=== PATIENT | female | born 1970 | race Caucasian/White ===

== ENCOUNTER 2017-02-11 23:13 | Inpatient (IN) | payer MEDICAID ==
[~2017-02-11] VITALS: Ht 157.5 cm; Wt 92.0 kg
[~2017-02-11 23:13] MED LIST: BENA20TA65 PO; ESOM20CA PO; FER325 PO; ISOS30TA5 PO; LANT3I SC; NIFE60TA60 PO; OXYC-281 PO
--- NOTE | 2017-02-12 02:23 | ERD ---
ER Documentation Chief Complaint Date/Time DATE: 02/12/17 TIME: 02:23 Chief Complaint BILAT LOWER EXT SWELLING/BACK PAIN CHEST WALL PAIN X2DAYS HPI 46-year-old woman presents with pressure-like chest discomfort radiating to the back 2 days. She denies previous episodes. States the pain is exertional. She denies cough, no fevers or chills, no vomiting or diarrhea, no headache or blurry vision. She states recently her lower extremities have been swollen. ROS All systems reviewed and are negative except as per history of present illness. Medications Home Meds Active Scripts Oxycodone Hcl-Acetaminophen* (Percocet*) 5-325 Mg Tablet, 1 TAB PO Q6 Y for PAIN LEVEL 6-10 for 10 Days, TAB Prov:REBA SUAREZ MD 10/05/15 Nifedipine* (Procardia XL*) 60 Mg Tabsr, 60 MG PO DAILY for 30 Days, TAB Prov:REBA SUAREZ MD 10/05/15 Isosorbide Mononitrate* (Isosorbide Mononitrate*) 30 Mg Tabsr, 30 MG PO DAILY for 30 Days, TAB Prov:REBA SUAREZ MD 10/05/15 Insulin Glargine* (Lantus*) 100 Unit/Ml Soln, 10 UNIT SC HS for 30 Days, BOT Prov:REBA SUAREZ MD 09/23/15 Ferrous Sulfate* (Ferrous Sulfate*) 325 Mg Tabec, 325 MG PO DAILY for 30 Days, TAB Prov:REBA SUAREZ MD 09/23/15 Benazepril Hcl* (Lotensin*) 20 Mg Tab, 20 MG PO DAILY for 30 Days, TAB Prov:REBA SUAREZ MD 09/23/15 Reported Medications Esomeprazole Mag Trihydrate (Nexium) 20 Mg Capsule.dr, 20 MG PO DAILY, #30 CAP 09/30/15 Allergies Allergies: Coded Allergies: No Known Drug Allergy (Verified Allergy, Mild, 09/30/15) PMhx/Soc Anemia, hypertension, chronic kidney disease, diabetes mellitus 2, History of Surgery: No Anesthesia Reaction: No Hx Neurological Disorder: Yes (RIGHT ARM LIGHT WEAKER THAN LEFT ARM,STROKE 2 MONTHS AGO) Hx Respiratory Disorders: No Hx Cardiac Disorders: No Hx Psychiatric Problems: Yes (ANXIETY) Hx Miscellaneous Medical Probl: Yes (Please see EMR) Hx Alcohol Use: No (DENIED) Hx Substance Use: No Hx Tobacco Use: Yes (SOCIALIZE, STOPPED 20YRS) FmHx Family History: diabetes Physical Exam Vitals Vital Signs Date Time Temp Pulse Resp B/P Pulse Ox O2 Delivery O2 Flow Rate FiO2 02/12/17 04:19 63 18 100 21 02/12/17 02:48 63 17 153/76 100 Room Air 02/11/17 23:25 97.2 69 20 152/67 98 Physical Exam GENERAL: Well-developed, well-nourished, mild to moderate discomfort HEENT: Moist mucous membranes, pink conjunctiva, no cervical spine tenderness or step-off deformities, no goiter, no jaundice or icterus, extraocular movements intact without pain. No submandibular induration, and no pharyngeal erythema NEURO: Alert and oriented 3, cranial nerves II through XII intact bilaterally, pupils equal round reactive to light, no focal deficits or facial asymmetry, sensation intact distally Strength 5/5 in upper and lower extremities bilaterally CARDIAC: Regular rate and rhythm, no murmurs rubs or gallops LUNGS: Clear bilaterally no wheezing crackles or stridor ABDOMEN: Soft nontender, no guarding, no rigidity, no rebound, no psoas sign no obturator sign. SKIN: Warm and dry to touch, no abrasions, contusions, or hematomas, no lacerations, no ecchymosis, no target lesions, and without ulcers EXTREMITIES: No clubbing cyanosis, 2+ pitting edema in the lower extremities bilaterally, calves are bilaterally symmetrical, no Homans sign, no popliteal cord sign. Distal pulses equal and bilateral PSYCH: Anxious Result Diagram: 02/12/17 0235 02/12/17 0235 Results 24 hrs Laboratory Tests Test 02/12/17 02:35 White Blood Count 6.610^3/ul Red Blood Count 3.1110^6/ul Hemoglobin 9.1g/dl Hematocrit 28.4% Mean Corpuscular Volume 91.3fl Mean Corpuscular Hemoglobin 29.3pg Mean Corpuscular Hemoglobin Concent 32.0g/dl Red Cell Distribution Width 15.0% Platelet Count 19174^3/UL Mean Platelet Volume 11.9fl Neutrophils % 63.5% Lymphocytes % 26.1% Monocytes % 7.8% Eosinophils % 2.0% Basophils % 0.3% Nucleated Red Blood Cells % 0.0/100WBC Neutrophils # 4.210^3/ul Lymphocytes # 1.710^3/ul Monocytes # 0.510^3/ul Eosinophils # 0.110^3/ul Basophils # 0.010^3/ul Nucleated Red Blood Cells # 0.010^3/ul Sodium Level 140mmol/L Potassium Level 6.5mmol/L Chloride Level 113mmol/L Carbon Dioxide Level 11mmol/L Anion Gap 23 Blood Urea Nitrogen 68mg/dl Creatinine 4.77mg/dl Glucose Level 153mg/dl Calcium Level 7.9mg/dl Total Bilirubin 0.0mg/dl Direct Bilirubin 0.00mg/dl Indirect Bilirubin 0.0mg/dl Aspartate Amino Transf (AST/SGOT) 22IU/L Alanine Aminotransferase (ALT/SGPT) 31IU/L Alkaline Phosphatase 102IU/L Troponin I < 0.012ng/ml Total Protein 7.3g/dl Albumin 4.3g/dl Globulin 3.00g/dl Albumin/Globulin Ratio 1.43 Lipase 280U/L Current Medications Medications (Trade) Dose Ordered Sig/Stalin Route PRN Reason Start Time Stop Time Status Last Admin Dose Admin Aspirin (Aspirin) 325 mg ONCE ONCE PO 02/12/17 03:00 02/12/17 03:01 DC 02/12/17 02:47 Nitroglycerin (Nitroglycerin (Sl Tab) 0.4 Mg) 1 tab ONCE ONCE SL 02/12/17 03:00 02/12/17 03:01 DC 02/12/17 02:43 Lorazepam 0.5 mg 0.5 mg ONCE ONCE IV 02/12/17 03:00 02/12/17 03:01 DC 02/12/17 02:47 Calcium Gluconate/ Sodium Chloride (Ca Gluc/NS) 110 ml @ 110 mls/hr ONCE ONCE IVPB 02/12/17 04:30 02/12/17 05:29 02/12/17 04:26 Dextrose (D50w Syringe) 50 ml ONCE STAT IV 02/12/17 04:04 02/12/17 04:10 DC 02/12/17 04:26 Insulin Human Regular (Novolin-R) 8 unit ONCE ONCE IV 02/12/17 04:30 02/12/17 04:30 DC Albuterol (Proventil 0.083% (Neb)) 5 mg ONCE STAT HHN 02/12/17 04:04 02/12/17 04:10 DC 02/12/17 04:19 Insulin Human Regular (Humulin R) 8 unit ONCE ONCE IV 02/12/17 04:30 02/12/17 04:31 DC 02/12/17 04:30 IV Flush (NS 3 ml) 3 ml PER PROTOCOL IV 02/12/17 05:00 Ondansetron HCl (Zofran Inj) 4 mg Q6H PRN IV NAUSEA AND/OR VOMITING 02/12/17 05:00 Aspirin (Aspirin) 81 mg DAILY PO 02/12/17 09:00 Nitroglycerin (Nitroglycerin (Sl Tab) 0.4 Mg) 1 tab Q5M PRN SL CHEST PAIN 02/12/17 05:00 Acetaminophen (Tylenol Tab) 650 mg Q6H PRN PO PAIN LEVEL 1-3 OR FEVER 02/12/17 05:00 Morphine Sulfate (morphine) 2 mg Q4H PRN IV PAIN LEVEL 7-10 02/12/17 05:00 Docusate Sodium (Colace) 100 mg Q12H PRN PO CONSTIPATION 02/12/17 05:00 Bisacodyl (Dulcolax) 5 mg DAILY PRN PO CONSTIPATION 02/12/17 05:00 Pantoprazole (Protonix Iv) 40 mg DAILY@06 IV 02/12/17 06:00 Ferrous Sulfate (Ferrous Sulfate (Ec)) 325 mg DAILY PO 02/12/17 09:00 Insulin Glargine (Lantus) 10 unit HS SC 02/12/17 21:00 Isosorbide Mononitrate (Imdur) 30 mg DAILY PO 02/12/17 09:00 Nifedipine (Procardia Xl) 60 mg DAILY PO 02/12/17 09:00 Miscellaneous Information 1 ea NOTE XX 02/12/17 05:00 Glucose (Glutose) 15 gm Q15M PRN PO DECREASED GLUCOSE 02/12/17 05:00 Glucose (Glutose) 22.5 gm Q15M PRN PO DECREASED GLUCOSE 02/12/17 05:00 Dextrose (D50w Syringe) 25 ml Q15M PRN IV DECREASED GLUCOSE 02/12/17 05:00 Dextrose (D50w Syringe) 50 ml Q15M PRN IV DECREASED GLUCOSE 02/12/17 05:00 Glucagon (Glucagen) 1 mg Q15M PRN IM DECREASED GLUCOSE 02/12/17 05:00 Glucose (Glutose) 15 gm Q15M PRN BUCCAL DECREASED GLUCOSE 02/12/17 05:00 Procedures/MDM IV line was established patient was placed on manager monitoring rhythm strip revealed a sinus rhythm at about 70 bpm with upright P and T waves. Patient was afebrile. Chest X-ray 1V Interpreted by me: Soft Tissue: No acute abnormalities Bones: No acute abnormalities Mediastinum/Cardiac Silhouette/Lungs: No acute abnormalities EKG performed, read by me: 65 bpm, normal sinus rhythm, normal axis, no acute ST segment changes, narrow QRS complex, with good R-wave progression in precordial leads. I administered aspirin 325 mg p.o. for cardioprotective measures, nitroglycerin 0.4 mg sublingual, and lorazepam 0.5 mg IV. Patient's chest pain resolved and symptoms improved. CBC reveals mild anemia with a hemoglobin of 9.1, electrolytes were abnormal revealing acute kidney injury with a BUN/creatinine of 68/4.8 and acute hyperkalemia at 6.5. Liver function tests were normal, troponin was negative I administered albuterol 5 mg via nebulizer, dextrose 25 g IV, regular insulin 8 units IV, and calcium gluconate 1 g IV. Critical Care: Time: 35 minutes, this was time separate from other billable procedures. Treatments/Evaluations: Close monitoring and treatment of unstable vital signs, cardiorespiratory, and neurologic status, while maintaining tight balance of fluid, respiratory, and cardiac interventions. Given the patient's risk factors and recent chest pain she will be admitted to telemetry setting for continued medical management cardiology consultation. Departure Diagnosis: Primary Impression: Chest pain Chest pain type: unspecified Qualified Code: R07.9 - Chest pain, unspecified type Additional Impressions: Hypertension Hypertension type: essential hypertension Qualified Code: I10 - Essential hypertension Acute kidney injury superimposed on chronic kidney disease Acute hyperkalemia Condition: CORINNE Mathew MD Feb 12, 2017 02:23
[2017-02-12] MEDS ORDERED: NITROGLYCERIN (SL) 0.4 MG TAB SL ONE (03:00)
[2017-02-12] MEDS ORDERED: LORAZEPAM 2 MG INJ IV ONE (03:00)
[2017-02-12] MEDS ORDERED: ASPIRIN 325 MG TAB PO ONE (03:00)
--- NOTE | 2017-02-12 03:17 | RADRPT ---
PROCEDURE: Chest. CLINICAL INDICATION: Chest pain. TECHNIQUE: Single frontal view of the chest was obtained. COMPARISON: 03/13/2015. FINDINGS: The cardiac silhouette is within normal limits. The aortic arch is unremarkable. There is no focal consolidation, vascular congestion or pleural effusion. There is no pneumothorax. IMPRESSION: No evidence for active cardiopulmonary disease. .Jack Campos MD, Date Time Electronically viewed and signed by .Jack Campos MD, on 02/12/2017 03:16 .T/
[2017-02-12 03:33] LABS: ADD SCAN DIFF NO
[2017-02-12 03:34] LABS: BASOPHILS % 0.3 % (0.0-2.0); EOSINOPHILS # 0.1 10^3/ul (0.0-0.5); HEMATOCRIT 28.4 % (37.0-47.0); HEMOGLOBIN 9.1 g/dl (12.0-16.0); LYMPHOCYTES # 1.7 10^3/ul (0.8-2.9); LYMPHOCYTES % 26.1 % (15.0-51.0); MEAN CORPUSCULAR HEMOGLOBIN 29.3 pg (29.0-33.0); MEAN CORPUSCULAR VOLUME 91.3 fl (82.0-101.0); MEAN PLATELET VOLUME 11.9 fl (7.4-10.4); MONOCYTE # 0.5 10^3/ul (0.3-0.9); MONOCYTES % 7.8 % (0.0-11.0); NEUTROPHIL # 4.2 10^3/ul (1.6-7.5); NEUTROPHILS % 63.5 % (39.0-77.0); PLATELET COUNT 203 10^3/UL (140-415); RED BLOOD COUNT 3.11 10^6/ul (4.20-5.40); WHITE BLOOD COUNT 6.6 10^3/ul (4.8-10.8)
[2017-02-12 03:57] LABS: ALANINE AMINOTRANSFERASE 31 IU/L (13-69); ALBUMIN 4.3 g/dl (3.3-4.9); ALBUMIN/GLOBULIN RATIO 1.43; ALKALINE PHOSPHATASE 102 IU/L (42-121); ANION GAP 23 (8-16); ASPARTATE AMINO TRANSFERASE 22 IU/L (15-46); BLOOD UREA NITROGEN 68 mg/dl (7-20); CALCIUM 7.9 mg/dl (8.4-10.2); CARBON DIOXIDE 11 mmol/L (21-31); CHLORIDE 113 mmol/L (97-110); CREATININE 4.77 mg/dl (0.44-1.00); GLUCOSE 153 mg/dl (70-220); SODIUM 140 mmol/L (135-144); TOTAL PROTEIN 7.3 g/dl (6.1-8.1)
[2017-02-12 04:02] LABS: POTASSIUM 6.5 mmol/L (3.5-5.1)
[2017-02-12] MEDS ORDERED: ALBUTEROL 0.083% (NEB) 2.5 MG/3 ML AMP HHN STA (04:04)
[2017-02-12] MEDS ORDERED: DEXTROSE 50% 50 ML SYRINGE IV STA (04:04)
[2017-02-12 04:11] LABS: TROPONIN-I < 0.012 ng/ml (0.00-0.12)
[2017-02-12] MEDS ORDERED: INSULIN REGULAR, HUMAN 100 UNIT/1 ML 3ML VIAL IV ONE (04:30)
[2017-02-12] MEDS ORDERED: INSULIN REGULAR 10 ML INJ IV ONE (04:30)
[2017-02-12] MEDS ORDERED: CALCIUM GLUCONATE 10% 1 GM in SOD CHLORIDE 0.9% 100 ML IVPB ONE (04:30)
[2017-02-12] MEDS ORDERED: NACL 0.9% 3 ML SYG IV SCH (05:00)
[2017-02-12] MEDS ORDERED: ACETAMINOPHEN 325 MG TAB PO PRN (05:00)
[2017-02-12] MEDS ORDERED: NITROGLYCERIN (SL) 0.4 MG TAB SL PRN (05:00)
[2017-02-12] MEDS ORDERED: GLUCAGON 1 MG INJ IM PRN (05:00)
[2017-02-12] MEDS ORDERED: GLUCOSE GEL 15 GRAM TUBE PO PRN ×2 (05:00)
[2017-02-12] MEDS ORDERED: GLUCOSE GEL 15 GRAM TUBE BUCCAL PRN (05:00)
[2017-02-12] MEDS ORDERED: DEXTROSE 50% 50 ML SYRINGE IV PRN ×2 (05:00)
[2017-02-12] MEDS ORDERED: ONDANSETRON 4 MG INJ IV PRN (05:00)
[2017-02-12 05:05] LABS: ADD SCAN DIFF NO
[2017-02-12 05:47] LABS: BASOPHILS % 0.3 % (0.0-2.0); EOSINOPHILS # 0.1 10^3/ul (0.0-0.5); EOSINOPHILS % 1.9 % (0.0-7.0); HEMATOCRIT 26.9 % (37.0-47.0); HEMOGLOBIN 8.3 g/dl (12.0-16.0); LYMPHOCYTES # 1.4 10^3/ul (0.8-2.9); LYMPHOCYTES % 24.2 % (15.0-51.0); MEAN CORPUSCULAR HEMOGLOBIN 28.3 pg (29.0-33.0); MEAN CORPUSCULAR HGB CONC 30.9 g/dl (32.0-37.0); MEAN CORPUSCULAR VOLUME 91.8 fl (82.0-101.0); MEAN PLATELET VOLUME 11.5 fl (7.4-10.4); MONOCYTE # 0.4 10^3/ul (0.3-0.9); MONOCYTES % 6.8 % (0.0-11.0); NEUTROPHIL # 3.9 10^3/ul (1.6-7.5); NEUTROPHILS % 66.6 % (39.0-77.0); PLATELET COUNT 186 10^3/UL (140-415); RED BLOOD COUNT 2.93 10^6/ul (4.20-5.40); RED CELL DISTRIBUTION WIDTH 15.1 % (11.5-14.5); WHITE BLOOD COUNT 5.9 10^3/ul (4.8-10.8)
--- NOTE | 2017-02-12 06:03 | HP ---
Date/Time of Note Date/Time of Note DATE: 02/12/17 TIME: 05:47 Assessment/Plan VTE Prophylaxis VTE Prophylaxis Intervention: SCD's Assessment/Plan Chief Complaint/Hosp Course This is a 46 year female being admitted to the telemetry floor for: #1 chest pain: Could be multifactorial but will rule out ACS. Patient does meet risk factors of diabetes hypertension chronic kidney disease. At the current time her initial troponin EKG are within normal values. Will trend troponins. She did come in hyperkalemic and her renal function labs are abnormal making her high risk for uremia. #2 Acute on chronic kidney disease: Based on current presentation patient is likely stage IV or even stage V CKD she appears to be relatively oliguric as she states that the only when she urinates his when using a diuretic though this is not on her med reconciliation. Patient's creatinine last year was 2.70 and today it is 4.7 with a BUN of 68 and a potassium of 6.5. She received stat dextrose insulin albuterol treatment and calcium for the hyperkalemia. We will repeat a BMP to assess her potassium. Will consult nephrology. Will order renal ultrasound as well as urine microscope and urine sodium studies. It appears patient likely will need to be on dialysis so consultation with vascular surgery may also need to be placed however we will allow renal to first consult with the patient. Will hold ANKITA inhibitor. Will defer diuresis to renal and cardio for now as patient possibly could be dialyzed. #3 hyperkalemia: Initial potassium 6.5 patient received insulin with dextrose and calcium gluconate and epidural treatment in the ED. Will order repeat BMP to assess potassium as well as other electrolytes. #4 diabetes mellitus: We will check a hemoglobin A1c put patient on insulin sliding scale. Continue home dose of Lantus. #5 hypertension: We will continue nifedipine, we will hold ANKITA inhibitor. Put the patient on as needed hydralazine for blood pressure greater than 140/90. #6 normocytic anemia: This likely secondary to #2. Will check iron studies. Patient likely will need Procrit/Epogen however we will defer this to nephrology. Continue home iron supplements. #7 DVT and GI prophylaxis: SCDs, Protonix Further treatment strategy will be implemented as per the clinical course Problems: HPI/ROS Admit Date/Time Admit Date/Time Hx of Present Illness Chief complaint: Chest pain This is a 46-year-old woman presents with pressure-like chest discomfort radiating to the back 2 days. She denies previous episodes. States the pain is exertional. She denies cough, no fevers or chills, no vomiting or diarrhea, no headache or blurry vision. She states recently her lower extremities have been swollen for the past 3 days. She states that she does have difficulty urinating and usually takes pill that she got from her doctor to help her urinate. She has been seeing apparently a kidney doctor at [facility] all of you. Allergies: NKDA Medications: See MEHRAN CERDA Const: As per HPI Eyes : No pain discharge or redness or change in visual acuity ENT: No pain, sore throat, congestion, congestion, dysphagia or discharge Respiratory: No shortness of breath, cough, sputum, wheezing, or pleuritic pain Cardiovascular: As per HPI GI : no change in appetite, abdominal pain, nausea, vomiting, diarrhea, constipation, or change in the color his stool Genitourinary: No dysuria, hematuria, flank pain , discharge or CVA tenderness Musculoskeletal: No joint pain, back pain, neck pain, restricted range of motion in neck or joints Skin: As per HPI Neuro: No headache, dizziness, syncope, seizure, focal weakness Endocrine: No polyuria, polydipsia, temperature intolerance Psych: No hallucination, depression, anxiety or suicidal ideation PMH/Family/Social Past Medical History Diabetes mellitus, hypertension, CKD Past Surgical History Past Surgical Hx: no surgical history Family History Significant Family History: diabetes Social History Alcohol Use: none Smoking Status: Never smoker Drug Use: none Exam/Review of Systems Vital Signs Vitals Vital Signs Date Time Temp Pulse Resp B/P Pulse Ox O2 Delivery O2 Flow Rate FiO2 02/12/17 05:25 88 16 145/98 98 Room Air 02/12/17 04:19 21 02/11/17 23:25 97.2 Exam Exam General: Patient is lying in bed in mild discomfort. HEENT: Atraumatic, normocephalic. The pupils are equal, round and reactive. Extraocular motor are intact Neck: Supple with full range of motion. No rigidity or meningismus Chest: Nontender Lungs: Clear to auscultation bilaterally no crackles rales or wheezing Heart: Normal S1-S2, Regular rhythm and rate. No overt murmur appreciate Abdomen: Soft , nontender, nondistended , bowel sounds are present. No guarding no rebound tenderness , No masses or organomegaly. No costovertebral temporal angle mass Extremities: 2+ bilateral pitting edema, multiple 1-2 cm lesion the noted of the bilateral lower extremities with dry blood. Neurologic: Normal mental status, speech normal, cranial nerves II through XII are intact, motor and sensory are intact, no focal weakness Additional Comments PROCEDURE: Chest. CLINICAL INDICATION: Chest pain. TECHNIQUE: Single frontal view of the chest was obtained. COMPARISON: 03/13/2015. FINDINGS: The cardiac silhouette is within normal limits. The aortic arch is unremarkable. There is no focal consolidation, vascular congestion or pleural effusion. There is no pneumothorax. IMPRESSION: No evidence for active cardiopulmonary disease. .Jack Campos MD, Date Time Electronically viewed and signed by .Jack Campos MD, MD on 02/12/2017 03:16 EK bpm, normal sinus rhythm, normal axis, no acute ST segment changes, narrow QRS complex, with good R-wave progression in precordial leads. As per the ED physician recommendation Labs Result Diagram: 02/12/17 0235 02/12/17 0235 Medications Medications Current Medications Ondansetron HCl (Zofran Inj) 4 mg Q6H PRN IV NAUSEA AND/OR VOMITING; Start at 05:00 Aspirin (Aspirin) 81 mg DAILY PO ; Start 02/12/17 at 09:00 Nitroglycerin (Nitroglycerin (Sl Tab) 0.4 Mg) 1 tab Q5M PRN SL CHEST PAIN; Start 02/12/17 at 05:00 Acetaminophen (Tylenol Tab) 650 mg Q6H PRN PO PAIN LEVEL 1-3 OR FEVER; Start at 05:00 Morphine Sulfate (morphine) 2 mg Q4H PRN IV PAIN LEVEL 7-10; Start 02/12/17 at 05:00 Docusate Sodium (Colace) 100 mg Q12H PRN PO CONSTIPATION; Start 02/12/17 at 05: 00 Bisacodyl (Dulcolax) 5 mg DAILY PRN PO CONSTIPATION; Start 02/12/17 at 05:00 Pantoprazole (Protonix Iv) 40 mg DAILY@06 IV ; Start 02/12/17 at 06:00 Ferrous Sulfate (Ferrous Sulfate (Ec)) 325 mg DAILY PO ; Start 02/12/17 at 09:00 Insulin Glargine (Lantus) 10 unit HS SC ; Start 02/12/17 at 21:00 Isosorbide Mononitrate (Imdur) 30 mg DAILY PO ; Start 02/12/17 at 09:00 Nifedipine (Procardia Xl) 60 mg DAILY PO ; Start 02/12/17 at 09:00 Miscellaneous Information 1 ea NOTE XX ; Start 02/12/17 at 05:00 Glucose (Glutose) 15 gm Q15M PRN PO DECREASED GLUCOSE; Start 02/12/17 at 05:00 Glucose (Glutose) 22.5 gm Q15M PRN PO DECREASED GLUCOSE; Start 02/12/17 at 05: 00 Dextrose (D50w Syringe) 25 ml Q15M PRN IV DECREASED GLUCOSE; Start 02/12/17 at 05:00 Dextrose (D50w Syringe) 50 ml Q15M PRN IV DECREASED GLUCOSE; Start 02/12/17 at 05:00 Glucagon (Glucagen) 1 mg Q15M PRN IM DECREASED GLUCOSE; Start 02/12/17 at 05:00 Glucose (Glutose) 15 gm Q15M PRN BUCCAL DECREASED GLUCOSE; Start 02/12/17 at 05 :00 ARASH LINDSAY Feb 12, 2017 06:00
[2017-02-12 06:04] LABS: ALBUMIN 3.8 g/dl (3.3-4.9); ALBUMIN/GLOBULIN RATIO 1.35; CALCIUM 7.9 mg/dl (8.4-10.2); CREATININE 4.9 mg/dl (0.44-1.00); POTASSIUM 5.5 mmol/L (3.5-5.1); TOTAL PROTEIN 6.6 g/dl (6.1-8.1)
[2017-02-12] MEDS: PANTOPRAZOLE 40 MG INJ IV SCH (06:50)
[2017-02-12] MEDS: DOCUSATE SODIUM 100 MG CAP PO PRN (08:47)
[2017-02-12] MEDS: FERROUS SULFATE (EC) 325 MG TAB PO SCH (08:47)
[2017-02-12] MEDS: ISOSORBIDE MONONITRATE(SR)30 MG TAB PO SCH (08:48)
[2017-02-12] MEDS: NIFEdipine (XL) 60 MG TAB PO SCH (08:48)
[2017-02-12] MEDS: ASPIRIN 81 MG TAB PO SCH (08:57)
--- NOTE | 2017-02-12 09:26 | CONS ---
Date/Time of Note Date/Time of Note DATE: 02/12/17 TIME: 09:14 Assessment/Plan Assessment/Plan Chief Complaint/Hosp Course #1 hyperkalemia: Initial potassium 6.5 patient received insulin with dextrose and calcium gluconate and epidural treatment in the ED. improved on repeat BMP. recommend diet education. #2 Acute on chronic kidney disease: Based on current presentation patient is likely stage IV or even stage V CKD she appears to be relatively oliguric as she states that the only when she urinates his when using a diuretic. Patient' s creatinine last year was 2.70 and today it is 4.7 with a BUN of 68 and a potassium of 6.5. Unclear what her most recent baseline cr is now. Will order renal ultrasound as well as urine microscope and urine sodium studies. agree with holding ANKITA inhibitor. monitor serial labs. if k stays controllable, no acute indication for hd. will try to get records. monitor serial labs. likely nephrosclerosis but htn nephrosclerosis typically doesn't progress rapidly. will send serologies and quantify proteinuria. #3 chest pain: Could be multifactorial but will rule out ACS. Patient does meet risk factors of diabetes hypertension chronic kidney disease. At the current time her initial troponin EKG are within normal values. Will trend troponins. did come in hyperkalemic and her renal function labs are abnormal making her high risk for uremia. #4 diabetes mellitus: We will check a hemoglobin A1c put patient on insulin sliding scale. Continue home dose of Lantus. #5 hypertension: We will continue nifedipine, we will hold ANKITA inhibitor. Put the patient on as needed hydralazine for blood pressure greater than 140/90. #6 normocytic anemia: This likely secondary to #2. Will check iron studies. Patient likely will need Procrit/Epogen however unclear if can get it as outpatient. Continue home iron supplements. Problems: Consultation Date/Type/Reason Admit Date/Time Type of Consultation: neph Hx of Present Illness This is a 46-year-old woman presents with pressure-like chest discomfort radiating to the back 2 days. She denies previous episodes. States the pain is exertional. She denies cough, no fevers or chills, no vomiting or diarrhea, no headache or blurry vision. She states recently her lower extremities have been swollen for the past 3 days. She concommitantly ran out of her lasix and hasn't been able to get to her doctor to get a refill. she has no nsaid use. she is on an ankita-i. She has been seeing apparently a kidney doctor at [facility]. never been told that she is nearing hd. denies dysuria or history of frequent uti. ROS Const: As per HPI Eyes : No pain discharge or redness or change in visual acuity ENT: No pain, sore throat, congestion, congestion, dysphagia or discharge Respiratory: No shortness of breath, cough, sputum, wheezing, or pleuritic pain Cardiovascular: As per HPI GI : no change in appetite, abdominal pain, nausea, vomiting, diarrhea, constipation, or change in the color his stool Genitourinary: No dysuria, hematuria, flank pain , discharge or CVA tenderness Musculoskeletal: No joint pain, back pain, neck pain, restricted range of motion in neck or joints Skin: As per HPI Neuro: No headache, dizziness, syncope, seizure, focal weakness Endocrine: No polyuria, polydipsia, temperature intolerance Psych: No hallucination, depression, anxiety or suicidal ideation Past Medical History ?Diabetes mellitus, hypertension, CKD reportedly due to htn Past Surgical History Past Surgical Hx: no surgical history Family History Significant Family History: diabetes Social History Alcohol Use: none Smoking Status: Never smoker General: Patient is lying in bed in mild discomfort. HEENT: Atraumatic, normocephalic. The pupils are equal, round and reactive. Extraocular motor are intact Neck: Supple with full range of motion. No rigidity or meningismus Chest: Nontender Lungs: Clear to auscultation bilaterally no crackles rales or wheezing Heart: Normal S1-S2, Regular rhythm and rate. No overt murmur appreciate Abdomen: Soft , nontender, nondistended , bowel sounds are present. No guarding no rebound tenderness , No masses or organomegaly. No costovertebral temporal angle mass Extremities: 2+ bilateral pitting edema, multiple 1-2 cm lesion the noted of the bilateral lower extremities with dry blood. Neurologic: Normal mental status, speech normal, cranial nerves II through XII are intact, motor and sensory are intact, no focal weakness Past Surgical History Past Surgical Hx: no surgical history Social History Alcohol Use: none Smoking Status: Never smoker Drug Use: none Exam/Review of Systems Vital Signs Vitals Vital Signs Date Time Temp Pulse Resp B/P Pulse Ox O2 Delivery O2 Flow Rate FiO2 7/16/17 05:25 88 16 145/98 98 Room Air 02/12/17 04:19 21 02/11/17 23:25 97.2 Results Result Diagram: 02/12/17 0455 02/12/17 0455 Results 24 hrs Laboratory Tests Test 02/12/17 02:35 02/12/17 04:55 White Blood Count 6.6 # 5.9 Red Blood Count 3.11 L 2.93 L Hemoglobin 9.1 L 8.3 L Hematocrit 28.4 L 26.9 L Mean Corpuscular Volume 91.3 91.8 Mean Corpuscular Hemoglobin 29.3 28.3 L Mean Corpuscular Hemoglobin Concent 32.0 30.9 L Red Cell Distribution Width 15.0 H 15.1 H Platelet Count 203 186 Mean Platelet Volume 11.9 #H 11.5 H Neutrophils % 63.5 66.6 Lymphocytes % 26.1 24.2 Monocytes % 7.8 6.8 Eosinophils % 2.0 1.9 Basophils % 0.3 0.3 Nucleated Red Blood Cells % 0.0 0.0 Neutrophils # 4.2 3.9 Lymphocytes # 1.7 1.4 Monocytes # 0.5 0.4 Eosinophils # 0.1 0.1 Basophils # 0.0 0.0 Nucleated Red Blood Cells # 0.0 0.0 Sodium Level 140 142 Potassium Level 6.5 *H 5.5 H Chloride Level 113 H 114 H Carbon Dioxide Level 11 L 12 L Anion Gap 23 H 22 H Blood Urea Nitrogen 68 H 67 H Creatinine 4.77 H 4.90 H Glucose Level 153 80 # Calcium Level 7.9 L 7.9 L Total Bilirubin 0.0 L 0.0 L Direct Bilirubin 0.00 0.00 Indirect Bilirubin 0.0 0.0 Aspartate Amino Transf (AST/SGOT) 22 16 Alanine Aminotransferase (ALT/SGPT) 31 27 Alkaline Phosphatase 102 93 Troponin I < 0.012 Total Protein 7.3 6.6 Albumin 4.3 3.8 Globulin 3.00 2.80 Albumin/Globulin Ratio 1.43 1.35 Lipase 280 Medications Medications Current Medications Ondansetron HCl (Zofran Inj) 4 mg Q6H PRN IV NAUSEA AND/OR VOMITING; Start at 05:00 Aspirin (Aspirin) 81 mg DAILY PO Last administered on 02/12/17t 08:57; Admin Dose 81 MG; Start 02/12/17 at 09:00 Nitroglycerin (Nitroglycerin (Sl Tab) 0.4 Mg) 1 tab Q5M PRN SL CHEST PAIN; Start 02/12/17 at 05:00 Acetaminophen (Tylenol Tab) 650 mg Q6H PRN PO PAIN LEVEL 1-3 OR FEVER; Start at 05:00 Morphine Sulfate (morphine) 2 mg Q4H PRN IV PAIN LEVEL 7-10; Start 02/12/17 at 05:00 Docusate Sodium (Colace) 100 mg Q12H PRN PO CONSTIPATION Last administered on 08:47; Admin Dose 100 MG; Start 02/12/17 at 05:00 Bisacodyl (Dulcolax) 5 mg DAILY PRN PO CONSTIPATION; Start 02/12/17 at 05:00 Pantoprazole (Protonix Iv) 40 mg DAILY@06 IV Last administered on 02/12/17 06: 50; Admin Dose 40 MG; Start 02/12/17 at 06:00 Ferrous Sulfate (Ferrous Sulfate (Ec)) 325 mg DAILY PO Last administered on 08:47; Admin Dose 325 MG; Start 02/12/17 at 09:00 Insulin Glargine (Lantus) 10 unit HS SC ; Start 02/12/17 at 21:00 Isosorbide Mononitrate (Imdur) 30 mg DAILY PO Last administered on 02/12/17 08 :48; Admin Dose 30 MG; Start 02/12/17 at 09:00 Nifedipine (Procardia Xl) 60 mg DAILY PO Last administered on 02/12/17 08:48; Admin Dose 60 MG; Start 02/12/17 at 09:00 Miscellaneous Information 1 ea NOTE XX ; Start 02/12/17 at 05:00 Glucose (Glutose) 15 gm Q15M PRN PO DECREASED GLUCOSE; Start 02/12/17 at 05:00 Glucose (Glutose) 22.5 gm Q15M PRN PO DECREASED GLUCOSE; Start 02/12/17 at 05: 00 Dextrose (D50w Syringe) 25 ml Q15M PRN IV DECREASED GLUCOSE; Start 02/12/17 at 05:00 Dextrose (D50w Syringe) 50 ml Q15M PRN IV DECREASED GLUCOSE; Start 02/12/17 at 05:00 Glucagon (Glucagen) 1 mg Q15M PRN IM DECREASED GLUCOSE; Start 02/12/17 at 05:00 Glucose (Glutose) 15 gm Q15M PRN BUCCAL DECREASED GLUCOSE; Start 02/12/17 at 05 :00 CLARA CARSON MD Feb 12, 2017 09:24
[2017-02-12] MEDS ORDERED: NA POLYST SULFON 15 GM/60 ML BTL PO ONE (09:30)
[2017-02-12 10:35] LABS: IRON 171 ug/dl (35-150)
[2017-02-12 10:41] LABS: C-REACTIVE PROTEIN < 0.5 mg/dl (0.0-0.9)
--- NOTE | 2017-02-12 10:41 | CONS ---
Date/Time of Note Date/Time of Note DATE: 02/12/17 TIME: 10:34 Assessment/Plan Assessment/Plan Chief Complaint/Hosp Course Acute on chronic ?diastolic heart failure: Pt has significant volume overload due to her acute on chronic renal failure and running out of what is likely lasix. She needs diuresis Chest pain: Likely secondary to decompensated heart failure causing elevated LVEDP and angina. DOubt has underlying obstructive CAD as she is usually active and asymptomatic. Will diurese, check echo, and likely perform a stress test. Acute on chronic renal failure: Cr 4.5, apparently mid 2s at baseline. Hyperkalemia: secondary to above, improved -lasix 40mg IV BID (may need higher doses with high Cr but will see how she responds) -continue ASA -echo -stress test in the next day or two depending on further results -trend trop -management of renal failure per nephrology Problems: Consultation Date/Type/Reason Admit Date/Time Date of Consultation: Feb 12, 2017 Type of Consultation: Cardiology Reason for Consultation Chest pain Referring Provider: ARASH LINDSAY Hx of Present Illness 46 yo F with a h/o CKD who presented with chest pain, SOB, edema. A cash teller was used. The pt notes that she had been taking a diuretic for the past several months and she ran out 3 days ago. Since then she has been having chest pressure with exertion, SOB, orthopnea, PND, edema. She feels fatigued. No prior similar episodes. No prior cardiac history Per HPI Past Medical History per HPI Past Surgical History Past Surgical Hx: no surgical history Social History Alcohol Use: none Smoking Status: Never smoker Drug Use: none Exam/Review of Systems Vital Signs Vitals Vital Signs Date Time Temp Pulse Resp B/P Pulse Ox O2 Delivery O2 Flow Rate FiO2 02/12/17 09:00 98.3 71 20 93/47 100 Room Air 02/12/17 04:19 21 Exam Constitutional: alert, oriented Psych: nl mood/affect Head: atraumatic, normocephalic Neck: jvd (10cm) Respiratory: crackles/rales (mild), No clear to auscultation Cardiovascular: edema (1-2+), regular rate and rhythm, No systolic murmur Gastrointestinal: non-tender, soft Musculoskeletal: nl extremities to inspection Neurological: nl mental status, nl speech Results EKG: NSR, no ST changes Result Diagram: 02/12/17 0455 02/12/17 0455 Results 24 hrs Laboratory Tests Test 02/12/17 02:35 02/12/17 04:55 White Blood Count 6.6 # 5.9 Red Blood Count 3.11 L 2.93 L Hemoglobin 9.1 L 8.3 L Hematocrit 28.4 L 26.9 L Mean Corpuscular Volume 91.3 91.8 Mean Corpuscular Hemoglobin 29.3 28.3 L Mean Corpuscular Hemoglobin Concent 32.0 30.9 L Red Cell Distribution Width 15.0 H 15.1 H Platelet Count 203 186 Mean Platelet Volume 11.9 #H 11.5 H Neutrophils % 63.5 66.6 Lymphocytes % 26.1 24.2 Monocytes % 7.8 6.8 Eosinophils % 2.0 1.9 Basophils % 0.3 0.3 Nucleated Red Blood Cells % 0.0 0.0 Neutrophils # 4.2 3.9 Lymphocytes # 1.7 1.4 Monocytes # 0.5 0.4 Eosinophils # 0.1 0.1 Basophils # 0.0 0.0 Nucleated Red Blood Cells # 0.0 0.0 Sodium Level 140 142 Potassium Level 6.5 *H 5.5 H Chloride Level 113 H 114 H Carbon Dioxide Level 11 L 12 L Anion Gap 23 H 22 H Blood Urea Nitrogen 68 H 67 H Creatinine 4.77 H 4.90 H Glucose Level 153 80 # Calcium Level 7.9 L 7.9 L Total Bilirubin 0.0 L 0.0 L Direct Bilirubin 0.00 0.00 Indirect Bilirubin 0.0 0.0 Aspartate Amino Transf (AST/SGOT) 22 16 Alanine Aminotransferase (ALT/SGPT) 31 27 Alkaline Phosphatase 102 93 Troponin I < 0.012 Total Protein 7.3 6.6 Albumin 4.3 3.8 Globulin 3.00 2.80 Albumin/Globulin Ratio 1.43 1.35 Lipase 280 Medications Medications Current Medications Ondansetron HCl (Zofran Inj) 4 mg Q6H PRN IV NAUSEA AND/OR VOMITING; Start at 05:00 Aspirin (Aspirin) 81 mg DAILY PO Last administered on 02/12/17t 08:57; Admin Dose 81 MG; Start 02/12/17 at 09:00 Nitroglycerin (Nitroglycerin (Sl Tab) 0.4 Mg) 1 tab Q5M PRN SL CHEST PAIN; Start 02/12/17 at 05:00 Acetaminophen (Tylenol Tab) 650 mg Q6H PRN PO PAIN LEVEL 1-3 OR FEVER; Start at 05:00 Morphine Sulfate (morphine) 2 mg Q4H PRN IV PAIN LEVEL 7-10; Start 02/12/17 at 05:00 Docusate Sodium (Colace) 100 mg Q12H PRN PO CONSTIPATION Last administered on 08:47; Admin Dose 100 MG; Start 02/12/17 at 05:00 Bisacodyl (Dulcolax) 5 mg DAILY PRN PO CONSTIPATION; Start 02/12/17 at 05:00 Pantoprazole (Protonix Iv) 40 mg DAILY@06 IV Last administered on 02/12/17 06: 50; Admin Dose 40 MG; Start 02/12/17 at 06:00 Ferrous Sulfate (Ferrous Sulfate (Ec)) 325 mg DAILY PO Last administered on 08:47; Admin Dose 325 MG; Start 02/12/17 at 09:00 Insulin Glargine (Lantus) 10 unit HS SC ; Start 02/12/17 at 21:00 Isosorbide Mononitrate (Imdur) 30 mg DAILY PO Last administered on 02/12/17 08 :48; Admin Dose 30 MG; Start 02/12/17 at 09:00 Nifedipine (Procardia Xl) 60 mg DAILY PO Last administered on 02/12/17 08:48; Admin Dose 60 MG; Start 02/12/17 at 09:00 Miscellaneous Information 1 ea NOTE XX ; Start 02/12/17 at 05:00 Glucose (Glutose) 15 gm Q15M PRN PO DECREASED GLUCOSE; Start 02/12/17 at 05:00 Glucose (Glutose) 22.5 gm Q15M PRN PO DECREASED GLUCOSE; Start 02/12/17 at 05: 00 Dextrose (D50w Syringe) 25 ml Q15M PRN IV DECREASED GLUCOSE; Start 02/12/17 at 05:00 Dextrose (D50w Syringe) 50 ml Q15M PRN IV DECREASED GLUCOSE; Start 02/12/17 at 05:00 Glucagon (Glucagen) 1 mg Q15M PRN IM DECREASED GLUCOSE; Start 7/16/17 at 05:00 Glucose (Glutose) 15 gm Q15M PRN BUCCAL DECREASED GLUCOSE; Start 02/12/17 at 05 :00 MARIA LUISA GUTIERREZ Feb 12, 2017 10:41
[2017-02-12 10:44] LABS: TOTAL IRON BINDING CAPACITY 340 ug/dl (241-421)
[2017-02-12] MEDS: FUROSEMIDE 40 MG INJ IV SCH ×2 (11:43→18:45)
[2017-02-12 12:16] LABS: COMPLEMENT C3 80 mg/dl (88-165); COMPLEMENT C4 38 mg/dl (14-44)
[2017-02-12] MEDS: morphine 2 MG INJ IV PRN ×2 (12:18→16:41)
--- NOTE | 2017-02-12 13:00 | RADRPT ---
Echocardiogram Report Patient Name: SERGIO TSANG Gender: Female Date: 1970 Study Date: 12-Feb-2017 Dimension Specification Inspector: Vijay [facility] Location: [facility] Ref. Physician: ARASH LINDSAY Quality: Adequate Procedures: Transthoracic echocardiogram with complete 2D, M-Mode, and doppler examination. Indications: Chest Pain. 2D/M Mode Doppler Measurement Value Normal Ranges Measurement Value Normal Ranges LVIDd 2D 4.7 3.5 - 5.6 cm AV Peak Deonte 1.5 m/sec LVIDs 2D 3.1 2.1 - 4.1 cm AV Peak PG 9.0 mmHg FS 2D 33.8 % LVOT Peak Deonte 1.0 m/sec LVPWd 2D 1.1 0.6 - 1.1 cm LVOT Peak PG 4.0 mmHg IVSd 2D 1.1 0.6 - 1.1 cm MV E Peak Deonte 1.1 m/sec IVS/LVPW 2D 1.0 MV A Peak Deonte 1.0 m/sec AoR Diam 2D 2.5 2.0 - 3.7 cm MV E/A 1.2 LA/Ao 2D 2 0 - 1 MV Decel Time 222 msec EDV 2D 106.0 cm3 MV E/A 1.2 ESV 2D 30.7 cm3 TR Peak Deonte 2.6 m/sec LA Dimen 2D 4.3 2.3 - 4.0 cm TR Peak PG 27.0 mmHg Findings Left Ventricle: Normal left ventricular systolic function. Normal left ventricular cavity size. Mild concentric left ventricular hypertrophy. Ejection fraction is visually estimated at 65 %. Tissue Doppler/Mitral Doppler indices are consistent with impaired relaxation (Stage I diastolic dysfunction). Right Ventricle: Normal right ventricular size. Normal right ventricular systolic function. Left Atrium: There is mild enlargement of left atrium. Right Atrium: The right atrium is normal in size. Mitral Valve: Normal appearance and function of the mitral valve with trace physiologic regurgitation. Trace mitral regurgitation. Aortic Valve: No significant aortic stenosis or insufficiency. Aortic sclerosis without stenosis. Tricuspid Valve: Normal appearance of the tricuspid valve. Estimated peak PA systolic pressure 35 mmHg. There is mild tricuspid regurgitation. Pulmonic Valve: Pulmonic valve not well visualized. There is trace pulmonic regurgitation. Pericardium: Normal pericardium with no significant pericardial effusion. Aorta: Normal aortic root. IVC: Normal size and no respiratory collapse consistent with elevated right atrial pressure. Conclusions 1.Normal left ventricular systolic function. Normal left ventricular cavity size. Mild concentric left ventricular hypertrophy. Ejection fraction is visually estimated at 65 %. Tissue Doppler/Mitral Doppler indices are consistent with impaired relaxation (Stage I diastolic dysfunction). 2.Calcified nodule on the left coronary cusp. Otherwise no valvular disease. 3.Estimated peak PA systolic pressure 35 mmHg based on RA pressure of 3 mmHg. Electronically Signed By: Calixto Maradiaga 12-Feb-2017 12:59:57 -0700 Patient Name: SERGIO TSANG Study Date: 12-Feb-2017 [id number]
[2017-02-12 13:25] LABS: CREATINE KINASE 129 IU/L (23-200)
[2017-02-12 13:37] LABS: CK-MB 2.18 ng/ml (0.0-2.4)
[2017-02-12 13:43] LABS: TROPONIN-I < 0.012 ng/ml (0.00-0.12)
[2017-02-12 16:25] VITALS: TEMP 98.3
--- NOTE | 2017-02-12 18:14 | RADRPT ---
PROCEDURE: Renal US. CLINICAL INDICATION: Chronic kidney disease. TECHNIQUE: Multiple sonographic images of the kidneys and urinary bladder were obtained. The imag es were reviewed on a PACS workstation. COMPARISON: No prior studies are available for comparison. FINDINGS: The kidneys are well visualized. The right kidney measures 10.3 x 5.5 cm. The left kidney measures 9 .1 x 4.2 cm. There are no focal areas of abnormal echogenicity. There is no evidence for obstructive uropathy. The urinary bladder is fluid-filled. IMPRESSION: 1. Normal appearance of the kidneys and urinary bladder. RPTAT: HTAR .Stephane Schaeffer MD, MD Date Time Electronically viewed and signed by .Stephane Schaeffer MD, on 02/12/2017 18:14 .R/
--- NOTE | 2017-02-12 18:31 | EN ---
Date/Time of Note Date/Time of Note DATE: 02/12/17 TIME: 18:31 Event Note Medicine Medicine Event Note ~630pm: Contacted by nurse that pt had another episode of chest pain. Pt given SLN x 1. By the time I came to see patient, 10 minutes later, chest pain had totally resolved exam anxious, sitting up in bed no mrg lungs clear abd soft no rashes repeat EKG ordered check troponins pt already seen by cardiology today with plan for stress test within next 48 hours pending EKG endorsed to med care manager. ELIEZER MCCRAY MD Feb 12, 2017 18:31
[2017-02-12 18:35] VITALS: PULSE 67
[2017-02-12 18:45] VITALS: BP 155/58; PULSE 64; RESP 16
[2017-02-12 20:09] VITALS: Ht 157.5 cm; Wt 92.0 kg
[2017-02-12 20:13] LABS: CREATINE KINASE 133 IU/L (23-200)
[2017-02-12 20:15] VITALS: BP 133/71; PULSE 62; RESP 18
[2017-02-12 20:25] LABS: CK-MB 2.24 ng/ml (0.0-2.4)
[2017-02-12 20:42] LABS: TROPONIN-I < 0.012 ng/ml (0.00-0.12)
[2017-02-12] MEDS: INSULIN GLARGINE [LANtus] 3 ML PEN SC SCH (21:57)
[2017-02-13] VITALS (18 sets, daily range): BP systolic 118–204; BP diastolic 57–94; PULSE 63–94; RESP 18–20
[2017-02-13 01:35] LABS: CREATINE KINASE 124 IU/L (23-200)
[2017-02-13 01:47] LABS: CK-MB 1.96 ng/ml (0.0-2.4); TROPONIN-I < 0.012 ng/ml (0.00-0.12)
[2017-02-13] MEDS: morphine 2 MG INJ IV PRN ×2 (04:44→20:06)
[2017-02-13] MEDS: FUROSEMIDE 40 MG INJ IV SCH (05:43)
[2017-02-13] MEDS: PANTOPRAZOLE 40 MG INJ IV SCH (05:43)
[2017-02-13 07:23] LABS: ADD SCAN DIFF NO
[2017-02-13 07:33] LABS: BASOPHILS % 0.2 % (0.0-2.0); EOSINOPHILS # 0.1 10^3/ul (0.0-0.5); EOSINOPHILS % 1.9 % (0.0-7.0); HEMATOCRIT 26.1 % (37.0-47.0); HEMOGLOBIN 8.2 g/dl (12.0-16.0); LYMPHOCYTES # 0.8 10^3/ul (0.8-2.9); LYMPHOCYTES % 14.3 % (15.0-51.0); MEAN CORPUSCULAR HEMOGLOBIN 28.6 pg (29.0-33.0); MEAN CORPUSCULAR HGB CONC 31.4 g/dl (32.0-37.0); MEAN CORPUSCULAR VOLUME 90.9 fl (82.0-101.0); MEAN PLATELET VOLUME 11.5 fl (7.4-10.4); MONOCYTE # 0.3 10^3/ul (0.3-0.9); MONOCYTES % 6.2 % (0.0-11.0); NEUTROPHIL # 4.1 10^3/ul (1.6-7.5); NEUTROPHILS % 77.2 % (39.0-77.0); PLATELET COUNT 181 10^3/UL (140-415); RED BLOOD COUNT 2.87 10^6/ul (4.20-5.40); RED CELL DISTRIBUTION WIDTH 15.1 % (11.5-14.5); WHITE BLOOD COUNT 5.3 10^3/ul (4.8-10.8)
--- NOTE | 2017-02-13 07:48 | CONS ---
Date/Time of Note Date/Time of Note DATE: 02/13/17 TIME: 07:47 Assessment/Plan Assessment/Plan Chief Complaint/Hosp Course Acute on chronic diastolic heart failure: Pt has significant volume overload due to her acute on chronic renal failure and running out of what is likely lasix. Better after diuresis Chest pain: Likely secondary to decompensated heart failure causing elevated LVEDP and angina. Stress test is appropriate Acute on chronic renal failure: Cr 4.5, apparently mid 2s at baseline. Hyperkalemia: secondary to above, improved DM -lasix 20 mg IV daily -stress MPI nuc tomorrow 11 am -continue ASA Problems: Consultation Date/Type/Reason Admit Date/Time Feb 12, 2017 at 04:11 Initial Consult Date 02/12/17 Type of Consultation: Cardiology Referring Provider: ARASH LINDSAY 24 HR Interval Summary Free Text/Dictation No o/n events. Feels much better. No chest pain Exam/Review of Systems Vital Signs Vitals Vital Signs Date Time Temp Pulse Resp B/P Pulse Ox O2 Delivery O2 Flow Rate FiO2 02/13/17 07:34 98.0 73 19 162/72 100 02/12/17 21:00 Nasal Cannula 2.0 02/12/17 04:19 21 Exam Constitutional: alert, oriented Psych: no complaints Head: atraumatic, normocephalic Neck: jvd (7cm) Respiratory: crackles/rales, No clear to auscultation Cardiovascular: edema (1+), regular rate and rhythm Gastrointestinal: non-tender, soft Neurological: nl mental status, nl speech Results Result Diagram: 02/13/17 0630 02/12/17 0455 Results 24 hrs Laboratory Tests Test 02/12/17 09:58 02/12/17 12:50 02/12/17 19:13 02/12/17 21:02 Hemoglobin A1c 7.1 H Phosphorus Level 6.1 H Magnesium Level 2.0 Iron Level 171 H Total Iron Binding Capacity 340 Percent Iron Saturation 50 Ferritin 9.7 C-Reactive Protein < 0.5 Thyroid Stimulating Hormone (TSH) 4.510 Complement C3 80 L Complement C4 38 Creatine Kinase 129 133 Creatine Kinase Index 1.7 1.7 Creatinine Kinase MB (Mass) 2.18 2.24 Troponin I < 0.012 < 0.012 Bedside Glucose 177 Test 02/13/17 00:30 02/13/17 06:30 Creatine Kinase 124 Creatine Kinase Index 1.6 Creatinine Kinase MB (Mass) 1.96 Troponin I < 0.012 White Blood Count 5.3 Red Blood Count 2.87 L Hemoglobin 8.2 L Hematocrit 26.1 L Mean Corpuscular Volume 90.9 Mean Corpuscular Hemoglobin 28.6 L Mean Corpuscular Hemoglobin Concent 31.4 L Red Cell Distribution Width 15.1 H Platelet Count 181 Mean Platelet Volume 11.5 H Neutrophils % 77.2 H Lymphocytes % 14.3 L Monocytes % 6.2 Eosinophils % 1.9 Basophils % 0.2 Nucleated Red Blood Cells % 0.0 Neutrophils # 4.1 Lymphocytes # 0.8 Monocytes # 0.3 Eosinophils # 0.1 Basophils # 0.0 Nucleated Red Blood Cells # 0.0 Medications Medications Current Medications Ondansetron HCl (Zofran Inj) 4 mg Q6H PRN IV NAUSEA AND/OR VOMITING; Start at 05:00 Aspirin (Aspirin) 81 mg DAILY PO Last administered on 02/12/17 08:57; Admin Dose 81 MG; Start 02/12/17 at 09:00 Nitroglycerin (Nitroglycerin (Sl Tab) 0.4 Mg) 1 tab Q5M PRN SL CHEST PAIN Last administered on 02/12/17 18:35; Admin Dose 1 TAB; Start 02/12/17 at 05:00 Acetaminophen (Tylenol Tab) 650 mg Q6H PRN PO PAIN LEVEL 1-3 OR FEVER; Start at 05:00 Morphine Sulfate (morphine) 2 mg Q4H PRN IV PAIN LEVEL 7-10 Last administered on 02/13/17 04:44; Admin Dose 2 MG; Start 02/12/17 at 05:00 Docusate Sodium (Colace) 100 mg Q12H PRN PO CONSTIPATION Last administered on 08:47; Admin Dose 100 MG; Start 02/12/17 at 05:00 Bisacodyl (Dulcolax) 5 mg DAILY PRN PO CONSTIPATION; Start 02/12/17 at 05:00 Pantoprazole (Protonix Iv) 40 mg DAILY@06 IV Last administered on 02/13/17 05: 43; Admin Dose 40 MG; Start 02/12/17 at 06:00 Ferrous Sulfate (Ferrous Sulfate (Ec)) 325 mg DAILY PO Last administered on 08:47; Admin Dose 325 MG; Start 02/12/17 at 09:00 Insulin Glargine (Lantus) 10 unit HS SC Last administered on 02/12/17 21:57; Admin Dose 10 UNIT; Start 02/12/17 at 21:00 Isosorbide Mononitrate (Imdur) 30 mg DAILY PO Last administered on 02/12/17 08 :48; Admin Dose 30 MG; Start 02/12/17 at 09:00 Nifedipine (Procardia Xl) 60 mg DAILY PO Last administered on 02/12/17 08:48; Admin Dose 60 MG; Start 02/12/17 at 09:00 Miscellaneous Information 1 ea NOTE XX ; Start 02/12/17 at 05:00 Glucose (Glutose) 15 gm Q15M PRN PO DECREASED GLUCOSE; Start 02/12/17 at 05:00 Glucose (Glutose) 22.5 gm Q15M PRN PO DECREASED GLUCOSE; Start 02/12/17 at 05: 00 Dextrose (D50w Syringe) 25 ml Q15M PRN IV DECREASED GLUCOSE; Start 02/12/17 at 05:00 Dextrose (D50w Syringe) 50 ml Q15M PRN IV DECREASED GLUCOSE; Start 02/12/17 at 05:00 Glucagon (Glucagen) 1 mg Q15M PRN IM DECREASED GLUCOSE; Start 02/12/17 at 05:00 Glucose (Glutose) 15 gm Q15M PRN BUCCAL DECREASED GLUCOSE; Start 02/12/17 at 05 :00 MARIA LUISA GUTIERREZ Feb 13, 2017 07:47
[2017-02-13 07:52] LABS: MAGNESIUM 1.7 mg/dl (1.7-2.5)
[2017-02-13 08:09] LABS: ALBUMIN 3.6 g/dl (3.3-4.9); ALBUMIN/GLOBULIN RATIO 1.38; CALCIUM 7.5 mg/dl (8.4-10.2); CREATININE 5.11 mg/dl (0.44-1.00); POTASSIUM 5.6 mmol/L (3.5-5.1); TOTAL PROTEIN 6.2 g/dl (6.1-8.1)
[2017-02-13 08:14] LABS: CHOL/HDL RATIO 4.2 RATIO
[2017-02-13] MEDS: ISOSORBIDE MONONITRATE(SR)30 MG TAB PO SCH (08:34)
[2017-02-13] MEDS: FERROUS SULFATE (EC) 325 MG TAB PO SCH (08:34)
[2017-02-13] MEDS: ASPIRIN 81 MG TAB PO SCH (08:34)
[2017-02-13] MEDS: NIFEdipine (XL) 60 MG TAB PO SCH (08:34)
[2017-02-13] MEDS ORDERED: NA POLYST SULFON 15 GM/60 ML BTL PO ONE (11:30)
[2017-02-13] MEDS: SEVELAMER 800 MG TAB PO SCH ×2 (11:43→17:48)
--- NOTE | 2017-02-13 11:44 | PN ---
Date/Time of Note Date/Time of Note DATE: 02/13/17 TIME: 11:39 Assessment/Plan VTE Prophylaxis VTE Prophylaxis Intervention: other Lines/Catheters IV [facility]ter [facility]from [facility] Saline Lock Urinary Cath still in place: No Assessment/Plan Chief Complaint/Hosp Course 1. Nonoliguric acute kidney injury and top of CKD stage IV with a baseline creatinine around 2.7 0.0 mg/dL, with a PVC GFR around 20 mL per Etiology of AK I is unclear possible hemodynamics, possible progression of underlying CKD -Urinalysis urine lites are pending -Informed the patient recommended dialysis given her given her hyperkalemia and worsening renal failure, as stated above Patient is currently refusing. Attempting to obtain old medical records Continue current treatment plans for care renally dose all meds 2hyperkalemia: Secondary to CKD, AK I Recommended dialysis, patient refusing. Will give Kayexalate -Continue low potassium diet #3 chest pain: Could be multifactorial but will rule out ACS. -Pending cardiac cath #4 diabetes mellitus: -Continue current insulin #5 hypertension: We will continue nifedipine, we will hold ANKITA inhibitor. 1 #6 normocytic anemia: This likely secondary to #2. Will check iron studies. Patient likely will need Procrit/Epogen however unclear if can get it as outpatient. Continue home iron supplements. Problems: Subjective 24 Hr Interval Summary Free Text/Dictation Spoke with the patient at bedside with a radio television technical director and her son. I informed her that she is in renal failure with estimated EGFR around 10 mL/min. I recommended dialysis given her persistent hyperkalemia. The patient is hesitant of doing dialysis. She said she did not want to start and she will think about it. Patient assisted her kidney function is not this bad bad. I informed her that last year she had a EGFR approximately 20 mL/min and this may be progression of underlying CKD. I informed patient of the risks of not doing dialysis including arrhythmia cardiovascular collapse and possible , patient voiced understanding Exam/Review of Systems Vital Signs Vitals Vital Signs Date Time Temp Pulse Resp B/P Pulse Ox O2 Delivery O2 Flow Rate FiO2 02/13/17 11:37 98.2 80 19 125/57 100 02/13/17 07:36 Nasal Cannula 2.0 02/12/17 04:19 21 Exam HEENT: Atraumatic, normocephalic. The pupils are equal, round and reactive. Extraocular motor are intact Neck: Supple with full range of motion. No rigidity or meningismus Chest: Nontender Lungs: Clear to auscultation bilaterally no crackles rales or wheezing Heart: Normal S1-S2, Regular rhythm and rate. No overt murmur appreciate Abdomen: Soft , nontender, nondistended , bowel sounds are present. No guarding no rebound tenderness , No masses or organomegaly. No costovertebral temporal angle mass Extremities: 2+ bilateral pitting edema, multiple 1-2 cm lesion the noted of the bilateral lower extremities with dry blood. Neurologic: Normal mental status, speech normal, cranial nerves II through XII are intact, motor and sensory are intact, no focal weakness Results Result Diagram: 02/13/17 0630 02/13/17 0620 Results 24 hrs Laboratory Tests Test 02/12/17 12:50 02/12/17 19:13 02/12/17 21:02 02/13/17 00:30 Creatine Kinase 129 133 124 Creatine Kinase Index 1.7 1.7 1.6 Creatinine Kinase MB (Mass) 2.18 2.24 1.96 Troponin I < 0.012 < 0.012 < 0.012 Bedside Glucose 177 Test 02/13/17 06:20 02/13/17 06:30 02/13/17 06:31 Sodium Level 142 Potassium Level 5.6 H Chloride Level 115 H Carbon Dioxide Level 12 L Anion Gap 21 H Blood Urea Nitrogen 66 H Creatinine 5.11 H Glucose Level 103 Calcium Level 7.5 L Total Bilirubin 0.0 L Direct Bilirubin 0.00 Indirect Bilirubin 0.0 Aspartate Amino Transf (AST/SGOT) 17 Alanine Aminotransferase (ALT/SGPT) 31 Alkaline Phosphatase 79 Total Protein 6.2 Albumin 3.6 Globulin 2.60 Albumin/Globulin Ratio 1.38 White Blood Count 5.3 Red Blood Count 2.87 L Hemoglobin 8.2 L Hematocrit 26.1 L Mean Corpuscular Volume 90.9 Mean Corpuscular Hemoglobin 28.6 L Mean Corpuscular Hemoglobin Concent 31.4 L Red Cell Distribution Width 15.1 H Platelet Count 181 Mean Platelet Volume 11.5 H Neutrophils % 77.2 H Lymphocytes % 14.3 L Monocytes % 6.2 Eosinophils % 1.9 Basophils % 0.2 Nucleated Red Blood Cells % 0.0 Neutrophils # 4.1 Lymphocytes # 0.8 Monocytes # 0.3 Eosinophils # 0.1 Basophils # 0.0 Nucleated Red Blood Cells # 0.0 Triglycerides Level 174 H Cholesterol Level 174 LDL Cholesterol, Calculated 98 HDL Cholesterol 41 Cholesterol/HDL Ratio 4.2 Phosphorus Level 7.0 H Magnesium Level 1.7 Medications Medications Current Medications Ondansetron HCl (Zofran Inj) 4 mg Q6H PRN IV NAUSEA AND/OR VOMITING; Start at 05:00 Aspirin (Aspirin) 81 mg DAILY PO Last administered on 02/13/17 08:34; Admin Dose 81 MG; Start 02/12/17 at 09:00 Nitroglycerin (Nitroglycerin (Sl Tab) 0.4 Mg) 1 tab Q5M PRN SL CHEST PAIN Last administered on 02/12/17 18:35; Admin Dose 1 TAB; Start 02/12/17 at 05:00 Acetaminophen (Tylenol Tab) 650 mg Q6H PRN PO PAIN LEVEL 1-3 OR FEVER; Start at 05:00 Morphine Sulfate (morphine) 2 mg Q4H PRN IV PAIN LEVEL 7-10 Last administered on 02/13/17 04:44; Admin Dose 2 MG; Start 02/12/17 at 05:00 Docusate Sodium (Colace) 100 mg Q12H PRN PO CONSTIPATION Last administered on 08:47; Admin Dose 100 MG; Start 02/12/17 at 05:00 Bisacodyl (Dulcolax) 5 mg DAILY PRN PO CONSTIPATION; Start 02/12/17 at 05:00 Pantoprazole (Protonix Iv) 40 mg DAILY@06 IV Last administered on 02/13/17 05: 43; Admin Dose 40 MG; Start 02/12/17 at 06:00 Ferrous Sulfate (Ferrous Sulfate (Ec)) 325 mg DAILY PO Last administered on 08:34; Admin Dose 325 MG; Start 02/12/17 at 09:00 Insulin Glargine (Lantus) 10 unit HS SC Last administered on 02/12/17 21:57; Admin Dose 10 UNIT; Start 02/12/17 at 21:00 Isosorbide Mononitrate (Imdur) 30 mg DAILY PO Last administered on 02/13/17 08 :34; Admin Dose 30 MG; Start 02/12/17 at 09:00 Nifedipine (Procardia Xl) 60 mg DAILY PO Last administered on 02/13/17t 08:34; Admin Dose 60 MG; Start 02/12/17 at 09:00 Miscellaneous Information 1 ea NOTE XX ; Start 02/12/17 at 05:00 Glucose (Glutose) 15 gm Q15M PRN PO DECREASED GLUCOSE; Start 02/12/17 at 05:00 Glucose (Glutose) 22.5 gm Q15M PRN PO DECREASED GLUCOSE; Start 02/12/17 at 05: 00 Dextrose (D50w Syringe) 25 ml Q15M PRN IV DECREASED GLUCOSE; Start 02/12/17 at 05:00 Dextrose (D50w Syringe) 50 ml Q15M PRN IV DECREASED GLUCOSE; Start 02/12/17 at 05:00 Glucagon (Glucagen) 1 mg Q15M PRN IM DECREASED GLUCOSE; Start 02/12/17 at 05:00 Glucose (Glutose) 15 gm Q15M PRN BUCCAL DECREASED GLUCOSE; Start 02/12/17 at 05 :00 Furosemide (Lasix) 20 mg DAILY IV ; Start 02/14/17 at 09:[address] AL[address]ICH DO Feb 13, 2017 11:44
[2017-02-13 12:50] LABS: AADO2 Arterial 22.4 mmHg (7.0-24.0); Allen Test ACCEPTAB; Arterial Base Excess -13.8 mmol/L (-3.0-3); Arterial COHb 0.2 % (0.0-3.0); Arterial Fraction of Oxyhgb 95.4 % (93.0-99.0); Arterial HCO3 12.6 mmol/L (22.0-26.0); Arterial MetHb 0.3 % (0.0-1.5); Arterial Total Hemglobin 10.2 g/dl (12.0-18.0); MODE ROOM AIR
--- NOTE | 2017-02-13 14:43 | PN ---
Date/Time of Note Date/Time of Note DATE: 02/13/17 TIME: 14:30 Assessment/Plan VTE Prophylaxis VTE Prophylaxis Intervention: SCD's Lines/Catheters IV [facility]ter Type (from [facility]): Saline Lock Urinary Cath still in place: No Assessment/Plan Chief Complaint/Hosp Course 1. Chest pain Likely secondary to decompensated heart failure. -Cardiology evaluation appreciated. Patient is scheduled for stress test in a.m. -Continue aspirin. 2. Acute on chronic kidney disease stage IV -Nephrology on board. However, patient does not want to proceed with hemodialysis at this moment. -Continue to monitor renal function closely and avoid nephrotoxins as much as possible. 3. Hyperkalemia secondary to #2. -Status post Kayexalate. Again, nephrology on board. 4. Type II diabetes mellitus: A1C 7.1 -Continue Accu-Cheks,insulin sliding scale and Lantus insulin. 5. Essential hypertension. Stable. -Continue antihypertensives 6. Anemia of chronic kidney disease. H&H stable. Will continue to monitor. DVT and GI prophylaxis: SCDs, Protonix Case discussed with Dr. Sorto. Problems: Subjective 24 Hr Interval Summary Free Text/Dictation Patient in bed, denies any discomfort. Exam/Review of Systems Vital Signs Vitals Vital Signs Date Time Temp Pulse Resp B/P Pulse Ox O2 Delivery O2 Flow Rate FiO2 02/13/17 12:16 85 02/13/17 11:37 98.2 19 125/57 100 02/13/17 07:36 Nasal Cannula 2.0 02/12/17 04:19 21 Exam General: Well developed,adequately built, not in any acute distress . HEENT: Normocephalic, Atraumatic, No laceration or hematoma; Eyes: PEERL, Conjunctiva clear, Anicteric sclera Neck: Supple without any lymphadenopathy, nontender, no JVD, no carotid bruits, trachea midline, no thyromegaly Cardiac: S1, S2 auscultated, regular rhythm and rate, no mumurs or gallop Pulmonary: Normal respiratory effort. Chest clear to auscultation bilaterally, no adventitious breath sounds GI: Abdomen normal to inspection. Soft, non tender, non- distended, no masses, no rebound tenderness or guarding. Bowel sounds active on all four quadrants Genitourinary: Deferred Extremities: No cyanosis, clubbing, or edema. Pulses [2+] bilaterally. Full ROM on all four extremities. No focal weakness appreciated. Neurologic: Alert to person, place, time, and situation. Affect appropriate, intact sensation. Skin: Clean,dry, and intact. No ecchymosis, no rashes, or lesions Results Result Diagram: 02/13/17 0630 02/13/17 0620 Results 24 hrs Laboratory Tests Test 02/12/17 19:13 02/12/17 21:02 02/13/17 00:30 02/13/17 06:20 Creatine Kinase 133 124 Creatine Kinase Index 1.7 1.6 Creatinine Kinase MB (Mass) 2.24 1.96 Troponin I < 0.012 < 0.012 Bedside Glucose 177 Sodium Level 142 Potassium Level 5.6 H Chloride Level 115 H Carbon Dioxide Level 12 L Anion Gap 21 H Blood Urea Nitrogen 66 H Creatinine 5.11 H Glucose Level 103 Calcium Level 7.5 L Total Bilirubin 0.0 L Direct Bilirubin 0.00 Indirect Bilirubin 0.0 Aspartate Amino Transf (AST/SGOT) 17 Alanine Aminotransferase (ALT/SGPT) 31 Alkaline Phosphatase 79 Total Protein 6.2 Albumin 3.6 Globulin 2.60 Albumin/Globulin Ratio 1.38 Test 02/13/17 06:30 02/13/17 06:31 02/13/17 10:59 White Blood Count 5.3 Red Blood Count 2.87 L Hemoglobin 8.2 L Hematocrit 26.1 L Mean Corpuscular Volume 90.9 Mean Corpuscular Hemoglobin 28.6 L Mean Corpuscular Hemoglobin Concent 31.4 L Red Cell Distribution Width 15.1 H Platelet Count 181 Mean Platelet Volume 11.5 H Neutrophils % 77.2 H Lymphocytes % 14.3 L Monocytes % 6.2 Eosinophils % 1.9 Basophils % 0.2 Nucleated Red Blood Cells % 0.0 Neutrophils # 4.1 Lymphocytes # 0.8 Monocytes # 0.3 Eosinophils # 0.1 Basophils # 0.0 Nucleated Red Blood Cells # 0.0 Triglycerides Level 174 H Cholesterol Level 174 LDL Cholesterol, Calculated 98 HDL Cholesterol 41 Cholesterol/HDL Ratio 4.2 Phosphorus Level 7.0 H Magnesium Level 1.7 Blood Gas Specimen Source Blood arterial Arterial Blood Date Drawn 02/13/2017 12:35:18 PM Arterial Blood pH (Temp corrected) 7.228 *L Arterial Blood pCO2 (Temp correct) 30.8 L Arterial Blood pO2 (Temp corrected) 90.4 Arterial Blood HCO3 12.6 L Arterial Blood Base Excess -13.8 L Arterial Blood Oxygen Saturation 95.9 Sandro Test ACCEPTAB Arterial Blood Gas Puncture Site Right Radial Arterial Blood Carboxyhemoglobin 0.2 Arterial Blood Methemoglobin 0.3 Blood Gas A-a O2 Differential 22.4 Oxyhemoglobin Percent 95.4 Total Hemoglobin 10.2 L Blood Gas Temperature 37.0 Blood Gas Modality ROOM AIR FiO2 21.0 Blood Gas Critical Value Read Back Juarez GOYAL RN Blood Gas Notified Whom DIYA Blood Gas Notified Time 02/13/2017 12:50:07 PM Medications Medications Current Medications Ondansetron HCl (Zofran Inj) 4 mg Q6H PRN IV NAUSEA AND/OR VOMITING; Start at 05:00 Aspirin (Aspirin) 81 mg DAILY PO Last administered on 02/13/17 08:34; Admin Dose 81 MG; Start 02/12/17 at 09:00 Nitroglycerin (Nitroglycerin (Sl Tab) 0.4 Mg) 1 tab Q5M PRN SL CHEST PAIN Last administered on 02/12/17 18:35; Admin Dose 1 TAB; Start 02/12/17 at 05:00 Acetaminophen (Tylenol Tab) 650 mg Q6H PRN PO PAIN LEVEL 1-3 OR FEVER; Start at 05:00 Morphine Sulfate (morphine) 2 mg Q4H PRN IV PAIN LEVEL 7-10 Last administered on 02/13/17 04:44; Admin Dose 2 MG; Start 02/12/17 at 05:00 Docusate Sodium (Colace) 100 mg Q12H PRN PO CONSTIPATION Last administered on 08:47; Admin Dose 100 MG; Start 02/12/17 at 05:00 Bisacodyl (Dulcolax) 5 mg DAILY PRN PO CONSTIPATION; Start 02/12/17 at 05:00 Pantoprazole (Protonix Iv) 40 mg DAILY@06 IV Last administered on 02/13/17 05: 43; Admin Dose 40 MG; Start 02/12/17 at 06:00 Ferrous Sulfate (Ferrous Sulfate (Ec)) 325 mg DAILY PO Last administered on 08:34; Admin Dose 325 MG; Start 02/12/17 at 09:00 Insulin Glargine (Lantus) 10 unit HS SC Last administered on 02/12/17 21:57; Admin Dose 10 UNIT; Start 02/12/17 at 21:00 Isosorbide Mononitrate (Imdur) 30 mg DAILY PO Last administered on 02/13/17 08 :34; Admin Dose 30 MG; Start 02/12/17 at 09:00 Nifedipine (Procardia Xl) 60 mg DAILY PO Last administered on 02/13/17 08:34; Admin Dose 60 MG; Start 02/12/17 at 09:00 Miscellaneous Information 1 ea NOTE XX ; Start 02/12/17 at 05:00 Glucose (Glutose) 15 gm Q15M PRN PO DECREASED GLUCOSE; Start 02/12/17 at 05:00 Glucose (Glutose) 22.5 gm Q15M PRN PO DECREASED GLUCOSE; Start 02/12/17 at 05: 00 Dextrose (D50w Syringe) 25 ml Q15M PRN IV DECREASED GLUCOSE; Start 02/12/17 at 05:00 Dextrose (D50w Syringe) 50 ml Q15M PRN IV DECREASED GLUCOSE; Start 02/12/17 at 05:00 Glucagon (Glucagen) 1 mg Q15M PRN IM DECREASED GLUCOSE; Start 02/12/17 at 05:00 Glucose (Glutose) 15 gm Q15M PRN BUCCAL DECREASED GLUCOSE; Start 02/12/17 at 05 :00 Furosemide (Lasix) 20 mg DAILY IV ; Start 02/14/17 at 09:00 Sodium Bicarbonate (Sodium Bicarbonate Tab) 650 mg TID PO ; Start 02/13/17 at 21 :00 KATE BEARD NP Feb 13, 2017 14:42 KATE BEARD NP Feb 13, 2017 14:42
[2017-02-13] MEDS ORDERED: HYPOGLYCEMIA PROTOCOL when Glucose is <70 mg/dL or symptomatic <90 mg/dL. XX ONE (15:00)
[2017-02-13] MEDS ORDERED: [UNRECOGNIZED DRUG - REMARK] XX ONE (15:00)
[2017-02-13] MEDS ORDERED: SOD CHLORIDE 0.9% 100 ML ONE (16:05)
[2017-02-13] MEDS ORDERED: HEPARIN 1000 UNITS/ML 10 ML INJ ONE (16:05)
[2017-02-13 16:10] LABS: ADD UMIC YES; UR ASCORBIC ACID NEGATIVE (NEGATIVE); UR BACTERIA FEW /HPF (NONE SEEN); UR BILIRUBIN (Dip) NEGATIVE (NEGATIVE); UR BLOOD (Dip) 1+ mg/dL (NEGATIVE); UR CLARITY CLEAR (CLEAR); UR COLOR STRAW (YELLOW); UR GLUCOSE (Dip) 1+ mg/dL (NEGATIVE); UR KETONES (Dip) NEGATIVE (NEGATIVE); UR LEUKOCYTE ESTERASE (Dip) NEGATIVE Leu/ul (NEGATIVE); UR NITRITE (Dip) NEGATIVE (NEGATIVE); UR RBC 1 /HPF (0-5); UR SPECIFIC GRAVITY (Dip) 1.009 (1.003-1.030); UR SQUAMOUS EPITHELIAL CELL FEW /HPF (FEW); UR TOTAL PROTEIN (Dip) 2+ mg/dl (NEGATIVE); UR UROBILINOGEN (Dip) NEGATIVE (NEGATIVE)
[2017-02-13] MEDS ORDERED: LIDOCAINE 1% (MDV) 20 ML INJ ONE (16:12)
[2017-02-13] MEDS: INSULIN ASPART [NOVOLOG] 3 ML PEN SC SCH ×2 (17:55→21:00)
--- NOTE | 2017-02-13 18:00 | RADRPT ---
PROCEDURE: PLACEMENT OF RIGHT INTERNAL JUGULAR VENOUS TEMPORARY DIALYSIS CATHETER . CLINICAL INDICATION: Renal failure. TECHNIQUE: Informed consent was obtained. The risks including bleeding and infection were explained to the pat ient. The patient understood and was willing to proceed. A procedural pause was performed. The imani merrill's name, date of , and procedure to be performed were verified. Limited sonography of the right neck was performed. Noted is a patent right internal jugular vein. The central line was inse rted with all elements of maximal sterile barrier technique. All of the following were used: head co vering, facial mask, sterile gown, sterile gloves, a large sterile sheet, hand hygiene, and 2% chlo rhexidine for cutaneous antisepsis. The right neck and anterior superior chest wall was prepped and draped in the usual sterile fashion. Using local anesthesia, sterile technique, and ultrasound guidance, a 20-gauge needle was advanced i nto the right internal jugular vein in the supraclavicular region. The 0.018 inch floppy tip guidew hugo was advanced through the needle into the superior vena cava with fluoroscopic guidance. A 5-Puneet nch sheath was advanced over the guidewire. The guidewire was removed and a 0.035 inch Amplatz wire was advanced into the superior vena cava, then the right atrium. Serial dilatation was performed t o 12 Czech. The temporary dialysis catheter was then advanced over the guidewire such that the tip was placed in the right atrium. A 16 cm long, 11.5 Czech Mahurkar temporary dialysis catheter was used. Tip position was confirmed in the right atrium with fluoroscopy. The two ports were each fl ushed with 1.5 ml of 1:1000 heparin. The catheter was secured to the skin with 2-0 monofilament. The site was dressed. The patient tolerated the procedure well. COMPARISON: None. FINDINGS: Ultrasound images were recorded and stored in the patient's medical record. Final radiographic images demonstrate the tip of the catheter in the upper right atrium. A total of 0.1 minutes of fluoroscopy time was used. The ultrasound images demonstrate the needle entering th e internal jugular vein. 2 images of the chest were obtained with image intensifier. IMPRESSION: 1. Satisfactory insertion of right internal jugular vein temporary dialysis catheter with ultrasoun d and fluoroscopic guidance. RPTAT: QQ .Hunter Bansal MD, MD Date Time Electronically viewed and signed by .Hunter Bansal MD, on 02/13/2017 18:00 .R/
--- NOTE | 2017-02-13 18:00 | RADRPT ---
PROCEDURE: Ultrasound guidance for placement of needle in right internal jugular vein. CLINICAL INDICATION: Venous access. TECHNIQUE: Prior to the procedure, informed consent was obtained. Risks including bleeding, infection, and pneu mothorax were explained to the patient. The patient understood and was willing to proceed. A procedu ral pause was performed. The patient's name, date of , and procedure to be performed were verif ied. The central line was inserted with all elements of maximal sterile barrier technique. All of th e following were used: head covering, facial mask, sterile gown, sterile gloves, a large sterile she et, hand hygiene, and 2% chlorhexidine for cutaneous antisepsis. The right neck and anterior/super ior chest wall was prepped and draped in usual sterile fashion. Limited sonography of the right neck was then performed. Noted is a patent right internal jugular ve in. Ultrasound images were recorded and stored in the patient's medical record. Following the local injection of Xylocaine, the right internal jugular vein was punctured under sono graphic guidance with a 20-gauge needle through which a 0.018 inch floppy tip guidewire was advanced into the superior vena cava. The patient tolerated the procedure well. The remainder of the proce dure was performed and dictated under separate cover. COMPARISON: None. FINDINGS: The ultrasound images demonstrate a patent right internal jugular vein. The subsequent images demon strate the needle entering the right internal jugular vein. IMPRESSION: 1. Ultrasound guidance for a needle placement in right internal jugular vein. RPTAT: QQ .Hunter Bansal MD, Date Time Electronically viewed and signed by .Hunter Bansal MD, on 02/13/2017 18:00 .R/
[2017-02-13] MEDS ORDERED: hydrALAzine 20 MG INJ ONE (22:50)
[2017-02-13] MEDS: NA BICARBONATE 650 MG TAB PO SCH (22:55)
[2017-02-13] MEDS: INSULIN GLARGINE [LANtus] 3 ML PEN SC SCH (22:57)
[2017-02-13] MEDS ORDERED: hydrALAzine 20 MG INJ IV ONE (23:00)
[2017-02-14] VITALS (15 sets, daily range): BP systolic 121–166; BP diastolic 58–75; PULSE 65–95; RESP 18–20
[2017-02-14] MEDS: morphine 2 MG INJ IV PRN ×2 (01:17→08:06)
[2017-02-14] MEDS: PANTOPRAZOLE 40 MG INJ IV SCH (05:55)
[2017-02-14] MEDS: INSULIN ASPART [NOVOLOG] 3 ML PEN SC SCH ×4 (08:00→21:09)
[2017-02-14 08:08] LABS: ADD SCAN DIFF NO
[2017-02-14] MEDS: NA BICARBONATE 650 MG TAB PO SCH ×3 (08:08→21:02)
[2017-02-14] MEDS: NIFEdipine (XL) 60 MG TAB PO SCH (08:08)
[2017-02-14] MEDS: FERROUS SULFATE (EC) 325 MG TAB PO SCH (08:08)
[2017-02-14] MEDS: ASPIRIN 81 MG TAB PO SCH (08:08)
[2017-02-14] MEDS: FUROSEMIDE 40 MG INJ IV SCH (08:09)
[2017-02-14] MEDS: ISOSORBIDE MONONITRATE(SR)30 MG TAB PO SCH (08:09)
[2017-02-14 08:13] LABS: BASOPHILS % 0.2 % (0.0-2.0); EOSINOPHILS # 0.1 10^3/ul (0.0-0.5); EOSINOPHILS % 1.6 % (0.0-7.0); HEMATOCRIT 25.5 % (37.0-47.0); HEMOGLOBIN 8.3 g/dl (12.0-16.0); LYMPHOCYTES # 1.1 10^3/ul (0.8-2.9); LYMPHOCYTES % 24.5 % (15.0-51.0); MEAN CORPUSCULAR HEMOGLOBIN 28.6 pg (29.0-33.0); MEAN CORPUSCULAR HGB CONC 32.5 g/dl (32.0-37.0); MEAN CORPUSCULAR VOLUME 87.9 fl (82.0-101.0); MEAN PLATELET VOLUME 11.1 fl (7.4-10.4); MONOCYTE # 0.4 10^3/ul (0.3-0.9); MONOCYTES % 9.7 % (0.0-11.0); NEUTROPHIL # 2.9 10^3/ul (1.6-7.5); PLATELET COUNT 183 10^3/UL (140-415); RED CELL DISTRIBUTION WIDTH 14.6 % (11.5-14.5); WHITE BLOOD COUNT 4.5 10^3/ul (4.8-10.8)
[2017-02-14] MEDS: SEVELAMER 800 MG TAB PO SCH ×3 (08:19→18:04)
[2017-02-14 08:33] LABS: ALBUMIN 3.1 g/dl (3.3-4.9); ALBUMIN/GLOBULIN RATIO 1.03; BILIRUBIN,INDIRECT 0.1 mg/dl (0-1.1); BILIRUBIN,TOTAL 0.1 mg/dl (0.2-1.3); CALCIUM 7.7 mg/dl (8.4-10.2); CREATININE 3.59 mg/dl (0.44-1.00); POTASSIUM 3.6 mmol/L (3.5-5.1); TOTAL PROTEIN 6.1 g/dl (6.1-8.1)
[2017-02-14] MEDS ORDERED: REGADENOSON 0.4 MG/5 ML SYG ONE (10:56)
--- NOTE | 2017-02-14 11:21 | OPR ---
Date/Time of Note Date/Time of Note DATE: 02/14/17 TIME: 11:20 Operative Report Free Text/Dictation Nuclear medicine myocardial perfusion imaging: Date: 02/14/2017 Indication: chest pain, DM After informed consent, the patient was given IV Lexiscan. Pt was monitored for a total of 8 minutes post-infusion without any sings of arrhythmias except isolated PVCs. Patient had no chest pain or EKG changes. Please refer to separate note for imaging results. MARIA LUISA GUTIERREZ Feb 14, 2017 11:20
--- NOTE | 2017-02-14 11:22 | CONS ---
Date/Time of Note Date/Time of Note DATE: 02/14/17 TIME: 11:21 Assessment/Plan Assessment/Plan Chief Complaint/Hosp Course Acute on chronic diastolic heart failure: Pt had significant volume overload due to her acute on chronic renal failure and running out of what is likely lasix. Better after diuresis. Chest pain: Likely secondary to decompensated heart failure causing elevated LVEDP and angina. Stress test today Acute on chronic renal failure: Cr 4.5, apparently mid 2s at baseline. HD started 02/14 Hyperkalemia: secondary to above, resolved DM -lasix 20 mg IV daily -stress MPI nuc today -continue ASA Problems: Consultation Date/Type/Reason Admit Date/Time Feb 12, 2017 at 04:11 Initial Consult Date 02/12/17 Type of Consultation: Cardiology Referring Provider: ARASH LINDSAY 24 HR Interval Summary Free Text/Dictation S/p HD yesterday. No complaints currently Exam/Review of Systems Vital Signs Vitals Vital Signs Date Time Temp Pulse Resp B/P Pulse Ox O2 Delivery O2 Flow Rate FiO2 02/14/17 10:07 Nasal Cannula 2.0 02/14/17 08:10 65 02/14/17 07:41 97.8 18 166/74 95 02/12/17 04:19 21 Intake and Output 02/13/17 02/13/17 02/14/17 15:00 23:00 07:00 Intake Total 1800 ml 350 ml Output Total 1600 ml 800 ml Balance 200 ml -450 ml Exam Constitutional: alert, oriented Psych: no complaints Head: atraumatic, normocephalic Neck: No jvd Respiratory: clear to auscultation, No crackles/rales Cardiovascular: edema (trace), regular rate and rhythm Neurological: nl mental status, nl speech Results Result Diagram: 02/14/17 0754 02/14/17 0754 Results 24 hrs Laboratory Tests Test 02/13/17 17:47 02/13/17 20:23 02/14/17 03:01 02/14/17 07:45 Bedside Glucose 175 147 91 97 Test 02/14/17 07:54 White Blood Count 4.5 L Red Blood Count 2.90 L Hemoglobin 8.3 L Hematocrit 25.5 L Mean Corpuscular Volume 87.9 Mean Corpuscular Hemoglobin 28.6 L Mean Corpuscular Hemoglobin Concent 32.5 Red Cell Distribution Width 14.6 H Platelet Count 183 Mean Platelet Volume 11.1 H Neutrophils % 64.0 Lymphocytes % 24.5 Monocytes % 9.7 Eosinophils % 1.6 Basophils % 0.2 Nucleated Red Blood Cells % 0.0 Neutrophils # 2.9 Lymphocytes # 1.1 Monocytes # 0.4 Eosinophils # 0.1 Basophils # 0.0 Nucleated Red Blood Cells # 0.0 Sodium Level 141 Potassium Level 3.6 # Chloride Level 103 # Carbon Dioxide Level 24 # Anion Gap 18 H Blood Urea Nitrogen 38 #H Creatinine 3.59 #H Glucose Level 91 Calcium Level 7.7 L Total Bilirubin 0.1 L Direct Bilirubin 0.00 Indirect Bilirubin 0.1 Aspartate Amino Transf (AST/SGOT) 15 Alanine Aminotransferase (ALT/SGPT) 24 Alkaline Phosphatase 86 Total Protein 6.1 Albumin 3.1 L Globulin 3.00 Albumin/Globulin Ratio 1.03 Medications Medications Current Medications Ondansetron HCl (Zofran Inj) 4 mg Q6H PRN IV NAUSEA AND/OR VOMITING; Start at 05:00 Aspirin (Aspirin) 81 mg DAILY PO Last administered on 02/14/17 08:08; Admin Dose 81 MG; Start 02/12/17 at 09:00 Nitroglycerin (Nitroglycerin (Sl Tab) 0.4 Mg) 1 tab Q5M PRN SL CHEST PAIN Last administered on 02/12/17 18:35; Admin Dose 1 TAB; Start 02/12/17 at 05:00 Acetaminophen (Tylenol Tab) 650 mg Q6H PRN PO PAIN LEVEL 1-3 OR FEVER Last administered on 02/14/17 00:54; Admin Dose 650 MG; Start 02/12/17 at 05:00 Morphine Sulfate (morphine) 2 mg Q4H PRN IV PAIN LEVEL 7-10 Last administered on 02/14/17 08:06; Admin Dose 2 MG; Start 02/12/17 at 05:00 Docusate Sodium (Colace) 100 mg Q12H PRN PO CONSTIPATION Last administered on 08:47; Admin Dose 100 MG; Start 02/12/17 at 05:00 Bisacodyl (Dulcolax) 5 mg DAILY PRN PO CONSTIPATION; Start 02/12/17 at 05:00 Pantoprazole (Protonix Iv) 40 mg DAILY@06 IV Last administered on 02/14/17 05: 55; Admin Dose 40 MG; Start 02/12/17 at 06:00 Ferrous Sulfate (Ferrous Sulfate (Ec)) 325 mg DAILY PO Last administered on 08:08; Admin Dose 325 MG; Start 02/12/17 at 09:00 Insulin Glargine (Lantus) 10 unit HS SC Last administered on 02/13/17 22:57; Admin Dose 10 UNIT; Start 02/12/17 at 21:00 Isosorbide Mononitrate (Imdur) 30 mg DAILY PO Last administered on 02/14/17 08 :09; Admin Dose 30 MG; Start 02/12/17 at 09:00 Miscellaneous Information 1 ea NOTE XX ; Start 02/12/17 at 05:00 Glucose (Glutose) 15 gm Q15M PRN PO DECREASED GLUCOSE; Start 02/12/17 at 05:00 Glucose (Glutose) 22.5 gm Q15M PRN PO DECREASED GLUCOSE; Start 02/12/17 at 05: 00 Dextrose (D50w Syringe) 25 ml Q15M PRN IV DECREASED GLUCOSE; Start 02/12/17 at 05:00 Dextrose (D50w Syringe) 50 ml Q15M PRN IV DECREASED GLUCOSE; Start 02/12/17 at 05:00 Glucagon (Glucagen) 1 mg Q15M PRN IM DECREASED GLUCOSE; Start 02/12/17 at 05:00 Glucose (Glutose) 15 gm Q15M PRN BUCCAL DECREASED GLUCOSE; Start 02/12/17 at 05 :00 Furosemide (Lasix) 20 mg DAILY IV Last administered on 02/14/17 08:09; Admin Dose 20 MG; Start 02/14/17 at 09:00 Sodium Bicarbonate (Sodium Bicarbonate Tab) 650 mg TID PO Last administered on 02/14/17 08:08; Admin Dose 650 MG; Start 02/13/17 at 21:00 Nifedipine (Procardia Xl) 120 mg DAILY PO Last administered on 02/14/17 08:08 ; Admin Dose 240 MG; Start 02/14/17 at 09:00 MARIA LUISA GUTIERREZ Feb 14, 2017 11:22
[2017-02-14 12:16] LABS: ANA SCREEN NEGATIVE (NEGATIVE)
--- NOTE | 2017-02-14 13:35 | RADRPT ---
PROCEDURE: Nuclear medicine myocardial stress and rest scan. CLINICAL INDICATION: Chest pain. TECHNIQUE: The patient was stressed with 0.4 mg IV Lexiscan. 10.4 mCi technetium 99m Tetrofosmin (Myoview) was administered rest. 30.5 mCi technetium 99m Tetrofosmin (Myoview) was administered du ring stress. Images were obtained and reconstructed in the short axis, horizontal long axis, and ve rtical long axis. Gated images were obtained and ejection fraction was calculated. COMPARISON: No prior study is available for comparison. FINDINGS: The stress and rest images demonstrate normal uptake throughout. There is no fixed abnormality or r eversible abnormality. There is no evidence of transient ischemic dilatation. Wall motion is normal. There is normal wall thickening during systole. Ejection fraction at stress is 65%. IMPRESSION: 1. No evidence of stress induced myocardial ischemia. 2. Ejection fraction at stress is 65%. RPTAT: QQ .Hunter Bansal MD, MD Date Time Electronically viewed and signed by .Hunter Bansal MD, on 02/14/2017 13:35 .R/
--- NOTE | 2017-02-14 14:34 | PN ---
Date/Time of Note Date/Time of Note DATE: 02/14/17 TIME: 14:28 Assessment/Plan VTE Prophylaxis VTE Prophylaxis Intervention: ambulation, SCD's Lines/Catheters IV C[facility]ter Type (from [facility] Saline [facility] Urinary Cath still in place: No Assessment/Plan Chief Complaint/Hosp Course 1. Chest pain Likely secondary to decompensated heart failure. Symptoms resolved. -Cardiology evaluation appreciated. Patient is scheduled for stress test today. -Continue aspirin. 2. Acute on chronic kidney disease stage IV -Nephrology on board. Plan is for hemodialysis. -Continue to monitor renal function closely and avoid nephrotoxins as much as possible. 3. Hyperkalemia secondary to #2. Resolved. -We will follow nephrology recommendation. 4. Type II diabetes mellitus: A1C 7.1 -Continue Accu-Cheks,insulin sliding scale and Lantus insulin. 5. Essential hypertension. Stable. -Continue antihypertensives 6. Anemia of chronic kidney disease. H&H stable. Will continue to monitor. DVT and GI prophylaxis: SCDs, Protonix Plan: Follow-up with cardiology and nephrology recommendation. Follow-up with stress test report. Case discussed with Dr. Sorto. Problems: Subjective 24 Hr Interval Summary Free Text/Dictation No acute overnight episodes. Patient is for stress test today. Exam/Review of Systems Vital Signs Vitals Vital Signs Date Time Temp Pulse Resp B/P Pulse Ox O2 Delivery O2 Flow Rate FiO2 02/14/17 12:30 98.7 82 18 121/58 100 02/14/17 10:07 Nasal Cannula 2.0 02/12/17 04:19 21 Intake and Output 02/13/17 02/13/17 02/14/17 15:00 23:00 07:00 Intake Total 1800 ml 350 ml Output Total 1600 ml 800 ml Balance 200 ml -450 ml Exam General: Well developed,adequately built, not in any acute distress . HEENT: Normocephalic, Atraumatic, No laceration or hematoma; Eyes: PEERL, Conjunctiva clear, Anicteric sclera Neck: Supple without any lymphadenopathy, nontender, no JVD, no carotid bruits, trachea midline, no thyromegaly Cardiac: S1, S2 auscultated, regular rhythm and rate, no mumurs or gallop Pulmonary: Normal respiratory effort. Chest clear to auscultation bilaterally, no adventitious breath sounds GI: Abdomen normal to inspection. Soft, non tender, non- distended, no masses, no rebound tenderness or guarding. Bowel sounds active on all four quadrants Genitourinary: Deferred Extremities: No cyanosis, clubbing, or edema. Pulses [2+] bilaterally. Full ROM on all four extremities. No focal weakness appreciated. Neurologic: Alert to person, place, time, and situation. Affect appropriate, intact sensation. Skin: Clean,dry, and intact. No ecchymosis, no rashes, or lesions Access: [facility] cath.site intact. Results Result Diagram: 02/14/17 0754 02/14/17 0754 Results 24 hrs Laboratory Tests Test 02/13/17 17:47 02/13/17 20:23 02/14/17 03:01 02/14/17 07:45 Bedside Glucose 175 147 91 97 Test 02/14/17 07:54 02/14/17 12:10 White Blood Count 4.5 L Red Blood Count 2.90 L Hemoglobin 8.3 L Hematocrit 25.5 L Mean Corpuscular Volume 87.9 Mean Corpuscular Hemoglobin 28.6 L Mean Corpuscular Hemoglobin Concent 32.5 Red Cell Distribution Width 14.6 H Platelet Count 183 Mean Platelet Volume 11.1 H Neutrophils % 64.0 Lymphocytes % 24.5 Monocytes % 9.7 Eosinophils % 1.6 Basophils % 0.2 Nucleated Red Blood Cells % 0.0 Neutrophils # 2.9 Lymphocytes # 1.1 Monocytes # 0.4 Eosinophils # 0.1 Basophils # 0.0 Nucleated Red Blood Cells # 0.0 Sodium Level 141 Potassium Level 3.6 # Chloride Level 103 # Carbon Dioxide Level 24 # Anion Gap 18 H Blood Urea Nitrogen 38 #H Creatinine 3.59 #H Glucose Level 91 Calcium Level 7.7 L Total Bilirubin 0.1 L Direct Bilirubin 0.00 Indirect Bilirubin 0.1 Aspartate Amino Transf (AST/SGOT) 15 Alanine Aminotransferase (ALT/SGPT) 24 Alkaline Phosphatase 86 Total Protein 6.1 Albumin 3.1 L Globulin 3.00 Albumin/Globulin Ratio 1.03 Bedside Glucose 145 Medications Medications Current Medications Ondansetron HCl (Zofran Inj) 4 mg Q6H PRN IV NAUSEA AND/OR VOMITING Last administered on 02/14/17t 12:14; Admin Dose 4 MG; Start 02/12/17 at 05:00 Aspirin (Aspirin) 81 mg DAILY PO Last administered on 02/14/17 08:08; Admin Dose 81 MG; Start 02/12/17 at 09:00 Nitroglycerin (Nitroglycerin (Sl Tab) 0.4 Mg) 1 tab Q5M PRN SL CHEST PAIN Last administered on 02/12/17 18:35; Admin Dose 1 TAB; Start 02/12/17 at 05:00 Acetaminophen (Tylenol Tab) 650 mg Q6H PRN PO PAIN LEVEL 1-3 OR FEVER Last administered on 02/14/17 00:54; Admin Dose 650 MG; Start 02/12/17 at 05:00 Morphine Sulfate (morphine) 2 mg Q4H PRN IV PAIN LEVEL 7-10 Last administered on 02/14/17 08:06; Admin Dose 2 MG; Start 02/12/17 at 05:00 Docusate Sodium (Colace) 100 mg Q12H PRN PO CONSTIPATION Last administered on 08:47; Admin Dose 100 MG; Start 02/12/17 at 05:00 Bisacodyl (Dulcolax) 5 mg DAILY PRN PO CONSTIPATION; Start 02/12/17 at 05:00 Pantoprazole (Protonix Iv) 40 mg DAILY@06 IV Last administered on 02/14/17 05: 55; Admin Dose 40 MG; Start 02/12/17 at 06:00 Ferrous Sulfate (Ferrous Sulfate (Ec)) 325 mg DAILY PO Last administered on 08:08; Admin Dose 325 MG; Start 02/12/17 at 09:00 Insulin Glargine (Lantus) 10 unit HS SC Last administered on 02/13/17 22:57; Admin Dose 10 UNIT; Start 02/12/17 at 21:00 Isosorbide Mononitrate (Imdur) 30 mg DAILY PO Last administered on 02/14/17 08 :09; Admin Dose 30 MG; Start 02/12/17 at 09:00 Miscellaneous Information 1 ea NOTE XX ; Start 02/12/17 at 05:00 Glucose (Glutose) 15 gm Q15M PRN PO DECREASED GLUCOSE; Start 02/12/17 at 05:00 Glucose (Glutose) 22.5 gm Q15M PRN PO DECREASED GLUCOSE; Start 02/12/17 at 05: 00 Dextrose (D50w Syringe) 25 ml Q15M PRN IV DECREASED GLUCOSE; Start 02/12/17 at 05:00 Dextrose (D50w Syringe) 50 ml Q15M PRN IV DECREASED GLUCOSE; Start 02/12/17 at 05:00 Glucagon (Glucagen) 1 mg Q15M PRN IM DECREASED GLUCOSE; Start 02/12/17 at 05:00 Glucose (Glutose) 15 gm Q15M PRN BUCCAL DECREASED GLUCOSE; Start 02/12/17 at 05 :00 Furosemide (Lasix) 20 mg DAILY IV Last administered on 02/14/17 08:09; Admin Dose 20 MG; Start 02/14/17 at 09:00 Sodium Bicarbonate (Sodium Bicarbonate Tab) 650 mg TID PO Last administered on 02/14/17 13:11; Admin Dose 650 MG; Start 02/13/17 at 21:00 Nifedipine (Procardia Xl) 120 mg DAILY PO Last administered on 02/14/17 08:08 ; Admin Dose 240 MG; Start 02/14/17 at 09:00 KATE BEARD NP Feb 14, 2017 14:33 KATE BEARD NP Feb 14, 2017 14:33
[2017-02-14] MEDS: INSULIN GLARGINE [LANtus] 3 ML PEN SC SCH (21:07)
[2017-02-15] VITALS (20 sets, daily range): BP systolic 112–151; BP diastolic 55–76; PULSE 72–183; RESP 17–20
[2017-02-15] MEDS: PANTOPRAZOLE 40 MG INJ IV SCH (05:44)
[2017-02-15 07:42] LABS: ADD SCAN DIFF NO
[2017-02-15 07:43] LABS: BASOPHILS % 0.2 % (0.0-2.0); EOSINOPHILS # 0.1 10^3/ul (0.0-0.5); EOSINOPHILS % 1.5 % (0.0-7.0); HEMATOCRIT 26.8 % (37.0-47.0); HEMOGLOBIN 8.8 g/dl (12.0-16.0); LYMPHOCYTES # 1.1 10^3/ul (0.8-2.9); LYMPHOCYTES % 21.9 % (15.0-51.0); MEAN CORPUSCULAR HEMOGLOBIN 29.2 pg (29.0-33.0); MEAN CORPUSCULAR HGB CONC 32.8 g/dl (32.0-37.0); MEAN PLATELET VOLUME 11.7 fl (7.4-10.4); MONOCYTE # 0.4 10^3/ul (0.3-0.9); MONOCYTES % 8.3 % (0.0-11.0); NEUTROPHIL # 3.5 10^3/ul (1.6-7.5); NEUTROPHILS % 67.9 % (39.0-77.0); PLATELET COUNT 192 10^3/UL (140-415); RED BLOOD COUNT 3.01 10^6/ul (4.20-5.40); RED CELL DISTRIBUTION WIDTH 14.2 % (11.5-14.5); WHITE BLOOD COUNT 5.2 10^3/ul (4.8-10.8)
[2017-02-15] MEDS: INSULIN ASPART [NOVOLOG] 3 ML PEN SC SCH ×4 (07:49→20:42)
[2017-02-15 08:01] LABS: ALBUMIN 3.4 g/dl (3.3-4.9); ALBUMIN/GLOBULIN RATIO 1.09; BILIRUBIN,INDIRECT 0.1 mg/dl (0-1.1); BILIRUBIN,TOTAL 0.1 mg/dl (0.2-1.3); CALCIUM 8.3 mg/dl (8.4-10.2); CREATININE 3.57 mg/dl (0.44-1.00); POTASSIUM 4.2 mmol/L (3.5-5.1); TOTAL PROTEIN 6.5 g/dl (6.1-8.1)
[2017-02-15 08:26] LABS: ADD UMIC YES; UR AMORPHOUS CRYSTAL FEW /HPF (NONE SEEN); UR ASCORBIC ACID NEGATIVE (NEGATIVE); UR BILIRUBIN (Dip) NEGATIVE (NEGATIVE); UR BLOOD (Dip) NEGATIVE (NEGATIVE); UR CLARITY SLIGHTLY CLOUDY (CLEAR); UR COLOR YELLOW (YELLOW); UR GLUCOSE (Dip) 3+ mg/dL (NEGATIVE); UR KETONES (Dip) NEGATIVE (NEGATIVE); UR LEUKOCYTE ESTERASE (Dip) TRACE Leu/ul (NEGATIVE); UR NITRITE (Dip) NEGATIVE (NEGATIVE); UR RBC 2 /HPF (0-5); UR SPECIFIC GRAVITY (Dip) 1.008 (1.003-1.030); UR TOTAL PROTEIN (Dip) 3+ mg/dl (NEGATIVE); UR UROBILINOGEN (Dip) NEGATIVE (NEGATIVE)
[2017-02-15] MEDS: ASPIRIN 81 MG TAB PO SCH (08:29)
[2017-02-15] MEDS: FERROUS SULFATE (EC) 325 MG TAB PO SCH (08:29)
[2017-02-15] MEDS: SEVELAMER 800 MG TAB PO SCH ×3 (08:29→17:04)
[2017-02-15] MEDS: NA BICARBONATE 650 MG TAB PO SCH (08:29)
[2017-02-15] MEDS: ISOSORBIDE MONONITRATE(SR)30 MG TAB PO SCH (08:30)
[2017-02-15] MEDS: FUROSEMIDE 40 MG INJ IV SCH (08:30)
[2017-02-15] MEDS: NIFEdipine (XL) 60 MG TAB PO SCH (08:30)
[2017-02-15 08:41] LABS: CALCIUM 8.5 mg/dl (8.4-10.2); CREATININE 3.44 mg/dl (0.44-1.00); MAGNESIUM 1.7 mg/dl (1.7-2.5); PHOSPHORUS 4.8 mg/dl (2.5-4.9); POTASSIUM 4.2 mmol/L (3.5-5.1)
[2017-02-15] MEDS ORDERED: LACTULOSE 30ML CUP PO ONE (09:00)
--- NOTE | 2017-02-15 09:01 | CONS ---
Date/Time of Note Date/Time of Note DATE: 02/15/17 TIME: 08:54 Assessment/Plan Assessment/Plan Chief Complaint/Hosp Course Acute on chronic diastolic heart failure: Pt had significant volume overload due to her acute on chronic renal failure and running out of what is likely lasix. Better after diuresis. Euvolemic Chest pain: Likely secondary to decompensated heart failure causing elevated LVEDP and angina. Stress MPI was negative for ischemia Acute on chronic renal failure: Cr 4.5, apparently mid 2s at baseline. HD started 02/14 Hyperkalemia: secondary to above, resolved DM -lasix 20 mg PO daily -continue ASA in setting of DM -ok for d/c from my perspective -will follow as needed Problems: Consultation Date/Type/Reason Admit Date/Time Feb 12, 2017 at 04:11 Initial Consult Date 02/12/17 Type of Consultation: Cardiology Referring Provider: ARASH LINDSAY 24 HR Interval Summary Free Text/Dictation No o/n events. No complaints Exam/Review of Systems Vital Signs Vitals Vital Signs Date Time Temp Pulse Resp B/P Pulse Ox O2 Delivery O2 Flow Rate FiO2 02/15/17 08:43 78 02/15/17 07:34 98.1 18 147/76 97 02/15/17 00:16 Room Air 02/14/17 10:07 2.0 02/12/17 04:19 21 Intake and Output 02/14/17 02/14/17 02/15/17 14:59 22:59 06:59 Intake Total 1350 ml Output Total 4350 ml Balance -3000 ml Exam Constitutional: alert, oriented Psych: no complaints Head: normocephalic Neck: No jvd Respiratory: clear to auscultation Gastrointestinal: non-tender, soft Neurological: nl mental status, nl speech Results Result Diagram: 02/15/17 0658 02/15/17 0659 Results 24 hrs Laboratory Tests Test 02/14/17 12:10 02/14/17 18:02 02/14/17 21:06 02/15/17 02:09 Bedside Glucose 145 199 209 109 Test 02/15/17 05:15 02/15/17 06:58 02/15/17 06:59 02/15/17 07:28 Urine Color YELLOW Urine Clarity SLIGHTLY CLOUDY A Urine pH 6.0 Urine Specific Maria Stein 1.008 Urine Ketones NEGATIVE Urine Nitrite NEGATIVE Urine Bilirubin NEGATIVE Urine Urobilinogen NEGATIVE Urine Leukocyte Esterase TRACE A Urine Microscopic RBC 2 Urine Microscopic WBC 6 H Urine Amorphous Crystals FEW A Urine Hemoglobin NEGATIVE Urine Random Creatinine 82.47 Urine Random Sodium 23 L Urine Glucose 3+ H Urine Total Protein Pending White Blood Count 5.2 Red Blood Count 3.01 L Hemoglobin 8.8 L Hematocrit 26.8 L Mean Corpuscular Volume 89.0 Mean Corpuscular Hemoglobin 29.2 Mean Corpuscular Hemoglobin Concent 32.8 Red Cell Distribution Width 14.2 Platelet Count 192 Mean Platelet Volume 11.7 H Neutrophils % 67.9 Lymphocytes % 21.9 Monocytes % 8.3 Eosinophils % 1.5 Basophils % 0.2 Nucleated Red Blood Cells % 0.0 Neutrophils # 3.5 Lymphocytes # 1.1 Monocytes # 0.4 Eosinophils # 0.1 Basophils # 0.0 Nucleated Red Blood Cells # 0.0 Sodium Level 138 137 Potassium Level 4.2 4.2 Chloride Level 96 L 96 L Carbon Dioxide Level 29 29 Anion Gap 17 H 16 Blood Urea Nitrogen 30 H 29 H Creatinine 3.44 H 3.57 H Glucose Level 110 114 Calcium Level 8.5 8.3 L Phosphorus Level 4.8 Magnesium Level 1.7 Total Bilirubin 0.1 L Direct Bilirubin 0.00 Indirect Bilirubin 0.1 Aspartate Amino Transf (AST/SGOT) 18 Alanine Aminotransferase (ALT/SGPT) 26 Alkaline Phosphatase 77 Total Protein 6.5 Albumin 3.4 Globulin 3.10 Albumin/Globulin Ratio 1.09 Bedside Glucose 120 Medications Medications Current Medications Ondansetron HCl (Zofran Inj) 4 mg Q6H PRN IV NAUSEA AND/OR VOMITING Last administered on 02/14/17 12:14; Admin Dose 4 MG; Start 02/12/17 at 05:00 Aspirin (Aspirin) 81 mg DAILY PO Last administered on 02/15/17 08:29; Admin Dose 81 MG; Start 02/12/17 at 09:00 Nitroglycerin (Nitroglycerin (Sl Tab) 0.4 Mg) 1 tab Q5M PRN SL CHEST PAIN Last administered on 02/12/17 18:35; Admin Dose 1 TAB; Start 02/12/17 at 05:00 Acetaminophen (Tylenol Tab) 650 mg Q6H PRN PO PAIN LEVEL 1-3 OR FEVER Last administered on 02/14/17 00:54; Admin Dose 650 MG; Start 02/12/17 at 05:00 Morphine Sulfate (morphine) 2 mg Q4H PRN IV PAIN LEVEL 7-10 Last administered on 02/14/17 08:06; Admin Dose 2 MG; Start 02/12/17 at 05:00 Docusate Sodium (Colace) 100 mg Q12H PRN PO CONSTIPATION Last administered on 08:47; Admin Dose 100 MG; Start 02/12/17 at 05:00 Bisacodyl (Dulcolax) 5 mg DAILY PRN PO CONSTIPATION; Start 02/12/17 at 05:00 Pantoprazole (Protonix Iv) 40 mg DAILY@06 IV Last administered on 02/15/17 05: 44; Admin Dose 40 MG; Start 02/12/17 at 06:00 Ferrous Sulfate (Ferrous Sulfate (Ec)) 325 mg DAILY PO Last administered on 08:29; Admin Dose 325 MG; Start 02/12/17 at 09:00 Insulin Glargine (Lantus) 10 unit HS SC Last administered on 02/14/17 21:07; Admin Dose 10 UNIT; Start 02/12/17 at 21:00 Isosorbide Mononitrate (Imdur) 30 mg DAILY PO Last administered on 02/15/17 08 :30; Admin Dose 30 MG; Start 02/12/17 at 09:00 Miscellaneous Information 1 ea NOTE XX ; Start 02/12/17 at 05:00 Glucose (Glutose) 15 gm Q15M PRN PO DECREASED GLUCOSE; Start 02/12/17 at 05:00 Glucose (Glutose) 22.5 gm Q15M PRN PO DECREASED GLUCOSE; Start 02/12/17 at 05: 00 Dextrose (D50w Syringe) 25 ml Q15M PRN IV DECREASED GLUCOSE; Start 02/12/17 at 05:00 Dextrose (D50w Syringe) 50 ml Q15M PRN IV DECREASED GLUCOSE; Start 02/12/17 at 05:00 Glucagon (Glucagen) 1 mg Q15M PRN IM DECREASED GLUCOSE; Start 02/12/17 at 05:00 Glucose (Glutose) 15 gm Q15M PRN BUCCAL DECREASED GLUCOSE; Start 02/12/17 at 05 :00 Furosemide (Lasix) 20 mg DAILY IV Last administered on 02/15/17 08:30; Admin Dose 20 MG; Start 02/14/17 at 09:00 Sodium Bicarbonate (Sodium Bicarbonate Tab) 650 mg TID PO Last administered on 02/15/17 08:29; Admin Dose 650 MG; Start 02/13/17 at 21:00 Nifedipine (Procardia Xl) 120 mg DAILY PO Last administered on 02/15/17 08:30 ; Admin Dose 120 MG; Start 02/14/17 at 09:00 MARIA LUISA GUTIERREZ Feb 15, 2017 09:01
--- NOTE | 2017-02-15 10:55 | RADRPT ---
Vent Rate: 70 bpm RR Interval: 0 msec [place] Interval: 186 msec QRS Duration: 88 msec QT Interval: 396 msec QTC Interval: 427 msec P-R-T [facility]: 66 - 29 - 83 degrees Normal sinus rhythm Normal ECG Electronically Signed By: Nestor Briones [id number]
[2017-02-15 11:08] LABS: HAAIG REFLEX REFLEX FILED
[2017-02-15 12:28] LABS: COMPLEMENT C3 91 mg/dl (88-165); COMPLEMENT C4 44 mg/dl (14-44)
[2017-02-15 13:09] LABS: HEPATITIS B CORE ANTIBODY NEGATIVE (NEGATIVE)
--- NOTE | 2017-02-15 14:03 | PN ---
Date/Time of Note Date/Time of Note DATE: 02/15/17 TIME: 14:02 Assessment/Plan VTE Prophylaxis VTE Prophylaxis Intervention: ambulation, SCD's Lines/Catheters IV [facility] Saline Lock Urinary Cath still in place: No Assessment/Plan Chief Complaint/Hosp Course 1. Chest pain Likely secondary to decompensated heart failure. Symptoms resolved. -Cardiology evaluation appreciated. Stress test negative for ischemia. -Continue aspirin. 2. Acute on chronic diastolic heart failure. -Continue diuretics, aspirin nitrates and CCB. 3. Acute on chronic kidney disease stage IV -Nephrology on board. Patient has been started on hemodialysis. -Continue Accu-Cheks,insulin sliding scale and Lantus insulin. 4. Hyperkalemia secondary to #2. Resolved. -We will follow nephrology recommendation. 5. Type II diabetes mellitus: A1C 7.1 -Continue Lantus insulin. We will also add Accu-Cheks,Insulin glargine, and insulin sliding scale. 6. Essential hypertension. Stable. -Continue antihypertensives 7. Anemia of chronic kidney disease. H&H stable. -Continue oral iron. DVT and GI prophylaxis: SCDs, Protonix Plan: Follow-up with nephrology regarding outpatient hemodialysis arrangement. Once cleared from renal standpoint, discharge planning. Case discussed with Dr. Sorto. Problems: Subjective 24 Hr Interval Summary Free Text/Dictation Status post stress test. Denies any chest pain, shortness of breath, other discomfort. Exam/Review of Systems Vital Signs Vitals Vital Signs Date Time Temp Pulse Resp B/P Pulse Ox O2 Delivery O2 Flow Rate FiO2 02/15/17 12:31 86 02/15/17 11:35 97.8 18 112/55 97 02/15/17 00:16 Room Air 02/14/17 10:07 2.0 02/12/17 04:19 21 Intake and Output 02/14/17 02/14/17 02/15/17 15:00 23:00 07:00 Intake Total 1350 ml Output Total 4350 ml Balance -3000 ml Exam General: Well developed,adequately built, not in any acute distress . HEENT: Normocephalic, Atraumatic, No laceration or hematoma; Eyes: PEERL, Conjunctiva clear, Anicteric sclera Neck: Supple without any lymphadenopathy, nontender, no JVD, no carotid bruits, trachea midline, no thyromegaly Cardiac: S1, S2 auscultated, regular rhythm and rate, no mumurs or gallop Pulmonary: Normal respiratory effort. Chest clear to auscultation bilaterally, no adventitious breath sounds GI: Abdomen normal to inspection. Soft, non tender, non- distended, no masses, no rebound tenderness or guarding. Bowel sounds active on all four quadrants Genitourinary: Deferred Extremities: No cyanosis, clubbing, or edema. Pulses [2+] bilaterally. Full ROM on all four extremities. No focal weakness appreciated. Neurologic: Alert to person, place, time, and situation. Affect appropriate, intact sensation. Skin: Clean,dry, and intact. No ecchymosis, no rashes, or lesions Results Result Diagram: 02/15/17 0658 02/15/17 0659 Results 24 hrs Laboratory Tests Test 02/14/17 18:02 02/14/17 21:06 02/15/17 02:09 02/15/17 05:15 Bedside Glucose 199 209 109 Urine Color YELLOW Urine Clarity SLIGHTLY CLOUDY A Urine pH 6.0 Urine Specific [place] 1.008 Urine Ketones NEGATIVE Urine Nitrite NEGATIVE Urine Bilirubin NEGATIVE Urine Urobilinogen NEGATIVE Urine Leukocyte Esterase TRACE A Urine Microscopic RBC 2 Urine Microscopic WBC 6 H Urine Amorphous Crystals FEW A Urine Hemoglobin NEGATIVE Urine Random Creatinine 82.47 Urine Random Sodium 23 L Urine Glucose 3+ H Urine Total Protein Test 02/15/17 06:58 02/15/17 06:59 02/15/17 07:28 02/15/17 11:00 White Blood Count 5.2 Red Blood Count 3.01 L Hemoglobin 8.8 L Hematocrit 26.8 L Mean Corpuscular Volume 89.0 Mean Corpuscular Hemoglobin 29.2 Mean Corpuscular Hemoglobin Concent 32.8 Red Cell Distribution Width 14.2 Platelet Count 192 Mean Platelet Volume 11.7 H Neutrophils % 67.9 Lymphocytes % 21.9 Monocytes % 8.3 Eosinophils % 1.5 Basophils % 0.2 Nucleated Red Blood Cells % 0.0 Neutrophils # 3.5 Lymphocytes # 1.1 Monocytes # 0.4 Eosinophils # 0.1 Basophils # 0.0 Nucleated Red Blood Cells # 0.0 Sodium Level 138 137 Potassium Level 4.2 4.2 Chloride Level 96 L 96 L Carbon Dioxide Level 29 29 Anion Gap 17 H 16 Blood Urea Nitrogen 30 H 29 H Creatinine 3.44 H 3.57 H Glucose Level 110 114 Calcium Level 8.5 8.3 L Phosphorus Level 4.8 Magnesium Level 1.7 Total Bilirubin 0.1 L Direct Bilirubin 0.00 Indirect Bilirubin 0.1 Aspartate Amino Transf (AST/SGOT) 18 Alanine Aminotransferase (ALT/SGPT) 26 Alkaline Phosphatase 77 Total Protein 6.5 Albumin 3.4 Globulin 3.10 Albumin/Globulin Ratio 1.09 Bedside Glucose 120 Complement C3 91 Complement C4 44 Hepatitis B Surface Antigen NEGATIVE Hepatitis B Core Total Antibody NEGATIVE Hepatitis C Antibody NEGATIVE Test 02/15/17 12:11 Bedside Glucose 224 H Medications Medications Current Medications Ondansetron HCl (Zofran Inj) 4 mg Q6H PRN IV NAUSEA AND/OR VOMITING Last administered on 02/14/17 12:14; Admin Dose 4 MG; Start 02/12/17 at 05:00 Aspirin (Aspirin) 81 mg DAILY PO Last administered on 02/15/17 08:29; Admin Dose 81 MG; Start 02/12/17 at 09:00 Nitroglycerin (Nitroglycerin (Sl Tab) 0.4 Mg) 1 tab Q5M PRN SL CHEST PAIN Last administered on 02/12/17 18:35; Admin Dose 1 TAB; Start 02/12/17 at 05:00 Acetaminophen (Tylenol Tab) 650 mg Q6H PRN PO PAIN LEVEL 1-3 OR FEVER Last administered on 02/14/17 00:54; Admin Dose 650 MG; Start 02/12/17 at 05:00 Morphine Sulfate (morphine) 2 mg Q4H PRN IV PAIN LEVEL 7-10 Last administered on 02/14/17 08:06; Admin Dose 2 MG; Start 02/12/17 at 05:00 Docusate Sodium (Colace) 100 mg Q12H PRN PO CONSTIPATION Last administered on 08:47; Admin Dose 100 MG; Start 02/12/17 at 05:00 Bisacodyl (Dulcolax) 5 mg DAILY PRN PO CONSTIPATION; Start 02/12/17 at 05:00 Pantoprazole (Protonix Iv) 40 mg DAILY@06 IV Last administered on 02/15/17 05: 44; Admin Dose 40 MG; Start 02/12/17 at 06:00 Ferrous Sulfate (Ferrous Sulfate (Ec)) 325 mg DAILY PO Last administered on 08:29; Admin Dose 325 MG; Start 02/12/17 at 09:00 Insulin Glargine (Lantus) 10 unit HS SC Last administered on 02/14/17 21:07; Admin Dose 10 UNIT; Start 02/12/17 at 21:00 Isosorbide Mononitrate (Imdur) 30 mg DAILY PO Last administered on 02/15/17 08 :30; Admin Dose 30 MG; Start 02/12/17 at 09:00 Miscellaneous Information 1 ea NOTE XX ; Start 02/12/17 at 05:00 Glucose (Glutose) 15 gm Q15M PRN PO DECREASED GLUCOSE; Start 02/12/17 at 05:00 Glucose (Glutose) 22.5 gm Q15M PRN PO DECREASED GLUCOSE; Start 02/12/17 at 05: 00 Dextrose (D50w Syringe) 25 ml Q15M PRN IV DECREASED GLUCOSE; Start 02/12/17 at 05:00 Dextrose (D50w Syringe) 50 ml Q15M PRN IV DECREASED GLUCOSE; Start 02/12/17 at 05:00 Glucagon (Glucagen) 1 mg Q15M PRN IM DECREASED GLUCOSE; Start 02/12/17 at 05:00 Glucose (Glutose) 15 gm Q15M PRN BUCCAL DECREASED GLUCOSE; Start 02/12/17 at 05 :00 Nifedipine (Procardia Xl) 120 mg DAILY PO Last administered on 02/15/17 08:30 ; Admin Dose 120 MG; Start 02/14/17 at 09:00 Furosemide (Lasix) 20 mg DAILY PO ; Start 02/16/17 at 09:00 KATE BEARD NP Feb 15, 2017 14:03 KATE BEARD NP Feb 15, 2017 14:03
[2017-02-15 17:19] LABS: MICROALBUMIN 111.9 mg/dL
[2017-02-15] MEDS: BISACODYL (EC) 5 MG TAB PO PRN (20:33)
[2017-02-15] MEDS: INSULIN GLARGINE [LANtus] 3 ML PEN SC SCH (20:37)
[2017-02-16] VITALS (13 sets, daily range): BP systolic 148–169; BP diastolic 64–79; PULSE 76–93; RESP 16–20
[2017-02-16 04:20] LABS: PROTEIN, TOTAL 5.8 g/dL (6.1-8.1)
[2017-02-16] MEDS: PANTOPRAZOLE 40 MG INJ IV SCH (05:04)
[2017-02-16 07:19] LABS: ADD SCAN DIFF NO
[2017-02-16 07:23] LABS: BASOPHILS % 0.2 % (0.0-2.0); EOSINOPHILS # 0.1 10^3/ul (0.0-0.5); EOSINOPHILS % 2.1 % (0.0-7.0); HEMATOCRIT 26.7 % (37.0-47.0); HEMOGLOBIN 8.4 g/dl (12.0-16.0); LYMPHOCYTES # 1.1 10^3/ul (0.8-2.9); LYMPHOCYTES % 20.7 % (15.0-51.0); MEAN CORPUSCULAR HEMOGLOBIN 28.7 pg (29.0-33.0); MEAN CORPUSCULAR HGB CONC 31.5 g/dl (32.0-37.0); MEAN CORPUSCULAR VOLUME 91.1 fl (82.0-101.0); MEAN PLATELET VOLUME 11.1 fl (7.4-10.4); MONOCYTE # 0.5 10^3/ul (0.3-0.9); MONOCYTES % 9.1 % (0.0-11.0); NEUTROPHIL # 3.6 10^3/ul (1.6-7.5); NEUTROPHILS % 67.7 % (39.0-77.0); PLATELET COUNT 160 10^3/UL (140-415); RED BLOOD COUNT 2.93 10^6/ul (4.20-5.40); RED CELL DISTRIBUTION WIDTH 14.1 % (11.5-14.5); WHITE BLOOD COUNT 5.3 10^3/ul (4.8-10.8)
[2017-02-16 07:47] LABS: ALBUMIN 3.3 g/dl (3.3-4.9); ALBUMIN/GLOBULIN RATIO 1.1; BILIRUBIN,INDIRECT 0.1 mg/dl (0-1.1); BILIRUBIN,TOTAL 0.1 mg/dl (0.2-1.3); CALCIUM 8.4 mg/dl (8.4-10.2); CREATININE 3.33 mg/dl (0.44-1.00); POTASSIUM 3.7 mmol/L (3.5-5.1); TOTAL PROTEIN 6.3 g/dl (6.1-8.1)
[2017-02-16 07:57] LABS: MAGNESIUM 1.9 mg/dl (1.7-2.5); PHOSPHORUS 4.2 mg/dl (2.5-4.9)
[2017-02-16] MEDS: INSULIN ASPART [NOVOLOG] 3 ML PEN SC SCH ×4 (08:00→20:39)
[2017-02-16] MEDS: ASPIRIN 81 MG TAB PO SCH (08:28)
[2017-02-16] MEDS: SEVELAMER 800 MG TAB PO SCH ×3 (08:28→17:29)
[2017-02-16] MEDS: FERROUS SULFATE (EC) 325 MG TAB PO SCH (08:28)
[2017-02-16] MEDS: NIFEdipine (XL) 60 MG TAB PO SCH (08:29)
[2017-02-16] MEDS: ISOSORBIDE MONONITRATE(SR)30 MG TAB PO SCH (08:29)
[2017-02-16] MEDS: FUROSEMIDE 20 MG TAB PO SCH (08:30)
--- NOTE | 2017-02-16 10:28 | PN ---
Date/Time of Note Date/Time of Note DATE: 02/16/17 TIME: 10:25 Assessment/Plan Lines/Catheters IV Catheter Type (from Nrs): DIALYSIS CATH Urinary Cath still in place: No Assessment/Plan Chief Complaint/Hosp Course 1. Nonoliguric acute kidney injury and top of CKD stage IV with a baseline creatinine around 2.7 0.0 mg/dL, with a PVC GFR around 20 mL per -Patient is likely progress towards end-stage renal disease Serological workup was negative underlying cause is likely diabetic nephropathy Patient was initially on hemodialysis as tolerated well We will arrange for outpatient hemodialysis placement [facility] patient will require permacath placement plan for dialysis tomorrow 2hyperkalemia: Resolved Anemia monitor H&H levels will give Epogen with dialysis Monitor calcium phosphorus levels Volume overload secondary stage renal disease continue ultrafiltration dialysis patient is improving #3 chest pain: Could be multifactorial but will rule out ACS. Resolved #4 diabetes mellitus: -Continue current insulin #5 hypertension: We will continue nifedipine, we will hold ANKITA inhibitor. 1 #6 normocytic anemia: This likely secondary to #2. Will check iron studies. Patient likely will need Procrit/Epogen however unclear if can get it as outpatient. Continue home iron supplements. Problems: Subjective 24 Hr Interval Summary Free Text/Dictation I spoke with the patient informing her that she will likely require outpatient hemodialysis as she is progressed to end-stage renal disease Patient understood We will porter sample case arrange for outpatient dialysis at [facility], patient also require a permacath placement Exam/Review of Systems Vital Signs Vitals Vital Signs Date Time Temp Pulse Resp B/P Pulse Ox O2 Delivery O2 Flow Rate FiO2 02/16/17 08:30 77 02/16/17 08:03 97.9 18 168/77 94 02/15/17 00:16 Room Air 02/14/17 10:07 2.0 Intake and Output 02/15/17 02/15/17 02/16/17 15:00 23:00 07:00 Intake Total 1250 ml 480 ml Output Total 3500 ml 600 ml Balance -2250 ml -120 ml Exam EENT: Atraumatic, normocephalic. The pupils are equal, round and reactive. Extraocular motor are intact Neck: Supple with full range of motion. No rigidity or meningismus Chest: Nontender Lungs: Clear to auscultation bilaterally no crackles rales or wheezing Heart: Normal S1-S2, Regular rhythm and rate. No overt murmur appreciate Abdomen: Soft , nontender, nondistended , bowel sounds are present. No guarding no rebound tenderness , No masses or organomegaly. No costovertebral temporal angle mass Extremities: 2+ bilateral pitting edema, multiple 1-2 cm lesion the noted of the bilateral lower extremities with dry blood. Neurologic: Normal mental status, speech normal, cranial nerves II through XII are intact, motor and sensory are intact, no focal weakness Results Result Diagram: 02/16/17 0708 02/16/17 0708 Results 24 hrs Laboratory Tests Test 02/15/17 11:00 02/15/17 12:11 02/15/17 16:55 02/15/17 20:30 Total Protein (PEP) 5.8 L Albumin (PEP) Pending Adled-[id number] Pending Qmuyv-[id number] Pending Beta Globulins Pending Gamma Globulins Pending Protein Electrophoresis Interpret Pending Serum Immunofixation Pending Rheumatoid Factor Screen NEGATIVE Complement C3 91 Complement C4 44 Hepatitis B Surface Antigen NEGATIVE Hepatitis B Core Total Antibody NEGATIVE Hepatitis C Antibody NEGATIVE Bedside Glucose 224 H 174 176 Test 02/16/17 07:08 02/16/17 08:30 White Blood Count 5.3 Red Blood Count 2.93 L Hemoglobin 8.4 L Hematocrit 26.7 L Mean Corpuscular Volume 91.1 Mean Corpuscular Hemoglobin 28.7 L Mean Corpuscular Hemoglobin Concent 31.5 L Red Cell Distribution Width 14.1 Platelet Count 160 Mean Platelet Volume 11.1 H Neutrophils % 67.7 Lymphocytes % 20.7 Monocytes % 9.1 Eosinophils % 2.1 Basophils % 0.2 Nucleated Red Blood Cells % 0.0 Neutrophils # 3.6 Lymphocytes # 1.1 Monocytes # 0.5 Eosinophils # 0.1 Basophils # 0.0 Nucleated Red Blood Cells # 0.0 Sodium Level 144 Potassium Level 3.7 Chloride Level 102 Carbon Dioxide Level 29 Anion Gap 17 H Blood Urea Nitrogen 24 H Creatinine 3.33 H Glucose Level 114 Calcium Level 8.4 Phosphorus Level 4.2 Magnesium Level 1.9 Total Bilirubin 0.1 L Direct Bilirubin 0.00 Indirect Bilirubin 0.1 Aspartate Amino Transf (AST/SGOT) 19 Alanine Aminotransferase (ALT/SGPT) 24 Alkaline Phosphatase 84 Total Protein 6.3 Albumin 3.3 Globulin 3.00 Albumin/Globulin Ratio 1.10 Bedside Glucose 124 Medications Medications Current Medications Ondansetron HCl (Zofran Inj) 4 mg Q6H PRN IV NAUSEA AND/OR VOMITING Last administered on 02/14/17 12:14; Admin Dose 4 MG; Start 02/12/17 at 05:00 Aspirin (Aspirin) 81 mg DAILY PO Last administered on 02/16/17 08:28; Admin Dose 81 MG; Start 02/12/17 at 09:00 Nitroglycerin (Nitroglycerin (Sl Tab) 0.4 Mg) 1 tab Q5M PRN SL CHEST PAIN Last administered on 02/12/17 18:35; Admin Dose 1 TAB; Start 02/12/17 at 05:00 Acetaminophen (Tylenol Tab) 650 mg Q6H PRN PO PAIN LEVEL 1-3 OR FEVER Last administered on 02/14/17 00:54; Admin Dose 650 MG; Start 02/12/17 at 05:00 Morphine Sulfate (morphine) 2 mg Q4H PRN IV PAIN LEVEL 7-10 Last administered on 02/14/17 08:06; Admin Dose 2 MG; Start 02/12/17 at 05:00 Docusate Sodium (Colace) 100 mg Q12H PRN PO CONSTIPATION Last administered on 08:47; Admin Dose 100 MG; Start 02/12/17 at 05:00 Bisacodyl (Dulcolax) 5 mg DAILY PRN PO CONSTIPATION Last administered on 20:33; Admin Dose 5 MG; Start 02/12/17 at 05:00 Pantoprazole (Protonix Iv) 40 mg DAILY@06 IV Last administered on 02/16/17 05: 04; Admin Dose 40 MG; Start 02/12/17 at 06:00 Ferrous Sulfate (Ferrous Sulfate (Ec)) 325 mg DAILY PO Last administered on 08:28; Admin Dose 325 MG; Start 02/12/17 at 09:00 Insulin Glargine (Lantus) 10 unit HS SC Last administered on 02/15/17 20:37; Admin Dose 10 UNIT; Start 02/12/17 at 21:00 Isosorbide Mononitrate (Imdur) 30 mg DAILY PO Last administered on 02/16/17 08 :29; Admin Dose 30 MG; Start 02/12/17 at 09:00 Miscellaneous Information 1 ea NOTE XX ; Start 02/12/17 at 05:00 Glucose (Glutose) 15 gm Q15M PRN PO DECREASED GLUCOSE; Start 02/12/17 at 05:00 Glucose (Glutose) 22.5 gm Q15M PRN PO DECREASED GLUCOSE; Start 02/12/17 at 05: 00 Dextrose (D50w Syringe) 25 ml Q15M PRN IV DECREASED GLUCOSE; Start 02/12/17 at 05:00 Dextrose (D50w Syringe) 50 ml Q15M PRN IV DECREASED GLUCOSE; Start 02/12/17 at 05:00 Glucagon (Glucagen) 1 mg Q15M PRN IM DECREASED GLUCOSE; Start 02/12/17 at 05:00 Glucose (Glutose) 15 gm Q15M PRN BUCCAL DECREASED GLUCOSE; Start 02/12/17 at 05 :00 Nifedipine (Procardia Xl) 120 mg DAILY PO Last administered on 02/16/17 08:29 ; Admin Dose 120 MG; Start 02/14/17 at 09:00 Furosemide (Lasix) 20 mg DAILY PO Last administered on 02/16/17 08:30; Admin Dose 20 MG; Start 02/16/17 at 09:[address] AL[address]ICH DO Feb 16, 2017 10:28
[2017-02-16] MEDS ORDERED: EPOETIN 4000 UNITS/1 ML INJ (ESRD) SC SCH (10:30)
--- NOTE | 2017-02-16 12:00 | PN ---
Date/Time of Note Date/Time of Note DATE: 02/16/17 TIME: 11:57 Assessment/Plan VTE Prophylaxis VTE Prophylaxis Intervention: ambulation, SCD's Lines/Catheters IV Catheter Type (from [facility]): DIALYSIS CATH Urinary Cath still in place: No Assessment/Plan Chief Complaint/Hosp Course 1. Chest pain Likely secondary to decompensated heart failure. Symptoms resolved. -Cardiology evaluation appreciated. Stress test negative for ischemia. -Continue aspirin. 2. Acute on chronic diastolic heart failure. -Continue diuretics, aspirin nitrates and CCB. 3. Acute on chronic kidney disease stage IV-progressing to ESRD -Nephrology on board. Patient has been started on hemodialysis. -Continue to monitor renal function closely and avoid nephrotoxins as much as possible. 4. Hyperkalemia secondary to #2. Resolved. -We will follow nephrology recommendation. 5. Type II diabetes mellitus: A1C 7.1 -Continue Accu-Cheks,insulin sliding scale and Lantus insulin. 6. Essential hypertension. Stable. -Continue antihypertensives 7. Anemia of chronic kidney disease. H&H stable. -Epogen per nephrology. Continue oral iron. DVT and GI prophylaxis: SCDs, Protonix Plan: Follow-up with nephrology regarding outpatient hemodialysis arrangement. Arrangement has been done for dialysis catheter insertion. Once cleared from renal standpoint, discharge planning. Meanwhile, patient will be downgraded to medical surgical floor. Case discussed with Dr. Sorto. Problems: Subjective 24 Hr Interval Summary Free Text/Dictation Patient with no acute overnight episodes. Exam/Review of Systems Vital Signs Vitals Vital Signs Date Time Temp Pulse Resp B/P Pulse Ox O2 Delivery O2 Flow Rate FiO2 02/16/17 08:30 77 02/16/17 08:03 97.9 18 168/77 94 02/15/17 00:16 Room Air 02/14/17 10:07 2.0 Intake and Output 02/15/17 02/15/17 02/16/17 15:00 23:00 07:00 Intake Total 1250 ml 480 ml Output Total 3500 ml 600 ml Balance -2250 ml -120 ml Exam General: Well developed,adequately built, not in any acute distress . HEENT: Normocephalic, Atraumatic, No laceration or hematoma; Eyes: PEERL, Conjunctiva clear, Anicteric sclera Neck: Supple without any lymphadenopathy, nontender, no JVD, no carotid bruits, trachea midline, no thyromegaly Cardiac: S1, S2 auscultated, regular rhythm and rate, no mumurs or gallop Pulmonary: Normal respiratory effort. Chest clear to auscultation bilaterally, no adventitious breath sounds GI: Abdomen normal to inspection. Soft, non tender, non- distended, no masses, no rebound tenderness or guarding. Bowel sounds active on all four quadrants Genitourinary: Deferred Extremities: No cyanosis, clubbing, or edema. Pulses [2+] bilaterally. Full ROM on all four extremities. No focal weakness appreciated. Neurologic: Alert to person, place, time, and situation. Affect appropriate, intact sensation. Skin: Clean,dry, and intact. No ecchymosis, no rashes, or lesions Results Result Diagram: 02/16/17 0708 02/16/17 0708 Results 24 hrs Laboratory Tests Test 02/15/17 12:11 02/15/17 16:55 02/15/17 20:30 02/16/17 07:08 Bedside Glucose 224 H 174 176 White Blood Count 5.3 Red Blood Count 2.93 L Hemoglobin 8.4 L Hematocrit 26.7 L Mean Corpuscular Volume 91.1 Mean Corpuscular Hemoglobin 28.7 L Mean Corpuscular Hemoglobin Concent 31.5 L Red Cell Distribution Width 14.1 Platelet Count 160 Mean Platelet Volume 11.1 H Neutrophils % 67.7 Lymphocytes % 20.7 Monocytes % 9.1 Eosinophils % 2.1 Basophils % 0.2 Nucleated Red Blood Cells % 0.0 Neutrophils # 3.6 Lymphocytes # 1.1 Monocytes # 0.5 Eosinophils # 0.1 Basophils # 0.0 Nucleated Red Blood Cells # 0.0 Sodium Level 144 Potassium Level 3.7 Chloride Level 102 Carbon Dioxide Level 29 Anion Gap 17 H Blood Urea Nitrogen 24 H Creatinine 3.33 H Glucose Level 114 Calcium Level 8.4 Phosphorus Level 4.2 Magnesium Level 1.9 Total Bilirubin 0.1 L Direct Bilirubin 0.00 Indirect Bilirubin 0.1 Aspartate Amino Transf (AST/SGOT) 19 Alanine Aminotransferase (ALT/SGPT) 24 Alkaline Phosphatase 84 Total Protein 6.3 Albumin 3.3 Globulin 3.00 Albumin/Globulin Ratio 1.10 Test 02/16/17 08:30 Bedside Glucose 124 Medications Medications Current Medications Ondansetron HCl (Zofran Inj) 4 mg Q6H PRN IV NAUSEA AND/OR VOMITING Last administered on 02/14/17 12:14; Admin Dose 4 MG; Start 02/12/17 at 05:00 Aspirin (Aspirin) 81 mg DAILY PO Last administered on 02/16/17 08:28; Admin Dose 81 MG; Start 02/12/17 at 09:00 Nitroglycerin (Nitroglycerin (Sl Tab) 0.4 Mg) 1 tab Q5M PRN SL CHEST PAIN Last administered on 02/12/17 18:35; Admin Dose 1 TAB; Start 02/12/17 at 05:00 Acetaminophen (Tylenol Tab) 650 mg Q6H PRN PO PAIN LEVEL 1-3 OR FEVER Last administered on 02/14/17 00:54; Admin Dose 650 MG; Start 02/12/17 at 05:00 Morphine Sulfate (morphine) 2 mg Q4H PRN IV PAIN LEVEL 7-10 Last administered on 02/14/17 08:06; Admin Dose 2 MG; Start 02/12/17 at 05:00 Docusate Sodium (Colace) 100 mg Q12H PRN PO CONSTIPATION Last administered on 08:47; Admin Dose 100 MG; Start 02/12/17 at 05:00 Bisacodyl (Dulcolax) 5 mg DAILY PRN PO CONSTIPATION Last administered on 20:33; Admin Dose 5 MG; Start 02/12/17 at 05:00 Pantoprazole (Protonix Iv) 40 mg DAILY@06 IV Last administered on 02/16/17 05: 04; Admin Dose 40 MG; Start 02/12/17 at 06:00 Ferrous Sulfate (Ferrous Sulfate (Ec)) 325 mg DAILY PO Last administered on 08:28; Admin Dose 325 MG; Start 02/12/17 at 09:00 Insulin Glargine (Lantus) 10 unit HS SC Last administered on 02/15/17 20:37; Admin Dose 10 UNIT; Start 02/12/17 at 21:00 Isosorbide Mononitrate (Imdur) 30 mg DAILY PO Last administered on 02/16/17 08 :29; Admin Dose 30 MG; Start 02/12/17 at 09:00 Miscellaneous Information 1 ea NOTE XX ; Start 02/12/17 at 05:00 Glucose (Glutose) 15 gm Q15M PRN PO DECREASED GLUCOSE; Start 02/12/17 at 05:00 Glucose (Glutose) 22.5 gm Q15M PRN PO DECREASED GLUCOSE; Start 02/12/17 at 05: 00 Dextrose (D50w Syringe) 25 ml Q15M PRN IV DECREASED GLUCOSE; Start 02/12/17 at 05:00 Dextrose (D50w Syringe) 50 ml Q15M PRN IV DECREASED GLUCOSE; Start 02/12/17 at 05:00 Glucagon (Glucagen) 1 mg Q15M PRN IM DECREASED GLUCOSE; Start 02/12/17 at 05:00 Glucose (Glutose) 15 gm Q15M PRN BUCCAL DECREASED GLUCOSE; Start 02/12/17 at 05 :00 Nifedipine (Procardia Xl) 120 mg DAILY PO Last administered on 02/16/17 08:29 ; Admin Dose 120 MG; Start 02/14/17 at 09:00 Furosemide (Lasix) 20 mg DAILY PO Last administered on 02/16/17 08:30; Admin Dose 20 MG; Start 02/16/17 at 09:00 KATE BEARD NP Feb 16, 2017 11:59
[2017-02-16 12:17] LABS: MYELOPEROXIDASE ANTIBODY <1.0 AI; PROTEINASE-3 ANTIBODY <1.0 AI
[2017-02-16] MEDS: BISACODYL (EC) 5 MG TAB PO PRN (17:29)
[2017-02-16] MEDS: DOCUSATE SODIUM 100 MG CAP PO PRN (17:29)
[2017-02-16 19:30] LABS: ALBUMIN 3.1 g/dL (3.8-4.8)
[2017-02-16] MEDS: INSULIN GLARGINE [LANtus] 3 ML PEN SC SCH (20:39)
[2017-02-16] MEDS: hydrALAzine 20 MG INJ IV PRN (23:45)
[2017-02-17 00:15] VITALS: BP 180/84; RESP 19
[2017-02-17 01:31] VITALS: BP 140/67; PULSE 82; RESP 18
[2017-02-17 05:41] LABS: ADD SCAN DIFF NO
[2017-02-17 05:42] LABS: BASOPHILS % 0.3 % (0.0-2.0); EOSINOPHILS # 0.2 10^3/ul (0.0-0.5); EOSINOPHILS % 2.3 % (0.0-7.0); HEMOGLOBIN 8.2 g/dl (12.0-16.0); LYMPHOCYTES # 1.4 10^3/ul (0.8-2.9); LYMPHOCYTES % 21.5 % (15.0-51.0); MEAN CORPUSCULAR HEMOGLOBIN 28.6 pg (29.0-33.0); MEAN CORPUSCULAR HGB CONC 31.5 g/dl (32.0-37.0); MEAN CORPUSCULAR VOLUME 90.6 fl (82.0-101.0); MONOCYTE # 0.5 10^3/ul (0.3-0.9); MONOCYTES % 7.3 % (0.0-11.0); NEUTROPHIL # 4.5 10^3/ul (1.6-7.5); NEUTROPHILS % 68.4 % (39.0-77.0); PLATELET COUNT 166 10^3/UL (140-415); RED BLOOD COUNT 2.87 10^6/ul (4.20-5.40); WHITE BLOOD COUNT 6.6 10^3/ul (4.8-10.8)
[2017-02-17] MEDS ORDERED: PANTOPRAZOLE (EC) 40 MG TAB PO SCH (06:00)
[2017-02-17 06:30] LABS: CALCIUM 8.2 mg/dl (8.4-10.2); CREATININE 4.4 mg/dl (0.44-1.00); MAGNESIUM 1.8 mg/dl (1.7-2.5); PHOSPHORUS 4.3 mg/dl (2.5-4.9); POTASSIUM 4.1 mmol/L (3.5-5.1)
[2017-02-17] MEDS: INSULIN ASPART [NOVOLOG] 3 ML PEN SC SCH ×4 (08:00→20:21)
[2017-02-17 08:20] VITALS: BP 163/77; RESP 16
[2017-02-17] MEDS: ASPIRIN 81 MG TAB PO SCH (08:28)
[2017-02-17] MEDS: ISOSORBIDE MONONITRATE(SR)30 MG TAB PO SCH (08:28)
[2017-02-17] MEDS: FUROSEMIDE 20 MG TAB PO SCH (08:28)
[2017-02-17] MEDS: SEVELAMER 800 MG TAB PO SCH ×4 (08:29→17:37)
[2017-02-17] MEDS: FERROUS SULFATE (EC) 325 MG TAB PO SCH (08:29)
[2017-02-17] MEDS: NIFEdipine (XL) 60 MG TAB PO SCH (08:29)
[2017-02-17] MEDS: BISACODYL (EC) 5 MG TAB PO PRN (10:27)
[2017-02-17] MEDS: DOCUSATE SODIUM 100 MG CAP PO PRN (10:27)
--- NOTE | 2017-02-17 13:32 | PN ---
Date/Time of Note Date/Time of Note DATE: 02/17/17 TIME: 13:26 Assessment/Plan VTE Prophylaxis VTE Prophylaxis Intervention: ambulation, SCD's Lines/Catheters IV [facility]from [facility]): [facility] Urinary Cath still in place: No Assessment/Plan Chief Complaint/Hosp Course 1. Chest pain Likely secondary to decompensated heart failure. Symptoms resolved. -Cardiology evaluation appreciated. Stress test negative for ischemia. -Continue aspirin. 2. Acute on chronic diastolic heart failure. -Continue diuretics, aspirin nitrates and CCB. 3. Acute on chronic kidney disease stage IV-progressing to ESRD -Nephrology on board. Patient has been started on hemodialysis. -Continue to monitor renal function closely and avoid nephrotoxins as much as possible. 4. Hyperkalemia secondary to #2. Resolved. -We will follow nephrology recommendation. 5. Type II diabetes mellitus: A1C 7.1 -Continue Accu-Cheks,insulin sliding scale and Lantus insulin. 6. Essential hypertension. Stable. -Continue antihypertensives 7. Anemia of chronic kidney disease. H&H stable. -Epogen per nephrology. Continue oral iron. DVT and GI prophylaxis: SCDs, Protonix Plan: Patient needs tunneled catheter placement for hemodialysis prior to discharge. We will defer this to nephrology. Outpatient hemodialysis arrangement per nephrology. Case discussed with Dr. Sorto. Problems: Subjective 24 Hr Interval Summary Free Text/Dictation Patient ambulating in room. Denies chest pain, nausea, vomiting, abdominal pain or other discomfort. Plan for hemodialysis tomorrow Exam/Review of Systems Vital Signs Vitals Vital Signs Date Time Temp Pulse Resp B/P Pulse Ox O2 Delivery O2 Flow Rate FiO2 02/17/17 08:20 98.8 75 16 163/77 96 02/16/17 22:27 Room Air 02/14/17 10:07 2.0 Intake and Output 02/16/17 02/16/17 02/17/17 15:00 23:00 07:00 Intake Total 600 ml 300 ml Output Total 1400 ml Balance -800 ml 300 ml Exam General: Well developed,adequately built, not in any acute distress . HEENT: Normocephalic, Atraumatic, No laceration or hematoma; Eyes: PEERL, Conjunctiva clear, Anicteric sclera Neck: Supple without any lymphadenopathy, nontender, no JVD, no carotid bruits, trachea midline, no thyromegaly Cardiac: S1, S2 auscultated, regular rhythm and rate, no mumurs or gallop Pulmonary: Normal respiratory effort. Chest clear to auscultation bilaterally, no adventitious breath sounds GI: Abdomen normal to inspection. Soft, non tender, non- distended, no masses, no rebound tenderness or guarding. Bowel sounds active on all four quadrants Genitourinary: Deferred Extremities: No cyanosis, clubbing, or edema. Pulses [2+] bilaterally. Full ROM on all four extremities. No focal weakness appreciated. Neurologic: Alert to person, place, time, and situation. Affect appropriate, intact sensation. Skin: Clean,dry, and intact. No ecchymosis, no rashes, or lesions Results Result Diagram: 02/17/1753002/17/17530 Results 24 hrs Laboratory Tests Test 02/16/17 17:22 02/16/17 20:18 02/17/17 01:34 02/17/17 05:31 Bedside Glucose 194 204 145 White Blood Count 6.6 # Red Blood Count 2.87 L Hemoglobin 8.2 L Hematocrit 26.0 L Mean Corpuscular Volume 90.6 Mean Corpuscular Hemoglobin 28.6 L Mean Corpuscular Hemoglobin Concent 31.5 L Red Cell Distribution Width 14.0 Platelet Count 166 Mean Platelet Volume 11.0 H Neutrophils % 68.4 Lymphocytes % 21.5 Monocytes % 7.3 Eosinophils % 2.3 Basophils % 0.3 Neutrophils # 4.5 Lymphocytes # 1.4 Monocytes # 0.5 Eosinophils # 0.2 Basophils # 0.0 Nucleated Red Blood Cells # 0.0 Sodium Level 139 Potassium Level 4.1 Chloride Level 99 Carbon Dioxide Level 25 Anion Gap 19 H Blood Urea Nitrogen 38 #H Creatinine 4.40 #H Glucose Level 126 Calcium Level 8.2 L Phosphorus Level 4.3 Magnesium Level 1.8 Test 02/17/17 08:11 02/17/17 11:37 Bedside Glucose 131 272 H Medications Medications Current Medications Ondansetron HCl (Zofran Inj) 4 mg Q6H PRN IV NAUSEA AND/OR VOMITING Last administered on 02/14/17 12:14; Admin Dose 4 MG; Start 02/12/17 at 05:00 Aspirin (Aspirin) 81 mg DAILY PO Last administered on 02/17/17 08:28; Admin Dose 81 MG; Start 02/12/17 at 09:00 Nitroglycerin (Nitroglycerin (Sl Tab) 0.4 Mg) 1 tab Q5M PRN SL CHEST PAIN Last administered on 02/12/17 18:35; Admin Dose 1 TAB; Start 02/12/17 at 05:00 Acetaminophen (Tylenol Tab) 650 mg Q6H PRN PO PAIN LEVEL 1-3 OR FEVER Last administered on 02/14/17 00:54; Admin Dose 650 MG; Start 02/12/17 at 05:00 Morphine Sulfate (morphine) 2 mg Q4H PRN IV PAIN LEVEL 7-10 Last administered on 02/14/17 08:06; Admin Dose 2 MG; Start 02/12/17 at 05:00 Docusate Sodium (Colace) 100 mg Q12H PRN PO CONSTIPATION Last administered on 10:27; Admin Dose 100 MG; Start 02/12/17 at 05:00 Bisacodyl (Dulcolax) 5 mg DAILY PRN PO CONSTIPATION Last administered on 10:27; Admin Dose 5 MG; Start 02/12/17 at 05:00 Ferrous Sulfate (Ferrous Sulfate (Ec)) 325 mg DAILY PO Last administered on 08:29; Admin Dose 325 MG; Start 02/12/17 at 09:00 Insulin Glargine (Lantus) 10 unit HS SC Last administered on 02/16/17 20:39; Admin Dose 10 UNIT; Start 02/12/17 at 21:00 Isosorbide Mononitrate (Imdur) 30 mg DAILY PO Last administered on 02/17/17 08 :28; Admin Dose 30 MG; Start 02/12/17 at 09:00 Miscellaneous Information 1 ea NOTE XX ; Start 02/12/17 at 05:00 Glucose (Glutose) 15 gm Q15M PRN PO DECREASED GLUCOSE; Start 02/12/17 at 05:00 Glucose (Glutose) 22.5 gm Q15M PRN PO DECREASED GLUCOSE; Start 02/12/17 at 05: 00 Dextrose (D50w Syringe) 25 ml Q15M PRN IV DECREASED GLUCOSE; Start 02/12/17 at 05:00 Dextrose (D50w Syringe) 50 ml Q15M PRN IV DECREASED GLUCOSE; Start 02/12/17 at 05:00 Glucagon (Glucagen) 1 mg Q15M PRN IM DECREASED GLUCOSE; Start 02/12/17 at 05:00 Glucose (Glutose) 15 gm Q15M PRN BUCCAL DECREASED GLUCOSE; Start 02/12/17 at 05 :00 Nifedipine (Procardia Xl) 120 mg DAILY PO Last administered on 02/17/17 08:29 ; Admin Dose 120 MG; Start 02/14/17 at 09:00 Furosemide (Lasix) 20 mg DAILY PO Last administered on 02/17/17 08:28; Admin Dose 20 MG; Start 02/16/17 at 09:00 Pantoprazole (Protonix Tab) 40 mg DAILY@06 PO Last administered on 02/17/17 05 :20; Admin Dose 40 MG; Start 02/17/17 at 06:00 Hydralazine HCl (Apresoline) 10 mg Q6H PRN IV ELEVATED SYSTOLIC BP Last administered on 02/16/17 23:45; Admin Dose 10 MG; Start 02/16/17 at 23:06 KATE BEARD NP Feb 17, 2017 13:31
[2017-02-17 14:16] VITALS: BP 141/70; RESP 18
[2017-02-17 16:44] LABS: CREATININE, RANDOM URINE 134 mg/dL (20-320); PROTEIN/CREATININE RATIO 5276 mg/g creat (21-161)
[2017-02-17 20:00] VITALS: BP 139/65; RESP 20
[2017-02-17] MEDS: INSULIN GLARGINE [LANtus] 3 ML PEN SC SCH (20:22)
[2017-02-18] VITALS (13 sets, daily range): BP systolic 130–193; BP diastolic 66–98; PULSE 60–76; RESP 16–21
[2017-02-18] MEDS: PANTOPRAZOLE 40 MG INJ IV SCH (05:14)
[2017-02-18 06:09] LABS: BASOPHILS % 0.2 % (0.0-2.0); EOSINOPHILS # 0.1 10^3/ul (0.0-0.5); EOSINOPHILS % 2.2 % (0.0-7.0); HEMATOCRIT 25.8 % (37.0-47.0); HEMOGLOBIN 8.3 g/dl (12.0-16.0); LYMPHOCYTES # 1.1 10^3/ul (0.8-2.9); LYMPHOCYTES % 20.6 % (15.0-51.0); MEAN CORPUSCULAR HEMOGLOBIN 28.9 pg (29.0-33.0); MEAN CORPUSCULAR HGB CONC 32.2 g/dl (32.0-37.0); MEAN CORPUSCULAR VOLUME 89.9 fl (82.0-101.0); MEAN PLATELET VOLUME 11.6 fl (7.4-10.4); MONOCYTE # 0.3 10^3/ul (0.3-0.9); MONOCYTES % 6.1 % (0.0-11.0); NEUTROPHIL # 3.9 10^3/ul (1.6-7.5); NEUTROPHILS % 70.5 % (39.0-77.0); PLATELET COUNT 160 10^3/UL (140-415); RED BLOOD COUNT 2.87 10^6/ul (4.20-5.40); RED CELL DISTRIBUTION WIDTH 13.6 % (11.5-14.5); WHITE BLOOD COUNT 5.5 10^3/ul (4.8-10.8)
[2017-02-18 07:02] LABS: CALCIUM 8.3 mg/dl (8.4-10.2); CREATININE 4.96 mg/dl (0.44-1.00); MAGNESIUM 1.9 mg/dl (1.7-2.5); PHOSPHORUS 4.4 mg/dl (2.5-4.9); POTASSIUM 4.7 mmol/L (3.5-5.1)
[2017-02-18] MEDS: INSULIN ASPART [NOVOLOG] 3 ML PEN SC SCH ×4 (07:50→20:36)
[2017-02-18] MEDS: SEVELAMER 800 MG TAB PO SCH ×3 (07:55→17:04)
[2017-02-18] MEDS: FERROUS SULFATE (EC) 325 MG TAB PO SCH (08:33)
[2017-02-18] MEDS: ASPIRIN 81 MG TAB PO SCH (08:33)
[2017-02-18] MEDS: FUROSEMIDE 20 MG TAB PO SCH (08:33)
[2017-02-18] MEDS: ISOSORBIDE MONONITRATE(SR)30 MG TAB PO SCH (08:33)
[2017-02-18] MEDS: NIFEdipine (XL) 60 MG TAB PO SCH ×3 (08:34→15:23)
--- NOTE | 2017-02-18 11:33 | PN ---
Date/Time of Note Date/Time of Note DATE: 02/18/17 TIME: 11:32 Assessment/Plan Lines/Catheters IV C[facility]ter Type (from [facility]): Saline Lock Urinary Cath still in place: No Assessment/Plan Chief Complaint/Hosp Course 1. Nonoliguric acute kidney injury and top of CKD stage IV with a baseline creatinine around 2.7 0.0 mg/dL, with a PVC GFR around 20 mL per -Patient is likely progress towards end-stage renal disease Serological workup was negative underlying cause is likely diabetic nephropathy Patient was initially on hemodialysis as tolerated well We will arrange for outpatient hemodialysis placement [facility] patient will require permacath placement plan for dialysis today 2hyperkalemia: Resolved Anemia monitor H&H levels will give Epogen with dialysis Monitor calcium phosphorus levels Volume overload secondary stage renal disease continue ultrafiltration dialysis patient is improving #3 chest pain: Could be multifactorial but will rule out ACS. Resolved #4 diabetes mellitus: -Continue current insulin #5 hypertension: We will continue nifedipine, we will hold ANKITA inhibitor. 1 #6 normocytic anemia: This likely secondary to #2. Will check iron studies. Patient likely will need Procrit/Epogen however unclear if can get it as outpatient. Continue home iron supplements. Problems: Subjective 24 Hr Interval Summary Free Text/Dictation pt seen and examined hd today Exam/Review of Systems Vital Signs Vitals Vital Signs Date Time Temp Pulse Resp B/P Pulse Ox O2 Delivery O2 Flow Rate FiO2 02/18/17 09:51 60 160/70 02/18/17 08:00 98.1 19 97 02/16/17 22:27 Room Air 02/14/17 10:07 2.0 Intake and Output 02/17/17 02/17/17 02/18/17 15:00 23:00 07:00 Intake Total 960 ml 720 ml Balance 960 ml 720 ml Exam EENT: Atraumatic, normocephalic. The pupils are equal, round and reactive. Extraocular motor are intact Neck: Supple with full range of motion. No rigidity or meningismus Chest: Nontender Lungs: Clear to auscultation bilaterally no crackles rales or wheezing Heart: Normal S1-S2, Regular rhythm and rate. No overt murmur appreciate Abdomen: Soft , nontender, nondistended , bowel sounds are present. No guarding no rebound tenderness , No masses or organomegaly. No costovertebral temporal angle mass Extremities: 2+ bilateral pitting edema, multiple 1-2 cm lesion the noted of the bilateral lower extremities with dry blood. Neurologic: Normal mental status, speech normal, cranial nerves II through XII are intact, motor and sensory are intact, no focal weakness Results Result Diagram: 02/18/17 0539 02/18/17 0539 Results 24 hrs Laboratory Tests Test 02/17/17 11:37 02/17/17 17:00 02/17/17 20:20 02/18/17 05:39 Bedside Glucose 272 H 128 168 White Blood Count 5.5 Red Blood Count 2.87 L Hemoglobin 8.3 L Hematocrit 25.8 L Mean Corpuscular Volume 89.9 Mean Corpuscular Hemoglobin 28.9 L Mean Corpuscular Hemoglobin Concent 32.2 Red Cell Distribution Width 13.6 Platelet Count 160 Mean Platelet Volume 11.6 H Neutrophils % 70.5 Lymphocytes % 20.6 Monocytes % 6.1 Eosinophils % 2.2 Basophils % 0.2 Nucleated Red Blood Cells % 0.0 Neutrophils # 3.9 Lymphocytes # 1.1 Monocytes # 0.3 Eosinophils # 0.1 Basophils # 0.0 Nucleated Red Blood Cells # 0.0 Sodium Level 135 Potassium Level 4.7 Chloride Level 97 Carbon Dioxide Level 24 Anion Gap 19 H Blood Urea Nitrogen 47 H Creatinine 4.96 H Glucose Level 111 Calcium Level 8.3 L Phosphorus Level 4.4 Magnesium Level 1.9 Test 02/18/17 07:45 Bedside Glucose 106 Medications Medications Current Medications Ondansetron HCl (Zofran Inj) 4 mg Q6H PRN IV NAUSEA AND/OR VOMITING Last administered on 02/14/17 12:14; Admin Dose 4 MG; Start 02/12/17 at 05:00 Aspirin (Aspirin) 81 mg DAILY PO Last administered on 02/18/17 08:33; Admin Dose 81 MG; Start 02/12/17 at 09:00 Nitroglycerin (Nitroglycerin (Sl Tab) 0.4 Mg) 1 tab Q5M PRN SL CHEST PAIN Last administered on 02/12/17 18:35; Admin Dose 1 TAB; Start 02/12/17 at 05:00 Acetaminophen (Tylenol Tab) 650 mg Q6H PRN PO PAIN LEVEL 1-3 OR FEVER Last administered on 02/14/17 00:54; Admin Dose 650 MG; Start 02/12/17 at 05:00 Morphine Sulfate (morphine) 2 mg Q4H PRN IV PAIN LEVEL 7-10 Last administered on 02/14/17 08:06; Admin Dose 2 MG; Start 02/12/17 at 05:00 Docusate Sodium (Colace) 100 mg Q12H PRN PO CONSTIPATION Last administered on 10:27; Admin Dose 100 MG; Start 02/12/17 at 05:00 Bisacodyl (Dulcolax) 5 mg DAILY PRN PO CONSTIPATION Last administered on 10:27; Admin Dose 5 MG; Start 02/12/17 at 05:00 Ferrous Sulfate (Ferrous Sulfate (Ec)) 325 mg DAILY PO Last administered on 08:33; Admin Dose 325 MG; Start 02/12/17 at 09:00 Insulin Glargine (Lantus) 10 unit HS SC Last administered on 02/17/17 20:22; Admin Dose 10 UNIT; Start 02/12/17 at 21:00 Isosorbide Mononitrate (Imdur) 30 mg DAILY PO Last administered on 02/18/17 08 :33; Admin Dose 30 MG; Start 02/12/17 at 09:00 Miscellaneous Information 1 ea NOTE XX ; Start 02/12/17 at 05:00 Glucose (Glutose) 15 gm Q15M PRN PO DECREASED GLUCOSE; Start 02/12/17 at 05:00 Glucose (Glutose) 22.5 gm Q15M PRN PO DECREASED GLUCOSE; Start 02/12/17 at 05: 00 Dextrose (D50w Syringe) 25 ml Q15M PRN IV DECREASED GLUCOSE; Start 02/12/17 at 05:00 Dextrose (D50w Syringe) 50 ml Q15M PRN IV DECREASED GLUCOSE; Start 02/12/17 at 05:00 Glucagon (Glucagen) 1 mg Q15M PRN IM DECREASED GLUCOSE; Start 02/12/17 at 05:00 Glucose (Glutose) 15 gm Q15M PRN BUCCAL DECREASED GLUCOSE; Start 02/12/17 at 05 :00 Nifedipine (Procardia Xl) 120 mg DAILY PO Last administered on 02/17/17 08:29 ; Admin Dose 120 MG; Start 02/14/17 at 09:00 Furosemide (Lasix) 20 mg DAILY PO Last administered on 02/18/17 08:33; Admin Dose 20 MG; Start 02/16/17 at 09:00 Hydralazine HCl (Apresoline) 10 mg Q6H PRN IV ELEVATED SYSTOLIC BP Last administered on 02/16/17 23:45; Admin Dose 10 MG; Start 02/16/17 at 23:06 Pantoprazole (Protonix Iv) 40 mg DAILY@06 IV Last administered on 02/18/17 05: 14; Admin Dose 40 MG; Start 02/18/17 at 06:[address] AL[address]CH DO Feb 18, 2017 11:33
--- NOTE | 2017-02-18 13:49 | PN ---
Date/Time of Note Date/Time of Note DATE: 02/18/17 TIME: 13:40 Assessment/Plan VTE Prophylaxis VTE Prophylaxis Intervention: SCD's Lines/Catheters IV [facility] Type (from [facility] Lock Urinary Cath still in place: No Assessment/Plan Chief Complaint/Hosp Course Assessment and plan 1. Chest pain secondary to decompensated CHF. Improved at present. Of note patient stress test negative for ischemia. Continue with cardiology recommendations and aspirin 2. Acute on chronic diastolic CHF. Continue on diuretics and optimization of cardiovascular medications 3. End-stage renal disease. Edi Specialist following. Continue on dialysis. Tentative plan for dialysis catheter placement. Will follow up. 4. Hyperkalemia secondary to #3. Continue on dialysis. 5. Type 2 diabetes. Noted with A1c of 7.1. Continue on insulin regimen will adjust as needed 6. Essential hypertension. Stable at present. Continue antihypertensives and adjust as needed 7. Anemia of chronic disease. Monitor H&H. Continue on iron supplement for iron deficiency Disposition and plan: Continue dialysis per save all operator recommendations. Tentative plan for catheter placement for dialysis. Will follow. Discussed plan of care with Dr. Kwong Problems: Subjective 24 Hr Interval Summary Free Text/Dictation receiving dialysis. no s/s of distress Exam/Review of Systems Vital Signs Vitals Vital Signs Date Time Temp Pulse Resp B/P Pulse Ox O2 Delivery O2 Flow Rate FiO2 02/18/17 10:30 62 148/68 02/18/17 08:00 98.1 19 97 02/16/17 22:27 Room Air 02/14/17 10:07 2.0 Intake and Output 02/17/17 02/17/17 02/18/17 14:59 22:59 06:59 Intake Total 960 ml 720 ml Balance 960 ml 720 ml Exam Constitutional: alert, obese, oriented Head: normocephalic Neck: non-tender, supple Cardiovascular: other (regular rate) Gastrointestinal: non-tender, soft Extremities: edema (minimal ble ) Neurological: nl mental status, nl speech Results Result Diagram: 02/18/17 0539 02/18/17 0539 Results 24 hrs Laboratory Tests Test 02/17/17 17:00 02/17/17 20:20 02/18/17 05:39 02/18/17 07:45 Bedside Glucose 128 168 106 White Blood Count 5.5 Red Blood Count 2.87 L Hemoglobin 8.3 L Hematocrit 25.8 L Mean Corpuscular Volume 89.9 Mean Corpuscular Hemoglobin 28.9 L Mean Corpuscular Hemoglobin Concent 32.2 Red Cell Distribution Width 13.6 Platelet Count 160 Mean Platelet Volume 11.6 H Neutrophils % 70.5 Lymphocytes % 20.6 Monocytes % 6.1 Eosinophils % 2.2 Basophils % 0.2 Nucleated Red Blood Cells % 0.0 Neutrophils # 3.9 Lymphocytes # 1.1 Monocytes # 0.3 Eosinophils # 0.1 Basophils # 0.0 Nucleated Red Blood Cells # 0.0 Sodium Level 135 Potassium Level 4.7 Chloride Level 97 Carbon Dioxide Level 24 Anion Gap 19 H Blood Urea Nitrogen 47 H Creatinine 4.96 H Glucose Level 111 Calcium Level 8.3 L Phosphorus Level 4.4 Magnesium Level 1.9 Test 02/18/17 11:38 Bedside Glucose 147 Medications Medications Current Medications Ondansetron HCl (Zofran Inj) 4 mg Q6H PRN IV NAUSEA AND/OR VOMITING Last administered on 02/14/17 12:14; Admin Dose 4 MG; Start 02/12/17 at 05:00 Aspirin (Aspirin) 81 mg DAILY PO Last administered on 02/18/17 08:33; Admin Dose 81 MG; Start 02/12/17 at 09:00 Nitroglycerin (Nitroglycerin (Sl Tab) 0.4 Mg) 1 tab Q5M PRN SL CHEST PAIN Last administered on 02/12/17 18:35; Admin Dose 1 TAB; Start 02/12/17 at 05:00 Acetaminophen (Tylenol Tab) 650 mg Q6H PRN PO PAIN LEVEL 1-3 OR FEVER Last administered on 02/14/17 00:54; Admin Dose 650 MG; Start 02/12/17 at 05:00 Morphine Sulfate (morphine) 2 mg Q4H PRN IV PAIN LEVEL 7-10 Last administered on 02/14/17 08:06; Admin Dose 2 MG; Start 02/12/17 at 05:00 Docusate Sodium (Colace) 100 mg Q12H PRN PO CONSTIPATION Last administered on 10:27; Admin Dose 100 MG; Start 02/12/17 at 05:00 Bisacodyl (Dulcolax) 5 mg DAILY PRN PO CONSTIPATION Last administered on 10:27; Admin Dose 5 MG; Start 02/12/17 at 05:00 Ferrous Sulfate (Ferrous Sulfate (Ec)) 325 mg DAILY PO Last administered on 08:33; Admin Dose 325 MG; Start 02/12/17 at 09:00 Insulin Glargine (Lantus) 10 unit HS SC Last administered on 02/17/17 20:22; Admin Dose 10 UNIT; Start 02/12/17 at 21:00 Isosorbide Mononitrate (Imdur) 30 mg DAILY PO Last administered on 02/18/17 08 :33; Admin Dose 30 MG; Start 02/12/17 at 09:00 Miscellaneous Information 1 ea NOTE XX ; Start 02/12/17 at 05:00 Glucose (Glutose) 15 gm Q15M PRN PO DECREASED GLUCOSE; Start 02/12/17 at 05:00 Glucose (Glutose) 22.5 gm Q15M PRN PO DECREASED GLUCOSE; Start 02/12/17 at 05: 00 Dextrose (D50w Syringe) 25 ml Q15M PRN IV DECREASED GLUCOSE; Start 02/12/17 at 05:00 Dextrose (D50w Syringe) 50 ml Q15M PRN IV DECREASED GLUCOSE; Start 02/12/17 at 05:00 Glucagon (Glucagen) 1 mg Q15M PRN IM DECREASED GLUCOSE; Start 02/12/17 at 05:00 Glucose (Glutose) 15 gm Q15M PRN BUCCAL DECREASED GLUCOSE; Start 02/12/17 at 05 :00 Nifedipine (Procardia Xl) 120 mg DAILY PO Last administered on 02/17/17 08:29 ; Admin Dose 120 MG; Start 02/14/17 at 09:00 Furosemide (Lasix) 20 mg DAILY PO Last administered on 02/18/17 08:33; Admin Dose 20 MG; Start 02/16/17 at 09:00 Hydralazine HCl (Apresoline) 10 mg Q6H PRN IV ELEVATED SYSTOLIC BP Last administered on 02/16/17 23:45; Admin Dose 10 MG; Start 02/16/17 at 23:06 Pantoprazole (Protonix Iv) 40 mg DAILY@06 IV Last administered on 02/18/17 05: 14; Admin Dose 40 MG; Start 02/18/17 at 06:00 KELLY ZELAYA Feb 18, 2017 13:49
[2017-02-18] MEDS: morphine 2 MG INJ IV PRN (15:15)
[2017-02-18] MEDS: INSULIN GLARGINE [LANtus] 3 ML PEN SC SCH (20:35)
[2017-02-19 02:00] VITALS: BP 119/65; RESP 20
[2017-02-19] MEDS: PANTOPRAZOLE 40 MG INJ IV SCH (05:07)
[2017-02-19] MEDS: INSULIN ASPART [NOVOLOG] 3 ML PEN SC SCH ×4 (07:45→20:37)
[2017-02-19 08:00] VITALS: BP 141/71; RESP 21
[2017-02-19] MEDS: FERROUS SULFATE (EC) 325 MG TAB PO SCH (08:43)
[2017-02-19] MEDS: ASPIRIN 81 MG TAB PO SCH (08:43)
[2017-02-19] MEDS: FUROSEMIDE 20 MG TAB PO SCH (08:43)
[2017-02-19] MEDS: SEVELAMER 800 MG TAB PO SCH ×3 (08:43→17:26)
[2017-02-19] MEDS: ISOSORBIDE MONONITRATE(SR)30 MG TAB PO SCH (08:44)
[2017-02-19] MEDS: NIFEdipine (XL) 60 MG TAB PO SCH (08:44)
--- NOTE | 2017-02-19 09:42 | PN ---
Date/Time of Note Date/Time of Note DATE: 02/19/17 TIME: 09:42 Assessment/Plan VTE Prophylaxis VTE Prophylaxis Intervention: ambulation Lines/Catheters IV Catheter Type (from [facility]rs): Saline Lock Urinary Cath still in place: No Assessment/Plan Chief Complaint/Hosp Course Assessment and plan 1. Chest pain secondary to decompensated CHF. Improved at present. Of note patient stress test negative for ischemia. Continue with cardiology recommendations and aspirin 2. Acute on chronic diastolic CHF. Continue on diuretics and optimization of cardiovascular medications 3. End-stage renal disease. Social Welfare Research Worker following. Continue on dialysis. Tentative plan for dialysis catheter placement. Will follow up. 4. Hyperkalemia secondary to #3. Continue on dialysis. 5. Type 2 diabetes. Noted with A1c of 7.1. Continue on insulin regimen will adjust as needed 6. Essential hypertension. Stable at present. Continue antihypertensives and adjust as needed 7. Anemia of chronic disease. Monitor H&H. Continue on iron supplement for iron deficiency 8. Bilateral leg pain. Follow-up on ultrasound of bilateral lower extremities Disposition and plan: Continue dialysis per guard rail installer recommendations. Tentative plan for catheter placement for dialysis. Check ultrasound of bilateral lower extremities Discussed plan of care with Dr. Kwong Problems: Subjective 24 Hr Interval Summary Free Text/Dictation Reports having bilateral leg cramps Exam/Review of Systems Vital Signs Vitals Vital Signs Date Time Temp Pulse Resp B/P Pulse Ox O2 Delivery O2 Flow Rate FiO2 02/19/17 08:00 98.5 77 21 141/71 97 02/18/17 15:50 Room Air Intake and Output 02/18/17 02/18/17 02/19/17 15:00 23:00 07:00 Intake Total 300 ml 520 ml 600 ml Output Total 4000 ml Balance -3700 ml 520 ml 600 ml Exam Constitutional: alert, oriented Neck: supple, No jvd Respiratory: normal air movement Cardiovascular: other Gastrointestinal: non-tender, soft Neurological: SAP BODS DEVELOPER II-XII intact, nl mental status, nl speech Skin: nl turgor Results Result Diagram: 02/18/17 0539 02/18/17 0539 Results 24 hrs Laboratory Tests Test 02/18/17 11:38 02/18/17 16:53 02/18/17 20:32 02/19/17 02:18 Bedside Glucose 147 163 282 H 114 Test 02/19/17 07:44 Bedside Glucose 105 Medications Medications Current Medications Ondansetron HCl (Zofran Inj) 4 mg Q6H PRN IV NAUSEA AND/OR VOMITING Last administered on 02/14/17 12:14; Admin Dose 4 MG; Start 02/12/17 at 05:00 Aspirin (Aspirin) 81 mg DAILY PO Last administered on 02/19/17 08:43; Admin Dose 81 MG; Start 02/12/17 at 09:00 Nitroglycerin (Nitroglycerin (Sl Tab) 0.4 Mg) 1 tab Q5M PRN SL CHEST PAIN Last administered on 02/12/17 18:35; Admin Dose 1 TAB; Start 02/12/17 at 05:00 Acetaminophen (Tylenol Tab) 650 mg Q6H PRN PO PAIN LEVEL 1-3 OR FEVER Last administered on 02/14/17 00:54; Admin Dose 650 MG; Start 02/12/17 at 05:00 Morphine Sulfate (morphine) 2 mg Q4H PRN IV PAIN LEVEL 7-10 Last administered on 02/18/17 15:15; Admin Dose 2 MG; Start 02/12/17 at 05:00 Docusate Sodium (Colace) 100 mg Q12H PRN PO CONSTIPATION Last administered on 10:27; Admin Dose 100 MG; Start 02/12/17 at 05:00 Bisacodyl (Dulcolax) 5 mg DAILY PRN PO CONSTIPATION Last administered on 10:27; Admin Dose 5 MG; Start 02/12/17 at 05:00 Ferrous Sulfate (Ferrous Sulfate (Ec)) 325 mg DAILY PO Last administered on 08:43; Admin Dose 325 MG; Start 02/12/17 at 09:00 Insulin Glargine (Lantus) 10 unit HS SC Last administered on 02/18/17 20:35; Admin Dose 10 UNIT; Start 02/12/17 at 21:00 Isosorbide Mononitrate (Imdur) 30 mg DAILY PO Last administered on 02/19/17 08 :44; Admin Dose 30 MG; Start 02/12/17 at 09:00 Miscellaneous Information 1 ea NOTE XX ; Start 02/12/17 at 05:00 Glucose (Glutose) 15 gm Q15M PRN PO DECREASED GLUCOSE; Start 02/12/17 at 05:00 Glucose (Glutose) 22.5 gm Q15M PRN PO DECREASED GLUCOSE; Start 02/12/17 at 05: 00 Dextrose (D50w Syringe) 25 ml Q15M PRN IV DECREASED GLUCOSE; Start 02/12/17 at 05:00 Dextrose (D50w Syringe) 50 ml Q15M PRN IV DECREASED GLUCOSE; Start 02/12/17 at 05:00 Glucagon (Glucagen) 1 mg Q15M PRN IM DECREASED GLUCOSE; Start 02/12/17 at 05:00 Glucose (Glutose) 15 gm Q15M PRN BUCCAL DECREASED GLUCOSE; Start 02/12/17 at 05 :00 Nifedipine (Procardia Xl) 120 mg DAILY PO Last administered on 02/19/17 08:44 ; Admin Dose 120 MG; Start 02/14/17 at 09:00 Furosemide (Lasix) 20 mg DAILY PO Last administered on 02/19/17 08:43; Admin Dose 20 MG; Start 02/16/17 at 09:00 Hydralazine HCl (Apresoline) 10 mg Q6H PRN IV ELEVATED SYSTOLIC BP Last administered on 02/16/17 23:45; Admin Dose 10 MG; Start 02/16/17 at 23:06 Pantoprazole (Protonix Iv) 40 mg DAILY@06 IV Last administered on 02/19/17 05: 07; Admin Dose 40 MG; Start 02/18/17 at 06:00 KELLY ZELAYA Feb 19, 2017 09:42
[2017-02-19 14:00] VITALS: BP 108/63; RESP 18
[2017-02-19] MEDS ORDERED: DEXTROSE 5%-0.45% NACL 1,000 ML IV SCH (14:00)
[2017-02-19 20:00] VITALS: BP 129/61; RESP 18
[2017-02-19] MEDS: INSULIN GLARGINE [LANtus] 3 ML PEN SC SCH (20:37)
[2017-02-20] VITALS (24 sets, daily range): BP systolic 118–256; BP diastolic 64–116; PULSE 70–82; RESP 16–22
[2017-02-20] MEDS: DEXTROSE 5%-0.45% NACL 1,000 ML IV SCH (00:06)
[2017-02-20] MEDS: PANTOPRAZOLE 40 MG INJ IV SCH (05:16)
[2017-02-20 05:58] LABS: BASOPHILS % 0.3 % (0.0-2.0); EOSINOPHILS # 0.1 10^3/ul (0.0-0.5); EOSINOPHILS % 1.9 % (0.0-7.0); HEMOGLOBIN 8.3 g/dl (12.0-16.0); LYMPHOCYTES # 1.4 10^3/ul (0.8-2.9); MEAN CORPUSCULAR HEMOGLOBIN 28.7 pg (29.0-33.0); MEAN CORPUSCULAR HGB CONC 33.2 g/dl (32.0-37.0); MEAN CORPUSCULAR VOLUME 86.5 fl (82.0-101.0); MEAN PLATELET VOLUME 11.9 fl (7.4-10.4); MONOCYTE # 0.4 10^3/ul (0.3-0.9); NEUTROPHIL # 3.7 10^3/ul (1.6-7.5); NEUTROPHILS % 65.5 % (39.0-77.0); PLATELET COUNT 145 10^3/UL (140-415); RED BLOOD COUNT 2.89 10^6/ul (4.20-5.40); RED CELL DISTRIBUTION WIDTH 13.2 % (11.5-14.5); WHITE BLOOD COUNT 5.7 10^3/ul (4.8-10.8)
[2017-02-20 06:20] LABS: INR 0.87; PROTIME 11.8 Sec (12.2-14.2); PT RATIO 0.9
[2017-02-20 06:45] LABS: CALCIUM 7.9 mg/dl (8.4-10.2); POTASSIUM 4.3 mmol/L (3.5-5.1)
[2017-02-20 06:51] LABS: CREATININE 5.15 mg/dl (0.44-1.00)
[2017-02-20] MEDS: SEVELAMER 800 MG TAB PO SCH ×3 (07:35→17:42)
[2017-02-20] MEDS: INSULIN ASPART [NOVOLOG] 3 ML PEN SC SCH ×4 (08:00→20:32)
[2017-02-20] MEDS: ASPIRIN 81 MG TAB PO SCH (08:30)
[2017-02-20] MEDS: FERROUS SULFATE (EC) 325 MG TAB PO SCH (08:30)
[2017-02-20] MEDS: ISOSORBIDE MONONITRATE(SR)30 MG TAB PO SCH (08:30)
[2017-02-20] MEDS: NIFEdipine (XL) 60 MG TAB PO SCH (08:31)
[2017-02-20] MEDS: FUROSEMIDE 20 MG TAB PO SCH (08:31)
--- NOTE | 2017-02-20 08:34 | PN ---
DATE: SUBJECTIVE DATA: The patient is stable. No acute events overnight. OBJECTIVE DATA: VITAL SIGNS: Blood pressure 163/77, respirations 16, pulse , temperature 98.8. HEENT: Normocephalic. NECK: Supple. HEART: Regular rate. LUNGS: Diminished breath sounds at the bases. ABDOMEN: Soft, nontender to palpation. No rebound or guarding. EXTREMITIES: Negative for clubbing, cyanosis. No edema. DERMATOLOGIC: Clean, no rashes. MUSCULOSKELETAL: No . NEUROLOGIC: No change in exam. MEDICATIONS: The patient's medications have been reviewed. LABORATORY DATA: Sodium 139, potassium 4.1, chloride 99. BUN of 38, creatinine 4.4. White count 626, hemoglobin 9.2, hematocrit 26. Platelet count is 166. ASSESSMENT AND PLAN: 1. Nonoliguric acute kidney injury on top of chronic kidney disease (CKD), stage 4. Previous baseline creatinine of 2.7 mg/dL. The patient likely has progressed toward endstage renal disease. The patient has been initiated on hemodialysis and tolerating it well. The plan at this point is to arrange for outpatient hemodialysis [place]. We will have a permanent catheter placed. Patient's serological workup was performed, which is negative to date. 2. Anemia. Monitor hemoglobin and hematocrit. Will give Epogen with dialysis. 3. Mineral bone disorder. Monitor potassium and phosphorous levels. 4. Volume overload, improving. Continue ultrafiltration with dialysis. 5. Hypertension. Continue current blood pressure regimen. 6. Hyp kalemia, resolved. Dictated By: Reed Coburn DO /toño/pilar /Document#: [id number]
--- NOTE | 2017-02-20 10:02 | PN ---
Date/Time of Note Date/Time of Note DATE: 02/20/17 TIME: 09:58 Assessment/Plan VTE Prophylaxis VTE Prophylaxis Intervention: ambulation, SCD's Lines/Catheters IV Catheter Type (from [facility]): Peripheral IV Urinary Cath still in place: No Assessment/Plan Chief Complaint/Hosp Course 1. Chest pain Likely secondary to decompensated heart failure. Symptoms resolved. -Cardiology evaluation appreciated. Stress test negative for ischemia. -Continue aspirin. 2. Acute on chronic diastolic heart failure. -Hemodialysis for volume optimization -On aspirin nitrates and CCB. 3. Acute on chronic kidney disease stage IV-progressing to ESRD -Nephrology on board. Patient has been started on hemodialysis. -Continue to monitor renal function closely and avoid nephrotoxins as much as possible. 4. Hyperkalemia secondary to #2. -We will follow nephrology recommendation.Again, pt on hemodialysis 5. Type II diabetes mellitus: A1C 7.1 -Continue Accu-Cheks,insulin sliding scale and Lantus insulin. 6. Essential hypertension. Stable. -Continue antihypertensives 7. Anemia of chronic kidney disease. H&H stable. -Epogen per nephrology. Continue oral iron. DVT and GI prophylaxis: SCDs, Protonix Plan: DC planning after HD cath placement. Outpatient hemodialysis arrangement per nephrology. Case discussed with Dr. Vinson Problems: Subjective 24 Hr Interval Summary Free Text/Dictation Patient is scheduled for tunnelled cath placement for HD access today with IR. No acute overnight episodes. Exam/Review of Systems Vital Signs Vitals Vital Signs Date Time Temp Pulse Resp B/P Pulse Ox O2 Delivery O2 Flow Rate FiO2 02/20/17 08:00 98.5 72 16 146/69 98 02/18/17 15:50 Room Air Intake and Output 02/19/17 02/19/17 02/20/17 15:00 23:00 07:00 Intake Total 980 ml 550 ml Balance 980 ml 550 ml Exam General: Well developed,adequately built, not in any acute distress . HEENT: Normocephalic, Atraumatic, No laceration or hematoma; Eyes: PEERL, Conjunctiva clear, Anicteric sclera Neck: Supple without any lymphadenopathy, nontender, no JVD, no carotid bruits, trachea midline, no thyromegaly Cardiac: S1, S2 auscultated, regular rhythm and rate, no mumurs or gallop Pulmonary: Normal respiratory effort. Chest clear to auscultation bilaterally, no adventitious breath sounds GI: Abdomen normal to inspection. Soft, non tender, non- distended, no masses, no rebound tenderness or guarding. Bowel sounds active on all four quadrants Genitourinary: Deferred Extremities: No cyanosis, clubbing, or edema. Pulses [2+] bilaterally. Full ROM on all four extremities. No focal weakness appreciated. Neurologic: Alert to person, place, time, and situation. Affect appropriate, intact sensation. Skin: Clean,dry, and intact. No ecchymosis, no rashes, or lesions Results Result Diagram: 02/20/1713 02/20/17 05 Results 24 hrs Laboratory Tests Test 02/19/17 11:48 02/19/17 15:43 02/19/17 17:22 02/19/17 20:35 Bedside Glucose 163 232 H 251 H 152 Test 02/20/17 05:13 02/20/17 08:29 White Blood Count 5.7 Red Blood Count 2.89 L Hemoglobin 8.3 L Hematocrit 25.0 L Mean Corpuscular Volume 86.5 Mean Corpuscular Hemoglobin 28.7 L Mean Corpuscular Hemoglobin Concent 33.2 Red Cell Distribution Width 13.2 Platelet Count 145 Mean Platelet Volume 11.9 H Neutrophils % 65.5 Lymphocytes % 25.0 Monocytes % 7.0 Eosinophils % 1.9 Basophils % 0.3 Nucleated Red Blood Cells % 0.0 Neutrophils # 3.7 Lymphocytes # 1.4 Monocytes # 0.4 Eosinophils # 0.1 Basophils # 0.0 Nucleated Red Blood Cells # 0.0 Prothrombin Time 11.8 L Prothrombin Time Ratio 0.9 INR International Normalized Ratio 0.87 Sodium Level 130 L Potassium Level 4.3 Chloride Level 91 L Carbon Dioxide Level 25 Anion Gap 18 H Blood Urea Nitrogen 60 H Creatinine 5.15 H Glucose Level 129 Calcium Level 7.9 L Bedside Glucose 121 Medications Medications Current Medications Ondansetron HCl (Zofran Inj) 4 mg Q6H PRN IV NAUSEA AND/OR VOMITING Last administered on 02/14/17 12:14; Admin Dose 4 MG; Start 02/12/17 at 05:00 Aspirin (Aspirin) 81 mg DAILY PO Last administered on 02/19/17 08:43; Admin Dose 81 MG; Start 02/12/17 at 09:00 Nitroglycerin (Nitroglycerin (Sl Tab) 0.4 Mg) 1 tab Q5M PRN SL CHEST PAIN Last administered on 02/12/17 18:35; Admin Dose 1 TAB; Start 02/12/17 at 05:00 Acetaminophen (Tylenol Tab) 650 mg Q6H PRN PO PAIN LEVEL 1-3 OR FEVER Last administered on 02/14/17 00:54; Admin Dose 650 MG; Start 02/12/17 at 05:00 Morphine Sulfate (morphine) 2 mg Q4H PRN IV PAIN LEVEL 7-10 Last administered on 02/18/17 15:15; Admin Dose 2 MG; Start 02/12/17 at 05:00 Docusate Sodium (Colace) 100 mg Q12H PRN PO CONSTIPATION Last administered on 10:27; Admin Dose 100 MG; Start 02/12/17 at 05:00 Bisacodyl (Dulcolax) 5 mg DAILY PRN PO CONSTIPATION Last administered on 10:27; Admin Dose 5 MG; Start 02/12/17 at 05:00 Ferrous Sulfate (Ferrous Sulfate (Ec)) 325 mg DAILY PO Last administered on 08:43; Admin Dose 325 MG; Start 02/12/17 at 09:00 Insulin Glargine (Lantus) 10 unit HS SC Last administered on 02/19/17 20:37; Admin Dose 10 UNIT; Start 02/12/17 at 21:00 Isosorbide Mononitrate (Imdur) 30 mg DAILY PO Last administered on 02/19/17 08 :44; Admin Dose 30 MG; Start 02/12/17 at 09:00 Miscellaneous Information 1 ea NOTE XX ; Start 02/12/17 at 05:00 Glucose (Glutose) 15 gm Q15M PRN PO DECREASED GLUCOSE; Start 02/12/17 at 05:00 Glucose (Glutose) 22.5 gm Q15M PRN PO DECREASED GLUCOSE; Start 02/12/17 at 05: 00 Dextrose (D50w Syringe) 25 ml Q15M PRN IV DECREASED GLUCOSE; Start 02/12/17 at 05:00 Dextrose (D50w Syringe) 50 ml Q15M PRN IV DECREASED GLUCOSE; Start 02/12/17 at 05:00 Glucagon (Glucagen) 1 mg Q15M PRN IM DECREASED GLUCOSE; Start 02/12/17 at 05:00 Glucose (Glutose) 15 gm Q15M PRN BUCCAL DECREASED GLUCOSE; Start 02/12/17 at 05 :00 Nifedipine (Procardia Xl) 120 mg DAILY PO Last administered on 02/19/17 08:44 ; Admin Dose 120 MG; Start 02/14/17 at 09:00 Furosemide (Lasix) 20 mg DAILY PO Last administered on 02/19/17 08:43; Admin Dose 20 MG; Start 02/16/17 at 09:00 Hydralazine HCl (Apresoline) 10 mg Q6H PRN IV ELEVATED SYSTOLIC BP Last administered on 02/16/17 23:45; Admin Dose 10 MG; Start 02/16/17 at 23:06 Pantoprazole 40 mg 40 mg DAILY@06 IV Last administered on 02/20/17 05:16; Admin Dose 40 MG; Start 02/18/17 at 06:00 Dextrose/Sodium Chloride (D5-1/2ns) 1,000 ml @ 40 mls/hr Q24H IV Last administered on 02/20/17 00:06; Admin Dose 40 MLS/HR; Start 02/20/17 at 00:00 KATE BEARD NP Feb 20, 2017 10:02
[2017-02-20] MEDS ORDERED: MIDAZOLAM 1 MG/ML 2 ML INJ ONE (10:52)
[2017-02-20] MEDS ORDERED: CEFAZOLIN 1 GM/50 ML (PMX) 50 ML IVPB ONE (10:52)
[2017-02-20] MEDS ORDERED: LIDOCAINE 1% (MDV) 20 ML INJ ONE (10:52)
[2017-02-20] MEDS ORDERED: FENTAnyl 50 MCG/ML VIAL ONE (10:53)
[2017-02-20] MEDS ORDERED: SOD CHLORIDE 0.9% 500 ML ONE (10:53)
[2017-02-20] MEDS ORDERED: HEPARIN 1000 UNITS/ML 10 ML INJ ONE (10:53)
[2017-02-20] MEDS: hydrALAzine 20 MG INJ IV PRN ×2 (12:35→20:05)
--- NOTE | 2017-02-20 14:08 | RADRPT ---
PROCEDURE: PLACEMENT OF RIGHT INTERNAL JUGULAR VENOUS TUNNELED DIALYSIS CATHETER. CLINICAL INDICATION: Renal failure. TECHNIQUE: Prior to the procedure, informed consent was obtained. Risks including bleeding, infection, and pneu mothorax were explained to the patient. The patient understood and was willing to proceed. A procedu ral pause was performed. The patient's name, date of , and procedure to be performed were verif ied. The central line was inserted with all elements of maximal sterile barrier technique. All of th e following were used: head covering, facial mask, sterile gown, sterile gloves, a large sterile she et, hand hygiene, and 2% chlorhexidine for cutaneous antisepsis. The right neck and anterior/super ior chest wall was prepped and draped in usual sterile fashion. Following the local injection of Xylocaine, a 0.035 in Amplatz guidewire was advanced through the ex isting temporary dialysis catheter. A tunnel was then created from the anterior lateral aspect of t he superior right chest wall to the puncture site in the neck and the catheter was pulled through th e tract. The existing temporary dialysis catheter was removed over the guidewire. Serial dilatatio n was then performed and a 16 Argentine peel away sheath was introduced. The 14.5 Argentine 23cm long tip to cuff Angiodynamics BioFlo DuraMax dialysis catheter was advanced through the 16 Argentine peel-away sheath. The tip of the catheter was confirmed in position within the right atrium. The peel-away sh eath was removed. The 2 ports were each flushed with 2.3 ml of 1:1000 heparin. The catheter was sec ured to the skin with 2-0 silk. The wound in the neck was closed with 4-0 Vicryl suture using subcu ticular running technique. The site was dressed. The patient tolerated the procedure well. COMPARISON: None. FINDINGS: Final radiographic images demonstrate the tip of the catheter in the upper right atrium. A total of 0.1 minutes of fluoroscopy time was used. 6 images of the chest were obtained with image intensif ier. IMPRESSION: 1. Percutaneous insertion of right internal jugular dialysis tunneled dialysis catheter under fluoro scopic guidance. RPTAT: QQ .Hunter Bansal MD, Date Time Electronically viewed and signed by .Hunter Bansal MD, on 02/20/2017 14:07 .R/
[2017-02-20] MEDS: morphine 2 MG INJ IV PRN (16:15)
[2017-02-20] MEDS ORDERED: ACETAMINOPHEN 650MG/20.3ML CUP GTB SCH (19:11)
[2017-02-20] MEDS ORDERED: ACETAMINOPHEN 325 MG TAB PO PRN (19:30)
[2017-02-20] MEDS: INSULIN GLARGINE [LANtus] 3 ML PEN SC SCH (20:31)
[2017-02-21] MEDS: DEXTROSE 5%-0.45% NACL 1,000 ML IV SCH
[2017-02-21 02:14] VITALS: BP 167/88; RESP 18
[2017-02-21 03:00] VITALS: BP 136/62
[2017-02-21 06:11] LABS: BASOPHILS % 0.2 % (0.0-2.0); EOSINOPHILS # 0.1 10^3/ul (0.0-0.5); EOSINOPHILS % 1.1 % (0.0-7.0); HEMATOCRIT 27.7 % (37.0-47.0); HEMOGLOBIN 9.1 g/dl (12.0-16.0); LYMPHOCYTES # 0.9 10^3/ul (0.8-2.9); LYMPHOCYTES % 14.8 % (15.0-51.0); MEAN CORPUSCULAR HEMOGLOBIN 29.1 pg (29.0-33.0); MEAN CORPUSCULAR HGB CONC 32.9 g/dl (32.0-37.0); MEAN CORPUSCULAR VOLUME 88.5 fl (82.0-101.0); MEAN PLATELET VOLUME 11.9 fl (7.4-10.4); MONOCYTE # 0.5 10^3/ul (0.3-0.9); MONOCYTES % 8.2 % (0.0-11.0); NEUTROPHIL # 4.7 10^3/ul (1.6-7.5); NEUTROPHILS % 75.2 % (39.0-77.0); PLATELET COUNT 176 10^3/UL (140-415); RED BLOOD COUNT 3.13 10^6/ul (4.20-5.40); RED CELL DISTRIBUTION WIDTH 13.4 % (11.5-14.5); WHITE BLOOD COUNT 6.2 10^3/ul (4.8-10.8)
[2017-02-21] MEDS: PANTOPRAZOLE 40 MG INJ IV SCH (06:43)
[2017-02-21 07:37] LABS: CALCIUM 8.4 mg/dl (8.4-10.2); CREATININE 4.29 mg/dl (0.44-1.00); POTASSIUM 4.4 mmol/L (3.5-5.1)
[2017-02-21] MEDS: INSULIN ASPART [NOVOLOG] 3 ML PEN SC SCH ×2 (08:00→11:55)
[2017-02-21 08:09] VITALS: BP 141/67; RESP 18
[2017-02-21] MEDS: SEVELAMER 800 MG TAB PO SCH ×2 (08:13→11:54)
[2017-02-21] MEDS: ISOSORBIDE MONONITRATE(SR)30 MG TAB PO SCH (09:07)
[2017-02-21] MEDS: FUROSEMIDE 20 MG TAB PO SCH (09:07)
[2017-02-21] MEDS: FERROUS SULFATE (EC) 325 MG TAB PO SCH (09:08)
[2017-02-21] MEDS: ASPIRIN 81 MG TAB PO SCH (09:08)
[2017-02-21] MEDS: NIFEdipine (XL) 60 MG TAB PO SCH (09:08)
--- NOTE | 2017-02-21 09:39 | PDOCDIS ---
Discharge Instructions CONDITION Patient Condition: Stable HOME CARE INSTRUCTIONS: Special Diet: renal diet FOLLOW UP/APPOINTMENTS Follow-up Plan 1. Hemodialysis on Monday, ,monday @1630 at [facility] [phone] 1.Follow up with primary care physician in 1 week If you don't have one please let someone know, we can give you resources that may help you pick one. You may also call your insurance company to assign one to you. Review your medication list with your nurse before leaving and if you need new prescriptions please let your nurse know. I may have made changes to your home medications or given you new prescriptions, please let your primary doctor know as well. Stay compliant with your medications and report any side effects to your PCP or pharmacist. Return to the ER if you have any concerns and cannot reach your doctors or call your insurance company, they usually have a nurse that can help you. KATE BEARD NP Feb 21, 2017 09:39
[2017-02-21] MEDS ORDERED: LAS20 PO (09:43)
[2017-02-21] MEDS ORDERED: SEVE800T10 PO (09:43)
[2017-02-21] MEDS ORDERED: ASPI81TA3 PO (09:43)
[2017-02-21] MEDS ORDERED: DOCU-216 PO (09:43)
[2017-02-21] MEDS ORDERED: NIFE60TA7 PO (09:43)
--- NOTE | 2017-02-21 14:50 | DS ---
Date/Time of Note Date/Time of Note DATE: 02/21/17 TIME: 14:35 Discharge Summary Admission/Discharge Info Admit Date/Time Feb 12, 2017 at 04:11 Discharge Date/Time Feb 21, 2017 at 12:57 Discharge Diagnosis 1. Chest pain Likely secondary to decompensated heart failure. Negative stress test 2. Acute on chronic diastolic heart failure. 3. Acute on chronic kidney disease stage IV-on hemodialysis Monday, , Monday. 4. Hyperkalemia secondary to #2. Resolved 5. Type II diabetes mellitus: A1C 7.1 6. Essential hypertension. 7. Anemia of chronic kidney disease. Patient Condition: Stable Consults , cardiology Dr. Coburn, nephrology Procedures 02/12/2017. Renal ultrasound. Normal appearance of the kidneys and urinary bladder. 02/12/2017. Chest x-ray. No evidence of active cardiopulmonary disease. 02/12/2017. 2D echocardiogram. Normal left ventricular systolic function with ejection fraction 65%. Stage I diastolic dysfunction. 02/13/2017. Placement of right IJ venous temporary dialysis catheter 02/14/2017. Nuclear medicine myocardial stress and rest scan. No evidence of stress-induced myocardial ischemia, ejection fraction at stress is 65%. 02/20/2017. Placement of right IJ tunneled dialysis catheter. Hospital Course This is a 46-year-old female with a past medical history of type 2 diabetes, hypertension, chronic kidney disease, who presented to the emergency room with complaints of 2 day duration of pressure-like chest discomfort radiating to back. Apparently, patient was ran out of her diuretics and her lower extremities have been edematous for few days.She has been also seeing a hackler doll wigs at [facility]. Patient denied any loss of consciousness , dizziness, headache, numbness. She denied any nausea, vomiting, abdominal pain, upper or lower GI bleed episodes. She also denied dysuria, hematuria, diarrhea, constipation. Patient denied any fever or chills. Initial labs showed hemoglobin 9.1, hematocrit 28.4, potassium 6.5, BUN 68, creatinine 4.77. Vital signs pulse rate 88, vital signs within acceptable range. Initial troponin also was negative. Patient was treated for hyperkalemia in the emergency room . Patient was admitted for further evaluation. Cardiology and nephrology consult was called. Serial troponin was negative. We continued to monitor renal function closely and avoid nephrotoxins as much as possible. Patient was continued on Accu-Cheks, insulin sliding scale and Lantus. She was also continued on antihypertensive except ANKITA inhibitors. H&H was monitored closely. She did not have any bleeding episodes. Patient was evaluated by nephrology. Her CKD was progressed to stage IV requiring hemodialysis. Patient was treated with multiple Kayexalate for persistent hypokalemia. She was also started on phosphate binders. Patient also had undergone Lexiscan stress test which was negative for ischemia. She was continued on aspirin per cardiology recommendation. For blood pressure, she was continued on nitrates and calcium channel blockers. Patient was not a candidate for ANKITA inhibitors. She was subsequently started on hemodialysis. She was able to tolerate hemodialysis. Patient was also given Epogen for anemia. She had undergone tunneled hemodialysis catheter and outpatient hemodialysis was arranged. At this time, there is no further inpatient workup indicated. Patient's labs and vital signs remained stable thereafter. She was able to tolerate activities and diet well. Patient is medically cleared for discharge from nephrology and cardiology standpoint. Disposition: Patient will be discharged home with outpatient hemodialysis follow -up. Patient was given prescription for new medications that were added. She was instructed to follow-up with hemodialysis clinic as well as primary care physician. Patient verbalized discharge instructions. Condition at time of discharge stable. Approximately 60 minutes was spent alternating the discharge on this patient. Case discussed with . Home Meds Active Scripts Docusate Sodium (Dok) 100 Mg Capsule, 100 MG PO Q12H Y for CONSTIPATION, #60 CAP Prov:BEARD,KATE V. PROCUREMENT FORESTER 02/21/17 Sevelamer Hcl* (Renagel*) 800 Mg Tablet, 800 MG PO WITH MEALS, #90 TAB Prov:BEARD,KATE V. PROCUREMENT FORESTER 02/21/17 Aspirin (Aspirin) 81 Mg Chew, 81 MG PO DAILY, #30 TAB Prov:BEARD,KATE V. PROCUREMENT FORESTER 02/21/17 Nifedipine (Afeditab CR) 60 Mg Tablet.sa, 120 MG PO DAILY, #30 Prov:BEARD,KATE V. PROCUREMENT FORESTER 02/21/17 Oxycodone Hcl-Acetaminophen* (Percocet*) 5-325 Mg Tablet, 1 TAB PO Q6 Y for PAIN LEVEL 6-10 for 10 Days, TAB Prov:REBA SUAREZ MD 10/05/15 Isosorbide Mononitrate* (Isosorbide Mononitrate*) 30 Mg Tabsr, 30 MG PO DAILY for 30 Days, TAB Prov:REBA SUAREZ MD 10/05/15 Insulin Glargine* (Lantus*) 100 Unit/Ml Soln, 10 UNIT SC HS for 30 Days, BOT Prov:REBA SUAREZ MD 09/23/15 Ferrous Sulfate* (Ferrous Sulfate*) 325 Mg Tabec, 325 MG PO DAILY for 30 Days, TAB Prov:REBA SUAREZ MD 09/23/15 Reported Medications Esomeprazole Mag Trihydrate (Nexium) 20 Mg Capsule.dr, 20 MG PO DAILY, #30 CAP 09/30/15 Discontinued Scripts Nifedipine* (Procardia XL*) 60 Mg Tabsr, 60 MG PO DAILY for 30 Days, TAB Prov:REBA SUAREZ MD 10/05/15 Benazepril Hcl* (Lotensin*) 20 Mg Tab, 20 MG PO DAILY for 30 Days, TAB Prov:REBA SUAREZ MD 09/23/15 Follow-up Plan 1. Hemodialysis on Monday, ,monday @1630 at [facility] 1.Follow up with primary care physician in 1 week If you don't have one please let someone know, we can give you resources that may help you pick one. You may also call your insurance company to assign one to you. Review your medication list with your nurse before leaving and if you need new prescriptions please let your nurse know. I may have made changes to your home medications or given you new prescriptions, please let your primary doctor know as well. Stay compliant with your medications and report any side effects to your PCP or pharmacist. Return to the ER if you have any concerns and cannot reach your doctors or call your insurance company, they usually have a nurse that can help you. Primary Care Provider Care Physician No Primary Pending Labs Laboratory Tests Test 02/20/17 17:41 02/20/17 20:28 02/21/17 05:46 02/21/17 08:12 Bedside Glucose 153mg/dL (70-220) 138mg/dL (70-220) 129mg/dL (70-220) White Blood Count 6.210^3/ul (4.8-10.8) Red Blood Count 3.1310^6/ul (4.20-5.40) Hemoglobin 9.1g/dl (12.0-16.0) Hematocrit 27.7% (37.0-47.0) Mean Corpuscular Volume 88.5fl (82.0-101.0) Mean Corpuscular Hemoglobin 29.1pg (29.0-33.0) Mean Corpuscular Hemoglobin Concent 32.9g/dl (32.0-37.0) Red Cell Distribution Width 13.4% (11.5-14.5) Platelet Count 05103^3/UL (140-415) Mean Platelet Volume 11.9fl (7.4-10.4) Neutrophils % 75.2% (39.0-77.0) Lymphocytes % 14.8% (15.0-51.0) Monocytes % 8.2% (0.0-11.0) Eosinophils % 1.1% (0.0-7.0) Basophils % 0.2% (0.0-2.0) Nucleated Red Blood Cells % 0.0/100WBC (0.0-0.0) Neutrophils # 4.710^3/ul (1.6-7.5) Lymphocytes # 0.910^3/ul (0.8-2.9) Monocytes # 0.510^3/ul (0.3-0.9) Eosinophils # 0.110^3/ul (0.0-0.5) Basophils # 0.010^3/ul (0.0-0.1) Nucleated Red Blood Cells # 0.010^3/ul (0.0-0.0) Sodium Level 140mmol/L (135-144) Potassium Level 4.4mmol/L (3.5-5.1) Chloride Level 100mmol/L (97-110) Carbon Dioxide Level 26mmol/L (21-31) Anion Gap 18 (8-16) Blood Urea Nitrogen 39mg/dl (7-20) Creatinine 4.29mg/dl (0.44-1.00) Glucose Level 142mg/dl (70-220) Calcium Level 8.4mg/dl (8.4-10.2) Test 02/21/17 11:54 Bedside Glucose 195mg/dL (70-220) KATE BEARD V. PROCUREMENT FORESTER Feb 21, 2017 14:45
[2017-02-21 15:02] LABS: % CRYOCRIT NONE DETECTED (NONE DETECTED)
--- NOTE | 2017-02-22 12:04 | PN ---
DATE: 02/14/2017 SUBJECTIVE DATA: The patient had hemodialysis yesterday urgently due to hyperkalemia. The patient tolerated dialysis well without any complications. The patient is scheduled for a stress test this morning. No other events noted. No hemoptysis, hematemesis or hematochezia. OBJECTIVE DATA: Blood pressure 166/74. Respirations 18. Pulse 78. Temperature 97.8. HEENT: Normocephalic. Neck supple. Heart: Regular rate. Lungs show diminished breath sounds at the base. Abdomen soft, nontender on palpation. No rebound or guarding. Extremities are negative for clubbing or cyanosis. Positive edema. Dermatologic: No rashes. Musculoskeletal: No joint effusion. Neurological: No change on exam. MEDICATIONS:: The patient's medications have been reviewed. LABORATORY AND DIAGNOSTIC DATA: Sodium 141, potassium 3.6, chloride 103, BUN 38, creatinine 3.59. White count 12.5. Hemoglobin 8.3, hematocrit 25.5. Platelet count 183. ASSESSMENT AND PLAN: 1. Nonoliguric acute kidney injury on top of chronic kidney disease stage IV. Previously creatinine 2.70 mg/dL. Etiology of acute kidney injury is likely hemodynamics with possible progression of underlying chronic kidney disease. Etiology of chronic kidney disease is from diabetic nephropathy. The patient was initiated on dialysis yesterday due to hyperkalemia and volume overload. Tolerated dialysis well. Scheduled for dialysis today. The possibility of a superimposed glomerulonephropathy is always a consideration. The patient is having serological data sent out. The patient has a low C3 level, minimally low. Clinical significance is unclear. Will continue to wait for MARLENE, ANCA and [id number] DNA. Will continue current treatment plan. 2. Chronic kidney disease, stage IV. Etiology is likely from diabetic nephropathy and hypertension. As stated above, the patient is currently treated on hemodialysis. Will continue current treatment plan, risk factor modification and monitor. 3. Hyperkalemia secondary to acute kidney injury and chronic kidney disease, improved after dialysis. Continue renal diet. 4. Volume overload secondary to chronic kidney disease, congestive heart failure. Continue ultrafiltration with dialysis. 5. Diabetes. Continue current insulin regimen. 6. Chest pain, etiology multifactorial. The patient is pending a stress test. 7. Hypertension. Continue current blood pressure regimen. 8. Anemia. Monitor hemoglobin and hematocrit levels. Will give Epogen as needed. 9. Metabolic acidosis secondary to chronic kidney disease, improved with hemodialysis. Dictated By: Reed Coburn DO /toño/susie /Document#: [id number]
--- NOTE | 2017-02-22 12:18 | PN ---
DATE: 02/15/2017 SUBJECTIVE DATA: The patient is on hemodialysis, tolerated well. No other acute fluid. No or hematochezia. OBJECTIVE DATA: VITAL SIGNS: Blood pressure is 147/76, respiration 18, pulse 78, temperature 98.1. HEENT: Head is normocephalic. Neck is supple. CARDIAC: Heart has a regular rate. RESPIRATORY: Lungs show diminished breath sounds at the base. ABDOMEN: Soft, nontender to palpation without guarding. EXTREMITIES: Negative for clubbing or cyanosis. Trace edema. DERMATOLOGIC: Skin, no rashes. NEUROLOGIC: No focal deficits. MEDICATIONS: The patient's medications were reviewed. LABORATORY AND DIAGNOSTIC DATA: Laboratory data shows sodium 137, potassium 4.2, creatinine 96, BUN 29 . White count 5.2, hemoglobin 8.8, 26.8, platelet count 192. The patient's is MARLENE is negative. Anti-double strand DNA was negative. ASSESSMENT AND PLAN: 1. CKD stage IV, previously presented with a creatinine 2.7 mg per DL. Etiology of is secondary to hemodynamics with possible underlying progression of CKD. The patient was initially on hemodialysis. She has a had two sessions. A third session will be today. We will then hold dialysis and monitor for any signs of renal recovery. Please note that serologic workup has been obtained and patient has low complement C3, which can be seen in some . The patient's other serologic data has been negative. We are still waiting for SPEP and UPEP with immunofixation. We will discuss with the patient about the possibility of a renal biopsy. 2. Chronic renal disease, stage IV. The etiology is likely due to diabetic nephropathy. The patient is currently on dialysis as stated above. Continue medical management. 3. Hyperkalemia, resolved. 4. Diabetes. Continue with current regimen. 5. Hypertension. Continue blood pressure regimen. 6. 7. Sodium overload. Continue on dialysis. 8. Chest pain. The patient is ruled out for ACS. The patient's stress test was negative. Dictated By: Reed Coburn DO /toño/teresa /Document#: [id number]
--- NOTE | 2017-02-23 14:33 | PN ---
DATE: 02/19/2017 SUBJECTIVE DATA: The patient had hemodialysis yesterday, tolerated it well without any complications with 3 L removed. No other events noted. OBJECTIVE DATA: VITAL SIGNS: Blood pressure 141/71, respirations 20, pulse 77, temperature 98.5. HEENT: Head is normocephalic. NECK: Supple. HEART: Regular rate. LUNGS: Diminished breath sounds at the bases. ABDOMEN: Soft, nontender to palpation. No rebound or guarding. EXTREMITIES: Are negative for clubbing, cyanosis, no edema. DERMATOLOGY: No rashes. MUSCULOSKELETAL: No joint effusion. NEUROLOGIC: No change in exam. MEDICATION: Reviewed. LABORATORY DATA: Has been reviewed. No new labs. ASSESSMENT AND PLAN: 1. Nonoliguric acute kidney injury on top of chronic kidney disease stage 4. Previous baseline creatinine of 2.7 mg yesterday. The patient has not progressed towards end-stage renal disease. The patient's serologic workup was negative. At this point, continue intermittent dialysis, arranging outpatient dialysis. 2. Access, patient is pending PermCath placement. 3. Hyperkalemia, resolved. 4. Anemic. Continue to monitor hemoglobin and hematocrit levels. Continue to treat with dialysis. 5. bone disorder. Will monitor calcium and phosphorus levels. 6. Volume overload secondary to end-stage renal disease, improving. Continue ultrafiltration dialysis. 7. Hypertension. Continue current blood pressure regimen. Dictated By: Reed Coburn DO /toño/tristian /Document#: [id number]
--- NOTE | 2017-02-23 14:39 | PN ---
DATE: 02/21/2017 SUBJECTIVE DATA: The patient is stable. No events overnight. The patient had hemodialysis yesterday, tolerated well. OBJECTIVE DATA: VITAL SIGNS: Blood pressure 141/67, respirations 18, pulse 91, temperature 99.5. HEENT: Head is normocephalic. NECK: Supple. HEART: Regular rate. LUNGS: Diminished breath sounds at the base. ABDOMEN: Soft, nontender to palpation. No rebound or guarding. EXTREMITIES: Negative for clubbing or cyanosis. No edema. DERMATOLOGIC: No rashes. MUSCULOSKELETAL: No joint effusions. NEUROLOGIC: No change in exam. MEDICATIONS: Reviewed. LABORATORY AND DIAGNOSTIC DATA: Reviewed, shows white count 6.2, hemoglobin 9.1, hematocrit 27.7. Sodium 140, potassium 4.4, BUN 39, creatinine 4.29. ASSESSMENT AND PLAN: 1. Nonoliguric acute kidney injury on top of chronic kidney disease stage 4. The patient has now progressed towards end- stage renal disease. The patient has been dialyzing intermittently into hospital. Will have outpatient hemodialysis, has been arranged [facility]. Will continue intermittent dialysis. 2. No symptoms of anemia. Monitor H and H levels. 3. Mineral bone disorder. Continue to monitor calcium and phosphorus levels. 4. , improving. 5. Hypertension, improved. Continue blood pressure regimen. 6. Hyperkalemia, resolved. Dictated By: Reed Coburn DO /toño/ec /Document#: [id number]
--- NOTE | 2017-02-23 15:42 | PN ---
DATE: 02/20/2017 SUBJECTIVE DATA: Patient is stable. No acute events overnight. Patient is pending hemodialysis today. OBJECTIVE DATA: VITAL SIGNS: Blood pressure 146/69, respirations 16, pulse 72, temperature 98.5. HEENT: Head is normocephalic. NECK: Supple. HEART: Regular rate. LUNGS: Diminished breath sounds at the base. ABDOMEN: Soft, nontender to palpation. No rebound or guarding. EXTREMITIES: Negative for clubbing or cyanosis. No edema. DERMATOLOGIC: No rashes. MUSCULOSKELETAL: No joint effusions. NEUROLOGIC: No change in exam. MEDICATIONS: Reviewed. LABORATORY AND DIAGNOSTIC DATA: Sodium 130, potassium 4.3, chloride 91, BUN 60, creatinine 5.15. White count 5.7, hemoglobin 8.3, hematocrit 25, platelet count 145,000. ASSESSMENT AND PLAN: 1. Nonoliguric acute kidney injury on top of chronic kidney disease stage 4. Patient has progressed to end-stage renal disease. Patient is currently on intermittent dialysis. Will plan for dialysis today. The patient is awaiting outpatient dialysis to be arranged. 2. Hypokalemia, resolved. 3. Anemia. Continue to monitor H and H levels. Will give Epogen as needed. 4. Mineral bone disorder. Will monitor calcium and phosphorus levels. 5. Volume overload secondary to end-stage renal disease, improving. Continue ultrafiltration with dialysis. 6. Hypertension. Continue current blood pressure regimen. 7. Hyponatremia secondary end-stage renal disease. Patient will be dialyzed on a 140 sodium bath. 8. Access. Patient is pending Permacath placement today. Dictated By: Reed Coburn DO /toño/ec /Document#: [id number]
== END 2017-02-21 12:57 | disposition home or self-care (01) | DRG 291 ==
LOC: E/R 23:13 → MS4 02-12 04:11 → PP2 02-16 22:30
PROVIDERS: ADMIT Family Medicine; ATTEND Family Medicine
PROC: 05HM33Z Insertion of Infusion Device into Right Internal Jugular Vein, Percutaneous Approach (ICD-10-PCS; principal; 2017-02-13)
PROC: B543ZZA Ultrasonography of Right Jugular Veins, Guidance (ICD-10-PCS; 2017-02-13)
PROC: 5A1D60Z (ICD-10-PCS; 2017-02-13)
PROC: 05PY33Z Removal of Infusion Device from Upper Vein, Percutaneous Approach (ICD-10-PCS; 2017-02-20)
PROC: 05HM33Z Insertion of Infusion Device into Right Internal Jugular Vein, Percutaneous Approach (ICD-10-PCS; 2017-02-20)
PROC: 0JH63XZ Insertion of Tunneled Vascular Access Device into Chest Subcutaneous Tissue and Fascia, Percutaneous Approach (ICD-10-PCS; 2017-02-20)
PROC: B513YZA Fluoroscopy of Right Jugular Veins using Other Contrast, Guidance (ICD-10-PCS; 2017-02-20)
DX: I13.2 Hypertensive heart and chronic kidney disease with heart failure and with stage 5 chronic kidney disease, or end stage renal disease (principal); I50.33 Acute on chronic diastolic (congestive) heart failure; N17.9 Acute kidney failure, unspecified; E87.0 Hyperosmolality and hypernatremia; E87.2 Acidosis; N18.6 End stage renal disease; E11.22 Type 2 diabetes mellitus with diabetic chronic kidney disease; E87.5 Hyperkalemia; E87.70 Fluid overload, unspecified; D63.1 Anemia in chronic kidney disease; R07.9 Chest pain, unspecified; Z79.4 Long term (current) use of insulin; Z99.2 Dependence on renal dialysis
CPT/HCPCS: 36415; 36556; 36558; 36600; 71010; 76775; 76942; 78452; 80048; 80053; 80061; 81001; 81003; 82043; 82550; 82553; 82570; 82595; 82728; 82803; 82962; 83036; 83540; 83690; 83735; 84100; 84155; 84156; 84165; 84166; 84300; 84443; 84466; 84484; 85025; 85610; 86021; 86038; 86140; 86160; 86162; 86226; 86320; 86325; 86430; 86704; 86706; 86709; 86803; 87340; 89190; 90935; 93005; 93017; 93306; 94664; 96374; 96375; 96376; A9500; A9505; C1752; C9113; J0360; J0610; J0690; J1644; J1815; J1940; J2060; J2250; J2270; J2405; J2785; J3010; J7040; J7042; Q4081

== ENCOUNTER 2017-03-05 16:03 | Emergency (ER) | payer MEDICAID ==
[~2017-03-05] VITALS: Wt 87.6 kg
[~2017-03-05 16:03] MED LIST changes: +ASPI81TA3 PO; -BENA20TA65 PO; +DOCU-216 PO; -NIFE60TA60 PO; +NIFE60TA7 PO; +SEVE800T10 PO
--- NOTE | 2017-03-05 16:40 | ERD ---
ER Documentation Chief Complaint Date/Time DATE: 03/05/17 TIME: 16:38 Chief Complaint PAIN WITH URINATION, PT ON ABX HPI This is a 46-year-old female presenting to emergency department with dysuria. Patient states she was started on antibiotics for urinary tract infection and continues to have dysuria. Patient denies hematuria, urinary frequency or urgency. No vaginal discharge or itching. Patient is currently on dialysis. No fevers or chills. No flank or back pain. No chest pain. No shortness of breath or difficulty breathing. ROS All systems reviewed and are negative except as per history of present illness. Medications Home Meds Active Scripts Cephalexin* (Cephalexin* Susp) 250 Mg/5 Ml Susp.recon, 5 ML PO Q12 for 7 Days, BOTTLE Prov:CHAO DEVINE NP 03/05/17 Phenazopyridine Hcl* (Pyridium*) 100 Mg Tab, 100 MG PO TID Y for URINARY PAIN, # 8 TAB Prov:CHAO DEVINE NP 03/05/17 Docusate Sodium (Dok) 100 Mg Capsule, 100 MG PO Q12H Y for CONSTIPATION, #60 CAP Prov:KATE BEARD V. BUSINESS ENGLISH INSTRUCTOR 02/21/17 Sevelamer Hcl* (Renagel*) 800 Mg Tablet, 800 MG PO WITH MEALS, #90 TAB Prov:KATE BEARD NP 02/21/17 Aspirin (Aspirin) 81 Mg Chew, 81 MG PO DAILY, #30 TAB Prov:KATE BEARD NP 02/21/17 Nifedipine (Afeditab CR) 60 Mg Tablet.sa, 120 MG PO DAILY, #30 Prov:KATE BEARD NP 02/21/17 Oxycodone Hcl-Acetaminophen* (Percocet*) 5-325 Mg Tablet, 1 TAB PO Q6 Y for PAIN LEVEL 6-10 for 10 Days, TAB Prov:REBA SUAREZ MD 10/05/15 Isosorbide Mononitrate* (Isosorbide Mononitrate*) 30 Mg Tabsr, 30 MG PO DAILY for 30 Days, TAB Prov:REBA SUAREZ MD 10/05/15 Insulin Glargine* (Lantus*) 100 Unit/Ml Soln, 10 UNIT SC HS for 30 Days, BOT Prov:REBA SUAREZ MD 09/23/15 Ferrous Sulfate* (Ferrous Sulfate*) 325 Mg Tabec, 325 MG PO DAILY for 30 Days, TAB Prov:REBA SUAREZ MD 09/23/15 Reported Medications Esomeprazole Mag Trihydrate (Nexium) 20 Mg Capsule.dr, 20 MG PO DAILY, #30 CAP 09/30/15 Discontinued Scripts Nitrofurantoin Monohyd Macrocr* (Macrobid*) 100 Mg Capsr, 100 MG PO BID for 5 Days, CAP Prov:CHAO DEVINE NP 03/05/17 Allergies Allergies: Coded Allergies: No Known Drug Allergy (Verified Allergy, Mild, 03/05/17) PMhx/Soc History of Surgery: No Anesthesia Reaction: No Hx Neurological Disorder: Yes Hx Respiratory Disorders: No Hx Cardiac Disorders: No Hx Psychiatric Problems: No Hx Miscellaneous Medical Probl: No Hx Alcohol Use: Yes Hx Substance Use: No Hx Tobacco Use: Yes Smoking Status: Never smoker Physical Exam Vitals Vital Signs Date Time Temp Pulse Resp B/P Pulse Ox O2 Delivery O2 Flow Rate FiO2 03/05/17 16:06 98.6 75 17 154/72 98 Physical Exam Const: Alert, no acute distress Head: Atraumatic Eyes: Normal Conjunctiva ENT: Normal External Ears, Nose and Mouth. Neck: Full range of motion..~ No meningismus. Resp: Clear to auscultation bilaterally Cardio: Regular rate and rhythm, no murmurs Abd: Soft, non tender, non distended. Normal bowel sounds Skin: No petechiae or rashes Back: No midline or flank tenderness Ext: No cyanosis, or edema Neur: Awake and alert Psych: Normal Mood and Affect Results 24 hrs Laboratory Tests Test 03/05/17 16:13 Urine Color YELLOW Urine Clarity CLEAR Urine pH 6.0 Urine Specific [place] 1.017 Urine Ketones NEGATIVEmg/dL Urine Nitrite NEGATIVEmg/dL Urine Bilirubin NEGATIVEmg/dL Urine Urobilinogen NEGATIVEmg/dL Urine Leukocyte Esterase NEGATIVELeu/ul Urine Microscopic RBC 0/HPF Urine Microscopic WBC 4/HPF Urine Squamous Epithelial Cells FEW/HPF Urine Bacteria FEW/HPF Urine Hemoglobin NEGATIVEmg/dL Urine Glucose 2+mg/dL Urine Total Protein 3+mg/dl Procedures/MDM MDM: This is a 46-year-old female presenting to emergency department with dysuria. Patient was started on Zithromax by her primary care provider and states she continues to have dysuria. Denies gross hematuria. Denies urinary frequency or urgency. Patient is afebrile upon arrival to ED and vital signs are stable. Patient is alert and in no acute distress. UA is negative for infection. Urine culture results are pending consulted Dr. Lindsey regarding this patient and we agree that patient is appropriate for outpatient management with oral Keflex and Pyridium. Instructed patient to discontinue Zithromax. Low suspicion for pyelonephritis or severe bacterial infection. Patient is appropriate for outpatient management will be given prescription for Keflex and Pyridium. Instructed patient to follow-up with primary care provider in the next 2-3 days for reassessment. Return to ED for any high fever , chest pain, difficulty breathing, shortness breath, wheezing, vomiting, diarrhea, abdominal pain or any new or worsening symptoms. Patient verbalizes understanding. All questions answered at discharge. Tajik translation used during this encounter. Departure Diagnosis: Primary Impression: Dysuria Condition: Stable CHAO DEVINE NP Mar 05, 2017 16:40
[2017-03-05 17:07] LABS: ADD UMIC YES; UR ASCORBIC ACID NEGATIVE (NEGATIVE); UR BACTERIA FEW /HPF (NONE SEEN); UR BILIRUBIN (Dip) NEGATIVE (NEGATIVE); UR BLOOD (Dip) NEGATIVE (NEGATIVE); UR CLARITY CLEAR (CLEAR); UR COLOR YELLOW (YELLOW); UR GLUCOSE (Dip) 2+ mg/dL (NEGATIVE); UR KETONES (Dip) NEGATIVE (NEGATIVE); UR LEUKOCYTE ESTERASE (Dip) NEGATIVE Leu/ul (NEGATIVE); UR NITRITE (Dip) NEGATIVE (NEGATIVE); UR RBC 0 /HPF (0-5); UR SPECIFIC GRAVITY (Dip) 1.017 (1.003-1.030); UR SQUAMOUS EPITHELIAL CELL FEW /HPF (FEW); UR TOTAL PROTEIN (Dip) 3+ mg/dl (NEGATIVE); UR UROBILINOGEN (Dip) NEGATIVE (NEGATIVE)
[2017-03-05] MEDS ORDERED: PHEN-537 PO (17:33)
[2017-03-05] MEDS ORDERED: NITR-58 PO (17:33)
[2017-03-05] MEDS ORDERED: CEPH250S33 PO (17:38)
== END 2017-03-05 17:55 | disposition home or self-care (01) ==
LOC: FTE 16:03
DX: R30.0 Dysuria (principal); E11.9 Type 2 diabetes mellitus without complications; Z79.4 Long term (current) use of insulin; Z79.82 Long term (current) use of aspirin
CPT/HCPCS: 36415; 81001; 87086; Z7502; 99283

== ENCOUNTER 2018-01-10 16:50 | Emergency (ER) | END 2018-01-10 18:03 | disposition home or self-care (01) ==

== ENCOUNTER 2018-02-07 00:06 | Inpatient (IN) | END 2018-02-10 19:30 | disposition home or self-care (01) | DRG 304 ==

== ENCOUNTER 2018-03-29 19:14 | Inpatient (IN) | END 2018-04-01 20:04 | disposition short-term general hospital (02) | DRG 640 ==

== ENCOUNTER 2018-04-24 17:00 | Emergency (ER) | END 2018-04-24 19:47 | disposition home or self-care (01) ==

== ENCOUNTER 2018-04-25 17:25 | Inpatient (IN) | END 2018-04-27 15:55 | disposition home or self-care (01) | DRG 304 ==

== ENCOUNTER 2018-05-03 04:24 | Emergency (ER) | END 2018-05-03 06:30 | disposition home or self-care (01) ==

== ENCOUNTER 2018-08-03 09:41 | Emergency (ER) | payer OTHER ==
[~2018-08-03] VITALS: Ht 170.2 cm; Wt 84.8 kg
[~2018-08-03 09:41] MED LIST changes: -ASPI81TA3 PO; +CALC667C PO; +CLON0.1T14 PO; +CLOP75TA27 PO; -DOCU-216 PO; +DOXA2TAB61 PO; -ESOM20CA PO; -FER325 PO; +HYDR-3671 PO; +HYDR25CA PO; +INSU100I12 SQ; -ISOS30TA5 PO; +LABE100T7 PO; +LINA145C PO; +MINO2.5T16 PO; +NEPHRO-VITE PO; -NIFE60TA7 PO; -OXYC-281 PO; -SEVE800T10 PO
[2018-08-03 09:43] VITALS: Ht 170.2 cm; Wt 84.8 kg
[2018-08-03] MEDS ORDERED: morphine 4 MG/ML VIAL IV STA (10:25)
[2018-08-03] MEDS ORDERED: ONDANSETRON 4 MG INJ IV STA ×3 (10:25→15:30)
[2018-08-03] MEDS ORDERED: ASPIRIN 325 MG TAB PO STA (10:25)
[2018-08-03] MEDS ORDERED: NITROGLYCERIN 2% 1 GM OINT PKT TD STA (10:25)
--- NOTE | 2018-08-03 10:48 | ERD ---
ER Documentation Chief Complaint Chief Complaint CP since this AM; full body pain HPI This is a 47-year-old female with a history of end-stage renal disease on hemodialysis every Monday and Monday. The patient states her last full run of dialysis was 5 days prior to arrival on Monday as there was a change in schedule due to it being the holiday. The patient indicates that the past 24 hours she has been having severe intermittent left substernal chest pressure. States the pain is 8 out of 10 in intensity. She began to develop myalgias this morning upon awakening. She had no fevers or shaking or chills. She states she makes a small amount of urine. She denies any shortness of breath. She states she is been noncompliant with her medications. She denies headache or changes in vision. ROS All systems reviewed and are negative except as per history of present illness. Medications Home Meds Active Scripts Hydroxyzine Pamoate* (Vistaril*) 25 Mg Capsule, 25 MG PO Q6H PRN for ANXIETY, #10 CAP Prov:VANDANA CHAO DO 05/03/18 Labetalol Hcl* (Labetalol Hcl*) 100 Mg Tablet, 100 MG PO TID for 30 Days, TAB 3 Refills Prov:JEAN MARIE CORONA 04/27/18 Hydralazine Hcl* (Hydralazine Hcl*) 25 Mg Tab, 75 MG PO TID for 30 Days, TAB 3 Refills Prov:JEAN MARIE CORONA 04/27/18 Doxazosin Mesylate* (Cardura*) 2 Mg Tablet, 2 MG PO BID for 30 Days, TAB 3 Refills Prov:JEAN MARIE CORONA 04/27/18 Clonidine Hcl* (Catapres*) 0.1 Mg Tablet, 0.3 MG PO Q8 for 30 Days, TAB 3 Refills Prov:JEAN MARIE CORONA 04/27/18 Reported Medications Minoxidil* (Lonitin*) 2.5 Mg Tab, 2.5 MG PO BID, TAB 05/03/18 Linaclotide (LINZESS) 145 Mcg Capsule, 145 MCG PO DAILY, #30 CAP 03/29/18 Calcium Acetate* (Calcium Acetate*) 667 Mg Capsule, 2001 MG PO WITH MEALS, #90 CAP 8/30/18 [Nephro-Sandra] No Conflict Check, 1 TAB PO DAILY 03/29/18 Insulin Glargine* (Lantus*) 100 Unit/Ml Soln, 10 UNIT SC QHS, #1 VIAL 02/06/18 Insulin Lispro (Humalog Kwikpen U-100) 100 Unit/1 Ml Insuln.pen, 2 UNIT SQ BEFORE MEALS, EA 02/06/18 Clopidogrel Bisulfate (Clopidogrel) 75 Mg Tablet, 75 MG PO DAILY, #30 TAB 02/06/18 Allergies Allergies: Coded Allergies: nicardipine (Verified Allergy, Unknown, 08/03/18) PMhx/Soc History of Surgery: Yes (Caesarean Delivery) Anesthesia Reaction: No Hx Neurological Disorder: No Hx Respiratory Disorders: No Hx Cardiac Disorders: Yes (chf) Hx Psychiatric Problems: No Hx Miscellaneous Medical Probl: Yes (dialysis) Hx Alcohol Use: No Hx Substance Use: No Hx Tobacco Use: No Physical Exam Vitals Vital Signs Date Temp Pulse Resp B/P (MAP) Pulse Ox O2 O2 Flow FiO2 Time Delivery Rate 08/03/18 98.0 75 20 238/100 96 Room Air 12:20 (146) 08/03/18 231/92 12:00 (138) 08/03/18 98.0 76 19 95 09:43 Physical Exam Constitutional:Well-developed. Well-nourished. Patient moaning and appeared to be in a significant amount of discomfort. HEENT:Normocephalic. Atraumatic.Pupils were equal round reactive to light. Moist mucous membranes.No tonsillar exudates. Neck: No nuchal rigidity. No lymphadenopathy. No posterior cervical spine tenderness or step-offs. Respiratory: Not using accessory muscles of respiration.Lungs were clear to auscultation bilaterally. No rhonchi. No rales. No wheezing. Cardiovascular: Regular rate regular rhythm.No murmurs. No rubs were appreciated.S1, S2 normal. Distal pulses are palpable 2+ bilaterally. Right tunneled chest wall catheter in place with no surrounding erythema warmth tenderness fluctuance or induration GI: Abdomen was soft. Nontender. Non Distended. No pulsatile abdominal masses or bruits. No rebound. No guarding. Bowel sounds were present and normal. Muscle skeletal: Full range of motion of both the upper and lower extremities bilaterally.Normal muscle tone.No assymetrical calf tenderness or swelling. Skin: No petechia, no purpura. No lesions on the palms or the soles of the feet. No maculopapular rash. NEURO: Patient was alert, awake, orientated x3.No facial droop. Gait observed and normal with no ataxia.Speech had regular rate and rhythm. No focal neurological deficits. Result Diagram: 08/03/18 1124 08/03/18 1124 Results 24 hrs Laboratory Tests Test 08/03/18 11:24 White Blood Count 4.5 10^3/ul Red Blood Count 3.86 10^6/ul Hemoglobin 11.9 g/dl Hematocrit 35.3 % Mean Corpuscular Volume 91.5 fl Mean Corpuscular Hemoglobin 30.8 pg Mean Corpuscular Hemoglobin Concent 33.7 g/dl Red Cell Distribution Width 14.1 % Platelet Count 110 10^3/UL Mean Platelet Volume 11.9 fl Immature Granulocytes % 0.200 % Neutrophils % 78.5 % Lymphocytes % 11.9 % Monocytes % 7.0 % Eosinophils % 2.0 % Basophils % 0.4 % Nucleated Red Blood Cells % 0.0 /100WBC Immature Granulocytes # 0.010 10^3/ul Neutrophils # 3.5 10^3/ul Lymphocytes # 0.5 10^3/ul Monocytes # 0.3 10^3/ul Eosinophils # 0.1 10^3/ul Basophils # 0.0 10^3/ul Nucleated Red Blood Cells # 0.0 10^3/ul Prothrombin Time 13.5 Sec Prothrombin Time Ratio 1.1 INR International Normalized Ratio 1.02 Activated Partial Thromboplast Time 36.3 Sec Sodium Level 137 mmol/L Potassium Level 6.0 mmol/L Chloride Level 101 mmol/L Carbon Dioxide Level 19 mmol/L Anion Gap 17 Blood Urea Nitrogen 96 mg/dl Creatinine 13.41 mg/dl Est Glomerular Filtrat Rate mL/min 3 mL/min Glucose Level 136 mg/dl Calcium Level 8.2 mg/dl Total Bilirubin 0.1 mg/dl Direct Bilirubin 0.00 mg/dl Indirect Bilirubin 0.1 mg/dl Aspartate Amino Transf (AST/SGOT) 21 IU/L Alanine Aminotransferase (ALT/SGPT) 18 IU/L Alkaline Phosphatase 85 IU/L Creatine Kinase 81 IU/L Creatine Kinase Index 1.1 Creatinine Kinase MB (Mass) 0.93 ng/ml Troponin I 0.020 ng/ml B-Type Natriuretic Peptide 19047 PG/ML Total Protein 7.8 g/dl Albumin 4.4 g/dl Globulin 3.40 g/dl Albumin/Globulin Ratio 1.29 Current Medications Medications Dose Sig/Stalin Start Time Status Last (Trade) Ordered Route PRN Stop Time Admin Dose Reason Admin Aspirin 325 mg ONCE STAT 08/03/18 DC 08/03/18 (Aspirin) PO 10:25 08/03/18 10:49 10:26 1 inch ONCE STAT 08/03/18 DC 08/03/18 Nitroglycerin TD 10:25 08/03/18 10:51 10:26 (Nitroglyceri n 2% Oint) Morphine 4 mg ONCE STAT 08/03/18 DC 08/03/18 Sulfate IV 10:25 08/03/18 10:50 (morphine) 10:26 Ondansetron 4 mg ONCE STAT 08/03/18 DC 08/03/18 HCl (Zofran IV 10:25 08/03/18 10:49 Inj) 10:26 Lorazepam 1 mg ONCE ONCE 08/03/18 DC 08/03/18 (Ativan) IV 12:00 08/03/18 11:53 12:01 Hydralazine 20 mg ONCE ONCE 08/03/18 DC HCl IV 12:00 08/03/18 (Apresoline) 12:01 1 mg ONCE STAT 08/03/18 DC 08/03/18 Hydromorphone IV 12:08 08/03/18 12:20 HCl 12:09 (Dilaudid) Ondansetron 4 mg ONCE STAT 08/03/18 DC 08/03/18 HCl (Zofran IV 12:08 08/03/18 12:20 Inj) 12:09 Clonidine 0.2 mg ONCE ONCE 08/03/18 DC 08/03/18 (Catapres) PO 12:30 08/03/18 12:26 12:31 Ondansetron 4 mg ER BRIDGE 08/03/18 HCl (Zofran PRN IV 13:00 08/04/18 Inj) NAUSEA AND/OR 12:59 VOMITING 650 mg ER BRIDGE 08/03/18 Acetaminophen PRN PO MILD 13:00 08/04/18 (Tylenol PAIN(1-3)OR 12:59 Tab) ELEVATED TEMP Procedures/MDM The patient presented to the emergency department with chest pain. My clinical evaluation and workup was to distinguish minor causes of chest pain from acute life threatening conditions such as myocardial infarction, pulmonary embolism, aortic dissection, esophageal rupture, cardiac tamponade. The patient did receive aspirin. The patient was placed on a residential monitor and continuous pulse oximetry. IV access established by nursing staff. The patient was given intravenous morphine and Zofran for analgesic control. 12 Lead EKG tracing ordered and reviewed by myself showed: Normal sinus rhythm of 72 bpm and no arrhythmia. OR interval normal. QRS duration normal. No ST segment elevation No ST segment depression. No changes consistent with acute ischemia. A 1 view chest radiograph were reviewed by myself and again the followin. Findings suggestive of pulmonary vascular congestion with small bilateral pleural effusions. Findings are increased when compared to the prior examinatio n. 2. Mild cardiomegaly. 3. Tubes and lines, as described above. The patient's blood pressure was significantly elevated. She was given nitroglycerin and labetalol with improvement of her blood pressure. There was signs of endorgan damage to suggest hypertensive emergency given that the pat ient has end-stage renal disease required emergent hemodialysis. She received clonidine she states she has an allergy to Cardene and hydralazine. She was also given IV labetalol. Patient's BUN was 96 and creatinine was 13.41. Dr. Light came to the bedside to evaluate the patient and we did feel the patient was stable to be transferred to [facility] where she is capitated to. She will receive emergent hemodialysis as stated above. She was hyperkalemic and was treated with IV Lasix and an amp of bicarbonate amp of calcium chloride and Kayexalate albuterol. Critical Care: Time: 65 minutes Treatments/Evaluations: Close monitoring and treatment of unstable vital signs, cardiorespiratory, and neurologic status, while maintaining tight balance of fluid, respiratory, and cardiac interventions. Time does not include performing any of the above billable procedures. Departure Diagnosis: Primary Impression: Chest pain Chest pain type: unspecified Qualified Codes: R07.9 - Chest pain, uns pecified Additional Impressions: Hypertensive emergency Hyperkalemia Renal failure (ARF), acute on chronic Acute renal failure type: unspecified Chronic kidney disease stage: on chronic dialysis Qualified Codes: N17.9 - Acute kidney failure, unspecified; N18.9 - Chronic kidney disease, unspecified; Z99.2 - Dependence on renal dialysis Condition: Serious KIMBERLEY STANLEY MD Aug 03, 2018 10:44
[2018-08-03] MEDS: hydrALAzine 20 MG INJ IV ONE ×2 (11:54→12:16)
[2018-08-03] MEDS ORDERED: LORAZEPAM 2 MG INJ IV ONE ×2 (12:00→17:00)
[2018-08-03] MEDS ORDERED: HYDROmorphONE 2 MG/ML SYG IV STA (12:08)
[2018-08-03] MEDS ORDERED: ONDANSETRON 4 MG INJ IV PRN (13:00)
[2018-08-03] MEDS ORDERED: ACETAMINOPHEN 325 MG TAB PO PRN (13:00)
[2018-08-03] MEDS ORDERED: ALBUTEROL 0.5% (NEB) 2.5 MG/0.5 ML AMP INH STA (13:46)
[2018-08-03] MEDS ORDERED: NA BICARBONATE 8.4% 50 ML SYG IV STA (13:46)
[2018-08-03] MEDS ORDERED: NA POLYST SULFON 15 GM/60 ML BTL PO STA (13:46)
[2018-08-03] MEDS ORDERED: CA CHLORIDE 10% 10 ML SYRINGE IV STA (13:46)
[2018-08-03] MEDS ORDERED: FUROSEMIDE 40 MG INJ IV ONE (14:00)
[2018-08-03] MEDS ORDERED: HYDROmorphONE 0.5 MG/0.5 ML SYG IV STA (15:30)
[2018-08-03] MEDS ORDERED: LABETALOL HCL 20MG INJ IV ONE (15:30)
[2018-08-03 16:36] VITALS: BP 223/95; PULSE 64; RESP 20
== END 2018-08-03 16:48 | disposition short-term general hospital (02) ==
LOC: E/R 09:41 → CANBEDREQ 13:37 → E/R 16:48
DX: R07.9 Chest pain, unspecified (principal); I16.1 Hypertensive emergency; E87.5 Hyperkalemia; N18.9 Chronic kidney disease, unspecified; N17.9 Acute kidney failure, unspecified; I50.9 Heart failure, unspecified; E11.9 Type 2 diabetes mellitus without complications; Z99.2 Dependence on renal dialysis; Z79.4 Long term (current) use of insulin; Z79.01 Long term (current) use of anticoagulants
CPT/HCPCS: 71045; 80053; 82550; 82553; 83880; 84484; 85025; 85610; 85730; 93005; 96374; 96375; 96376; J1170; J1940; J2060; J2270; J2405; Z7502; Z7610; J0360

== ENCOUNTER 2018-08-28 17:13 | Emergency (ER) | payer OTHER ==
[~2018-08-28] VITALS: Ht 157.5 cm; Wt 84.8 kg
[2018-08-28 20:37] VITALS: Ht 157.5 cm; Wt 84.8 kg
--- NOTE | 2018-08-28 21:00 | ERD ---
ER Documentation Chief Complaint Chief Complaint RIGHT FLANK PAIN HPI 47-year-old woman complaining of right quadrant abdominal pain radiating down toward her right lower abdomen for the last 2-3 days. She was seen and evaluated at [facility] last night CT scan of the abdomen pelvis revealed cholelithiasis and she was discharged with a prescription for analgesics which she could not get filled because of an error in the actual prescription. She has had some nausea but denies vomiting, no blood per rectum or melena, no chest pain or shortness of breath. ROS All systems reviewed and are negative except as per history of present illness. Medications Home Meds Reported Medications Insulin Lispro (Humalog Kwikpen U-100) 100 Unit/1 Ml Insuln.pen, 2 UNIT SQ WITH MEALS, EA 08/28/18 Ondansetron Hcl* (Zofran*) 4 Mg Tab, 4 MG PO NEEDED PRN for NAUSEA AND OR VOMITING, TAB 08/28/18 Amlodipine Besylate* (Norvasc*) 5 Mg Tablet, 5 MG PO DAILY, TAB 08/28/18 Pantoprazole* (Pantoprazole*) 40 Mg Tablet.dr, 40 MG PO AC BREAKFAST, TAB 08/28/18 Phenazopyridine Hcl* (Phenazopyridine Hcl*) 200 Mg Tablet, 200 MG PO TID, TAB 08/28/18 [Nephro-Sandra] No Conflict Check, 1 TAB PO DAILY 08/28/18 Minoxidil* (Lonitin*) 2.5 Mg Tab, 2.5 MG PO BID, TAB 08/28/18 Clonidine Hcl* (Clonidine Hcl*) 0.1 Mg Tab, 0.1 MG PO TID, TAB 08/28/18 Calcium Acetate* (Calcium Acetate*) 667 Mg Capsule, 667 MG PO WITH MEALS, #30 CAP 08/28/18 Labetalol Hcl* (Labetalol Hcl*) 200 Mg Tablet, 200 MG PO TID, TAB 08/28/18 Discontinued Reported Medications Minoxidil* (Lonitin*) 2.5 Mg Tab, 2.5 MG PO BID, TAB 05/03/18 Linaclotide (LINZESS) 145 Mcg Capsule, 145 MCG PO DAILY, #30 CAP 03/29/18 Calcium Acetate* (Calcium Acetate*) 667 Mg Capsule, 2001 MG PO WITH MEALS, #90 CAP 03/29/18 [Nephro-Sandra] No Conflict Check, 1 TAB PO DAILY 03/29/18 Insulin Glargine* (Lantus*) 100 Unit/Ml Soln, 10 UNIT SC QHS, #1 VIAL 02/06/18 Insulin Lispro (Humalog Kwikpen U-100) 100 Unit/1 Ml Insuln.pen, 2 UNIT SQ BEFORE MEALS, EA 02/06/18 Clopidogrel Bisulfate (Clopidogrel) 75 Mg Tablet, 75 MG PO DAILY, #30 TAB 02/06/18 Discontinued Scripts Hydroxyzine Pamoate* (Vistaril*) 25 Mg Capsule, 25 MG PO Q6H PRN for ANXIETY, #10 CAP Prov:VANDANA CHAO 05/03/18 Labetalol Hcl* (Labetalol Hcl*) 100 Mg Tablet, 100 MG PO TID for 30 Days, TAB 3 Refills Prov:JEAN MARIE CORONA 04/27/18 Hydralazine Hcl* (Hydralazine Hcl*) 25 Mg Tab, 75 MG PO TID for 30 Days, TAB 3 Refills Prov:JEAN MARIE CORONA 04/27/18 Doxazosin Mesylate* (Cardura*) 2 Mg Tablet, 2 MG PO BID for 30 Days, TAB 3 Refills Prov:JEAN MARIE CORONA 04/27/18 Clonidine Hcl* (Catapres*) 0.1 Mg Tablet, 0.3 MG PO Q8 for 30 Days, TAB 3 Refills Prov:JEAN MARIE CORONA 04/27/18 Allergies Allergies: Coded Allergies: nicardipine (Verified Allergy, Unknown, 08/28/18) PMhx/Soc Chronic pain syndrome, hypertension, end-stage kidney disease hemodialysis dependent, diabetes mellitus, chronic vomiting, history of CHF, history of CVA History of Surgery: No Anesthesia Reaction: No Hx Neurological Disorder: No Hx Respiratory Disorders: No Hx Cardiac Disorders: Yes (HTN) Hx Psychiatric Problems: No Hx Miscellaneous Medical Probl: Yes (DIALYSIS) Hx Alcohol Use: No Hx Substance Use: No Hx Tobacco Use: No Smoking Status: Never smoker Physical Exam Vitals Vital Signs Date Temp Pulse Resp B/P (MAP) Pulse Ox O2 O2 Flow FiO2 Time Delivery Rate 08/28/18 98.2 94 17 183/60 98 Room Air 23:16 (101) 08/28/18 91 20 96 21 22:31 08/28/18 98.2 96 26 156/60 98 Room Air 21:59 (92) 08/28/18 98.2 88 16 188/48 100 Room Air 21:39 (94) 08/28/18 98.2 88 24 217/89 100 Room Air 20:37 (131) 08/28/18 98.2 88 24 217/89 100 20:37 (131) 08/28/18 98.8 100 22 252/112 95 17:18 (158) Physical Exam Const: Moderate discomfort, afebrile Head: Atraumatic Eyes: Normal Conjunctiva ENT: Normal External Ears, Nose and Mouth. Neck: Full range of motion. No meningismus. Resp: Clear to auscultation bilaterally Cardio: Regular rate and rhythm, no murmurs Abd: Tenderness over the right upper quadrant abdomen with voluntary guarding, no rigidity, no rebound, no psoas sign Skin: No petechiae or rashes Back: No midline or flank tenderness Ext: No cyanosis, or edema Neur: Awake and alert x3, no focal deficits or facial asymmetry, pupils equal round reactive to light Psych: Normal Mood and Affect Result Diagram: 08/28/18202908/28/18 2030 Results 24 hrs Laboratory Tests Test 08/28/18 20:30 White Blood Count 4.5 10^3/ul Red Blood Count 3.66 10^6/ul Hemoglobin 11.0 g/dl Hematocrit 34.1 % Mean Corpuscular Volume 93.2 fl Mean Corpuscular Hemoglobin 30.1 pg Mean Corpuscular Hemoglobin Concent 32.3 g/dl Red Cell Distribution Width 15.1 % Platelet Count 189 10^3/UL Mean Platelet Volume 12.1 fl Immature Granulocytes % 3.500 % Neutrophils % 84.6 % Lymphocytes % 9.3 % Monocytes % 2.0 % Eosinophils % 0.2 % Basophils % 0.4 % Nucleated Red Blood Cells % 0.9 /100WBC Immature Granulocytes # 0.160 10^3/ul Neutrophils # 3.8 10^3/ul Lymphocytes # 0.4 10^3/ul Monocytes # 0.1 10^3/ul Eosinophils # 0.0 10^3/ul Basophils # 0.0 10^3/ul Nucleated Red Blood Cells # 0.0 10^3/ul Prothrombin Time 12.5 Sec Prothrombin Time Ratio 1.0 INR International Normalized Ratio 0.92 Activated Partial Thromboplast Time 34.4 Sec Sodium Level 142 mmol/L Potassium Level 5.8 mmol/L Chloride Level 97 mmol/L Carbon Dioxide Level 25 mmol/L Anion Gap 20 Blood Urea Nitrogen 48 mg/dl Creatinine 11.88 mg/dl Est Glomerular Filtrat Rate mL/min 3 mL/min Glucose Level 255 mg/dl Calcium Level 10.0 mg/dl Total Bilirubin 0.1 mg/dl Direct Bilirubin 0.00 mg/dl Indirect Bilirubin 0.1 mg/dl Aspartate Amino Transf (AST/SGOT) 27 IU/L Alanine Aminotransferase (ALT/SGPT) 18 IU/L Alkaline Phosphatase 141 IU/L Total Protein 8.9 g/dl Albumin 5.1 g/dl Globulin 3.80 g/dl Albumin/Globulin Ratio 1.34 Lipase 36 U/L Current Medications Medications Dose Sig/Stalin Start Time Status Last (Trade) Ordered Route PRN Stop Time Admin Dose Reason Admin Ondansetron 4 mg ONCE STAT 08/28/18 DC 08/28/18 HCl (Zofran IV 21:11 21:19 Inj) 08/28/18 21:13 Ketorolac 15 mg ONCE STAT 08/28/18 DC 08/28/18 Tromethamine IV 21:11 21:19 (Toradol) 08/28/18 21:13 Oxycodone/ 1 tab ONCE ONCE 08/28/18 DC 08/28/18 Acetaminophen PO 21:30 21:19 (Percocet 08/28/18 21:31 (5/ 325)) Clonidine 0.1 mg ONCE ONCE 08/28/18 DC 08/28/18 (Catapres) PO 21:30 23:22 08/28/18 21:31 Albuterol 10 mg ONCE STAT 08/28/18 DC 08/28/18 (Proventil HHN 21:56 22:31 0.083% (Neb)) 08/28/18 21:57 Procedures/MDM IV line was established patient was placed on nurse leader rhythm strip revealed a sinus rhythm at about 80 bpm with upright P and T waves. Patient was afebrile Gallbladder ultrasound revealed multiple gallstones. Please refer to radiologist dictation for full report. IV line was established and administered Toradol 15 mg IV x1, Zofran 4 mg IV x1, Percocet 1 tablet p.o. EKG was performed, read by me revealed a normal sinus rhythm at 94 bpm, normal axis, narrow QRS complex, no concerning ST elevations or depressions noted CBC reveals a leukopenia of 4.5, electrolytes reveal hyperkalemia 5.8, liver fun ction tests unremarkable, troponin negative, coagulation profile normal. I administered albuterol 10 mg via nebulizer for mild hyperkalemia. I also administered clonidine 0.1 mg p.o. for initial hypertension. Patient has continued pain and cholelithiasis she will be admitted to [facility] for continued medical management surgical consultation. On-call surgeon has been paged, he kindly agreed to consult the patient. [facility] be [facility] Diagnosis: Primary Impression: Intractable abdominal pain Additional Impressions: End stage kidney disease Cholelithiasis Cholelithiasis location: gallbladder Cholecystitis presence: with cholecystitis Cholecystitis acuity: acute Biliary obstruction: without biliary obstruction Qualified Codes: K80.00 - Calculus of gallbladder with acute cholecystitis without obstruction Hypertension Hypertension type: essential hypertension Qualified Codes: I10 - Essential (primary) hypertension Condition: CORINNE Mathew MD Aug 28, 2018 21:00
[2018-08-28] MEDS ORDERED: ONDANSETRON 4 MG INJ IV STA (21:11)
[2018-08-28] MEDS ORDERED: KETOROLAC 15 MG INJ IV STA (21:11)
[2018-08-28] MEDS ORDERED: OXYCODONE/ACETAMINOPHEN (5/325) TAB PO ONE (21:30)
[2018-08-28] MEDS ORDERED: ALBUTEROL 0.083% (NEB) 2.5 MG/3 ML AMP HHN STA (21:56)
[2018-08-28] MEDS ORDERED: LABE200T25 PO (22:23)
[2018-08-28] MEDS ORDERED: CALC667C PO (22:24)
[2018-08-28] MEDS ORDERED: CLON-379 PO (22:24)
[2018-08-28] MEDS ORDERED: MINO2.5T16 PO (22:25)
[2018-08-28] MEDS ORDERED: NEPHRO-VITE PO (22:25)
[2018-08-28] MEDS ORDERED: PHEN-717 PO (22:26)
[2018-08-28] MEDS ORDERED: ONDA4TAB13 PO (22:27)
[2018-08-28] MEDS ORDERED: AMLO5TAB4 PO (22:27)
[2018-08-28] MEDS ORDERED: PANT40TA4 PO (22:27)
[2018-08-28] MEDS ORDERED: INSU100I12 SQ (22:31)
[2018-08-29] MEDS ORDERED: IBUPROFEN 600 MG TAB PO ONE (00:30)
[2018-08-29 01:04] VITALS: BP 142/53; PULSE 91; RESP 23
--- NOTE | 2018-08-29 03:25 | CONS ---
Assessment/Plan Assessment/Plan Hospital Course (Demo Recall) 1. Cholelithiasis, possible symptomatic -Outpatient follow-up for cholecystectomy 2. Abdominal pain secondary to above -Pain control Patient being transferred to [place]. 3. BMI 34 Encourage diet optimization encouraged exercise Thank you very much for consulting me this patient's care, Late entry 08/28/2018 Consultation Date/Type/Reason Admit Date/Time Date of Consultation: Aug 28, 2018 Type of Consult General surgical Date/Time of Note DATE: 08/28/18 TIME: 23:22 Past Medical History Home Meds Reported Medications Insulin Lispro (Humalog Kwikpen U-100) 100 Unit/1 Ml Insuln.pen, 2 UNIT SQ WITH MEALS, EA 08/28/18 Ondansetron Hcl* (Zofran*) 4 Mg Tab, 4 MG PO NEEDED PRN for NAUSEA AND OR VOMITING, TAB 08/28/18 Amlodipine Besylate* (Norvasc*) 5 Mg Tablet, 5 MG PO DAILY, TAB 08/28/18 Pantoprazole* (Pantoprazole*) 40 Mg Tablet.dr, 40 MG PO AC BREAKFAST, TAB 08/28/18 Phenazopyridine Hcl* (Phenazopyridine Hcl*) 200 Mg Tablet, 200 MG PO TID, TAB 08/28/18 [Nephro-Sandra] No Conflict Check, 1 TAB PO DAILY 08/28/18 Minoxidil* (Lonitin*) 2.5 Mg Tab, 2.5 MG PO BID, TAB 08/28/18 Clonidine Hcl* (Clonidine Hcl*) 0.1 Mg Tab, 0.1 MG PO TID, TAB 08/28/18 Calcium Acetate* (Calcium Acetate*) 667 Mg Capsule, 667 MG PO WITH MEALS, #30 CAP 08/28/18 Labetalol Hcl* (Labetalol Hcl*) 200 Mg Tablet, 200 MG PO TID, TAB 08/28/18 Discontinued Reported Medications Minoxidil* (Lonitin*) 2.5 Mg Tab, 2.5 MG PO BID, TAB 05/03/18 Linaclotide (LINZESS) 145 Mcg Capsule, 145 MCG PO DAILY, #30 CAP 03/29/18 Calcium Acetate* (Calcium Acetate*) 667 Mg Capsule, 2001 MG PO WITH MEALS, #90 CAP 03/29/18 [Nephro-Sandra] No Conflict Check, 1 TAB PO DAILY 03/29/18 Insulin Glargine* (Lantus*) 100 Unit/Ml Soln, 10 UNIT SC QHS, #1 VIAL 02/06/18 Insulin Lispro (Humalog Kwikpen U-100) 100 Unit/1 Ml Insuln.pen, 2 UNIT SQ BEFORE MEALS, EA 02/06/18 Clopidogrel Bisulfate (Clopidogrel) 75 Mg Tablet, 75 MG PO DAILY, #30 TAB 02/06/18 Discontinued Scripts Hydroxyzine Pamoate* (Vistaril*) 25 Mg Capsule, 25 MG PO Q6H PRN for ANXIETY, #10 CAP Prov:VANDANA CHAO 05/03/18 Labetalol Hcl* (Labetalol Hcl*) 100 Mg Tablet, 100 MG PO TID for 30 Days, TAB 3 Refills Prov:JEAN MARIE CORONA 04/27/18 Hydralazine Hcl* (Hydralazine Hcl*) 25 Mg Tab, 75 MG PO TID for 30 Days, TAB 3 Refills Prov:JEAN MARIE CORONA 04/27/18 Doxazosin Mesylate* (Cardura*) 2 Mg Tablet, 2 MG PO BID for 30 Days, TAB 3 Refills Prov:JEAN MARIE CORONA 04/27/18 Clonidine Hcl* (Catapres*) 0.1 Mg Tablet, 0.3 MG PO Q8 for 30 Days, TAB 3 Refills Prov:JEAN MARIE CORONA 04/27/18 Allergies: Coded Allergies: nicardipine (Verified Allergy, Unknown, 08/28/18) Social History Smoking Status: Never smoker Exam/Review of Systems Exam Vitals Vital Signs Date Temp Pulse Resp B/P (MAP) Pulse Ox O2 O2 Flow FiO2 Time Delivery Rate 08/29/18 98.2 91 23 142/53 97 Room Air 01:04 (82) 08/28/18 21 22:31 Results Result Diagram: 08/28/18202908/28/18 2030 Results 24hrs Laboratory Tests Test 08/28/18 20:30 White Blood Count 4.5 L Red Blood Count 3.66 L Hemoglobin 11.0 L Hematocrit 34.1 L Mean Corpuscular Volume 93.2 Mean Corpuscular Hemoglobin 30.1 Mean Corpuscular Hemoglobin Concent 32.3 Red Cell Distribution Width 15.1 H Platelet Count 189 # Mean Platelet Volume 12.1 H Immature Granulocytes % 3.500 H Neutrophils % 84.6 H Lymphocytes % 9.3 L Monocytes % 2.0 Eosinophils % 0.2 Basophils % 0.4 Nucleated Red Blood Cells % 0.9 H Immature Granulocytes # 0.160 H Neutrophils # 3.8 Lymphocytes # 0.4 L Monocytes # 0.1 L Eosinophils # 0.0 Basophils # 0.0 Nucleated Red Blood Cells # 0.0 Prothrombin Time 12.5 Prothrombin Time Ratio 1.0 INR International Normalized Ratio 0.92 Activated Partial Thromboplast Time 34.4 Sodium Level 142 Potassium Level 5.8 H Chloride Level 97 Carbon Dioxide Level 25 Anion Gap 20 H Blood Urea Nitrogen 48 H Creatinine 11.88 H Est Glomerular Filtrat Rate mL/min 3 L Glucose Level 255 H Calcium Level 10.0 Total Bilirubin 0.1 L Direct Bilirubin 0.00 Indirect Bilirubin 0.1 Aspartate Amino Transf (AST/SGOT) 27 Alanine Aminotransferase (ALT/SGPT) 18 Alkaline Phosphatase 141 H Total Protein 8.9 H Albumin 5.1 H Globulin 3.80 H Albumin/Globulin Ratio 1.34 Lipase 36 ELENA HOANG MD Aug 29, 2018 03:25
== END 2018-08-29 01:31 | disposition short-term general hospital (02) ==
LOC: E/R 17:13
DX: K80.00 Calculus of gallbladder with acute cholecystitis without obstruction (principal); I13.2 Hypertensive heart and chronic kidney disease with heart failure and with stage 5 chronic kidney disease, or end stage renal disease; N18.6 End stage renal disease; I50.9 Heart failure, unspecified; E11.22 Type 2 diabetes mellitus with diabetic chronic kidney disease; Z79.4 Long term (current) use of insulin; Z86.73 Personal history of transient ischemic attack (TIA), and cerebral infarction without residual deficits; Z99.2 Dependence on renal dialysis
CPT/HCPCS: 36415; 76705; 80053; 83690; 85025; 85610; 85730; 93005; 94664; 96374; 96375; J1885; J2405; Z7502; Z7610

== ENCOUNTER 2019-02-12 19:13 | Inpatient (IN) | payer OTHER ==
[~2019-02-12] VITALS: Ht 162.6 cm; Wt 85.0 kg
[~2019-02-12 19:13] MED LIST changes: +AMLO5TAB4 PO; +CARV3.1260 PO; +CLON-379 PO; -CLON0.1T14 PO; +CLON1PAT2 TD; +CLOP75TA19 PO; -CLOP75TA27 PO; +DOXA2TAB PO; -DOXA2TAB61 PO; +GABA100C14 PO; -HYDR-3671 PO; +HYDR-4011 PO; -HYDR25CA PO; +INSU100I33 SC; -LABE100T7 PO; +LABE200T25 PO; -LANT3I SC; +LEVO25TA6 PO; +LEVO750T8 PO; -LINA145C PO; +LOSA50TA14 PO; +ONDA4TAB13 PO; +PANT40TA4 PO; +PHEN-717 PO
--- NOTE | 2019-02-12 19:18 | ERD ---
ER Documentation Chief Complaint Chief Complaint Shortness of breath HPI The patient is a 48-year-old female, presenting to the ER because of shortness of breath from dialysis center. He had about 1 hour of dialysis when she became dyspneic, complains of chest pain and abdominal pain, therefore she was transferred to emergency department. Upon arrival to the ER, she is very anxious with multiple complaints. She denies chest pain with vomiting/radiation/exertion/diaphoresis, denies dysuria, diarrhea. Sh does not smoke nor drink Medical history: Hypertension, chronic kidney disease on hemodialysis Monday and Monday, diabetes mellitus, chronic vomiting, history of CVA, history of CHF, anxiety Past surgical history: Right chest hemodialysis catheter ROS All systems reviewed and are negative except as per history of present illness. Medications Home Meds Reported Medications Insulin Glargine,Hum.rec.anlog (Basaglar Kwikpen U-100) 100 Unit/1 Ml Insuln.pe n, 10 UNIT SC QAM, EA 09/06/18 Clonidine Hcl* (Clonidine Hcl*) 0.1 Mg Tab, 0.1 MG PO Q8H, TAB 09/06/18 Clopidogrel Bisulfate* (Clopidogrel Bisulfate*) 75 Mg Tablet, 75 MG PO DAILY, #30 TAB 09/06/18 Labetalol Hcl* (Labetalol Hcl*) 200 Mg Tablet, 200 MG PO TID, TAB 09/06/18 Amlodipine Besylate* (Norvasc*) 5 Mg Tablet, 5 MG PO DAILY, TAB 09/06/18 Pantoprazole* (Pantoprazole*) 40 Mg Tablet.dr, 40 MG PO AC BREAKFAST, TAB 09/06/18 Levothyroxine Sodium* (Levothyroxine Sodium*) 25 Mcg Tablet, 25 MCG PO BEFORE BREAKFAST, #30 TAB 09/06/18 Gabapentin* (Gabapentin*) 100 Mg Capsule, 100 MG PO BID, #90 CAP 09/06/18 Losartan Potassium* (Losartan Potassium*) 50 Mg Tablet, 50 MG PO DAILY, TAB 09/06/18 [Nephro-Sandra] No Conflict Check, 1 TAB PO DAILY 09/06/18 Hydrocodone/Acetaminophen (Clovis 5-325 Tablet) 1 Each Tablet, 1 EACH PO Q6H PRN for NEEDED, TAB 09/06/18 Clonidine Patch (CLONIDINE PATCH) Unknown Strength Patch, 1 PATCH TD Q7D, #4 PATCH.WK 0.1MG/DAY PATCH 09/06/18 Minoxidil* (Lonitin*) 2.5 Mg Tab, 2.5 MG PO BID, TAB 09/06/18 Ondansetron Hcl* (Zofran*) 4 Mg Tab, 4 MG PO Q6H PRN for NAUSEA AND OR VOMITING, TAB 09/06/18 Carvedilol* (Carvedilol*) 3.125 Mg Tablet, 3.125 MG PO BID, #60 TAB 09/06/18 Doxazosin Mesylate* (Doxazosin Mesylate*) 2 Mg Tablet, 2 MG PO BID, TAB 09/06/18 Calcium Acetate* (Calcium Acetate*) 667 Mg Capsule, 667 MG PO WITH MEALS, #30 CAP 09/06/18 Insulin Lispro (Humalog Kwikpen U-100) 100 Unit/1 Ml Insuln.pen, 2 UNIT SQ WITH MEALS, EA 08/28/18 Ondansetron Hcl* (Zofran*) 4 Mg Tab, 4 MG PO NEEDED PRN for NAUSEA AND OR VOMITING, TAB 08/28/18 Amlodipine Besylate* (Norvasc*) 5 Mg Tablet, 5 MG PO DAILY, TAB 08/28/18 Pantoprazole* (Pantoprazole*) 40 Mg Tablet.dr, 40 MG PO AC BREAKFAST, TAB 08/28/18 Phenazopyridine Hcl* (Phenazopyridine Hcl*) 200 Mg Tablet, 200 MG PO TID, TAB 08/28/18 [Nephro-Sandra] No Conflict Check, 1 TAB PO DAILY 08/28/18 Minoxidil* (Lonitin*) 2.5 Mg Tab, 2.5 MG PO BID, TAB 08/28/18 Clonidine Hcl* (Clonidine Hcl*) 0.1 Mg Tab, 0.1 MG PO TID, TAB 08/28/18 Calcium Acetate* (Calcium Acetate*) 667 Mg Capsule, 667 MG PO WITH MEALS, #30 C AP 08/28/18 Labetalol Hcl* (Labetalol Hcl*) 200 Mg Tablet, 200 MG PO TID, TAB 08/28/18 Discontinued Reported Medications Levofloxacin* (Levofloxacin*) 750 Mg Tablet, 750 MG PO DAILY, TAB FOR 5 DAYS,START DATE 09/05/18 09/06/18 Allergies Allergies: Coded Allergies: nicardipine (Unverified Allergy, Unknown, 02/13/19) PMhx/Soc History of Surgery: Yes (lap gary [id number] ago at [facility], C-SECTIONS X3) Anesthesia Reaction: No Hx Neurological Disorder: No Hx Respiratory Disorders: No Hx Cardiac Disorders: Yes (HTN) Hx Psychiatric Problems: No Hx Miscellaneous Medical Probl: Yes (DM, ESRD (T, TH, SAT) LAST DONE SUNDAY 09/03) Hx Alcohol Use: No Hx Substance Use: No Hx Tobacco Use: No Physical Exam Vitals Vital Signs Date Temp Pulse Resp B/P (MAP) Pulse Ox O2 O2 Flow FiO2 Time Delivery Rate 02/12/19 104 18 208/96 97 Nasal 2.0 23:45 (133) Cannula 02/12/19 13 18 213/98 97 Nasal 2.0 23:30 (136) Cannula 02/12/19 105 18 205/90 98 Nasal 2.0 23:15 (128) Cannula 02/12/19 97.9 104 18 211/95 98 Nasal 2.0 23:00 (133) Cannula 02/12/19 108 23 204/91 97 Nasal 2.0 22:45 (128) Cannula 02/12/19 104 18 204/91 97 Nasal 2.0 22:45 (128) Cannula 02/12/19 105 18 208/90 97 Nasal 2.0 22:30 (129) Cannula 02/12/19 106 21 196/95 97 Nasal 2.0 22:15 (128) Cannula 02/12/19 104 14 195/85 96 Nasal 2.0 22:00 (121) Cannula 02/12/19 103 19 196/86 96 Nasal 2.0 21:45 (122) Cannula 02/12/19 98.0 100 19 197/95 95 Nasal 2.0 21:30 (129) Cannula 02/12/19 103 18 204/100 97 Nasal 2.0 21:15 (134) Cannula 02/12/19 101 18 202/92 97 Nasal 2.0 21:00 (128) Cannula 02/12/19 100 18 194/89 97 Nasal 20:45 (124) Cannula 02/12/19 98 18 196/93 97 Nasal 2.0 20:30 (127) Cannula 02/12/19 100 24 208/92 97 Nasal 2.0 20:13 (130) Cannula 02/12/19 94 2.0 20:05 02/12/19 98.9 94 24 217/92 97 Nasal 2.0 20:00 (133) Cannula 02/12/19 Nasal 2 19:50 Cannula 02/12/19 95 19 224/103 95 Room Air 19:39 (143) 02/12/19 99.0 113 20 262/147 95 19:16 (185) Physical Exam Const: No acute distress. Head: Atraumatic. Eyes: Normal Conjunctiva. ENT: Normal External Ears, Nose and Mouth. Neck: Full range of motion. No meningismus. Resp: Basilar crackle Cardio: Regular tachycardic Abd: Soft, non distended, normal bowel sounds, non tender. Skin: No petechiae or rashes. Back: No midline or flank tenderness. Ext: No cyanosis, or edema. Neur: Awake and alert. No focal deficit Psych: Anxious Result Diagram: 02/12/19192102/12/191921 Results 24 hrs Laboratory Tests Test 02/12/19 19:22 02/12/19 19:27 White Blood Count 5.5 10^3/ul Red Blood Count 3.68 10^6/ul Hemoglobin 11.2 g/dl Hematocrit 33.7 % Mean Corpuscular Volume 91.6 fl Mean Corpuscular Hemoglobin 30.4 pg Mean Corpuscular Hemoglobin Concent 33.2 g/dl Red Cell Distribution Width 15.0 % Platelet Count 184 10^3/UL Mean Platelet Volume 10.7 fl Immature Granulocytes % 0.500 % Neutrophils % 76.6 % Lymphocytes % 15.1 % Monocytes % 5.6 % Eosinophils % 2.0 % Basophils % 0.2 % Nucleated Red Blood Cells % 0.0 /100WBC Immature Granulocytes # 0.030 10^3/ul Neutrophils # 4.2 10^3/ul Lymphocytes # 0.8 10^3/ul Monocytes # 0.3 10^3/ul Eosinophils # 0.1 10^3/ul Basophils # 0.0 10^3/ul Nucleated Red Blood Cells # 0.0 10^3/ul Prothrombin Time 13.9 Sec Prothrombin Time Ratio 1.1 INR International Normalized Ratio 1.06 Activated Partial Thromboplast Time 179.0 Sec Sodium Level 139 mmol/L Potassium Level 4.0 mmol/L Chloride Level 96 mmol/L Carbon Dioxide Level 25 mmol/L Anion Gap 18 Blood Urea Nitrogen 31 mg/dl Creatinine 6.99 mg/dl Est Glomerular Filtrat Rate mL/min 6 mL/min Glucose Level 106 mg/dl Calcium Level 9.7 mg/dl Troponin I 0.083 ng/ml Bedside Glucose 105 mg/dL Current Medications Medications Dose Sig/Stalin Start Time Status Last (Trade) Ordered Route PRN Stop Time Admin Dose Reason Admin 250 ml @ ud STK-MED 02/12/19 DC Nitroglycerin ONCE .ROUTE 19:25 / Dextrose 02/12/19 19:26 250 ml @ ONCE STAT 02/12/19 02/12/19 Nitroglycerin 12 mls/hr IV 19:27 19:36 / Dextrose 02/13/19 16:16 Ondansetron 4 mg ONCE STAT 02/12/19 DC 02/12/19 HCl (Zofran IV 19:27 19:35 Inj) 02/12/19 19:29 Lorazepam 0.25 mg ONCE ONCE 02/12/19 DC 02/12/19 (Ativan) IV 19:30 19:36 02/12/19 19:31 Morphine 2 mg ONCE STAT 02/12/19 DC 02/12/19 Sulfate IV 20:11 20:19 (morphine) 02/12/19 20:12 Vancomycin 250 ml @ ONCE ONCE 02/12/19 DC 02/12/19 HCl 125 mls/hr IVPB 21:30 21:55 02/12/19 23:29 Piperacillin 50 ml @ ONCE ONCE 02/12/19 DC 02/12/19 Sod/ 100 mls/hr IVPB 21:30 21:28 Tazobactam 02/12/19 21:59 Sod 0.5 mg ONCE STAT 02/12/19 DC 02/12/19 Hydromorphone IV 21:08 21:24 HCl 02/12/19 21:09 (Dilaudid) Heparin 4,000 unit AFTER 02/12/19 Sodium DIALYSIS 22:00 (Porcine) CATHETER (Heparin (1000 Units/ml)) Ceftriaxone 50 ml @ DAILY IVPB 02/13/19 Sodium 100 mls/hr 09:00 500 mg DAILY PO 02/13/19 Azithromycin 09:00 (Zithromax) Morphine 2 mg Q3H PRN 02/12/19 02/12/19 Sulfate IV mod pain 23:30 23:37 (morphine) 4-6 Ondansetron 4 mg Q4 PRN IV 02/12/19 02/13/19 HCl (Zofran nausea 23:30 00:16 Inj) Amlodipine 5 mg DAILY PO 02/13/19 Besylate 09:00 (Norvasc) Calcium 667 mg WITH MEALS 02/13/19 Acetate PO 08:00 (Phoslo) Carvedilol 3.125 mg BID PO 02/12/19 (Coreg) 23:30 Clonidine 0.1 mg Q8H PO 02/12/19 (Catapres) 23:30 Clopidogrel 75 mg DAILY PO 02/13/19 Bisulfate 09:00 (plaVIX) Doxazosin 2 mg BID PO 02/12/19 Mesylate 23:30 (Cardura) Gabapentin 100 mg BID PO 02/12/19 (Neurontin) 23:30 5 tab Q6H PRN 02/12/19 Acetaminophen PO PAIN 23:30 / Hydrocodone Bitart (Clovis (5/325)) Insulin 10 unit QAM SC 02/13/19 Glargine 09:00 (Lantus) Labetalol 200 mg TID PO 02/13/19 HCl 09:00 (Normodyne) 25 mcg BEFORE 02/13/19 Levothyroxine BREAKFAST 07:00 Sodium PO (Synthroid) Losartan 50 mg DAILY PO 02/13/19 Potassium 09:00 (Cozaar) Minoxidil 2.5 mg BID PO 02/12/19 (Loniten) 23:30 40 mg AC 02/13/19 Pantoprazole BREAKFAST 07:00 (Protonix PO Tab) Procedures/[place] [id number] Radiology Main Line: [phone] DIAGNOSTIC IMAGING REPORT Patient: SERGIO SEGURA : 1970 Age: 48 Sex: F MR #: [id number] DOS: 02/12/191926 Ordering MD: COLT ACUNA MD Location: E/R Room/Bed: PROCEDURE: Chest 1 views. CLINICAL INDICATION: Shortness of breath. TECHNIQUE: Single view of the chest was obtained. COMPARISON: DR CARBAJAL 09/06/2018 FINDINGS: Support lines and tubes: Right-sided dialysis catheter with its tip at the expected location of the mid right atrium. Mediastinum: Enlarged heart. Lungs: Hypoinflated lungs. Elevated right hemidiaphragm. Central pulmonary vascular congestion and interstitial prominence in both lungs. Patchy perihilar infiltrates in both lungs. No pneumothorax. Osseous structures: Intact. Other: None. IMPRESSION: Cardiomegaly. Central pulmonary vascular congestion and interstitial prominence in both lungs. Patchy perihilar infiltrates in both lungs. Hypoinflated lungs with an elevated right hemidiaphragm. RPTAT: AA .Andrade Foster MD, MD Date Time Electronically viewed and signed by .Andrade Foster MD, MD on 02/12/2019 20:50 .P/ CC: COLT ACUNA MD [id number] EKG: Read by emergency physician Rate/Rhythm: Sinus Tachycardia 103 beats/min QRS, ST, T-waves: No ST elevation, no T inversion, LAD, artifacts Impression: Abnormal EKG MEDICAL MAKING DECISION: The patient is a 48-year-old female, presenting with acute fluid overload, acute hypertensive emergency, acute bilateral pneumonia, prolonged PTT most likely due to recent heparin administration from dialysis center She was treated with nitroglycerin drip for acute hypertensive emergency and acute fluid overload, Ativan 0.25 mg IV for anxiety, morphine 2 mg IV and Dilaudid 0.5 mg IV for her general body pain, vancomycin IV and Zosyn IV for acute pneumonia The differential diagnoses considered include but are not limited to asthma, COPD, pneumonia, pulmonary embolus, pleural effusion, congestive heart failure. Critical Care: Time: 35 minutes excluding all billable procedures. Treatments/Evaluations: Close monitoring and treatment of unstable vital signs, cardiorespiratory, and neurologic status, while maintaining tight balance of fluid, respiratory, and cardiac interventions. Mentation: I discussed the patient with her pig machine operator helper Dr. May at 9:35 PM, who was made aware of the patient need of emergent dialysis, she would arrange for emergent dialysis in the ICU Departure Diagnosis: Primary Impression: Fluid overload Additional Impressions: Hypertensive emergency Bilateral pneumonia Anemia Condition: Critical Comments I discussed the findings with the patient. I notified the patient with Dr. Zendejas at 9:25p , who was made aware of the lab, the treatment, the patient condition. The patient is admitted to ICU Disclaimer: Inadvertent spelling and grammatical errors are likely due to EHR/dictation software use and do not reflect on the overall quality of patient care. Also, please note that the electronic time recorded on this note does not necessarily reflect the actual time of the patient encounter. COLT ACUNA MD Feb 12, 2019 19:18
[2019-02-12] MEDS ORDERED: NITROGLYCERIN 50 MG/D5W (PMX) 250 ML ONE (19:25)
[2019-02-12] MEDS ORDERED: ONDANSETRON 4 MG INJ IV STA (19:27)
[2019-02-12] MEDS ORDERED: NITROGLYCERIN 50 MG/D5W (PMX) 250 ML IV STA (19:27)
[2019-02-12] MEDS ORDERED: LORAZEPAM 2 MG INJ IV ONE (19:30)
[2019-02-12] MEDS ORDERED: morphine 2 MG INJ IV STA (20:11)
[2019-02-12] MEDS ORDERED: HYDROmorphONE 0.5 MG/0.5 ML SYG IV STA (21:08)
[2019-02-12] MEDS ORDERED: VANCOMYCIN 1 GM (PMX) 250 ML IVPB ONE (21:30)
[2019-02-12] MEDS ORDERED: PIPER-TAZO 2.25 GM (PMX) 50 ML IVPB ONE (21:30)
[2019-02-12] MEDS ORDERED: DOXAZOSIN 2 MG TAB PO SCH (23:30)
[2019-02-12] MEDS ORDERED: HYDROCODONE/APAP (5/325) TAB PO PRN (23:30)
[2019-02-12] MEDS: morphine 2 MG INJ IV PRN (23:37)
[2019-02-13] VITALS (85 sets, daily range): BP systolic 142–256; BP diastolic 51–170; PULSE 69–134; RESP 7–31; Ht 162.6 cm; Wt 85.0 kg
[2019-02-13] MEDS: ONDANSETRON 4 MG INJ IV PRN ×3 (00:16→08:53)
[2019-02-13] MEDS: morphine 2 MG INJ IV PRN ×3 (02:35→10:50)
--- NOTE | 2019-02-13 02:55 | HP ---
DATE OF ADMISSION: 02/12/2019 CHIEF COMPLAINT: Chest pain and shortness of breath. HISTORY OF PRESENT ILLNESS: A 48-year-old female with chronic hypertension, type 2 diabetes mellitus, and end-stage renal disease, on hemodialysis, was brought in by paramedics from dialysis center after she complained of chest pain, a headache and abdominal pain during dialysis. The patient was 2 hours into her dialysis when paramedics were called. After arrival in the emergency room, she was found to be hypertensive. Blood pressure was as high as 208/90 with a pulse of 105. O2 saturation was 97% on 2 L. The patient reported chest discomfort and severe headache as well as abdominal pain. She has been having nausea and vomiting for 3 days. she has not been taking her blood pressure medications. She also noted shortness of breath. The patient denies cough. No fevers or chills. No _genitourinary symptoms. Initial evaluation revealed a white blood cell count of 5.5, hemoglobin of 11.2 and platelet count of 184,000. BMP showed a BUN of 31 and creatinine of 6.99. Chest x-ray showed pulmonary vascular congestion in both lungs as well as patchy perihilar infiltrates. PAST MEDICAL HISTORY: 1. Hypertension. 2. Type 2 diabetes mellitus. 3. End-stage renal disease, on hemodialysis. 4. History of old CVA. MEDICATIONS PRIOR TO ADMISSION: 1. Amlodipine. 2. Carvedilol. 3. Clonidine. 4. Clonidine patch. 5. Doxazosin. 6. Labetalol. 7. Losartan. 8. Minoxidil. 9. Gabapentin. 10. Whiteclay. 11. Calcium acetate. 12. Zofran. 13. Protonix. 14. Basaglar insulin. 15. Humalog insulin. 16. Levothyroxine. 17. Nephro-Sandra. ALLERGIES: NICARDIPINE. PAST SURGICAL HISTORY: Status post laparoscopy, cholecystectomy, status post a x3. SOCIAL HISTORY: The patient lives at home. She denies tobacco or alcohol use. PHYSICAL EXAMINATION: A well developed, well nourished female who is in moderate distress. VITAL SIGNS: Blood pressure 204/91, pulse 104, respirations 20, temperature 98. HEENT: Extraocular muscles intact. Pupils equal, reactive to light bilaterally. Sclerae are anicteric. Oropharynx is clear and moist. NECK: Supple. No JVD. No carotid bruits. LUNGS: Bilateral rhonchi. There are crackles at the bases. CARDIAC: Tachycardia. No murmurs or gallops. ABDOMEN: Soft, diffusely tender. No rebound. No guarding. Normoactive bowel sounds. EXTREMITIES: Diffuse pitting edema. NEUROLOGICAL: Nonfocal. ASSESSMENT: A 48-year-old female presenting with: 1. Hypertensive urgency. 2. Chest pain, most likely due to demand ischemia. 3. Fluid overload. 4. Possible community acquired pneumonia. 5. End-stage renal disease, on hemodialysis. 6. Type 2 diabetes mellitus. 7. History of old CVA. 8. Hypothyroidism. 9. Abdominal pain associated with nausea and vomiting PLAN: 1. Admit to ICU. 2. Continue nitroglycerin drip. 3. Resume home medications. 4. Cardiac/diabetic diet. 5. IV Rocephin and Zithromax. 6. Proceed with hemodialysis. 7. Laxatives Dictated By: CRISTO ESCOBAR/NTS Conf#: [id number] DID#: [id number] CC: CHANCE PRICE MD;*EndCC* MTDD
[2019-02-13] MEDS: NITROGLYCERIN 50 MG/D5W (PMX) 250 ML IV SCH ×6 (03:39→15:05)
[2019-02-13] MEDS: HYDROmorphONE 0.5 MG/0.5 ML SYG IV PRN ×2 (03:45→08:54)
[2019-02-13] MEDS: GABAPENTIN 100 MG CAP PO SCH ×3 (04:53→21:00)
[2019-02-13] MEDS: HEPARIN 1000 UNITS/ML 10 ML INJ CATHETER SCH (05:49)
[2019-02-13] MEDS: MINOXIDIL 2.5 MG TAB PO SCH ×2 (06:00→06:27)
[2019-02-13] MEDS: CLOPIDOGREL 75 MG TAB PO SCH (08:27)
[2019-02-13] MEDS: AZITHROMYCIN 500 MG TAB PO SCH (08:27)
[2019-02-13] MEDS: CALCIUM ACETATE 667 MG CAP PO SCH ×3 (08:27→17:35)
[2019-02-13] MEDS: LOSARTAN 50 MG TAB PO SCH (08:27)
[2019-02-13] MEDS: AMLODIPINE 5 MG TAB PO SCH (08:28)
[2019-02-13] MEDS: PANTOPRAZOLE (EC) 40 MG TAB PO SCH (08:28)
[2019-02-13] MEDS: CEFTRIAXONE 1 GM/50 ML (PMX) 50 ML IVPB SCH (08:29)
[2019-02-13] MEDS: INSULIN GLARGINE [LANTus] (100 UNITS/ML) SYG SC SCH (08:49)
[2019-02-13] MEDS: LEVOTHYROXINE 25 MCG TAB PO SCH (08:53)
[2019-02-13] MEDS: DOXAZOSIN 4 MG TAB PO SCH ×2 (08:53→21:00)
[2019-02-13] MEDS: hydrALAzine 20 MG INJ IV PRN (08:53)
[2019-02-13] MEDS ORDERED: LOSARTAN 50 MG TAB PO SCH (09:00)
[2019-02-13] MEDS ORDERED: INSULIN GLARGINE [LANtus] 3 ML PEN SC SCH (09:00)
[2019-02-13] MEDS ORDERED: LABETALOL 200 MG TAB PO SCH (09:00)
[2019-02-13] MEDS ORDERED: CLONIDINE 0.3 MG/24 HR PATCH TRANSDERM SCH (09:00)
--- NOTE | 2019-02-13 10:46 | QN ---
Documentation Comment pt seen and examined HAYLEE CULVER MD Feb 13, 2019 10:46
[2019-02-13] MEDS ORDERED: GLUCOSE GEL 15 GRAM TUBE BUCCAL PRN (11:00)
[2019-02-13] MEDS ORDERED: GLUCOSE GEL 15 GRAM TUBE PO PRN ×2 (11:00)
[2019-02-13] MEDS ORDERED: METOCLOPRAMIDE 10 MG INJ IV PRN (11:00)
[2019-02-13] MEDS ORDERED: DEXTROSE 50% 50 ML SYRINGE IV PRN ×2 (11:00)
[2019-02-13] MEDS ORDERED: GLUCAGON 1 MG INJ IM PRN (11:00)
[2019-02-13] MEDS ORDERED: INSULIN ASPART [NOVOLOG] 3 ML PEN SC SCH (11:30)
[2019-02-13] MEDS ORDERED: DIPHENHYDRAMINE 50 MG INJ IV ONE (12:30)
[2019-02-13] MEDS ORDERED: BISACODYL 10 MG SUPP PR PRN (12:30)
[2019-02-13] MEDS: hydrALAzine 20 MG INJ IV SCH ×3 (12:54→23:34)
--- NOTE | 2019-02-13 12:55 | CONS ---
Assessment/Plan Assessment/Plan Hospital Course (Demo Recall) Hypertension urgency Nausea and vomiting End-stage renal disease hemodialysis Diabetes Patient with severe nausea and vomiting unable to take p.o. medications. Would switch to IV labetalol and hydralazine while patient unable take p.o. medications. Attempt to titrate off IV nitro with goal of blood pressure systolic in the 160s, not lower Check echocardiogram Fluid management via hemodialysis as per nephrology Consultation Date/Type/Reason Admit Date/Time Feb 12, 2019 at 22:21 Type of Consult Cardiology Reason for Consultation Hypertension urgency Date/Time of Note DATE: 02/13/19 TIME: 12:51 Hx of Present Illness This is a 48-year-old female past medical history of end-stage renal disease hemodialysis, hypertension who presents with nausea and vomiting and unc ontrolled blood pressure over the past 3 days. Patient states she has been able to take any medications because of perfuse nausea and recurrent vomiting. Blood pressures remain elevated and because that she came to emergency room. Patient denies any chest pain currently or shortness of breath. Initially was having headache and shortness of breath but this is improved. She still very nauseous. 12 point review of systems was performed with all pertinent positives and negatives mentioned above and all else is negative Past Medical History Medical History: diabetes, hypertension, renal disease Home Meds Reported Medications Insulin Glargine,Hum.rec.anlog (Basaglar Kwikpen U-100) 100 Unit/1 Ml Insuln.pen, 10 UNIT SC QAM, EA 09/06/18 Clonidine Hcl* (Clonidine Hcl*) 0.1 Mg Tab, 0.1 MG PO Q8H, TAB 09/06/18 Clopidogrel Bisulfate* (Clopidogrel Bisulfate*) 75 Mg Tablet, 75 MG PO DAILY, #30 TAB 09/06/18 Labetalol Hcl* (Labetalol Hcl*) 200 Mg Tablet, 200 MG PO TID, TAB 09/06/18 Amlodipine Besylate* (Norvasc*) 5 Mg Tablet, 5 MG PO DAILY, TAB 09/06/18 Pantoprazole* (Pantoprazole*) 40 Mg Tablet.dr, 40 MG PO AC BREAKFAST, TAB 09/06/18 Levothyroxine Sodium* (Levothyroxine Sodium*) 25 Mcg Tablet, 25 MCG PO BEFORE BREAKFAST, #30 TAB 09/06/18 Gabapentin* (Gabapentin*) 100 Mg Capsule, 100 MG PO BID, #90 CAP 09/06/18 Losartan Potassium* (Losartan Potassium*) 50 Mg Tablet, 50 MG PO DAILY, TAB 09/06/18 [Nephro-Sandra] No Conflict Check, 1 TAB PO DAILY 09/06/18 Hydrocodone/Acetaminophen ([place] 5-325 Tablet) 1 Each Tablet, 1 EACH PO Q6H PRN for NEEDED, TAB 09/06/18 Clonidine Patch (CLONIDINE PATCH) Unknown Strength Patch, 1 PATCH TD Q7D, #4 PATCH.WK 0.1MG/DAY PATCH 09/06/18 Minoxidil* (Lonitin*) 2.5 Mg Tab, 2.5 MG PO BID, TAB 09/06/18 Ondansetron Hcl* (Zofran*) 4 Mg Tab, 4 MG PO Q6H PRN for NAUSEA AND OR VOMITING, TAB 09/06/18 Carvedilol* (Carvedilol*) 3.125 Mg Tablet, 3.125 MG PO BID, #60 TAB 09/06/18 Doxazosin Mesylate* (Doxazosin Mesylate*) 2 Mg Tablet, 2 MG PO BID, TAB 09/06/18 Calcium Acetate* (Calcium Acetate*) 667 Mg Capsule, 667 MG PO WITH MEALS, #30 CAP 09/06/18 Insulin Lispro (Humalog Kwikpen U-100) 100 Unit/1 Ml Insuln.pen, 2 UNIT SQ WITH MEALS, EA 08/28/18 Ondansetron Hcl* (Zofran*) 4 Mg Tab, 4 MG PO NEEDED PRN for NAUSEA AND OR VOMITING, TAB 08/28/18 Amlodipine Besylate* (Norvasc*) 5 Mg Tablet, 5 MG PO DAILY, TAB 08/28/18 Pantoprazole* (Pantoprazole*) 40 Mg Tablet.dr, 40 MG PO AC BREAKFAST, TAB 08/28/18 Phenazopyridine Hcl* (Phenazopyridine Hcl*) 200 Mg Tablet, 200 MG PO TID, TAB 08/28/18 [Nephro-Sandra] No Conflict Check, 1 TAB PO DAILY 08/28/18 Minoxidil* (Lonitin*) 2.5 Mg Tab, 2.5 MG PO BID, TAB 08/28/18 Clonidine Hcl* (Clonidine Hcl*) 0.1 Mg Tab, 0.1 MG PO TID, TAB 08/28/18 Calcium Acetate* (Calcium Acetate*) 667 Mg Capsule, 667 MG PO WITH MEALS, #30 CAP 08/28/18 Labetalol Hcl* (Labetalol Hcl*) 200 Mg Tablet, 200 MG PO TID, TAB 08/28/18 Discontinued Reported Medications Levofloxacin* (Levofloxacin*) 750 Mg Tablet, 750 MG PO DAILY, TAB FOR 5 DAYS,START DATE 09/05/18 09/06/18 Medications Current Medications Heparin Sodium (Porcine) (Heparin (1000 Units/ml)) 4,000 unit AFTER DIALYSIS CATHETER Last administered on 02/13/19at 05:49; Admin Dose 4,000 UNIT; Start 02/12/19 at 22:00 Ceftriaxone Sodium 50 ml @ 100 mls/hr DAILY IVPB Last administered on 02/13/19at 08:29; Admin Dose 100 MLS/HR; Start 02/13/19 at 09:00 Azithromycin (Zithromax) 500 mg DAILY PO Last administered on 02/13/19 08:27; Admin Dose 500 MG; Start 02/13/19 at 09:00 Morphine Sulfate (morphine) 2 mg Q3H PRN IV mod pain 4-6 Last administered on 02/13/19at 10:50; Admin Dose 2 MG; Start 02/12/19 at 23:30 Ondansetron HCl (Zofran Inj) 4 mg Q4 PRN IV nausea Last administered on 02/13/19at 08:53; Admin Dose 4 MG; Start 02/12/19 at 23:30 Amlodipine Besylate (Norvasc) 5 mg DAILY PO Last administered on 02/13/19at 08:28; Admin Dose 5 MG; Start 02/13/19 at 09:00 Calcium Acetate (Phoslo) 667 mg WITH MEALS PO Last administered on 02/13/19 08:27; Admin Dose 667 MG; Start 02/13/19 at 07:35 Clopidogrel Bisulfate (plaVIX) 75 mg DAILY PO Last administered on 02/13/19at 08:27; Admin Dose 75 MG; Start 02/13/19 at 09:00 Gabapentin (Neurontin) 100 mg BID PO Last administered on 02/13/19at 08:27; Admin Dose 100 MG; Start 02/12/19 at 23:30 Acetaminophen/ Hydrocodone Bitart ([place] (5/325)) 5 tab Q6H PRN PO PAIN; Start 02/12/19 at 23:30 Labetalol HCl (Normodyne) 200 mg TID PO Last administered on 02/13/19 08:27; Admin Dose 200 MG; Start 02/13/19 at 09:00; Status Hold Levothyroxine Sodium (Synthroid) 25 mcg BEFORE BREAKFAST PO Last administered on 02/13/19 08:53; Admin Dose 25 MCG; Start 02/13/19 at 07:00 Pantoprazole (Protonix Tab) 40 mg AC BREAKFAST PO Last administered on 02/13/19 08:28; Admin Dose 40 MG; Start 02/13/19 at 07:00 Insulin Glargine (Lantus) 10 units QAM SC Last administered on 02/13/19 08:49; Admin Dose 10 UNITS; Start 02/13/19 at 09:00 Nitroglycerin/ Dextrose 250 ml @ 0 mls/hr TITRATE IV Last administered on 02/13/19 12:23; Admin Dose 120 MLS/HR; Start 02/13/19 at 03:00 Hydromorphone HCl (Dilaudid) 0.5 mg Q4H PRN IV SEVERE PAIN LEVEL 7-10 Last administered on 02/13/19 08:54; Admin Dose 0.5 MG; Start 02/13/19 at 03:00 Hydralazine HCl (Apresoline) 10 mg Q4H PRN IV SBP GREATER THAN 160 Last administered on 02/13/19 08:53; Admin Dose 10 MG; Start 02/13/19 at 07:30 Clonidine HCl (Catapres-Tts 3 Patch) 1 patch Q7D TRANSDERM Last administered on 02/13/19 08:45; Admin Dose 1 PATCH; Start 02/13/19 at 09:00 Doxazosin Mesylate (Cardura) 4 mg BID PO Last administered on 02/13/19 08:53; Admin Dose 4 MG; Start 02/13/19 at 09:00 Losartan Potassium (Cozaar) 100 mg DAILY PO Last administered on 02/13/19 08:27; Admin Dose 100 MG; Start 02/13/19 at 09:00 Metoclopramide HCl (Reglan) 10 mg Q8H PRN IV VOMITTING; Start 02/13/19 at 11:00 Diagnostic Test (Pha) (Accu-Chek) 1 ea 02 XX ; Start 02/14/19 at 02:00 Insulin Aspart (Novolog Insulin Pen) NOVOLOG *MILD* ALGORITHM WITH MEALS BED TIME SC ; Start 02/13/19 at 11:30 Miscellaneous Information 1 ea NOTE XX ; Start 02/13/19 at 11:00 Glucose (Glutose) 15 gm Q15M PRN PO DECREASED GLUCOSE; Start 02/13/19 at 11:00 Glucose (Glutose) 22.5 gm Q15M PRN PO DECREASED GLUCOSE; Start 02/13/19 at 11:00 Dextrose (D50w Syringe) 25 ml Q15M PRN IV DECREASED GLUCOSE; Start 02/13/19 at 11:00 Dextrose (D50w Syringe) 50 ml Q15M PRN IV DECREASED GLUCOSE; Start 02/13/19 at 11:00 Glucagon (Glucagen) 1 mg Q15M PRN IM DECREASED GLUCOSE; Start 02/13/19 at 11:00 Glucose (Glutose) 15 gm Q15M PRN BUCCAL DECREASED GLUCOSE; Start 02/13/19 at 11:00 Bisacodyl (Dulcolax Supp) 10 mg DAILY PRN [place] CONSTIPATION; Start 02/13/19 at 12:30 Lactulose (Enulose) 20 gm BID PRN PO CONSTIPATION; Start 02/13/19 at 12:30 Labetalol HCl (Labetalol) 10 mg Q4 IV ; Start 02/13/19 at 13:00 Hydralazine HCl (Apresoline) 10 mg Q6 IV ; Start 02/13/19 at 13:00 Allergies: Coded Allergies: minoxidil (Verified Allergy, Severe, facial edema, 02/13/19) pt reported nicardipine (Unverified Allergy, Unknown, 02/13/19) Past Surgical History Past Surgical Hx: other (Including but not limited to dialysis catheter) Social History Smoking Status: Never smoker Exam/Review of Systems Vital Signs Vitals Vital Signs Date Temp Pulse Resp B/P (MAP) Pulse Ox O2 O2 Flow FiO2 Time Delivery Rate 02/13/19 104 08:00 02/13/19 14 198/78 98 Nasal 3.0 07:00 (118) Cannula 02/13/19 98.5 06:00 Intake and Output 02/12/19 02/12/1919 1515:00 23:00 07:00 IntakeIntake Total 420 ml OutputOutput Total 3735 ml BalanceBalance -3315 ml Exam Constitutional: alert, oriented (Appears tired, able to give history) Head: normocephalic Respiratory: other (Coarse breath sounds bilaterally, no wheezing) Cardiovascular: regular rate and rhythm (S1-S2 heard), systolic murmur Gastrointestinal: soft, bowel sounds, tender Extremities: edema Labs Result Diagram: 02/13/19 0814 02/13/19 0814 Results 24hrs Laboratory Tests Test 02/12/19 19:22 02/12/19 19:27 02/13/19 04:30 02/13/19 08:14 White Blood Count 5.5 # 5.2 Red Blood Count 3.68 L 3.01 L Hemoglobin 11.2 L 9.3 L Hematocrit 33.7 L 27.6 L Mean Corpuscular 91.6 91.7 Volume Mean Corpuscular 30.4 30.9 Hemoglobin Mean Corpuscular 33.2 33.7 Hemoglobin Concent Red Cell 15.0 H 14.7 H Distribution Width Platelet Count 184 # 162 Mean Platelet Volume 10.7 H 10.6 H Immature 0.500 H 0.600 H Granulocytes % Neutrophils % 76.6 83.9 H Lymphocytes % 15.1 5.6 L Monocytes % 5.6 8.1 Eosinophils % 2.0 1.4 Basophils % 0.2 0.4 Nucleated Red Blood 0.0 0.0 Cells % Immature 0.030 0.030 Granulocytes # Neutrophils # 4.2 4.4 Lymphocytes # 0.8 0.3 L Monocytes # 0.3 0.4 Eosinophils # 0.1 0.1 Basophils # 0.0 0.0 Nucleated Red Blood 0.0 0.0 Cells # Prothrombin Time 13.9 Prothrombin Time 1.1 Ratio INR International 1.06 Normalized Ratio Activated 179.0 *H Partial Thromboplast Time Sodium Level 139 136 Potassium Level 4.0 3.7 Chloride Level 96 L 96 L Carbon Dioxide Level 25 28 Anion Gap 18 H 12 Blood Urea Nitrogen 31 H 14 # Creatinine 6.99 H 3.89 #H Est Glomerular 6 L 12 L Filtrat Rate mL/min Glucose Level 106 156 Calcium Level 9.7 8.8 Troponin I 0.083 0.083 Hepatitis B Surface NEGATIVE Antigen Bedside Glucose 105 Phosphorus Level 3.0 Total Bilirubin 0.8 Direct Bilirubin 0.00 Indirect Bilirubin 0.8 Aspartate Amino 21 Transf (AST/SGOT) Alanine 17 Aminotransferase (AL T/SGPT) Alkaline Phosphatase 112 Total Protein 6.9 Albumin 3.8 Lipase 17 L Test 02/13/19 08:42 02/13/19 12:19 Bedside Glucose 161 106 Imaging Imaging ECG sinus tachycardia 105 bpm, QRS 89 ms, nonspecific T wave abnormalities Medications Medications Current Medications Heparin Sodium (Porcine) (Heparin (1000 Units/ml)) 4,000 unit AFTER DIALYSIS CATHETER Last administered on 02/13/19 05:49; Admin Dose 4,000 UNIT; Start 02/12/19 at 22:00 Ceftriaxone Sodium 50 ml @ 100 mls/hr DAILY IVPB Last administered on 02/13/19 08:29; Admin Dose 100 MLS/HR; Start 02/13/19 at 09:00 Azithromycin (Zithromax) 500 mg DAILY PO Last administered on 02/13/19 08:27; Admin Dose 500 MG; Start 02/13/19 at 09:00 Morphine Sulfate (morphine) 2 mg Q3H PRN IV mod pain 4-6 Last administered on 02/13/19 10:50; Admin Dose 2 MG; Start 02/12/19 at 23:30 Ondansetron HCl (Zofran Inj) 4 mg Q4 PRN IV nausea Last administered on 02/13/19 08:53; Admin Dose 4 MG; Start 02/12/19 at 23:30 Amlodipine Besylate (Norvasc) 5 mg DAILY PO Last administered on 02/13/19 08:28; Admin Dose 5 MG; Start 02/13/19 at 09:00 Calcium Acetate (Phoslo) 667 mg WITH MEALS PO Last administered on 02/13/19at 0 8:27; Admin Dose 667 MG; Start 02/13/19 at 07:35 Clopidogrel Bisulfate (plaVIX) 75 mg DAILY PO Last administered on 02/13/19 08:27; Admin Dose 75 MG; Start 02/13/19 at 09:00 Gabapentin (Neurontin) 100 mg BID PO Last administered on 02/13/19 08:27; Admin Dose 100 MG; Start 02/12/19 at 23:30 Acetaminophen/ Hydrocodone Bitart ([place] (5/325)) 5 tab Q6H PRN PO PAIN; Start 02/12/19 at 23:30 Labetalol HCl (Normodyne) 200 mg TID PO Last administered on 02/13/19 08:27; Admin Dose 200 MG; Start 02/13/19 at 09:00; Status Hold Levothyroxine Sodium (Synthroid) 25 mcg BEFORE BREAKFAST PO Last administered on 02/13/19 08:53; Admin Dose 25 MCG; Start 02/13/19 at 07:00 Pantoprazole (Protonix Tab) 40 mg AC BREAKFAST PO Last administered on 02/13/19 08:28; Admin Dose 40 MG; Start 02/13/19 at 07:00 Insulin Glargine (Lantus) 10 units QAM SC Last administered on 02/13/19 08:49; Admin Dose 10 UNITS; Start 02/13/19 at 09:00 Nitroglycerin/ Dextrose 250 ml @ 0 mls/hr TITRATE IV Last administered on 02/13/19 12:23; Admin Dose 120 MLS/HR; Start 02/13/19 at 03:00 Hydromorphone HCl (Dilaudid) 0.5 mg Q4H PRN IV SEVERE PAIN LEVEL 7-10 Last administered on 02/13/19 08:54; Admin Dose 0.5 MG; Start 02/13/19 at 03:00 Hydralazine HCl (Apresoline) 10 mg Q4H PRN IV SBP GREATER THAN 160 Last admini stered on 02/13/19 08:53; Admin Dose 10 MG; Start 02/13/19 at 07:30 Clonidine HCl (Catapres-Tts 3 Patch) 1 patch Q7D TRANSDERM Last administered on 02/13/19 08:45; Admin Dose 1 PATCH; Start 02/13/19 at 09:00 Doxazosin Mesylate (Cardura) 4 mg BID PO Last administered on 02/13/19 08:53; Admin Dose 4 MG; Start 02/13/19 at 09:00 Losartan Potassium (Cozaar) 100 mg DAILY PO Last administered on 02/13/19 08:27; Admin Dose 100 MG; Start 02/13/19 at 09:00 Metoclopramide HCl (Reglan) 10 mg Q8H PRN IV VOMITTING; Start 02/13/19 at 11:00 Diagnostic Test (Pha) (Accu-Chek) 1 ea 02 XX ; Start 02/14/19 at 02:00 Insulin Aspart (Novolog Insulin Pen) NOVOLOG *MILD* ALGORITHM WITH MEALS BEDTIME SC ; Start 02/13/19 at 11:30 Miscellaneous Information 1 ea NOTE XX ; Start 02/13/19 at 11:00 Glucose (Glutose) 15 gm Q15M PRN PO DECREASED GLUCOSE; Start 02/13/19 at 11:00 Glucose (Glutose) 22.5 gm Q15M PRN PO DECREASED GLUCOSE; Start 02/13/19 at 11:00 Dextrose (D50w Syringe) 25 ml Q15M PRN IV DECREASED GLUCOSE; Start 02/13/19 at 11:00 Dextrose (D50w Syringe) 50 ml Q15M PRN IV DECREASED GLUCOSE; Start 02/13/19 at 11:00 Glucagon (Glucagen) 1 mg Q15M PRN IM DECREASED GLUCOSE; Start 02/13/19 at 11:00 Glucose (Glutose) 15 gm Q15M PRN BUCCAL DECREASED GLUCOSE; Start 02/13/19 at 11:00 Bisacodyl (Dulcolax Supp) 10 mg DAILY PRN [place] CONSTIPATION; Start 02/13/19 at 12:30 Lactulose (Enulose) 20 gm BID PRN PO CONSTIPATION; Start 02/13/19 at 12:30 Labetalol HCl (Labetalol) 10 mg Q4 IV ; Start 02/13/19 at 13:00 Hydralazine HCl (Apresoline) 10 mg Q6 IV ; Start 02/13/19 at 13:00 Estuardo Taylor DO Feb 13, 2019 12:55
--- NOTE | 2019-02-13 13:11 | PN ---
Date/Time of Note Date/Time of Note DATE: 02/13/19 TIME: 13:08 Subjective Having nausea and vomiting. No headache. No chest pain. No shortness of breath Objective Vitals Vital Signs Date Temp Pulse Resp B/P (MAP) Pulse Ox O2 O2 Flow FiO2 Time Delivery Rate 02/13/19 104 08:00 02/13/19 14 198/78 98 Nasal 3.0 07:00 (118) Cannula 02/13/19 98.5 06:00 Intake and Output 02/12/19 02/12/19 02/13/19 1515:00 23:00 07:00 IntakeIntake Total 420 ml OutputOutput Total 3735 ml BalanceBalance -3315 ml Neck supple Diffuse rhonchi Regular rate and rhythm no murmurs or gallops Soft mildly tender. No rebound or guarding. Normoactive bowel sounds No edema Nonfocal Results Result Diagram: 02/13/1914 02/13/1914 Medications Medications Current Medications Heparin Sodium (Porcine) (Heparin (1000 Units/ml)) 4,000 unit AFTER DIALYSIS CATHETER Last administered on 02/13/19 05:49; Admin Dose 4,000 UNIT; Start 02/12/19 at 22:00 Ceftriaxone Sodium 50 ml @ 100 mls/hr DAILY IVPB Last administered on 02/13/19 08:29; Admin Dose 100 MLS/HR; Start 02/13/19 at 09:00 Azithromycin (Zithromax) 500 mg DAILY PO Last administered on 02/13/19 08:27; Admin Dose 500 MG; Start 02/13/19 at 09:00 Morphine Sulfate (morphine) 2 mg Q3H PRN IV mod pain 4-6 Last administered on at 10:50; Admin Dose 2 MG; Start 02/12/19 at 23:30 Ondansetron HCl (Zofran Inj) 4 mg Q4 PRN IV nausea Last administered on 02/13/19 08:53; Admin Dose 4 MG; Start 02/12/19 at 23:30 Amlodipine Besylate (Norvasc) 5 mg DAILY PO Last administered on 02/13/19 08:28; Admin Dose 5 MG; Start 02/13/19 at 09:00 Calcium Acetate (Phoslo) 667 mg WITH MEALS PO Last administered on 02/13/19 08:27; Admin Dose 667 MG; Start 02/13/19 at 07:35 Clopidogrel Bisulfate (plaVIX) 75 mg DAILY PO Last administered on 02/13/19 08:27; Admin Dose 75 MG; Start 02/13/19 at 09:00 Gabapentin (Neurontin) 100 mg BID PO Last administered on 02/13/19 08:27; Admin Dose 100 MG; Start 02/12/19 at 23:30 Acetaminophen/ Hydrocodone Bitart ([place] (5/325)) 5 tab Q6H PRN PO PAIN; Start 02/12/19 at 23:30 Labetalol HCl (Normodyne) 200 mg TID PO Last administered on 02/13/19 08:27; Admin Dose 200 MG; Start 02/13/19 at 09:00; Status Hold Levothyroxine Sodium (Synthroid) 25 mcg BEFORE BREAKFAST PO Last administered on 02/13/19 08:53; Admin Dose 25 MCG; Start 02/13/19 at 07:00 Pantoprazole (Protonix Tab) 40 mg AC BREAKFAST PO Last administered on 02/13/19 08:28; Admin Dose 40 MG; Start 02/13/19 at 07:00 Insulin Glargine (Lantus) 10 units QAM SC Last administered on 02/13/19 08:49; Admin Dose 10 UNITS; Start 02/13/19 at 09:00 Nitroglycerin/ Dextrose 250 ml @ 0 mls/hr TITRATE IV Last administered on 01/28 12:23; Admin Dose 120 MLS/HR; Start 02/13/19 at 03:00 Hydromorphone HCl (Dilaudid) 0.5 mg Q4H PRN IV SEVERE PAIN LEVEL 7-10 Last administered on 02/13/19 08:54; Admin Dose 0.5 MG; Start 02/13/19 at 03:00 Hydralazine HCl (Apresoline) 10 mg Q4H PRN IV SBP GREATER THAN 160 Last administered on 02/13/19 08:53; Admin Dose 10 MG; Start 02/13/19 at 07:30 Clonidine HCl (Catapres-Tts 3 Patch) 1 patch Q7D TRANSDERM Last administered on 02/13/19 08:45; Admin Dose 1 PATCH; Start 02/13/19 at 09:00 Doxazosin Mesylate (Cardura) 4 mg BID PO Last administered on 02/13/19at 08:53; Admin Dose 4 MG; Start 02/13/19 at 09:00 Losartan Potassium (Cozaar) 100 mg DAILY PO Last administered on 02/13/19at 08:27; Admin Dose 100 MG; Start 02/13/19 at 09:00 Metoclopramide HCl (Reglan) 10 mg Q8H PRN IV VOMITTING; Start 02/13/19 at 11:00 Diagnostic Test (Pha) (Accu-Chek) 1 ea 02 XX ; Start 02/14/19 at 02:00 Insulin Aspart (Novolog Insulin Pen) NOVOLOG *MILD* ALGORITHM WITH MEALS BEDTIME SC ; Start 02/13/19 at 11:30 Miscellaneous Information 1 ea NOTE XX ; Start 02/13/19 at 11:00 Glucose (Glutose) 15 gm Q15M PRN PO DECREASED GLUCOSE; Start 02/13/19 at 11:00 Glucose (Glutose) 22.5 gm Q15M PRN PO DECREASED GLUCOSE; Start 02/13/19 at 11:00 Dextrose (D50w Syringe) 25 ml Q15M PRN IV DECREASED GLUCOSE; Start 02/13/19 at 11:00 Dextrose (D50w Syringe) 50 ml Q15M PRN IV DECREASED GLUCOSE; Start 02/13/19 at 11:00 Glucagon (Glucagen) 1 mg Q15M PRN IM DECREASED GLUCOSE; Start 02/13/19 at 11:00 Glucose (Glutose) 15 gm Q15M PRN BUCCAL DECREASED GLUCOSE; Start 02/13/19 at 11:00 Bisacodyl (Dulcolax Supp) 10 mg DAILY PRN [place] CONSTIPATION; Start 02/13/19 at 12:30 Lactulose (Enulose) 20 gm BID PRN PO CONSTIPATION; Start 02/13/19 at 12:30 Labetalol HCl (Labetalol) 10 mg Q4 IV ; Start 02/13/19 at 13:00 Hydralazine HCl (Apresoline) 10 mg Q6 IV Last administered on 02/13/19at 12:54; Admin Dose 10 MG; Start 02/13/19 at 13:00 VTE Prophylaxis SCD applied (from Nsg): Yes Lines/Catheters IV Catheter Type: Saline Lock Ayala in Place: No Assessment/Plan Assessment/Plan 48-year-old female with hypertensive urgency Fluid overload, resolved End-stage renal disease, status post hemodialysis following admission Abdominal pain with associated nausea and vomiting, possibly due to constipation 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 Patient needs adjustment of her BP meds KUB Laxatives and Dulcolax suppository Nephrology follow-up is appreciated. Case was discussed with CRISTO Dasilva MD Feb 13, 2019 13:11
[2019-02-13] MEDS: LABETALOL HCL 20MG INJ IV SCH ×3 (13:54→20:28)
--- NOTE | 2019-02-13 15:23 | CONS ---
DATE OF ADMISSION: 02/12/2019 DATE OF CONSULTATION: REASON FOR CONSULTATION: Hemodialysis and elevated blood pressures. HISTORY OF PRESENT ILLNESS: This is a 48-year-old female with a past medical history of hypertension , end-stage renal disease on hemodialysis on Monday, , and Monday for the past one year. Hyperlipidemia, hypothyroidism who presented to the emergency department yesterday after noted to hav e high blood pressures at the dialysis center. According to the patient, for the last 3 or 4 days, s he has been having episodes of nausea, vomiting, generalized abdominal pain. She gave her prescripti ons for a blood pressure medicine for refill but could not get them. She did not take her blood pres sure medicines for 2 to 3 days. She went to her dialysis center and after they started on dialysis, her blood pressures were really high and paramedics were called and the patient was brought into the emergency department. The patient was also having some chest pain and some shortness of breath. On arrival to ED, the patient's blood pressure was as high as 208/90, pulse 105, saturation 97% on 2 lit ers. On admission, white count was 5.5, hemoglobin 11.2, platelet count 184. BMP showed sodium 139, potassium 4.0, bicarbonate 25, BUN of 31, creatinine 6.69 and patient was started on a nitro drip an d was admitted for further management troponins were done which was 0.08 C and a chest x-ray showed p atchy perihilar infiltrates in both lungs. PAST MEDICAL HISTORY: 1. End-stage renal disease on hemodialysis for 1 year. 2. Hypertension. 3. Hyperlipidemia. 4. History of old cerebrovascular accident. ALLERGIES: 1. NICARDIPINE. 2. MINOXIDIL. MEDICATIONS PRIOR TO ADMISSION: 1. Amlodipine. 2. Coreg; however, also listed as labetalol. 3. Clonidine patch. 4. Doxazosin. 5. Losartan. 6. Gabapentin. 7. [facility]. 8. Calcium acetate. 9. Zofran. 10. Protonix. 11. Insulin. 12. Levothyroxine 13. Nephro-Sandra. PAST SURGICAL HISTORY: Status post x3. SOCIAL HISTORY: Lives at home. Denies any tobacco and recreational drug use. Has been on dialysis for almost 1 year. PHYSICAL EXAMINATION: VITAL SIGNS: Currently blood pressure was 198/73, heart rate 102, respirations 14, pulse ox 98% on 2 liters. The patient is currently dry heaving. GENERAL: Patient awake, alert, oriented. HEENT: Pupils equal, round, and react to light. NECK: Supple. HEART: Tachycardic. LUNGS: Decreased breath sounds bilaterally. ABDOMEN: Diffuse tenderness, positive bowel sounds. EXTREMITIES: 1+ edema. The patient has a right Perm-A-Cath in place. DIAGNOSTIC DATA: White count 5.5, hemoglobin 11.2, platelet count 184. BUN of 31, creatinine 6.99, p otassium 4.0, troponin 0.083. ASSESSMENT AND PLAN: This is a 48-year-old female who presented with: 1. Abdominal pain, nausea, vomiting, The patient did not have any bowel movement for the last few d ays. Rule out bowel obstruction, colitis. 2. Hypertensive urgency/emergency. Likely secondary to noncompliance with medications. The patient prescriptions were for refill, and the patient did not take any blood pressure medicine for 2 to 3 d ays. 3. Chest pain secondary to demand ischemia. 4. Fluid overload. 5. Shortness of breath likely secondary to fluid overload with flash pulmonary edema. 6. End-stage renal disease on hemodialysis. 7. Diabetes. 8. History of old cerebrovascular accident. 9. Hypothyroidism. PLAN: At this period of time, the patient was admitted to the ICU. The patient already received hem odialysis last night with 3 hours. The patient is currently on a nitro drip. Would do GI evaluation with KUB and abdominal ultrasound. The patient will be kept on nitro drip until patient has the rai lity to take p.o. medications and clonidine patch. We will also check for liver panel and lipase. Re st of the treatment will depend on the patient's hospitalization course. Dictated By: HAYLEE LEON/WAQAS Conf#: [id number] DID#: [id number] CC: CRISTO FERNANDES MD;*EndCC*
[2019-02-13] MEDS: INSULIN ASPART [NOVOLOG] 3 ML PEN SC SCH ×2 (17:35→21:00)
--- NOTE | 2019-02-13 18:06 | RADRPT ---
Echocardiogram Report Patient Name: SERGIO SEGURAPatient ID: [id number] : 1970 (48y 5m)Study Date: 02/13/2019 1:46:49 PM Gender: FAccession #: [id number] Tech: [facility] Location: 120-[address] Ref.Physician: ESTUARDO TAYLOR Height(Cm): BSA: Weight(Kg): Quality: AdequateOrder Physician: ESTUARDO TAYLOR Account #: Procedures: Echocardiographic Report: Transthoracic echocardiogram with complete 2D, M-Mode, and doppler examination. Indications: Hypertension Urgency. Measurements: 2D/M Mode Doppler Measurement Value Normal Range Measurement Value Normal Range LVIDd 2D 4.8 [ 3.8 - 5.2 ] cm AV Peak Deonte 1.8 [ 100.0 - 170.0 ] cm/sec LVIDs 2D 3.0 [ 2.2 - 3.5 ] cm AV Peak PG 13.0 [ 2.0 - 9.0 ] mmHg LVPWd 2D 1.5 [ 0.6 - 0.9 ] cm LVOT Peak Deonte 1.3 [ 70.0 - 110.0 ] cm/sec IVSd 2D 1.5 [ 0.6 - 0.9 ] cm LVOT Peak PG 7.0 [ 2.0 - 6.0 ] mmHg AoR Diam 2D 2.5 [ 2.3 - 3.1 ] cm MV E Peak Deonte 1.3 [ 60.0 - 130.0 ] cm/sec EDV 2D 105.0 [ 46.0 - 106.0 ] ml MV A Peak Deonte 1.2 [ 100.0 - 120.0 ] cm/sec ESV 2D 35.0 [ 14.0 - 42.0 ] ml MV E/A 1.1 [ 0.8 - 1.5 ] ratio EF 2D 66.7 [ 54.0 - 74.0 ] percent MV Decel Time 180 [ 104 - 258 ] msec LA Dimen 2D 4.3 [ 2.7 - 3.8 ] cm Lat E` Deonte 0.1 [ 10.0 - 15.0 ] cm/sec Lateral E/E` 11.7 [ 1.0 - 2.0 ] ratio Med E` Deonte 0.1 cm/sec MV E/A 1.1 [ 0.8 - 1.5 ] ratio TR Peak Deonte 3.5 [ 100.0 - 280.0 ] cm/sec TR Peak PG 50.0 mmHg RVSP 65.0 [ 10.0 - 36.0 ] mmHg Findings: Left Ventricle: Normal left ventricular systolic function. Normal left ventricular cavity size. Moderate concentric left ventricular hypertrophy. Ejection fraction is visually estimated at 60 %. Abnormal Diastolic Function. Right Ventricle: Normal right ventricular systolic function. Mild enlargement of right ventricle. Left Atrium: There is mild enlargement of left atrium. Right Atrium: There is mild enlargement of right atrium. Mitral Valve: Mild mitral leaflet calcification. Mild mitral annular calcification. Trace mitral regurgitation. Aortic Valve: Aortic sclerosis without significant stenosis. No aortic regurgitation. Tricuspid Valve: Normal appearance of the tricuspid valve. The estimated Peak RVSP is 65 mmHg. There is mild tricuspid regurgitation. Pericardium: Small pericardial effusion. Left pleural effusion seen. Aorta: Normal aortic root. IVC: Dilated IVC without respiratory collapse consistent with elevated right atrial pressure. Conclusions: Normal left ventricular systolic function. Normal left ventricular cavity size. Moderate concentric left ventricular hypertrophy. Ejection fraction is visually estimated at 60 %. Abnormal Diastolic Function. Normal right ventricular systolic function. Mild enlargement of right ventricle. There is mild enlargement of left atrium. There is mild enlargement of right atrium. Trace mitral regurgitation. Aortic sclerosis without significant stenosis. No aortic regurgitation. n. The estimated Peak RVSP is 65 mmHg. There is mild tricuspid regurgitation. Small pericardial effusion. Left pleural effusion seen. Electronically Signed By: Estuardo Taylor 2019-02-13 18:05:39 PDT
[2019-02-14] VITALS (94 sets, daily range): BP systolic 151–214; BP diastolic 53–138; PULSE 82–109; RESP 9–28
[2019-02-14] MEDS ORDERED: VANCOMYCIN 1 GM (PMX) 250 ML IVPB ONE
[2019-02-14] MEDS: LABETALOL HCL 20MG INJ IV SCH ×3 (01:00→08:24)
[2019-02-14] MEDS: ACCU-CHEK XX SCH (02:00)
[2019-02-14] MEDS: hydrALAzine 20 MG INJ IV PRN ×2 (03:03→23:53)
[2019-02-14] MEDS: NITROGLYCERIN 50 MG/D5W (PMX) 250 ML IV SCH ×4 (03:49→22:20)
[2019-02-14] MEDS: hydrALAzine 20 MG INJ IV SCH ×2 (06:29→13:22)
[2019-02-14] MEDS: PANTOPRAZOLE (EC) 40 MG TAB PO SCH ×2 (06:29→08:32)
[2019-02-14] MEDS: LEVOTHYROXINE 25 MCG TAB PO SCH ×2 (06:29→08:32)
[2019-02-14] MEDS: INSULIN ASPART [NOVOLOG] 3 ML PEN SC SCH ×4 (07:35→20:48)
[2019-02-14] MEDS: ONDANSETRON 4 MG INJ IV PRN (08:18)
[2019-02-14] MEDS: CEFTRIAXONE 1 GM/50 ML (PMX) 50 ML IVPB SCH (08:24)
[2019-02-14] MEDS: CALCIUM ACETATE 667 MG CAP PO SCH ×3 (08:32→18:04)
[2019-02-14] MEDS: GABAPENTIN 100 MG CAP PO SCH ×2 (08:34→20:50)
[2019-02-14] MEDS: LOSARTAN 50 MG TAB PO SCH (08:35)
[2019-02-14] MEDS: DOXAZOSIN 4 MG TAB PO SCH ×2 (08:35→20:50)
[2019-02-14] MEDS: CLOPIDOGREL 75 MG TAB PO SCH (08:35)
[2019-02-14] MEDS: AZITHROMYCIN 500 MG TAB PO SCH (08:36)
[2019-02-14] MEDS: INSULIN GLARGINE [LANTus] (100 UNITS/ML) SYG SC SCH (09:14)
--- NOTE | 2019-02-14 09:58 | CONS ---
Assessment/Plan Assessment/Plan Assessment/Plan (Daily) 48-year-old female who presented with: 1. Abdominal pain, nausea, vomiting, The patient did not have any bowel movement for the last few days. Rule out bowel obstruction, KUB is negative however patient is constipated 2. Hypertensive urgency/emergency. Likely secondary to noncompliance with me dications. The patient prescriptions were for refill, and the patient did not take any blood pressure medicine for 2 to 3 days. 3. Chest pain secondary to demand ischemia. 4. Fluid overload. 5. Shortness of breath likely secondary to fluid overload with flash pulmonary edema. 6. End-stage renal disease on hemodialysis. 7. Diabetes. 8. History of old cerebrovascular accident. 9. Hypothyroidism. 10 positive blood culture plan -Continue with clonidine patch, amlodipine 5, Losartan 100 - on NTG gtt - ob iv labetalol/hydralazine per cards - HD today for volume removal - consider GI eval - fu bld cx , might need permcath removal Consultation Date/Type/Reason Admit Date/Time Feb 12, 2019 at 22:21 Initial Consult Date Date/Time of Note DATE: 02/14/19 TIME: 09:58 24 HR Interval Summary Free Text/Dictation Slightly better today. Minimal nausea BP still high Exam/Review of Systems Exam Vitals Vital Signs Date Temp Pulse Resp B/P (MAP) Pulse Ox O2 O2 Flow FiO2 Time Delivery Rate 02/14/19 99 17 191/87 92 Nasal 2.0 06:30 (121) Cannula 02/14/19 98.7 00:00 Intake and Output 02/13/19 02/13/19 02/14/19 1515:00 23:00 07:00 IntakeIntake Total 970 ml 160 ml 1280 ml OutputOutput Total 250 ml 0 ml BalanceBalance 720 ml 160 ml 1280 ml Exam GENERAL: Patient awake, alert, oriented. HEENT: Pupils equal, round, and react to light. NECK: Supple. HEART: Tachycardic. LUNGS: Decreased breath sounds bilaterally. ABDOMEN: Diffuse tenderness, positive bowel sounds. EXTREMITIES: 1+ edema. The patient has a right Perm-A-Cath in place. Results Result Diagram: 02/14/19 0426 02/14/19 0426 Results 24hrs Laboratory Tests Test 02/13/19 12:19 02/13/19 18:35 02/13/19 21:14 02/14/19 02:00 Bedside Glucose 106 90 106 100 Test 02/14/19 04:26 02/14/19 08:22 White Blood Count 5.3 Red Blood Count 3.14 L Hemoglobin 9.6 L Hematocrit 29.4 L Mean Corpuscular 93.6 Volume Mean Corpuscular 30.6 Hemoglobin Mean Corpuscular 32.7 Hemoglobin Concent Red Cell 15.1 H Distribution Width Platelet Count 175 Mean Platelet Volume 10.9 H Immature 0.900 H Granulocytes % Neutrophils % 83.6 H Lymphocytes % 6.4 L Monocytes % 7.4 Eosinophils % 1.3 Basophils % 0.4 Nucleated Red Blood 0.0 Cells % Immature 0.050 H Granulocytes # Neutrophils # 4.4 Lymphocytes # 0.3 L Monocytes # 0.4 Eosinophils # 0.1 Basophils # 0.0 Nucleated Red Blood 0.0 Cells # Sodium Level 138 Potassium Level 4.0 Chloride Level 96 L Carbon Dioxide Level 28 Anion Gap 14 H Blood Urea Nitrogen 21 H Creatinine 5.40 H Est Glomerular 8 L Filtrat Rate mL/min Glucose Level 120 Calcium Level 8.9 Bedside Glucose 135 Medications Medication Current Medications Heparin Sodium (Porcine) (Heparin (1000 Units/ml)) 4,000 unit AFTER DIALYSIS CATHETER Last administered on 02/13/19 05:49; Admin Dose 4,000 UNIT; Start 02/12/19 at 22:00 Ceftriaxone Sodium 50 ml @ 100 mls/hr DAILY IVPB Last administered on 02/14/19 08:24; Admin Dose 100 MLS/HR; Start 02/13/19 at 09:00 Azithromycin (Zithromax) 500 mg DAILY PO Last administered on 02/14/19 08:36; Admin Dose 500 MG; Start 02/13/19 at 09:00 Morphine Sulfate (morphine) 2 mg Q3H PRN IV mod pain 4-6 Last administered on 02/13/19 10:50; Admin Dose 2 MG; Start 02/12/19 at 23:30 Ondansetron HCl (Zofran Inj) 4 mg Q4 PRN IV nausea Last administered on 02/14/19 08:18; Admin Dose 4 MG; Start 02/12/19 at 23:30 Amlodipine Besylate (Norvasc) 5 mg DAILY PO Last administered on 02/13/19 08:28; Admin Dose 5 MG; Start 02/13/19 at 09:00 Calcium Acetate (Phoslo) 667 mg WITH MEALS PO Last administered on 02/14/19 08:32; Admin Dose 667 MG; Start 02/13/19 at 07:35 Clopidogrel Bisulfate (plaVIX) 75 mg DAILY PO Last administered on 02/14/19 08:35; Admin Dose 75 MG; Start 02/13/19 at 09:00 Gabapentin (Neurontin) 100 mg BID PO Last administered on 02/14/19 08:34; Admin Dose 100 MG; Start 02/12/19 at 23:30 Acetaminophen/ Hydrocodone Bitart ([place] (5/325)) 5 tab Q6H PRN PO PAIN; Start 02/12/19 at 23:30 Labetalol HCl (Normodyne) 200 mg TID PO Last administered on 02/13/19 08:27; Admin Dose 200 MG; Start 02/13/19 at 09:00; Status Hold Levothyroxine Sodium (Synthroid) 25 mcg BEFORE BREAKFAST PO Last administered on 02/14/19 08:32; Admin Dose 25 MCG; Start 02/13/19 at 07:00 Pantoprazole (Protonix Tab) 40 mg AC BREAKFAST PO Last administered on 02/14/19 08:32; Admin Dose 40 MG; Start 02/13/19 at 07:00 Insulin Glargine (Lantus) 10 units QAM SC Last administered on 02/14/19 09:14; Admin Dose 10 UNITS; Start 02/13/19 at 09:00 Nitroglycerin/ Dextrose 250 ml @ 0 mls/hr TITRATE IV Last administered on 02/14/19 03:49; Admin Dose 120 MLS/HR; Start 02/13/19 at 03:00 Hydromorphone HCl (Dilaudid) 0.5 mg Q4H PRN IV SEVERE PAIN LEVEL 7-10 Last administered on 02/13/19 08:54; Admin Dose 0.5 MG; Start 02/13/19 at 03:00 Hydralazine HCl (Apresoline) 10 mg Q4H PRN IV SBP GREATER THAN 160 Last administered on 02/14/19 03:03; Admin Dose 10 MG; Start 02/13/19 at 07:30 Clonidine HCl (Catapres-Tts 3 Patch) 1 patch Q7D TRANSDERM Last administered on 02/13/19at 08:45; Admin Dose 1 PATCH; Start 02/13/19 at 09:00 Doxazosin Mesylate (Cardura) 4 mg BID PO Last administered on 02/14/19at 08:35; Admin Dose 4 MG; Start 02/13/19 at 09:00 Losartan Potassium (Cozaar) 100 mg DAILY PO Last administered on 02/14/19at 08:35; Admin Dose 100 MG; Start 02/13/19 at 09:00 Metoclopramide HCl (Reglan) 10 mg Q8H PRN IV VOMITTING; Start 02/13/19 at 11:00 Diagnostic Test (Pha) (Accu-Chek) 1 ea 02 XX ; Start 02/14/19 at 02:00 Miscellaneous Information 1 ea NOTE XX ; Start 02/13/19 at 11:00 Glucose (Glutose) 15 gm Q15M PRN PO DECREASED GLUCOSE; Start 02/13/19 at 11:00 Glucose (Glutose) 22.5 gm Q15M PRN PO DECREASED GLUCOSE; Start 02/13/19 at 11:00 Dextrose (D50w Syringe) 25 ml Q15M PRN IV DECREASED GLUCOSE; Start 02/13/19 at 11:00 Dextrose (D50w Syringe) 50 ml Q15M PRN IV DECREASED GLUCOSE; Start 02/13/19 at 11:00 Glucagon (Glucagen) 1 mg Q15M PRN IM DECREASED GLUCOSE; Start 02/13/19 at 11:00 Glucose (Glutose) 15 gm Q15M PRN BUCCAL DECREASED GLUCOSE; Start 02/13/19 at 11:00 Bisacodyl (Dulcolax Supp) 10 mg DAILY PRN [place] CONSTIPATION; Start 02/13/19 at 12:30 Lactulose (Enulose) 20 gm BID PRN PO CONSTIPATION; Start 02/13/19 at 12:30 Labetalol HCl (Labetalol) 10 mg Q4 IV Last administered on 02/14/19at 08:24; Admin Dose 10 MG; Start 02/13/19 at 13:00 Hydralazine HCl (Apresoline) 10 mg Q6 IV Last administered on 02/14/19at 06:29; Admin Dose 10 MG; Start 02/13/19 at 13:00 Insulin Aspart (Novolog Insulin Pen) NOVOLOG *MODERATE* ALGORITHM WITH MEALS BEDTIME SC ; Start 02/13/19 at 17:35 HAYLEE CULVER MD Feb 14, 2019 09:58
--- NOTE | 2019-02-14 10:23 | PN ---
Date/Time of Note Date/Time of Note DATE: 02/14/19 TIME: 10:20 Subjective Reports feeling better. Tolerated breakfast. No nausea vomiting Objective Vitals Vital Signs Date Temp Pulse Resp B/P (MAP) Pulse Ox O2 O2 Flow FiO2 Time Delivery Rate 02/14/19 100 08:00 02/14/19 191/87 92 Nasal 2.0 06:30 (121) Cannula 02/14/19 98.7 00:00 Intake and Output 02/13/19 02/13/19 02/14/19 1515:00 23:00 07:00 IntakeIntake Total 970 ml 160 ml 1280 ml OutputOutput Total 250 ml 0 ml BalanceBalance 720 ml 160 ml 1280 ml Bilateral rhonchi Regular rate and rhythm no murmurs or gallops Soft mildly tender no rebound or guarding normoactive bowel sounds No edema Nonfocal Results Result Diagram: 02/14/19 0426 02/14/19 0426 Medications Medications Current Medications Heparin Sodium (Porcine) (Heparin (1000 Units/ml)) 4,000 unit AFTER DIALYSIS CATHETER Last administered on 02/13/19 05:49; Admin Dose 4,000 UNIT; Start 02/12/19 at 22:00 Ceftriaxone Sodium 50 ml @ 100 mls/hr DAILY IVPB Last administered on 02/14/19 08:24; Admin Dose 100 MLS/HR; Start 02/13/19 at 09:00 Azithromycin (Zithromax) 500 mg DAILY PO Last administered on 02/14/19 08:36; Admin Dose 500 MG; Start 02/13/19 at 09:00 Morphine Sulfate (morphine) 2 mg Q3H PRN IV mod pain 4-6 Last administered on 02/13/19 10:50; Admin Dose 2 MG; Start 02/12/19 at 23:30 Ondansetron HCl (Zofran Inj) 4 mg Q4 PRN IV nausea Last administered on 02/14/19 08:18; Admin Dose 4 MG; Start 02/12/19 at 23:30 Amlodipine Besylate (Norvasc) 5 mg DAILY PO Last administered on 02/13/19 08:28; Admin Dose 5 MG; Start 02/13/19 at 09:00 Calcium Acetate (Phoslo) 667 mg WITH MEALS PO Last administered on 02/14/19 08:32; Admin Dose 667 MG; Start 02/13/19 at 07:35 Clopidogrel Bisulfate (plaVIX) 75 mg DAILY PO Last administered on 02/14/19 08:35; Admin Dose 75 MG; Start 02/13/19 at 09:00 Gabapentin (Neurontin) 100 mg BID PO Last administered on 02/14/19 08:34; Admin Dose 100 MG; Start 02/12/19 at 23:30 Acetaminophen/ Hydrocodone Bitart ([place] (5/325)) 5 tab Q6H PRN PO PAIN; Start 02/12/19 at 23:30 Labetalol HCl (Normodyne) 200 mg TID PO Last administered on 02/13/19 08:27; Admin Dose 200 MG; Start 02/13/19 at 09:00; Status Hold Levothyroxine Sodium (Synthroid) 25 mcg BEFORE BREAKFAST PO Last administered on 02/14/19 08:32; Admin Dose 25 MCG; Start 02/13/19 at 07:00 Pantoprazole (Protonix Tab) 40 mg AC BREAKFAST PO Last administered on 02/14/19 08:32; Admin Dose 40 MG; Start 02/13/19 at 07:00 Insulin Glargine (Lantus) 10 units QAM SC Last administered on 02/14/19 09:14; Admin Dose 10 UNITS; Start 02/13/19 at 09:00 Nitroglycerin/ Dextrose 250 ml @ 0 mls/hr TITRATE IV Last administered on 02/14/19 03:49; Admin Dose 120 MLS/HR; Start 02/13/19 at 03:00 Hydromorphone HCl (Dilaudid) 0.5 mg Q4H PRN IV SEVERE PAIN LEVEL 7-10 Last administered on 02/13/19 08:54; Admin Dose 0.5 MG; Start 02/13/19 at 03:00 Hydralazine HCl (Apresoline) 10 mg Q4H PRN IV SBP GREATER THAN 160 Last administered on 02/14/19 03:03; Admin Dose 10 MG; Start 02/13/19 at 07:30 Clonidine HCl (Catapres-Tts 3 Patch) 1 patch Q7D TRANSDERM Last administered on 02/13/19 08:45; Admin Dose 1 PATCH; Start 02/13/19 at 09:00 Doxazosin Mesylate (Cardura) 4 mg BID PO Last administered on 02/14/19at 08:35; Admin Dose 4 MG; Start 02/13/19 at 09:00 Losartan Potassium (Cozaar) 100 mg DAILY PO Last administered on 02/14/19at 08: 35; Admin Dose 100 MG; Start 02/13/19 at 09:00 Metoclopramide HCl (Reglan) 10 mg Q8H PRN IV VOMITTING Last administered on 02/14/19at 10:02; Admin Dose 10 MG; Start 02/13/19 at 11:00 Diagnostic Test (Pha) (Accu-Chek) 1 ea 02 XX ; Start 02/14/19 at 02:00 Miscellaneous Information 1 ea NOTE XX ; Start 02/13/19 at 11:00 Glucose (Glutose) 15 gm Q15M PRN PO DECREASED GLUCOSE; Start 02/13/19 at 11:00 Glucose (Glutose) 22.5 gm Q15M PRN PO DECREASED GLUCOSE; Start 02/13/19 at 11:00 Dextrose (D50w Syringe) 25 ml Q15M PRN IV DECREASED GLUCOSE; Start 02/13/19 at 11:00 Dextrose (D50w Syringe) 50 ml Q15M PRN IV DECREASED GLUCOSE; Start 02/13/19 at 11:00 Glucagon (Glucagen) 1 mg Q15M PRN IM DECREASED GLUCOSE; Start 02/13/19 at 11:00 Glucose (Glutose) 15 gm Q15M PRN BUCCAL DECREASED GLUCOSE; Start 02/13/19 at 11:00 Bisacodyl (Dulcolax Supp) 10 mg DAILY PRN [place] CONSTIPATION; Start 02/13/19 at 12:30 Lactulose (Enulose) 20 gm BID PRN PO CONSTIPATION; Start 02/13/19 at 12:30 Labetalol HCl (Labetalol) 10 mg Q4 IV Last administered on 02/14/19at 08:24; Admin Dose 10 MG; Start 02/13/19 at 13:00 Hydralazine HCl (Apresoline) 10 mg Q6 IV Last administered on 02/14/19at 06:29; Admin Dose 10 MG; Start 02/13/19 at 13:00 Insulin Aspart (Novolog Insulin Pen) NOVOLOG *MODERATE* ALGORITHM WITH MEALS BEDTIME SC ; Start 7/17/19 at 17:35 Heparin Sodium (Porcine) (Heparin (1000 Units/ml)) 4,000 unit AFTER DIALYSIS CATHETER ; Start 02/14/19 at 10:00 VTE Prophylaxis Risk score (from Ns)>0 risk: 7 SCD applied (from Ns): Yes Lines/Catheters IV Catheter Type: Saline Lock Ayala in Place: No Assessment/Plan Assessment/Plan 48-year-old female with hypertensive urgency Fluid overload Abdominal pain most likely due to constipation Nausea and vomiting, resolved End-stage renal disease, on hemodialysis Positive blood cultures with gram-positive cocci 1 out of 2 bottles, possibly a contaminant Type 2 diabetes mellitus Noncompliance Continue current therapy Continue Rocephin and Zithromax Check final blood culture results Laxatives Patient needs fistula construction Case was discussed with nephrology CRISTO FERNANDES MD Feb 14, 2019 10:23
[2019-02-14] MEDS: AMLODIPINE 5 MG TAB PO SCH ×2 (10:41→20:50)
[2019-02-14] MEDS: HEPARIN 1000 UNITS/ML 10 ML INJ CATHETER SCH (14:24)
[2019-02-14] MEDS: LACTULOSE 30ML CUP PO PRN ×3 (15:00→21:27)
--- NOTE | 2019-02-14 17:01 | CONS ---
Assessment/Plan Assessment/Plan Hospital Course (Demo Recall) Hypertension urgency Preserved left ventricular ejection fraction Nausea and vomiting-improved End-stage renal disease hemodialysis Diabetes Blood pressure trend improved Increase amlodipine to twice daily DC IV hydralazine and labetalol and start carvedilol Consultation Date/Type/Reason Admit Date/Time Feb 12, 2019 at 22:21 Initial Consult Date Type of Consult Cardiology Date/Time of Note DATE: 02/14/19 TIME: 17:00 24 HR Interval Summary Free Text/Dictation No chest pain or shortness of breath, able to take p.o. Exam/Review of Systems Vital Signs Vitals Vital Signs Date Temp Pulse Resp B/P (MAP) Pulse Ox O2 O2 Flow FiO2 Time Delivery Rate 02/14/19 98 14:59 02/14/19 20 194/83 94 Room Air 12:08 (120) 02/14/19 2.0 08:00 02/14/19 99.2 08:00 Intake and Output 02/13/19 02/13/19 02/14/19 1414:59 22:59 06:59 IntakeIntake Total 1010 ml 240 ml 1280 ml OutputOutput Total 250 ml 0 ml BalanceBalance 760 ml 240 ml 1280 ml Exam Constitutional: alert, oriented (No apparent distress) Head: normocephalic Respiratory: other (Coarse breath sounds bilaterally, no wheezing) Cardiovascular: regular rate and rhythm (S1-S2 heard) Gastrointestinal: soft, bowel sounds, tender Extremities: edema Labs Result Diagram: 02/14/19 0426 02/14/19 0426 Results 24hrs Laboratory Tests Test 02/13/19 18:35 02/13/19 21:14 02/14/19 02:00 02/14/19 04:26 Bedside Glucose 90 106 100 White Blood Count 5.3 Red Blood Count 3.14 L Hemoglobin 9.6 L Hematocrit 29.4 L Mean Corpuscular 93.6 Volume Mean Corpuscular 30.6 Hemoglobin Mean Corpuscular 32.7 Hemoglobin Concent Red Cell 15.1 H Distribution Width Platelet Count 175 Mean Platelet Volume 10.9 H Immature 0.900 H Granulocytes % Neutrophils % 83.6 H Lymphocytes % 6.4 L Monocytes % 7.4 Eosinophils % 1.3 Basophils % 0.4 Nucleated Red Blood 0.0 Cells % Immature 0.050 H Granulocytes # Neutrophils # 4.4 Lymphocytes # 0.3 L Monocytes # 0.4 Eosinophils # 0.1 Basophils # 0.0 Nucleated Red Blood 0.0 Cells # Sodium Level 138 Potassium Level 4.0 Chloride Level 96 L Carbon Dioxide Level 28 Anion Gap 14 H Blood Urea Nitrogen 21 H Creatinine 5.40 H Est Glomerular 8 L Filtrat Rate mL/min Glucose Level 120 Calcium Level 8.9 Test 02/14/19 08:22 02/14/19 12:37 Bedside Glucose 135 140 Medications Medications Current Medications Ceftriaxone Sodium 50 ml @ 100 mls/hr DAILY IVPB Last administered on 08:24; Admin Dose 100 MLS/HR; Start 02/13/19 at 09:00 Azithromycin (Zithromax) 500 mg DAILY PO Last administered on 02/14/19 08:36; Admin Dose 500 MG; Start 02/13/19 at 09:00 Morphine Sulfate (morphine) 2 mg Q3H PRN IV mod pain 4-6 Last administered on 02/13/19 10:50; Admin Dose 2 MG; Start 02/12/19 at 23:30 Ondansetron HCl (Zofran Inj) 4 mg Q4 PRN IV nausea Last administered on 08:18; Admin Dose 4 MG; Start 02/12/19 at 23:30 Calcium Acetate (Phoslo) 667 mg WITH MEALS PO Last administered on 02/14/19 08:32; Admin Dose 667 MG; Start 02/13/19 at 07:35 Clopidogrel Bisulfate (plaVIX) 75 mg DAILY PO Last administered on 02/14/19 08:35; Admin Dose 75 MG; Start 02/13/19 at 09:00 Gabapentin (Neurontin) 100 mg BID PO Last administered on 02/14/19 08:34; Admin Dose 100 MG; Start 02/12/19 at 23:30 Acetaminophen/ Hydrocodone Bitart ([place] (5/325)) 5 tab Q6H PRN PO PAIN; Start 02/12/19 at 23:30 Labetalol HCl (Normodyne) 200 mg TID PO Last administered on 02/13/19 08:27; Admin Dose 200 MG; Start 02/13/19 at 09:00; Status Hold Levothyroxine Sodium (Synthroid) 25 mcg BEFORE BREAKFAST PO Last administered on 02/14/19 08:32; Admin Dose 25 MCG; Start 02/13/19 at 07:00 Pantoprazole (Protonix Tab) 40 mg AC BREAKFAST PO Last administered on 02/14/19 08:32; Admin Dose 40 MG; Start 02/13/19 at 07:00 Insulin Glargine (Lantus) 10 units QAM SC Last administered on 02/14/19 09:14; Admin Dose 10 UNITS; Start 02/13/19 at 09:00 Nitroglycerin/ Dextrose 250 ml @ 0 mls/hr TITRATE IV Last administered on 02/14/19 15:58; Admin Dose 150 MLS/HR; Start 02/13/19 at 03:00 Hydromorphone HCl (Dilaudid) 0.5 mg Q4H PRN IV SEVERE PAIN LEVEL 7-10 Last administered on 02/13/19 08:54; Admin Dose 0.5 MG; Start 02/13/19 at 03:00 Hydralazine HCl (Apresoline) 10 mg Q4H PRN IV SBP GREATER THAN 160 Last administered on 02/14/19 03:03; Admin Dose 10 MG; Start 02/13/19 at 07:30 Clonidine HCl (Catapres-Tts 3 Patch) 1 patch Q7D TRANSDERM Last administered on 02/13/19 08:45; Admin Dose 1 PATCH; Start 02/13/19 at 09:00 Doxazosin Mesylate (Cardura) 4 mg BID PO Last administered on 02/14/19 08:35; Admin Dose 4 MG; Start 02/13/19 at 09:00 Losartan Potassium (Cozaar) 100 mg DAILY PO Last administered on 02/14/19 08:35; Admin Dose 100 MG; Start 02/13/19 at 09:00 Metoclopramide HCl (Reglan) 10 mg Q8H PRN IV VOMITTING Last administered on 02/14/19 10:02; Admin Dose 10 MG; Start 02/13/19 at 11:00 Diagnostic Test (Pha) (Accu-Chek) 1 ea 02 XX ; Start 02/14/19 at 02:00 Miscellaneous Information 1 ea NOTE XX ; Start 02/13/19 at 11:00 Glucose (Glutose) 15 gm Q15M PRN PO DECREASED GLUCOSE; Start 02/13/19 at 11:00 Glucose (Glutose) 22.5 gm Q15M PRN PO DECREASED GLUCOSE; Start 02/13/19 at 11:00 Dextrose (D50w Syringe) 25 ml Q15M PRN IV DECREASED GLUCOSE; Start 02/13/19 at 11:00 Dextrose (D50w Syringe) 50 ml Q15M PRN IV DECREASED GLUCOSE; Start 02/13/19 at 11:00 Glucagon (Glucagen) 1 mg Q15M PRN IM DECREASED GLUCOSE; Start 02/13/19 at 11:00 Glucose (Glutose) 15 gm Q15M PRN BUCCAL DECREASED GLUCOSE; Start 02/13/19 at 11:00 Bisacodyl (Dulcolax Supp) 10 mg DAILY PRN [place] CONSTIPATION; Start 02/13/19 at 12:30 Lactulose (Enulose) 20 gm BID PRN PO CONSTIPATION; Start 02/13/19 at 12:30 Hydralazine HCl (Apresoline) 10 mg Q6 IV Last administered on 02/14/19at 13:22; Admin Dose 10 MG; Start 02/13/19 at 13:00 Insulin Aspart (Novolog Insulin Pen) NOVOLOG *MODERATE* ALGORITHM WITH MEALS BEDTIME SC ; Start 02/13/19 at 17:35 Heparin Sodium (Porcine) (Heparin (1000 Units/ml)) 4,000 unit AFTER DIALYSIS CATHETER ; Start 02/14/19 at 10:00 Amlodipine Besylate (Norvasc) 5 mg BID PO ; Start 02/14/19 at 21:00 Labetalol HCl (Labetalol) 10 mg Q4 PRN IV sbp>170; Start 02/14/19 at 15:30 Carvedilol (Coreg) 12.5 mg BID PO ; Start 02/14/19 at 21:00 Estuardo Taylor DO Feb 14, 2019 17:01
[2019-02-14] MEDS: LABETALOL HCL 20MG INJ IV PRN (20:49)
[2019-02-15] VITALS (103 sets, daily range): BP systolic 139–204; BP diastolic 54–108; PULSE 71–96; RESP 12–34
[2019-02-15] MEDS: ACCU-CHEK XX SCH (02:00)
[2019-02-15] MEDS: NITROGLYCERIN 50 MG/D5W (PMX) 250 ML IV SCH ×5 (02:55→18:17)
[2019-02-15] MEDS: PANTOPRAZOLE (EC) 40 MG TAB PO SCH (06:12)
[2019-02-15] MEDS: LEVOTHYROXINE 25 MCG TAB PO SCH (06:12)
[2019-02-15] MEDS: INSULIN ASPART [NOVOLOG] 3 ML PEN SC SCH ×4 (07:35→20:24)
[2019-02-15] MEDS: AZITHROMYCIN 500 MG TAB PO SCH (09:51)
[2019-02-15] MEDS: CLOPIDOGREL 75 MG TAB PO SCH (09:51)
[2019-02-15] MEDS: CALCIUM ACETATE 667 MG CAP PO SCH ×3 (09:51→16:39)
[2019-02-15] MEDS: GABAPENTIN 100 MG CAP PO SCH ×2 (09:51→20:13)
[2019-02-15] MEDS: AMLODIPINE 5 MG TAB PO SCH ×2 (09:52→20:12)
[2019-02-15] MEDS: DOXAZOSIN 4 MG TAB PO SCH ×2 (09:52→20:13)
[2019-02-15] MEDS: LOSARTAN 50 MG TAB PO SCH ×2 (09:52→20:13)
[2019-02-15] MEDS: CEFTRIAXONE 1 GM/50 ML (PMX) 50 ML IVPB SCH (09:52)
[2019-02-15] MEDS: INSULIN GLARGINE [LANTus] (100 UNITS/ML) SYG SC SCH (10:06)
--- NOTE | 2019-02-15 12:29 | PN ---
Date/Time of Note Date/Time of Note DATE: 02/15/19 TIME: 12:26 Subjective Doing well. No nausea or vomiting. Has had large bowel movements. Tolerating oral intake Objective Vitals Vital Signs Date Temp Pulse Resp B/P (MAP) Pulse Ox O2 O2 Flow FiO2 Time Delivery Rate 02/15/19 77 19 191/79 96 11:30 (116) 02/15/19 Room Air 11:00 02/15/19 98.5 08:00 02/15/19 2.0 06:15 Intake and Output 02/14/19 02/14/19 02/15/19 1515:00 23:00 07:00 IntakeIntake Total 275 ml 771.0 ml 594.0 ml OutputOutput Total 3600 ml 0 ml 0 ml BalanceBalance -3325 ml 771.0 ml 594.0 ml Bilateral rhonchi Regular rate and rhythm Soft mildly tender no rebound or guarding normoactive bowel sounds No edema Nonfocal Results Result Diagram: 02/14/19 0426 02/14/19 0426 Medications Medications Current Medications Ceftriaxone Sodium 50 ml @ 100 mls/hr DAILY IVPB Last administered on 02/15/19 t 09:52; Admin Dose 100 MLS/HR; Start 02/13/19 at 09:00 Azithromycin (Zithromax) 500 mg DAILY PO Last administered on 02/15/19 09:51; Admin Dose 500 MG; Start 02/13/19 at 09:00 Morphine Sulfate (morphine) 2 mg Q3H PRN IV mod pain 4-6 Last administered on 02/13/19at 10:50; Admin Dose 2 MG; Start 02/12/19 at 23:30 Ondansetron HCl (Zofran Inj) 4 mg Q4 PRN IV nausea Last administered on 02/14/19 08:18; Admin Dose 4 MG; Start 02/12/19 at 23:30 Calcium Acetate (Phoslo) 667 mg WITH MEALS PO Last administered on 02/15/19 09:51; Admin Dose 667 MG; Start 02/13/19 at 07:35 Clopidogrel Bisulfate (plaVIX) 75 mg DAILY PO Last administered on 02/15/19 09:51; Admin Dose 75 MG; Start 02/13/19 at 09:00 Gabapentin (Neurontin) 100 mg BID PO Last administered on 02/15/19 09:51; Admin Dose 100 MG; Start 02/12/19 at 23:30 Acetaminophen/ Hydrocodone Bitart ([place] (5/325)) 5 tab Q6H PRN PO PAIN; Start 02/12/19 at 23:30 Labetalol HCl (Normodyne) 200 mg TID PO Last administered on 02/13/19 08:27; A dmin Dose 200 MG; Start 02/13/19 at 09:00; Status Hold Levothyroxine Sodium (Synthroid) 25 mcg BEFORE BREAKFAST PO Last administered on 02/15/19 06:12; Admin Dose 25 MCG; Start 02/13/19 at 07:00 Pantoprazole (Protonix Tab) 40 mg AC BREAKFAST PO Last administered on 02/15/19 06:12; Admin Dose 40 MG; Start 02/13/19 at 07:00 Insulin Glargine (Lantus) 10 units QAM SC Last administered on 02/15/19 10:06; Admin Dose 10 UNITS; Start 02/13/19 at 09:00 Nitroglycerin/ Dextrose 250 ml @ 0 mls/hr TITRATE IV Last administered on 02/15/19 10:43; Admin Dose 78 MLS/HR; Start 02/13/19 at 03:00 Hydromorphone HCl (Dilaudid) 0.5 mg Q4H PRN IV SEVERE PAIN LEVEL 7-10 Last administered on 02/13/19 08:54; Admin Dose 0.5 MG; Start 02/13/19 at 03:00 Hydralazine HCl (Apresoline) 10 mg Q4H PRN IV SBP GREATER THAN 160 Last administered on 02/14/19 23:53; Admin Dose 10 MG; Start 02/13/19 at 07:30 Clonidine HCl (Catapres-Tts 3 Patch) 1 patch Q7D TRANSDERM Last administered on 02/13/19 08:45; Admin Dose 1 PATCH; Start 02/13/19 at 09:00 Doxazosin Mesylate (Cardura) 4 mg BID PO Last administered on 02/15/19 09:52; Admin Dose 4 MG; Start 02/13/19 at 09:00 Losartan Potassium (Cozaar) 100 mg DAILY PO Last administered on 02/15/19 09:52; Admin Dose 100 MG; Start 02/13/19 at 09:00 Metoclopramide HCl (Reglan) 10 mg Q8H PRN IV VOMITTING Last administered on 02/14/19at 10:02; Admin Dose 10 MG; Start 02/13/19 at 11:00 Diagnostic Test (Pha) (Accu-Chek) 1 ea 02 XX ; Start 02/14/19 at 02:00 Miscellaneous Information 1 ea NOTE XX ; Start 02/13/19 at 11:00 Glucose (Glutose) 15 gm Q15M PRN PO DECREASED GLUCOSE; Start 02/13/19 at 11:00 Glucose (Glutose) 22.5 gm Q15M PRN PO DECREASED GLUCOSE; Start 02/13/19 at 11:00 Dextrose (D50w Syringe) 25 ml Q15M PRN IV DECREASED GLUCOSE; Start 02/13/19 at 11:00 Dextrose (D50w Syringe) 50 ml Q15M PRN IV DECREASED GLUCOSE; Start 02/13/19 at 11:00 Glucagon (Glucagen) 1 mg Q15M PRN IM DECREASED GLUCOSE; Start 02/13/19 at 11:00 Glucose (Glutose) 15 gm Q15M PRN BUCCAL DECREASED GLUCOSE; Start 02/13/19 at 11:00 Bisacodyl (Dulcolax Supp) 10 mg DAILY PRN [place] CONSTIPATION; Start 02/13/19 at 12:30 Lactulose (Enulose) 20 gm BID PRN PO CONSTIPATION Last administered on 02/14/19at 21:27; Admin Dose 20 GM; Start 02/13/19 at 12:30 Insulin Aspart (Novolog Insulin Pen) NOVOLOG *MODERATE* ALGORITHM WITH MEALS BEDTIME SC ; Start 02/13/19 at 17:35 Heparin Sodium (Porcine) (Heparin (1000 Units/ml)) 4,000 unit AFTER DIALYSIS CATHETER ; Start 02/14/19 at 10:00 Amlodipine Besylate (Norvasc) 5 mg BID PO Last administered on 02/15/19at 09:52; Admin Dose 5 MG; Start 02/14/19 at 21:00 Labetalol HCl (Labetalol) 10 mg Q4 PRN IV sbp>170 Last administered on 02/14/19a t 20:49; Admin Dose 10 MG; Start 02/14/19 at 15:30 Carvedilol (Coreg) 25 mg BID PO ; Start 02/15/19 at 21:00 Hydralazine HCl (Apresoline) 50 mg Q8H PO ; Start 02/15/19 at 12:00 VTE Prophylaxis Risk score (from Ns)>0 risk: 2 SCD applied (from Ns): Yes Lines/Catheters IV Catheter Type: Saline Lock Ayala in Place: No Assessment/Plan Assessment/Plan 48-year-old female with hypertensive urgency, she remains on nitro drip Poorly controlled hypertension Abdominal pain due to constipation, resolved End-stage renal disease on hemodialysis Type 2 diabetes mellitus Hyperlipidemia History of noncompliance with medical therapy Anemia of chronic disease Wean off nitro drip Increase Coreg to 25 mg twice daily Start hydralazine 50 mg 3 times daily Start losartan 100 mg daily Cardiology and nephrology follow-up CRISTO FERNANDES MD Feb 15, 2019 12:29
[2019-02-15] MEDS ORDERED: LOSARTAN 50 MG TAB PO SCH (12:30)
--- NOTE | 2019-02-15 13:37 | CONS ---
Assessment/Plan Assessment/Plan Hospital Course (Demo Recall) Hypertension urgency Preserved left ventricular ejection fraction Nausea and vomiting-improved End-stage renal disease hemodialysis Diabetes Blood pressure remains elevated Discussed with hospitalist, increase carvedilol to 25 mill grams daily, start hydralazine 50 mg every 8 hours Fluid management via hemodialysis as per nephrology Consultation Date/Type/Reason Admit Date/Time Feb 12, 2019 at 22:21 Initial Consult Date Type of Consult Cardiology Date/Time of Note DATE: 02/15/19 TIME: 13:36 24 HR Interval Summary Free Text/Dictation No chest pain, shortness of breath, nausea is better Exam/Review of Systems Vital Signs Vitals Vital Signs Date Temp Pulse Resp B/P (MAP) Pulse Ox O2 O2 Flow FiO2 Time Delivery Rate 02/15/19 77 19 191/79 96 11:30 (116) 02/15/19 Room Air 11:00 02/15/19 98.5 08:00 02/15/19 2.0 06:15 Intake and Output 02/14/19 02/14/19 02/15/19 1515:00 23:00 07:00 IntakeIntake Total 275 ml 771.0 ml 594.0 ml OutputOutput Total 3600 ml 0 ml 0 ml BalanceBalance -3325 ml 771.0 ml 594.0 ml Exam Constitutional: alert, oriented (No apparent distress) Head: normocephalic Respiratory: other (Coarse breath sounds bilaterally, no wheezing) Cardiovascular: regular rate and rhythm (S1-S2 heard) Gastrointestinal: soft, non-tender, bowel sounds Extremities: edema Labs Result Diagram: 02/14/19 0426 02/14/19 0426 Results 24hrs Laboratory Tests Test 02/14/19 18:05 02/14/19 20:46 02/15/19 02:39 02/15/19 09:54 Bedside Glucose 126 159 120 108 Test 02/15/19 12:46 Bedside Glucose 172 Medications Medications Current Medications Ceftriaxone Sodium 50 ml @ 100 mls/hr DAILY IVPB Last administered on 02/15/19at 09:52; Admin Dose 100 MLS/HR; Start 02/13/19 at 09:00 Azithromycin (Zithromax) 500 mg DAILY PO Last administered on 02/15/19at 09:51; Admin Dose 500 MG; Start 02/13/19 at 09:00 Morphine Sulfate (morphine) 2 mg Q3H PRN IV mod pain 4-6 Last administered on 02/13/19 10:50; Admin Dose 2 MG; Start 02/12/19 at 23:30 Ondansetron HCl (Zofran Inj) 4 mg Q4 PRN IV nausea Last administered on 02/14/19 08:18; Admin Dose 4 MG; Start 02/12/19 at 23:30 Calcium Acetate (Phoslo) 667 mg WITH MEALS PO Last administered on 02/15/19 12:40; Admin Dose 667 MG; Start 02/13/19 at 07:35 Clopidogrel Bisulfate (plaVIX) 75 mg DAILY PO Last administered on 02/15/19 09:51; Admin Dose 75 MG; Start 02/13/19 at 09:00 Gabapentin (Neurontin) 100 mg BID PO Last administered on 02/15/19 09:51; Admin Dose 100 MG; Start 02/12/19 at 23:30 Acetaminophen/ Hydrocodone Bitart ([place] (5/325)) 5 tab Q6H PRN PO PAIN; Start 02/12/19 at 23:30 Labetalol HCl (Normodyne) 200 mg TID PO Last administered on 02/13/19 08:27; Admin Dose 200 MG; Start 02/13/19 at 09:00; Status Hold Levothyroxine Sodium (Synthroid) 25 mcg BEFORE BREAKFAST PO Last administered on 02/15/19 06:12; Admin Dose 25 MCG; Start 02/13/19 at 07:00 Pantoprazole (Protonix Tab) 40 mg AC BREAKFAST PO Last administered on 02/15/19 06:12; Admin Dose 40 MG; Start 02/13/19 at 07:00 Insulin Glargine (Lantus) 10 units QAM SC Last administered on 02/15/19 10:06; Admin Dose 10 UNITS; Start 02/13/19 at 09:00 Nitroglycerin/ Dextrose 250 ml @ 0 mls/hr TITRATE IV Last administered on 10:43; Admin Dose 78 MLS/HR; Start 02/13/19 at 03:00 Hydromorphone HCl (Dilaudid) 0.5 mg Q4H PRN IV SEVERE PAIN LEVEL 7-10 Last administered on 02/13/19 08:54; Admin Dose 0.5 MG; Start 02/13/19 at 03:00 Hydralazine HCl (Apresoline) 10 mg Q4H PRN IV SBP GREATER THAN 160 Last administered on 02/14/19at 23:53; Admin Dose 10 MG; Start 02/13/19 at 07:30 Clonidine HCl (Catapres-Tts 3 Patch) 1 patch Q7D TRANSDERM Last administered on 02/13/19at 08:45; Admin Dose 1 PATCH; Start 02/13/19 at 09:00 Doxazosin Mesylate (Cardura) 4 mg BID PO Last administered on 02/15/19at 09:52; Admin Dose 4 MG; Start 02/13/19 at 09:00 Losartan Potassium (Cozaar) 100 mg DAILY PO Last administered on 02/15/19at 09:52; Admin Dose 100 MG; Start 02/13/19 at 09:00 Metoclopramide HCl (Reglan) 10 mg Q8H PRN IV VOMITTING Last administered on 02/14/19at 10:02; Admin Dose 10 MG; Start 02/13/19 at 11:00 Diagnostic Test (Pha) (Accu-Chek) 1 ea 02 XX ; Start 02/14/19 at 02:00 Miscellaneous Information 1 ea NOTE XX ; Start 02/13/19 at 11:00 Glucose (Glutose) 15 gm Q15M PRN PO DECREASED GLUCOSE; Start 02/13/19 at 11:00 Glucose (Glutose) 22.5 gm Q15M PRN PO DECREASED GLUCOSE; Start 02/13/19 at 11:00 Dextrose (D50w Syringe) 25 ml Q15M PRN IV DECREASED GLUCOSE; Start 02/13/19 at 11:00 Dextrose (D50w Syringe) 50 ml Q15M PRN IV DECREASED GLUCOSE; Start 02/13/19 at 11:00 Glucagon (Glucagen) 1 mg Q15M PRN IM DECREASED GLUCOSE; Start 02/13/19 at 11:00 Glucose (Glutose) 15 gm Q15M PRN BUCCAL DECREASED GLUCOSE; Start 02/13/19 at 11:00 Bisacodyl (Dulcolax Supp) 10 mg DAILY PRN [place] CONSTIPATION; Start 02/13/19 at 12:30 Lactulose (Enulose) 20 gm BID PRN PO CONSTIPATION Last administered on 02/14/19at 21:27; Admin Dose 20 GM; Start 02/13/19 at 12:30 Insulin Aspart (Novolog Insulin Pen) NOVOLOG *MODERATE* ALGORITHM WITH MEALS BEDTIME SC ; Start 02/13/19 at 17:35 Heparin Sodium (Porcine) (Heparin (1000 Units/ml)) 4,000 unit AFTER DIALYSIS CATHETER ; Start 02/14/19 at 10:00 Amlodipine Besylate (Norvasc) 5 mg BID PO Last administered on 02/15/19at 09:52; Admin Dose 5 MG; Start 02/14/19 at 21:00 Labetalol HCl (Labetalol) 10 mg Q4 PRN IV sbp>170 Last administered on 02/14/19at 20:49; Admin Dose 10 MG; Start 02/14/19 at 15:30 Carvedilol (Coreg) 25 mg BID PO ; Start 02/15/19 at 21:00 Hydralazine HCl (Apresoline) 50 mg Q8H PO Last administered on 02/15/19at 12:40; Admin Dose 50 MG; Start 02/15/19 at 12:00 Losartan Potassium (Cozaar) 100 mg DAILY PO ; Start 02/15/19 at 12:30 Estuardo Taylor DO Feb 15, 2019 13:37
--- NOTE | 2019-02-15 16:13 | CONS ---
Assessment/Plan Assessment/Plan Assessment/Plan (Daily) 48-year-old female who presented with: 1. Abdominal pain, nausea, vomiting, The patient did not have any bowel movement for the last few days. Rule out bowel obstruction, KUB is negative however patient is constipated , RESOLVED NOW 2. Hypertensive urgency/emergency. Likely secondary to noncompliance with medications. The patient prescriptions were for refill, and the patient did not take any blood pressure medicine for 2 to 3 days.Still uncontrolled 3. Chest pain secondary to demand ischemia. 4. Fluid overload. 5. Shortness of breath likely secondary to fluid overload with flash pulmonary edema. 6. End-stage renal disease on hemodialysis. 7. Diabetes. 8. History of old cerebrovascular accident. 9. Hypothyroidism. 10 positive blood culture plan -Continue with clonidine patch, added losartan/coreg and hydralzine - Dry UF today - on NTG gtt> try to titrate off - ob iv labetalol/hydralazine per cards - HD tmw also for regular session - bld cx+coagulase neg staph> pt will need fistula placement Consultation Date/Type/Reason Admit Date/Time Feb 12, 2019 at 22:21 Initial Consult Date Date/Time of Note DATE: 02/15/19 TIME: 16:09 24 HR Interval Summary Free Text/Dictation bp was 200 this am, ON NTG gtt this am nausea/vomiting Exam/Review of Systems Exam Vitals Vital Signs Date Temp Pulse Resp B/P (MAP) Pulse Ox O2 O2 Flow FiO2 Time Delivery Rate 02/15/19 77 17 148/57 93 15:45 (87) 02/15/19 Room Air 15:00 02/15/19 98.5 12:00 02/15/19 2.0 06:15 Intake and Output 02/14/19 02/14/19 02/15/19 1515:00 23:00 07:00 IntakeIntake Total 275 ml 771.0 ml 666.0 ml OutputOutput Total 3600 ml 0 ml 0 ml BalanceBalance -3325 ml 771.0 ml 666.0 ml Exam GENERAL: Patient awake, alert, oriented. HEENT: Pupils equal, round, and react to light. NECK: Supple. HEART: Tachycardic. LUNGS: Decreased breath sounds bilaterally. ABDOMEN: positive BS EXTREMITIES: 1+ edema. The patient has a right Perm-A-Cath in place. Results Result Diagram: 02/14/19 0426 02/14/19 0426 Results 24hrs Laboratory Tests Test 02/14/19 18:05 02/14/19 20:46 02/15/19 02:39 02/15/19 09:54 Bedside Glucose 126 159 120 108 Test 02/15/19 12:46 Bedside Glucose 172 Medications Medication Current Medications Ceftriaxone Sodium 50 ml @ 100 mls/hr DAILY IVPB Last administered on 02/15/19 09:52; Admin Dose 100 MLS/HR; Start 02/13/19 at 09:00 Azithromycin (Zithromax) 500 mg DAILY PO Last administered on 02/15/19 09:51; Admin Dose 500 MG; Start 02/13/19 at 09:00 Morphine Sulfate (morphine) 2 mg Q3H PRN IV mod pain 4-6 Last administered on 02/13/19 10:50; Admin Dose 2 MG; Start 02/12/19 at 23:30 Ondansetron HCl (Zofran Inj) 4 mg Q4 PRN IV nausea Last administered on 02/14/19 08:18; Admin Dose 4 MG; Start 02/12/19 at 23:30 Calcium Acetate (Phoslo) 667 mg WITH MEALS PO Last administered on 02/15/19 12:40; Admin Dose 667 MG; Start 02/13/19 at 07:35 Clopidogrel Bisulfate (plaVIX) 75 mg DAILY PO Last administered on 02/15/19 09:51; Admin Dose 75 MG; Start 02/13/19 at 09:00 Gabapentin (Neurontin) 100 mg BID PO Last administered on 02/15/19 09:51; Admin Dose 100 MG; Start 02/12/19 at 23:30 Acetaminophen/ Hydrocodone Bitart ([place] (5/325)) 5 tab Q6H PRN PO PAIN; Start 02/12/19 at 23:30 Labetalol HCl (Normodyne) 200 mg TID PO Last administered on 02/13/19 08:27; Admin Dose 200 MG; Start 02/13/19 at 09:00; Status Hold Levothyroxine Sodium (Synthroid) 25 mcg BEFORE BREAKFAST PO Last administered on 02/15/19 06:12; Admin Dose 25 MCG; Start 02/13/19 at 07:00 Pantoprazole (Protonix Tab) 40 mg AC BREAKFAST PO Last administered on 02/15/19 06:12; Admin Dose 40 MG; Start 02/13/19 at 07:00 Insulin Glargine (Lantus) 10 units QAM SC Last administered on 02/15/19 10:06; Admin Dose 10 UNITS; Start 02/13/19 at 09:00 Nitroglycerin/ Dextrose 250 ml @ 0 mls/hr TITRATE IV Last administered on 02/15/19 14:13; Admin Dose 78 MLS/HR; Start 02/13/19 at 03:00 Hydromorphone HCl (Dilaudid) 0.5 mg Q4H PRN IV SEVERE PAIN LEVEL 7-10 Last administered on 02/13/19 08:54; Admin Dose 0.5 MG; Start 02/13/19 at 03:00 Hydralazine HCl (Apresoline) 10 mg Q4H PRN IV SBP GREATER THAN 160 Last administered on 02/14/19 23:53; Admin Dose 10 MG; Start 02/13/19 at 07:30 Clonidine HCl (Catapres-Tts 3 Patch) 1 patch Q7D TRANSDERM Last administered on 02/13/19 08:45; Admin Dose 1 PATCH; Start 02/13/19 at 09:00 Doxazosin Mesylate (Cardura) 4 mg BID PO Last administered on 02/15/19 09:52; Admin Dose 4 MG; Start 02/13/19 at 09:00 Metoclopramide HCl (Reglan) 10 mg Q8H PRN IV VOMITTING Last administered on 02/14/19at 10:02; Admin Dose 10 MG; Start 02/13/19 at 11:00 Diagnostic Test (Pha) (Accu-Chek) 1 ea 02 XX ; Start 02/14/19 at 02:00 Miscellaneous Information 1 ea NOTE XX ; Start 02/13/19 at 11:00 Glucose (Glutose) 15 gm Q15M PRN PO DECREASED GLUCOSE; Start 02/13/19 at 11:00 Glucose (Glutose) 22.5 gm Q15M PRN PO DECREASED GLUCOSE; Start 02/13/19 at 11:00 Dextrose (D50w Syringe) 25 ml Q15M PRN IV DECREASED GLUCOSE; Start 02/13/19 at 11:00 Dextrose (D50w Syringe) 50 ml Q15M PRN IV DECREASED GLUCOSE; Start 02/13/19 at 11:00 Glucagon (Glucagen) 1 mg Q15M PRN IM DECREASED GLUCOSE; Start 02/13/19 at 11:00 Glucose (Glutose) 15 gm Q15M PRN BUCCAL DECREASED GLUCOSE; Start 02/13/19 at 11:00 Bisacodyl (Dulcolax Supp) 10 mg DAILY PRN [place] CONSTIPATION; Start 02/13/19 at 12:30 Lactulose (Enulose) 20 gm BID PRN PO CONSTIPATION Last administered on 02/14/19at 21:27; Admin Dose 20 GM; Start 02/13/19 at 12:30 Insulin Aspart (Novolog Insulin Pen) NOVOLOG *MODERATE* ALGORITHM WITH MEALS BEDTIME SC ; Start 02/13/19 at 17:35 Heparin Sodium (Porcine) (Heparin (1000 Units/ml)) 4,000 unit AFTER DIALYSIS CATHETER ; Start 02/14/19 at 10:00 Amlodipine Besylate (Norvasc) 5 mg BID PO Last administered on 02/15/19at 09:52; Admin Dose 5 MG; Start 02/14/19 at 21:00 Labetalol HCl (Labetalol) 10 mg Q4 PRN IV sbp>170 Last administered on 02/14/19at 20:49; Admin Dose 10 MG; Start 02/14/19 at 15:30 Carvedilol (Coreg) 25 mg BID PO ; Start 02/15/19 at 21:00 Hydralazine HCl (Apresoline) 50 mg Q8H PO Last administered on 02/15/19at 12:40; Admin Dose 50 MG; Start 02/15/19 at 12:00 Losartan Potassium (Cozaar) 50 mg BID PO ; Start 02/15/19 at 21:00 HAYLEE CULVER MD Feb 15, 2019 16:13
[2019-02-15] MEDS ORDERED: HEPARIN 1000 UNITS/ML 10 ML INJ CATHETER ONE (16:30)
[2019-02-15] MEDS: HEPARIN 1000 UNITS/ML 10 ML INJ CATHETER SCH (16:37)
[2019-02-15] MEDS: LABETALOL HCL 20MG INJ IV PRN (21:29)
[2019-02-16] VITALS (102 sets, daily range): BP systolic 126–191; BP diastolic 53–101; PULSE 69–84; RESP 10–27
[2019-02-16] MEDS: NITROGLYCERIN 50 MG/D5W (PMX) 250 ML IV SCH ×6 (00:13→19:53)
[2019-02-16] MEDS: hydrALAzine 20 MG INJ IV PRN ×3 (00:14→09:35)
[2019-02-16] MEDS: LABETALOL HCL 20MG INJ IV PRN (02:25)
[2019-02-16] MEDS: ACCU-CHEK XX SCH (02:31)
[2019-02-16] MEDS: PANTOPRAZOLE (EC) 40 MG TAB PO SCH (06:32)
[2019-02-16] MEDS: LEVOTHYROXINE 25 MCG TAB PO SCH (06:32)
[2019-02-16] MEDS: INSULIN ASPART [NOVOLOG] 3 ML PEN SC SCH ×4 (07:35→21:00)
[2019-02-16] MEDS: CALCIUM ACETATE 667 MG CAP PO SCH ×3 (08:30→18:49)
[2019-02-16] MEDS: CEFTRIAXONE 1 GM/50 ML (PMX) 50 ML IVPB SCH (08:45)
[2019-02-16] MEDS: AMLODIPINE 5 MG TAB PO SCH ×2 (08:47→21:21)
[2019-02-16] MEDS: CLOPIDOGREL 75 MG TAB PO SCH (08:47)
[2019-02-16] MEDS: AZITHROMYCIN 500 MG TAB PO SCH (08:47)
[2019-02-16] MEDS: GABAPENTIN 100 MG CAP PO SCH ×2 (08:47→21:22)
[2019-02-16] MEDS: DOXAZOSIN 4 MG TAB PO SCH ×2 (08:47→21:22)
[2019-02-16] MEDS: LOSARTAN 50 MG TAB PO SCH ×2 (08:48→21:22)
[2019-02-16] MEDS: INSULIN GLARGINE [LANTus] (100 UNITS/ML) SYG SC SCH (09:42)
[2019-02-16] MEDS: HYDROmorphONE 0.5 MG/0.5 ML SYG IV PRN (10:49)
--- NOTE | 2019-02-16 14:34 | CONS ---
Assessment/Plan Assessment/Plan Hospital Course (Demo Recall) 1. Abdominal pain, nausea, vomiting, The patient did not have any bowel movement for the last few days. Rule out bowel obstruction, KUB is negative however patient is constipated , RESOLVED NOW 2. Hypertensive urgency/emergency. Likely secondary to noncompliance with medications. The patient prescriptions were for refill, and the patient did not take any blood pressure medicine for 2 to 3 days. Still uncontrolled 3. Chest pain secondary to demand ischemia. Report no complaints today 4. Fluid overload. Had ultrafiltration yesterday 5. Shortness of breath likely secondary to fluid overload with flash pulmonary edema. Still short of breath 6. End-stage renal disease on hemodialysis. Has right chest permacath 7. Diabetes mellitus type II. 8. History of old cerebrovascular accident. 9. Hypothyroidism. 10. Recent positive blood culture 11. Obesity 12. Anemia of chronic disease Assessment/Plan (Daily) -Patient has positive balance -Place her on fluid restriction 1 L a day -Patient is having dialysis today -Start Epogen Aggressive fluid removal - for hyperphosphatemia continue PhosLo with meals, phosphorus is low -Continue with clonidine patch, Losartan/coreg and Hydralzine, labetalol as needed -Continue, she is on NTG gtt> try to titrate off - ob iv labetalol/hydralazine per cards - bld cx+coagulase neg staph> pt will need fistula placement Consultation Date/Type/Reason Admit Date/Time Feb 12, 2019 at 22:21 Initial Consult Date February 13, 2019 Type of Consult Nephrology Reason for Consultation Dr. Carr Date/Time of Note DATE: 02/16/19 TIME: 14:31 24 HR Interval Summary Free Text/Dictation Constitutional: No fever, cough or chills. EYE: No eye disease. No visual problems. CARDIOVASCULAR: No chest pain. during HD Tachycardia. No Palpitation. RESPIRATORY: has breathing problems, on supplemental oxygen. . GASTROINTESTINAL: Abdominal pain. No Nausea. No Vomiting. Does not remember when she had last bowel movement Endocrine: No excessive thirst, No polyuria, No hot intolerance. No cold intolerance. MUSCULO-SKELETAL: No bone or Joint disease, weak. NEUROLOGICAL: Alert oriented in person, place, time and situation. No Headache, Confusion. No Seizures. Subjective hx not possible: pt critical status Exam/Review of Systems Exam Vitals Vital Signs Date Temp Pulse Resp B/P (MAP) Pulse Ox O2 O2 Flow FiO2 Time Delivery Rate 02/16/19 76 18 149/61 95 Room Air 10:15 (90) 02/16/19 98.0 08:00 02/15/19 2.0 06:15 Intake and Output 02/15/19 02/15/19 02/16/19 1515:00 23:00 07:00 IntakeIntake Total 670 ml 904.5 ml 679.5 ml OutputOutput Total 2900 ml 0 ml BalanceBalance 670 ml -1995.5 ml 679.5 ml Exam No acute distress, appears sick Eyes: anicteric, EOM's intact, pallor Nose: no rhinorrhea Neck: supple, no thyromegaly, no carotid bruits Lungs: clear bilaterally, decreased. CVS: regular rate and rhythm, no murmurs Abdomen: soft, bowel sounds present, no hepatosplenomegally, no masses, no rebound or guarding. Rectal: differed. External genitalia: no lesions, no Ayala catheter. Extremities: Trace edema, DP palpable Neuro: alert and oriented x 3, slow response Gait: Unable to determine Motor strength unable to determine patient-dialysis/ Sensory exam is decreased sensorium bilateral lower extremities Deep tendon reflexes: normal, Babisky reflexes unable to determine patient has a line of her body Skin: no lesions, pale, right chest PermCath Results Result Diagram: 02/14/1942502/14/196 Results 24hrs Laboratory Tests Test 02/15/19 17:53 02/15/19 20:23 02/16/19 02:30 02/16/19 08:11 Bedside Glucose 101 151 118 128 Test 02/16/19 09:40 02/16/19 12:10 Bedside Glucose 128 183 Medications Medication Current Medications Ceftriaxone Sodium 50 ml @ 100 mls/hr DAILY IVPB Last administered on 02/16/19at 08:45; Admin Dose 100 MLS/HR; Start 02/13/19 at 09:00 Azithromycin (Zithromax) 500 mg DAILY PO Last administered on 02/16/19at 08:47; Admin Dose 500 MG; Start 02/13/19 at 09:00 Morphine Sulfate (morphine) 2 mg Q3H PRN IV mod pain 4-6 Last administered on 02/13/19at 10:50; Admin Dose 2 MG; Start 02/12/19 at 23:30 Ondansetron HCl (Zofran Inj) 4 mg Q4 PRN IV nausea Last administered on 02/14/19 08:18; Admin Dose 4 MG; Start 02/12/19 at 23:30 Calcium Acetate (Phoslo) 667 mg WITH MEALS PO Last administered on 02/16/19 12:20; Admin Dose 667 MG; Start 02/13/19 at 07:35 Clopidogrel Bisulfate (plaVIX) 75 mg DAILY PO Last administered on 02/16/19 08:47; Admin Dose 75 MG; Start 02/13/19 at 09:00 Gabapentin (Neurontin) 100 mg BID PO Last administered on 02/16/19 08:47; Admin Dose 100 MG; Start 02/12/19 at 23:30 Acetaminophen/ Hydrocodone Bitart ([place] (5/325)) 5 tab Q6H PRN PO PAIN; Start 02/12/19 at 23:30 Labetalol HCl (Normodyne) 200 mg TID PO Last administered on 02/13/19 08:27; Admin Dose 200 MG; Start 02/13/19 at 09:00; Status Hold Levothyroxine Sodium (Synthroid) 25 mcg BEFORE BREAKFAST PO Last administered on 02/16/19 06:32; Admin Dose 25 MCG; Start 02/13/19 at 07:00 Pantoprazole (Protonix Tab) 40 mg AC BREAKFAST PO Last administered on 02/16/19 06:32; Admin Dose 40 MG; Start 02/13/19 at 07:00 Insulin Glargine (Lantus) 10 units QAM SC Last administered on 02/16/19 09:42; Admin Dose 10 UNITS; Start 02/13/19 at 09:00 Nitroglycerin/ Dextrose 250 ml @ 0 mls/hr TITRATE IV Last administered on 02/16/19 13:34; Admin Dose 100 MLS/HR; Start 02/13/19 at 03:00 Hydromorphone HCl (Dilaudid) 0.5 mg Q4H PRN IV SEVERE PAIN LEVEL 7-10 Last administered on 02/16/19 10:49; Admin Dose 0.5 MG; Start 02/13/19 at 03:00 Hydralazine HCl (Apresoline) 10 mg Q4H PRN IV SBP GREATER THAN 160 Last administered on 02/16/19at 09:35; Admin Dose 10 MG; Start 02/13/19 at 07:30 Clonidine HCl (Catapres-Tts 3 Patch) 1 patch Q7D TRANSDERM Last administered on 02/13/19at 08:45; Admin Dose 1 PATCH; Start 02/13/19 at 09:00 Doxazosin Mesylate (Cardura) 4 mg BID PO Last administered on 02/16/19at 08:47; Admin Dose 4 MG; Start 02/13/19 at 09:00 Metoclopramide HCl (Reglan) 10 mg Q8H PRN IV VOMITTING Last administered on 02/14/19at 10:02; Admin Dose 10 MG; Start 02/13/19 at 11:00 Diagnostic Test (Pha) (Accu-Chek) 1 ea 02 XX Last administered on 02/16/19at 02:31; Admin Dose 1 EA; Start 02/14/19 at 02:00 Miscellaneous Information 1 ea NOTE XX ; Start 02/13/19 at 11:00 Glucose (Glutose) 15 gm Q15M PRN PO DECREASED GLUCOSE; Start 02/13/19 at 11:00 Glucose (Glutose) 22.5 gm Q15M PRN PO DECREASED GLUCOSE; Start 02/13/19 at 11:00 Dextrose (D50w Syringe) 25 ml Q15M PRN IV DECREASED GLUCOSE; Start 02/13/19 at 11:00 Dextrose (D50w Syringe) 50 ml Q15M PRN IV DECREASED GLUCOSE; Start 02/13/19 at 11:00 Glucagon (Glucagen) 1 mg Q15M PRN IM DECREASED GLUCOSE; Start 02/13/19 at 11:00 Glucose (Glutose) 15 gm Q15M PRN BUCCAL DECREASED GLUCOSE; Start 02/13/19 at 11:00 Bisacodyl (Dulcolax Supp) 10 mg DAILY PRN [place] CONSTIPATION; Start 02/13/19 at 12:30 Lactulose (Enulose) 20 gm BID PRN PO CONSTIPATION Last administered on 02/14/19at 21:27; Admin Dose 20 GM; Start 02/13/19 at 12:30 Insulin Aspart (Novolog Insulin Pen) NOVOLOG *MODERATE* ALGORITHM WITH MEALS BEDTIME SC Last administered on 02/16/19at 12:17; Admin Dose 4 UNIT; Start 02/13/19 at 17:35 Heparin Sodium (Porcine) (Heparin (1000 Units/ml)) 4,000 unit AFTER DIALYSIS CATHETER Last administered on 02/15/19 16:37; Admin Dose 4,000 UNIT; Start 02/14/19 at 10:00 Amlodipine Besylate (Norvasc) 5 mg BID PO Last administered on 02/16/19 08:47; Admin Dose 5 MG; Start 02/14/19 at 21:00 Labetalol HCl (Labetalol) 10 mg Q4 PRN IV sbp>170 Last administered on 02/16/19 02:25; Admin Dose 10 MG; Start 02/14/19 at 15:30 Carvedilol (Coreg) 25 mg BID PO Last administered on 02/16/19 08:47; Admin Dose 25 MG; Start 02/15/19 at 21:00 Hydralazine HCl (Apresoline) 50 mg Q8H PO Last administered on 02/16/19 11:26; Admin Dose 50 MG; Start 02/15/19 at 12:00 Losartan Potassium (Cozaar) 50 mg BID PO Last administered on 02/16/19 08:48; Admin Dose 50 MG; Start 02/15/19 at 21:00 LINWOOD CHIO Feb 16, 2019 14:34
--- NOTE | 2019-02-16 15:25 | CONS ---
Assessment/Plan Assessment/Plan Hospital Course (Demo Recall) Impression: Hypertension urgency, in the setting of not taking antihypertensives due to nausea, vomiting Nausea and vomiting-improved End-stage renal disease hemodialysis Diabetes Recommendations: Increase carvedilol to 50 mg bid, increase hydralazine to 100 mg [id number] Continue amlodipine, losartan, clonidine patch Wean nitro drip as able Fluid management via hemodialysis as per nephrology Consultation Date/Type/Reason Admit Date/Time Feb 12, 2019 at 22:21 Initial Consult Date Type of Consult Cardiology Date/Time of Note DATE: 02/16/19 TIME: 15:22 24 HR Interval Summary Free Text/Dictation Patient receiving dialysis at present. She has no chest pain, no headache, no dyspnea. She has required a nitroglycerin drip to aid bp control. At home she takes po clonidine, and was not aware that the patch on her chest contains clonidine. She states that hydralazine causes headaches, and yet she is getting hydralazine here in the hospital and has no headache. Exam/Review of Systems Vital Signs Vitals Vital Signs Date Temp Pulse Resp B/P (MAP) Pulse Ox O2 O2 Flow FiO2 Time Delivery Rate 02/16/19 78 14:40 02/16/19 18 145/62 95 Nasal 2.0 14:40 (89) Cannula 02/16/19 98.0 08:00 Intake and Output 02/15/19 02/15/19 02/16/19 1515:00 23:00 07:00 IntakeIntake Total 670 ml 904.5 ml 679.5 ml OutputOutput Total 2900 ml 0 ml BalanceBalance 670 ml -1995.5 ml 679.5 ml Exam Constitutional: alert, oriented, other (obese) Psych: no complaints, other (flat affect) Head: normocephalic, atraumatic Eyes: EOMI, nl lids ENMT: nl external ears & nose Neck: No jvd, No bruits Respiratory: clear to auscultation Cardiovascular: regular rate and rhythm; No murmurs/extra sounds Gastrointestinal: soft, non-tender Musculoskeletal: nl extremities to inspection Extremities: No edema Neurological: nl mental status, nl speech Skin: nl turgor Labs Result Diagram: 02/14/19 0426 02/14/19 0426 Results 24hrs Laboratory Tests Test 02/15/19 17:53 02/15/19 20:23 02/16/19 02:30 02/16/19 08:11 Bedside Glucose 101 151 118 128 Test 02/16/19 09:40 02/16/19 12:10 Bedside Glucose 128 183 Medications Medications Current Medications Ceftriaxone Sodium 50 ml @ 100 mls/hr DAILY IVPB Last administered on 02/16/19 08:45; Admin Dose 100 MLS/HR; Start 02/13/19 at 09:00 Azithromycin (Zithromax) 500 mg DAILY PO Last administered on 02/16/19 08:47; Admin Dose 500 MG; Start 02/13/19 at 09:00 Morphine Sulfate (morphine) 2 mg Q3H PRN IV mod pain 4-6 Last administered on 02/13/19 10:50; Admin Dose 2 MG; Start 02/12/19 at 23:30 Ondansetron HCl (Zofran Inj) 4 mg Q4 PRN IV nausea Last administered on 02/14/19 08:18; Admin Dose 4 MG; Start 02/12/19 at 23:30 Calcium Acetate (Phoslo) 667 mg WITH MEALS PO Last administered on 02/16/19 12:20; Admin Dose 667 MG; Start 02/13/19 at 07:35 Clopidogrel Bisulfate (plaVIX) 75 mg DAILY PO Last administered on 02/16/19 08:47; Admin Dose 75 MG; Start 02/13/19 at 09:00 Gabapentin (Neurontin) 100 mg BID PO Last administered on 02/16/19 08:47; Admin Dose 100 MG; Start 02/12/19 at 23:30 Acetaminophen/ Hydrocodone Bitart ([place] (5/325)) 5 tab Q6H PRN PO PAIN; Start 02/12/19 at 23:30 Labetalol HCl (Normodyne) 200 mg TID PO Last administered on 02/13/19 08:27; Admin Dose 200 MG; Start 02/13/19 at 09:00; Status Hold Levothyroxine Sodium (Synthroid) 25 mcg BEFORE BREAKFAST PO Last administered on 02/16/19 06:32; Admin Dose 25 MCG; Start 02/13/19 at 07:00 Pantoprazole (Protonix Tab) 40 mg AC BREAKFAST PO Last administered on 02/16/19 06:32; Admin Dose 40 MG; Start 02/13/19 at 07:00 Insulin Glargine (Lantus) 10 units QAM SC Last administered on 02/16/19 09:42; Admin Dose 10 UNITS; Start 02/13/19 at 09:00 Nitroglycerin/ Dextrose 250 ml @ 0 mls/hr TITRATE IV Last administered on 02/16/19at 13:34; Admin Dose 100 MLS/HR; Start 02/13/19 at 03:00 Hydromorphone HCl (Dilaudid) 0.5 mg Q4H PRN IV SEVERE PAIN LEVEL 7-10 Last administered on 02/16/19 10:49; Admin Dose 0.5 MG; Start 02/13/19 at 03:00 Hydralazine HCl (Apresoline) 10 mg Q4H PRN IV SBP GREATER THAN 160 Last administered on 02/16/19 09:35; Admin Dose 10 MG; Start 02/13/19 at 07:30 Clonidine HCl (Catapres-Tts 3 Patch) 1 patch Q7D TRANSDERM Last administered on 02/13/19at 08:45; Admin Dose 1 PATCH; Start 02/13/19 at 09:00 Doxazosin Mesylate (Cardura) 4 mg BID PO Last administered on 02/16/19 08:47; Admin Dose 4 MG; Start 02/13/19 at 09:00 Metoclopramide HCl (Reglan) 10 mg Q8H PRN IV VOMITTING Last administered on 02/14/19at 10:02; Admin Dose 10 MG; Start 02/13/19 at 11:00 Diagnostic Test (Pha) (Accu-Chek) 1 ea 02 XX Last administered on 02/16/19at 02:31; Admin Dose 1 EA; Start 02/14/19 at 02:00 Miscellaneous Information 1 ea NOTE XX ; Start 02/13/19 at 11:00 Glucose (Glutose) 15 gm Q15M PRN PO DECREASED GLUCOSE; Start 02/13/19 at 11:00 Glucose (Glutose) 22.5 gm Q15M PRN PO DECREASED GLUCOSE; Start 02/13/19 at 11:00 Dextrose (D50w Syringe) 25 ml Q15M PRN IV DECREASED GLUCOSE; Start 02/13/19 at 11:00 Dextrose (D50w Syringe) 50 ml Q15M PRN IV DECREASED GLUCOSE; Start 02/13/19 at 11:00 Glucagon (Glucagen) 1 mg Q15M PRN IM DECREASED GLUCOSE; Start 02/13/19 at 11:00 Glucose (Glutose) 15 gm Q15M PRN BUCCAL DECREASED GLUCOSE; Start 02/13/19 at 11:00 Bisacodyl (Dulcolax Supp) 10 mg DAILY PRN [place] CONSTIPATION; Start 02/13/19 at 12:30 Lactulose (Enulose) 20 gm BID PRN PO CONSTIPATION Last administered on 02/14/19at 21:27; Admin Dose 20 GM; Start 02/13/19 at 12:30 Insulin Aspart (Novolog Insulin Pen) NOVOLOG *MODERATE* ALGORITHM WITH MEALS BEDTIME SC Last administered on 02/16/19 12:17; Admin Dose 4 UNIT; Start 02/13/19 at 17:35 Heparin Sodium (Porcine) (Heparin (1000 Units/ml)) 4,000 unit AFTER DIALYSIS CATHETER Last administered on 02/15/19at 16:37; Admin Dose 4,000 UNIT; Start 02/14/19 at 10:00 Amlodipine Besylate (Norvasc) 5 mg BID PO Last administered on 02/16/19at 08:47; Admin Dose 5 MG; Start 02/14/19 at 21:00 Labetalol HCl (Labetalol) 10 mg Q4 PRN IV sbp>170 Last administered on 02/16/19at 02:25; Admin Dose 10 MG; Start 02/14/19 at 15:30 Losartan Potassium (Cozaar) 50 mg BID PO Last administered on 02/16/19at 08:48; Admin Dose 50 MG; Start 02/15/19 at 21:00 Epoetin Marlo-epbx (Retacrit (Esrd)) 4,000 unit TuThSa@1700 SC ; Start 02/16/19 at 17:00 Carvedilol (Coreg) 50 mg BID PO ; Start 02/16/19 at 21:00 Hydralazine HCl (Apresoline) 100 mg Q8H PO ; Start 02/16/19 at 20:00 PROSPER EDWARD Feb 16, 2019 15:25
--- NOTE | 2019-02-16 16:12 | RADRPT ---
Vent Rate: 105 bpm RR Interval: 572 msec MN Interval: 174 msec QRS Duration: 89 msec QT Interval: 370 msec QTC Interval: 489 msec P-R-T [place]: 60 - 5 - 89 degrees Sinus tachycardia...rate> 99 Nonspecific T abnormalities, lateral leads...T <-0.10mV, I aVL V5 V6 Electronically Signed By: Vasquez Aguillon
[2019-02-16] MEDS: HEPARIN 1000 UNITS/ML 10 ML INJ CATHETER SCH (16:15)
[2019-02-16] MEDS ORDERED: EPOETIN ALFA-EPBX (ESRD) 4,000 UNIT/ML VIAL SC SCH (17:00)
[2019-02-16] MEDS: morphine 2 MG INJ IV PRN (20:28)
[2019-02-16] MEDS ORDERED: HYDROCODONE/APAP (5/325) TAB PO PRN ×2 (21:30)
--- NOTE | 2019-02-16 23:49 | PN ---
Date/Time of Note Date/Time of Note DATE: 02/16/19 TIME: 23:48 Assessment/Plan VTE Prophylaxis Risk score (from Nsg)>0 risk: 7 SCD applied (from Nsg): Yes Pharmacological prophylaxis: LMWH Lines/Catheters IV Catheter Type (from Nrsg): Peripheral IV Urinary Cath still in place: No Assessment/Plan Assessment/Plan [facility] 1. Ms. Martinez is a 48-year-old woman who presented with a hypertensive urgency that has proven resistant to continuing layers of anti-hypertensive agents, currently on a nitro drip. She was brought in by paramedics from her dialysis center after she developed chest pain, headache and abdominal pain 2 hours into her scheduled dialysis. Presenting blood pressure was 208/90 with a pulse of 105. 2. Abdominal pain due to constipation, resolved 3. Diabetic nephropathy with end-stage renal disease on hemodialysis 4. Type 2 diabetes mellitus 5. Hyperlipidemia 6. Normochromic, normocytic anemia, likely secondary to ESRD * Continue ICU-level care * Wean off nitro drip with target SBP of 140 * Per Dr. Lopez, Coreg increased to 50 mg twice daily * Increase hydralazine to 100 mg 3 times daily * Continue losartan 100 mg daily, Norvasc, and clonidine * DVT/GI prophylaxis with SCDs and Protonix * Disposition: home once pressure is stabilized Jackie De Leon MD PhD [phone] Result Diagram: 02/14/196 02/14/19 0426 Results 24hrs Laboratory Tests Test 02/16/19 02:30 02/16/19 08:11 02/16/19 09:40 02/16/19 12:10 Bedside Glucose 118 128 128 183 Test 02/16/19 18:35 02/16/19 21:20 Bedside Glucose 139 96 Subjective 24 Hr Interval Summary Free Text/Dictation No visitors this afternoon. Currently undergoing dialysis. She feels well, with no headache or other pain. Eating alright and stooling normally. Exam/Review of Systems Exam Vitals Vital Signs Date Temp Pulse Resp B/P (MAP) Pulse Ox O2 O2 Flow FiO2 Time Delivery Rate 02/16/19 73 18 159/66 93 22:30 (97) 02/16/19 Room Air 22:00 02/16/19 98.5 20:00 02/16/19 1.0 17:00 Intake and Output 02/15/19 02/15/19 02/16/19 1515:00 23:00 07:00 IntakeIntake Total 670 ml 904.5 ml 679.5 ml OutputOutput Total 2900 ml 0 ml BalanceBalance 670 ml -1995.5 ml 679.5 ml Exam HEENT: Extraocular muscles intact. Pupils equal, reactive to light bilaterally. Sclerae anicteric. Moist oropharynx. Supple. No JVD. Chest: Clear bilaterally, with mild crackles at the bases. CVS: Regular rhythm, normal rate. No murmurs or gallop. Good peripheral perfusion. Abdomen: Soft, non-tender, no rebound or guarding. Normal bowel sounds. EXTREMITIES: Mild edema, no arthritis NEURO: Alert, oriented, cranial nerves intact. Motor 5/5 bilatearlly. Normal affect, speech, and memory. Skin: Intact Results Results 24hrs Laboratory Tests Test 02/16/19 02:30 02/16/19 08:11 02/16/19 09:40 02/16/19 12:10 Bedside Glucose 118 128 128 183 Test 02/16/19 18:35 02/16/19 21:20 Bedside Glucose 139 96 Medications Medication Current Medications Ceftriaxone Sodium 50 ml @ 100 mls/hr DAILY IVPB Last administered on 02/16/19 08:45; Admin Dose 100 MLS/HR; Start 02/13/19 at 09:00 Azithromycin (Zithromax) 500 mg DAILY PO Last administered on 02/16/19 08:47; Admin Dose 500 MG; Start 02/13/19 at 09:00 Morphine Sulfate (morphine) 2 mg Q3H PRN IV mod pain 4-6 Last administered on 02/16/19 20:28; Admin Dose 2 MG; Start 02/12/19 at 23:30 Ondansetron HCl (Zofran Inj) 4 mg Q4 PRN IV nausea Last administered on 02/14/19 08:18; Admin Dose 4 MG; Start 02/12/19 at 23:30 Calcium Acetate (Phoslo) 667 mg WITH MEALS PO Last administered on 02/16/19 18:49; Admin Dose 667 MG; Start 02/13/19 at 07:35 Clopidogrel Bisulfate (plaVIX) 75 mg DAILY PO Last administered on 02/16/19 08:47; Admin Dose 75 MG; Start 02/13/19 at 09:00 Gabapentin (Neurontin) 100 mg BID PO Last administered on 02/16/19 21:22; Admin Dose 100 MG; Start 02/12/19 at 23:30 Labetalol HCl (Normodyne) 200 mg TID PO Last administered on 02/13/19 08:27; Admin Dose 200 MG; Start 02/13/19 at 09:00; Status Hold Levothyroxine Sodium (Synthroid) 25 mcg BEFORE BREAKFAST PO Last administered on 02/16/19 06:32; Admin Dose 25 MCG; Start 02/13/19 at 07:00 Pantoprazole (Protonix Tab) 40 mg AC BREAKFAST PO Last administered on 02/16/19 06:32; Admin Dose 40 MG; Start 02/13/19 at 07:00 Insulin Glargine (Lantus) 10 units QAM SC Last administered on 02/16/19 09:42; Admin Dose 10 UNITS; Start 02/13/19 at 09:00 Hydromorphone HCl (Dilaudid) 0.5 mg Q4H PRN IV SEVERE PAIN LEVEL 7-10 Last administered on 02/16/19 10:49; Admin Dose 0.5 MG; Start 02/13/19 at 03:00 Hydralazine HCl (Apresoline) 10 mg Q4H PRN IV SBP GREATER THAN 160 Last administered on 02/16/19 09:35; Admin Dose 10 MG; Start 02/13/19 at 07:30 Clonidine HCl (Catapres-Tts 3 Patch) 1 patch Q7D TRANSDERM Last administered on 02/13/19 08:45; Admin Dose 1 PATCH; Start 02/13/19 at 09:00 Doxazosin Mesylate (Cardura) 4 mg BID PO Last administered on 02/16/19 21:22; Admin Dose 4 MG; Start 02/13/19 at 09:00 Metoclopramide HCl (Reglan) 10 mg Q8H PRN IV VOMITTING Last administered on 02/14/19 10:02; Admin Dose 10 MG; Start 02/13/19 at 11:00 Diagnostic Test (Pha) (Accu-Chek) 1 ea 02 XX Last administered on 02/16/19 02:31; Admin Dose 1 EA; Start 02/14/19 at 02:00 Miscellaneous Information 1 ea NOTE XX ; Start 02/13/19 at 11:00 Glucose (Glutose) 15 gm Q15M PRN PO DECREASED GLUCOSE; Start 02/13/19 at 11:00 Glucose (Glutose) 22.5 gm Q15M PRN PO DECREASED GLUCOSE; Start 02/13/19 at 11:00 Dextrose (D50w Syringe) 25 ml Q15M PRN IV DECREASED GLUCOSE; Start 02/13/19 at 11:00 Dextrose (D50w Syringe) 50 ml Q15M PRN IV DECREASED GLUCOSE; Start 02/13/19 at 11:00 Glucagon (Glucagen) 1 mg Q15M PRN IM DECREASED GLUCOSE; Start 02/13/19 at 11:00 Glucose (Glutose) 15 gm Q15M PRN BUCCAL DECREASED GLUCOSE; Start 02/13/19 at 11:00 Bisacodyl (Dulcolax Supp) [address] CONSTIPATION; Start 02/13/19 at 12:30 Lactulose (Enulose) 20 gm BID PRN PO CONSTIPATION Last administered on 02/14/19at 21:27; Admin Dose 20 GM; Start 02/13/19 at 12:30 Insulin Aspart (Novolog Insulin Pen) NOVOLOG *MODERATE* ALGORITHM WITH MEALS BEDTIME SC Last administered on 02/16/19at 12:17; Admin Dose 4 UNIT; Start 02/13/19 at 17:35 Heparin Sodium (Porcine) (Heparin (1000 Units/ml)) 4,000 unit AFTER DIALYSIS CATHETER Last administered on 02/16/19at 16:15; Admin Dose 4,500 UNIT; Start 02/14/19 at 10:00 Amlodipine Besylate (Norvasc) 5 mg BID PO Last administered on 02/16/19at 21:21; Admin Dose 5 MG; Start 02/14/19 at 21:00 Labetalol HCl (Labetalol) 10 mg Q4 PRN IV sbp>170 Last administered on 02/16/19at 02:25; Admin Dose 10 MG; Start 02/14/19 at 15:30 Losartan Potassium (Cozaar) 50 mg BID PO Last administered on 02/16/19at 21:22; Admin Dose 50 MG; Start 02/15/19 at 21:00 Epoetin Marlo-epbx (Retacrit (Esrd)) 4,000 unit TuThSa@1700 SC Last administered on 02/16/19at 18:51; Admin Dose 4,000 UNIT; Start 02/16/19 at 17:00 Carvedilol (Coreg) 50 mg BID PO Last administered on 02/16/19at 21:22; Admin Dose 50 MG; Start 02/16/19 at 21:00 Hydralazine HCl (Apresoline) 100 mg Q8H PO Last administered on 02/16/19at 19:40; Admin Dose 100 MG; Start 02/16/19 at 20:00 Nitroglycerin/ Dextrose 250 ml @ 0 mls/hr TITRATE IV Last administered on 02/16/19at 19:53; Admin Dose 19.5 MLS/HR; Start 02/16/19 at 15:30 Acetaminophen/ Hydrocodone Bitart ([place] (5/325)) 1 tab Q4H PRN PO MODERATE PAIN LEVEL 4-6; Start 02/16/19 at 21:30 Acetaminophen/ Hydrocodone Bitart ([place] (5/325)) 2 tab Q4H PRN PO MODERATE PAIN LEVEL 4-6; Start 02/16/19 at 21:30 LADONNA DE LEON M.D. Feb 16, 2019 23:48
[2019-02-17] VITALS (96 sets, daily range): BP systolic 131–184; BP diastolic 50–154; PULSE 65–79; RESP 7–24
[2019-02-17] MEDS: ACCU-CHEK XX SCH (02:46)
[2019-02-17] MEDS: NITROGLYCERIN 50 MG/D5W (PMX) 250 ML IV SCH (06:15)
[2019-02-17] MEDS: PANTOPRAZOLE (EC) 40 MG TAB PO SCH (06:16)
[2019-02-17] MEDS: LEVOTHYROXINE 25 MCG TAB PO SCH (06:16)
[2019-02-17] MEDS: INSULIN ASPART [NOVOLOG] 3 ML PEN SC SCH ×4 (07:35→20:55)
[2019-02-17] MEDS: CALCIUM ACETATE 667 MG CAP PO SCH ×3 (07:55→17:50)
[2019-02-17] MEDS: AZITHROMYCIN 500 MG TAB PO SCH (09:42)
[2019-02-17] MEDS: CEFTRIAXONE 1 GM/50 ML (PMX) 50 ML IVPB SCH (09:42)
[2019-02-17] MEDS: DOXAZOSIN 4 MG TAB PO SCH ×2 (09:44→20:50)
[2019-02-17] MEDS: CLOPIDOGREL 75 MG TAB PO SCH (09:44)
[2019-02-17] MEDS: GABAPENTIN 100 MG CAP PO SCH ×2 (09:44→20:49)
[2019-02-17] MEDS: AMLODIPINE 5 MG TAB PO SCH ×2 (09:44→20:50)
[2019-02-17] MEDS: LOSARTAN 50 MG TAB PO SCH ×2 (09:44→20:49)
[2019-02-17] MEDS: INSULIN GLARGINE [LANTus] (100 UNITS/ML) SYG SC SCH (09:56)
--- NOTE | 2019-02-17 11:47 | CONS ---
Assessment/Plan Assessment/Plan Hospital Course (Demo Recall) Impression: Hypertension urgency, in the setting of not taking antihypertensives due to nausea, vomiting, and bp still not controlled Nausea and vomiting-improved End-stage renal disease hemodialysis Diabetes Recommendations: BP medications are maximized Will add isosorbide Continue amlodipine, losartan, doxazosin, carvedilol, hydralazine, clonidine patch Wean nitro drip as able Fluid management via hemodialysis as per nephrology Consultation Date/Type/Reason Admit Date/Time Feb 12, 2019 at 22:21 Initial Consult Date Type of Consult Cardiology Date/Time of Note DATE: 02/17/19 TIME: 11:43 24 HR Interval Summary Free Text/Dictation Patient resting comfortably, I did not wake her Exam/Review of Systems Vital Signs Vitals Vital Signs Date Temp Pulse Resp B/P (MAP) Pulse Ox O2 O2 Flow FiO2 Time Delivery Rate 02/17/19 72 18 148/61 96 11:00 (90) 02/17/19 97.5 08:00 02/17/19 Room Air 01:00 02/16/19 1.0 17:00 Intake and Output 02/16/19 02/16/19 02/17/19 1515:00 23:00 07:00 IntakeIntake Total 1021.0 ml 487.5 ml 97.5 ml OutputOutput Total 200 ml 2500 ml 0 ml BalanceBalance 821.0 ml -2012.5 ml 97.5 ml Labs Result Diagram: 02/14/19 0426 02/14/19 0426 Results 24hrs Laboratory Tests Test 02/16/19 12:10 02/16/19 18:35 02/16/19 21:20 02/17/19 02:29 Bedside Glucose 183 139 96 97 Test 02/17/19 07:34 02/17/19 09:52 Bedside Glucose 96 119 Medications Medications Current Medications Ceftriaxone Sodium 50 ml @ 100 mls/hr DAILY IVPB Last administered on 02/17/19at 09:42; Admin Dose 100 MLS/HR; Start 02/13/19 at 09:00 Azithromycin (Zithromax) 500 mg DAILY PO Last administered on 02/17/19at 09:42; Admin Dose 500 MG; Start 02/13/19 at 09:00 Morphine Sulfate (morphine) 2 mg Q3H PRN IV mod pain 4-6 Last administered on 02/16/19 20:28; Admin Dose 2 MG; Start 02/12/19 at 23:30 Ondansetron HCl (Zofran Inj) 4 mg Q4 PRN IV nausea Last administered on 02/14/19 08:18; Admin Dose 4 MG; Start 02/12/19 at 23:30 Calcium Acetate (Phoslo) 667 mg WITH MEALS PO Last administered on 02/17/19 07:55; Admin Dose 667 MG; Start 02/13/19 at 07:35 Clopidogrel Bisulfate (plaVIX) 75 mg DAILY PO Last administered on 02/17/19 09:44; Admin Dose 75 MG; Start 02/13/19 at 09:00 Gabapentin (Neurontin) 100 mg BID PO Last administered on 02/17/19 09:44; Admin Dose 100 MG; Start 02/12/19 at 23:30 Labetalol HCl (Normodyne) 200 mg TID PO Last administered on 02/13/19 08:27; Admin Dose 200 MG; Start 02/13/19 at 09:00; Status Hold Levothyroxine Sodium (Synthroid) 25 mcg BEFORE BREAKFAST PO Last administered on 02/17/19 06:16; Admin Dose 25 MCG; Start 02/13/19 at 07:00 Pantoprazole (Protonix Tab) 40 mg AC BREAKFAST PO Last administered on 02/17/19 06:16; Admin Dose 40 MG; Start 02/13/19 at 07:00 Insulin Glargine (Lantus) 10 units QAM SC Last administered on 02/17/19 09:56; Admin Dose 10 UNITS; Start 02/13/19 at 09:00 Hydromorphone HCl (Dilaudid) 0.5 mg Q4H PRN IV SEVERE PAIN LEVEL 7-10 Last administered on 02/16/19 10:49; Admin Dose 0.5 MG; Start 02/13/19 at 03:00 Hydralazine HCl (Apresoline) 10 mg Q4H PRN IV SBP GREATER THAN 160 Last administered on 02/16/19 09:35; Admin Dose 10 MG; Start 02/13/19 at 07:30 Clonidine HCl (Catapres-Tts 3 Patch) 1 patch Q7D TRANSDERM Last administered on 02/13/19 08:45; Admin Dose 1 PATCH; Start 02/13/19 at 09:00 Doxazosin Mesylate (Cardura) 4 mg BID PO Last administered on 02/17/19at 09:44; Admin Dose 4 MG; Start 02/13/19 at 09:00 Metoclopramide HCl (Reglan) 10 mg Q8H PRN IV VOMITTING Last administered on 02/14/19at 10:02; Admin Dose 10 MG; Start 02/13/19 at 11:00 Diagnostic Test (Pha) (Accu-Chek) 1 ea 02 XX Last administered on 02/17/19at 02:46; Admin Dose 1 EA; Start 02/14/19 at 02:00 Miscellaneous Information 1 ea NOTE XX ; Start 02/13/19 at 11:00 Glucose (Glutose) 15 gm Q15M PRN PO DECREASED GLUCOSE; Start 02/13/19 at 11:00 Glucose (Glutose) 22.5 gm Q15M PRN PO DECREASED GLUCOSE; Start 02/13/19 at 11:00 Dextrose (D50w Syringe) 25 ml Q15M PRN IV DECREASED GLUCOSE; Start 02/13/19 at 11:00 Dextrose (D50w Syringe) 50 ml Q15M PRN IV DECREASED GLUCOSE; Start 02/13/19 at 11:00 Glucagon (Glucagen) 1 mg Q15M PRN IM DECREASED GLUCOSE; Start 02/13/19 at 11:00 Glucose (Glutose) 15 gm Q15M PRN BUCCAL DECREASED GLUCOSE; Start 02/13/19 at 11:00 Bisacodyl (Dulcolax Supp) 10 mg DAILY PRN [place] CONSTIPATION; Start 02/13/19 at 12:30 Lactulose (Enulose) 20 gm BID PRN PO CONSTIPATION Last administered on 02/14/19at 21:27; Admin Dose 20 GM; Start 02/13/19 at 12:30 Insulin Aspart (Novolog Insulin Pen) NOVOLOG *MODERATE* ALGORITHM WITH MEALS BEDTIME SC Last administered on 02/16/19at 12:17; Admin Dose 4 UNIT; Start 02/13/19 at 17:35 Heparin Sodium (Porcine) (Heparin (1000 Units/ml)) 4,000 unit AFTER DIALYSIS CATHETER Last administered on 02/16/19at 16:15; Admin Dose 4,500 UNIT; Start 02/14/19 at 10:00 Amlodipine Besylate (Norvasc) 5 mg BID PO Last administered on 02/17/19 09:44; Admin Dose 5 MG; Start 02/14/19 at 21:00 Labetalol HCl (Labetalol) 10 mg Q4 PRN IV sbp>170 Last administered on 02/16/19at 02:25; Admin Dose 10 MG; Start 02/14/19 at 15:30 Losartan Potassium (Cozaar) 50 mg BID PO Last administered on 02/17/19 09:44; Admin Dose 50 MG; Start 02/15/19 at 21:00 Epoetin Marlo-epbx (Retacrit (Esrd)) 4,000 unit TuThSa@1700 SC Last administered on 02/16/19 18:51; Admin Dose 4,000 UNIT; Start 02/16/19 at 17:00 Carvedilol (Coreg) 50 mg BID PO Last administered on 02/17/19at 09:43; Admin Dose 50 MG; Start 02/16/19 at 21:00 Hydralazine HCl (Apresoline) 100 mg Q8H PO Last administered on 02/17/19at 03:45; Admin Dose 100 MG; Start 02/16/19 at 20:00 Nitroglycerin/ Dextrose 250 ml @ 0 mls/hr TITRATE IV Last administered on 02/17/19at 06:15; Admin Dose 12 MLS/HR; Start 02/16/19 at 15:30 Acetaminophen/ Hydrocodone Bitart ([place] (5/325)) 1 tab Q4H PRN PO MODERATE PAIN LEVEL 4-6; Start 02/16/19 at 21:30 Acetaminophen/ Hydrocodone Bitart ([place] (5/325)) 2 tab Q4H PRN PO MODERATE PAIN LEVEL 4-6; Start 02/16/19 at 21:30 PROSPER EDWARD Feb 17, 2019 11:47
--- NOTE | 2019-02-17 13:21 | CONS ---
Assessment/Plan Assessment/Plan Hospital Course (Demo Recall) 1. Abdominal pain, nausea, vomiting, The patient did not have any bowel movement for the last few days. Rule out bowel obstruction, KUB is negative however patient is constipated , RESOLVED NOW 2. Hypertensive urgency/emergency. Likely secondary to noncompliance with medications. The patient prescriptions were for refill, and the patient did not take any blood pressure medicine for 2 to 3 days. Still uncontrolled 3. Chest pain secondary to demand ischemia. Report no complaints today 4. Fluid overload. Had ultrafiltration yesterday 5. Shortness of breath likely secondary to fluid overload with flash pulmonary edema. Still short of breath 6. End-stage renal disease on hemodialysis. Has right chest permacath 7. Diabetes mellitus type II. 8. History of old cerebrovascular accident. 9. Hypothyroidism. 10. Recent positive blood culture 11. Obesity 12. Anemia of chronic disease Assessment/Plan (Daily) No labs today Patient still in ICU still on nitroglycerin drip low-dose Blood sugar under reasonable control -Patient has positive balance 250 mL -Continue fluid restriction 1 L a day -Had yesterday dialysis, tolerated well -Continue with Epogen after hemodialysis - for hyperphosphatemia continue Phoslo with meals, phosphorus is normal -Continue with clonidine patch, Losartan, coreg was discontinued, cw Hydralazine as needed, labetalol as needed - bld cx+coagulase neg staph> pt will need fistula placement -fall precaution -Discussed AV fistula, treatment ESRD, risks benefits, side effects and alternate treatment. -Medication nitroglycerin, their effects and side effects including metabolic, affect on heart were discussed. -Compliance blood pressure medications was addressed. -Care coordinated with Dr Carr Consultation Date/Type/Reason Admit Date/Time Feb 12, 2019 at 22:21 Initial Consult Date February 13, 2019 Type of Consult Nephrology Reason for Consultation Dr. Carr Date/Time of Note DATE: 02/17/19 TIME: 13:18 24 HR Interval Summary Free Text/Dictation EYE: Blurry vision today CARDIOVASCULAR: No chest pain. No Palpitation. RESPIRATORY: has breathing problems, on supplemental oxygen. . GASTROINTESTINAL: no abdominal pain. No Nausea. No Vomiting. Endocrine: No excessive thirst, No polyuria, No hot intolerance. No cold intolerance. Taking supplement for thyroid MUSCULO-SKELETAL: No bone or Joint disease, feels weak. NEUROLOGICAL: Alert oriented in person, place, time and situation. no Headache, Confusion. No Seizures. Psychologically reported anxiety Exam/Review of Systems Exam Vitals Vital Signs Date Temp Pulse Resp B/P (MAP) Pulse Ox O2 O2 Flow FiO2 Time Delivery Rate 02/17/19 73 12:00 02/17/19 18 148/61 96 11:00 (90) 02/17/19 97.5 08:00 02/17/19 Room Air 01:00 02/16/19 1.0 17:00 Intake and Output 02/16/19 02/16/19 02/17/19 1515:00 23:00 07:00 IntakeIntake Total 1021.0 ml 487.5 ml 97.5 ml OutputOutput Total 200 ml 2500 ml 0 ml BalanceBalance 821.0 ml -2012.5 ml 97.5 ml Exam No acute distress, no events overnight. Right chest PermCath Eyes: anicteric, EOM's intact, present pallor Nose: no rhinorrhea Neck: supple, no thyromegaly, no carotid bruits Lungs: clear bilaterally, decreased. CVS: regular rate and rhythm, no murmurs Abdomen: soft, bowel sounds present, no hepatosplenomegally, no masses, no rebound or guarding. Rectal: differed. External genitalia: no lesions. No Ayala Extremities: no edema, DP palpable Neuro: alert and oriented x 3 Gait: Unable to assess patient in critical condition on the nitroglycerin drip Motor strength: 5+/5+ Sensory exam is normal Deep tendon reflexes: normal, Babisky reflexes are absent bilaterally Skin: no lesions Results Result Diagram: 02/14/19 0426 02/14/19 0426 Results 24hrs Laboratory Tests Test 02/16/19 18:35 02/16/19 21:20 02/17/19 02:29 02/17/19 07:34 Bedside Glucose 139 96 97 96 Test 02/17/19 09:52 02/17/19 11:59 Bedside Glucose 119 176 Medications Medication Current Medications Ceftriaxone Sodium 50 ml @ 100 mls/hr DAILY IVPB Last administered on 02/17/19at 09:42; Admin Dose 100 MLS/HR; Start 02/13/19 at 09:00 Azithromycin (Zithromax) 500 mg DAILY PO Last administered on 02/17/19at 09:42; Admin Dose 500 MG; Start 02/13/19 at 09:00 Morphine Sulfate (morphine) 2 mg Q3H PRN IV mod pain 4-6 Last administered on 02/16/19 20:28; Admin Dose 2 MG; Start 02/12/19 at 23:30 Ondansetron HCl (Zofran Inj) 4 mg Q4 PRN IV nausea Last administered on 02/14/19 08:18; Admin Dose 4 MG; Start 02/12/19 at 23:30 Calcium Acetate (Phoslo) 667 mg WITH MEALS PO Last administered on 02/17/19 13:09; Admin Dose 667 MG; Start 02/13/19 at 07:35 Clopidogrel Bisulfate (plaVIX) 75 mg DAILY PO Last administered on 02/17/19 09:44; Admin Dose 75 MG; Start 02/13/19 at 09:00 Gabapentin (Neurontin) 100 mg BID PO Last administered on 02/17/19 09:44; Admin Dose 100 MG; Start 02/12/19 at 23:30 Labetalol HCl (Normodyne) 200 mg TID PO Last administered on 02/13/19 08:27; Admin Dose 200 MG; Start 02/13/19 at 09:00; Status Hold Levothyroxine Sodium (Synthroid) 25 mcg BEFORE BREAKFAST PO Last administered on 02/17/19 06:16; Admin Dose 25 MCG; Start 02/13/19 at 07:00 Pantoprazole (Protonix Tab) 40 mg AC BREAKFAST PO Last administered on 02/17/19 06:16; Admin Dose 40 MG; Start 02/13/19 at 07:00 Insulin Glargine (Lantus) 10 units QAM SC Last administered on 02/17/19 09:56; Admin Dose 10 UNITS; Start 02/13/19 at 09:00 Hydromorphone HCl (Dilaudid) 0.5 mg Q4H PRN IV SEVERE PAIN LEVEL 7-10 Last adm inistered on 02/16/19 10:49; Admin Dose 0.5 MG; Start 02/13/19 at 03:00 Hydralazine HCl (Apresoline) 10 mg Q4H PRN IV SBP GREATER THAN 160 Last administered on 02/16/19 09:35; Admin Dose 10 MG; Start 02/13/19 at 07:30 Clonidine HCl (Catapres-Tts 3 Patch) 1 patch Q7D TRANSDERM Last administered on 02/13/19at 08:45; Admin Dose 1 PATCH; Start 02/13/19 at 09:00 Doxazosin Mesylate (Cardura) 4 mg BID PO Last administered on 02/17/19at 09:44; Admin Dose 4 MG; Start 02/13/19 at 09:00 Metoclopramide HCl (Reglan) 10 mg Q8H PRN IV VOMITTING Last administered on 02/14/19at 10:02; Admin Dose 10 MG; Start 02/13/19 at 11:00 Diagnostic Test (Pha) (Accu-Chek) 1 ea 02 XX Last administered on 02/17/19at 02: 46; Admin Dose 1 EA; Start 02/14/19 at 02:00 Miscellaneous Information 1 ea NOTE XX ; Start 02/13/19 at 11:00 Glucose (Glutose) 15 gm Q15M PRN PO DECREASED GLUCOSE; Start 02/13/19 at 11:00 Glucose (Glutose) 22.5 gm Q15M PRN PO DECREASED GLUCOSE; Start 02/13/19 at 11:00 Dextrose (D50w Syringe) 25 ml Q15M PRN IV DECREASED GLUCOSE; Start 02/13/19 at 11:00 Dextrose (D50w Syringe) 50 ml Q15M PRN IV DECREASED GLUCOSE; Start 02/13/19 at 11:00 Glucagon (Glucagen) 1 mg Q15M PRN IM DECREASED GLUCOSE; Start 02/13/19 at 11:00 Glucose (Glutose) 15 gm Q15M PRN BUCCAL DECREASED GLUCOSE; Start 02/13/19 at 11:00 Bisacodyl (Dulcolax Supp) 10 mg DAILY PRN [place] CONSTIPATION; Start 02/13/19 at 12:30 Lactulose (Enulose) 20 gm BID PRN PO CONSTIPATION Last administered on 02/14/19at 21:27; Admin Dose 20 GM; Start 02/13/19 at 12:30 Insulin Aspart (Novolog Insulin Pen) NOVOLOG *MODERATE* ALGORITHM WITH MEALS BEDTIME SC Last administered on 02/17/19at 12:05; Admin Dose 2 UNIT; Start 02/13/19 at 17:35 Heparin Sodium (Porcine) (Heparin (1000 Units/ml)) 4,000 unit AFTER DIALYSIS CATHETER Last administered on 02/16/19 16:15; Admin Dose 4,500 UNIT; Start 02/14/19 at 10:00 Amlodipine Besylate (Norvasc) 5 mg BID PO Last administered on 02/17/19 09:44; Admin Dose 5 MG; Start 02/14/19 at 21:00 Labetalol HCl (Labetalol) 10 mg Q4 PRN IV sbp>170 Last administered on 02/16/19 02:25; Admin Dose 10 MG; Start 02/14/19 at 15:30 Losartan Potassium (Cozaar) 50 mg BID PO Last administered on 02/17/19 09:44; Admin Dose 50 MG; Start 02/15/19 at 21:00 Epoetin Marlo-epbx (Retacrit (Esrd)) 4,000 unit TuThSa@1700 SC Last administered on 02/16/19 18:51; Admin Dose 4,000 UNIT; Start 02/16/19 at 17:00 Carvedilol (Coreg) 50 mg BID PO Last administered on 02/17/19 09:43; Admin Dose 50 MG; Start 02/16/19 at 21:00 Hydralazine HCl (Apresoline) 100 mg Q8H PO Last administered on 02/17/19 13:09; Admin Dose 100 MG; Start 02/16/19 at 20:00 Nitroglycerin/ Dextrose 250 ml @ 0 mls/hr TITRATE IV Last administered on 02/17/19 06:15; Admin Dose 12 MLS/HR; Start 02/16/19 at 15:30 Acetaminophen/ Hydrocodone Bitart ([place] (5/325)) 1 tab Q4H PRN PO MODERATE PAIN LEVEL 4-6; Start 02/16/19 at 21:30 Acetaminophen/ Hydrocodone Bitart ([place] (5/325)) 2 tab Q4H PRN PO MODERATE PAIN LEVEL 4-6; Start 02/16/19 at 21:30 Isosorbide Mononitrate (Imdur) 30 mg BID PO ; Start 02/17/19 at 12:30 LINWOOD CHOI Feb 17, 2019 13:21
[2019-02-17] MEDS: ISOSORBIDE MONONITRATE(SR)30 MG TAB PO SCH ×2 (14:11→20:48)
[2019-02-17] MEDS: hydrALAzine 20 MG INJ IV PRN (18:52)
--- NOTE | 2019-02-17 19:50 | PN ---
Date/Time of Note Date/Time of Note DATE: 02/17/19 TIME: 19:50 Assessment/Plan VTE Prophylaxis Risk score (from Nsg)>0 risk: 3 SCD applied (from Nsg): Yes Pharmacological prophylaxis: heparin Lines/Catheters IV Catheter Type (from Nrsg): Peripheral IV Urinary Cath still in place: No Assessment/Plan Assessment/Plan [facility] 1. Ms. Martinez is a 48-year-old woman who presented with a hypertensive urgency that has proven resistant to continuing layers of anti-hypertensive agents, though improved now on oral nitrates with tapering of the nitro drip that is keeping her in the ICU. She was brought in by paramedics from her dialysis center after she developed chest pain, headache and abdominal pain 2 hours into her scheduled dialysis. Presenting blood pressure was 208/90 with a pulse of 105. All these symptoms have resolved. 2. Abdominal pain due to constipation, resolved with multiple stools now 3. Diabetic nephropathy with end-stage renal disease on hemodialysis 4. Type 2 diabetes mellitus 5. Hyperlipidemia 6. Normochromic, normocytic anemia, likely secondary to ESRD 7. Hyponatremia on labs this evening for the first time (129) for unclear re asons. Under treatment for underlying respiratory infection with ceftriaxone and azithromycin. Sugars well-controlled now. * Continue ICU-level care * Repeat BMP in the AM to monitor sodium * Fluid restriction, and I defer to my nephrology colleagues with regard to management of free water intake * Vasopressin receptor antagonists contraindicated in hemodialysis * Wean off nitro drip with target SBP of 140 * My thanks to Dr. Lopez for her advice; started today on oral nitrates * Continue Coreg (carvedilol) at 50 mg twice daily * Continue hydralazine at 100 mg 3 times daily * Losartan switched to 50 mg BID * Continue Norvasc at 50mg BID * Continue clonidine patch * Continue Cardura 4mg PO BID * Continue ceftriaxone and azithromycin * DVT/GI prophylaxis with SCDs and Protonix * Disposition: To telemetry once nitro drip is discontinued. Home once pressure is stabilized Jackie De Leon MD PhD [phone] Result Diagram: 02/14/19 0426 02/14/196 Results 24hrs Laboratory Tests Test 02/16/19 21:20 02/17/19 02:29 02/17/19 07:34 02/17/19 09:52 Bedside Glucose 96 97 96 119 Test 02/17/19 11:59 02/17/19 17:12 Bedside Glucose 176 140 Subjective 24 Hr Interval Summary Free Text/Dictation Overall feeling better, with no pain complaints including headache. No visitors, but she said her son was coming later tonight. Eating well with no nausea. Exam/Review of Systems Exam Vitals Vital Signs Date Temp Pulse Resp B/P (MAP) Pulse Ox O2 O2 Flow FiO2 Time Delivery Rate 02/17/19 78 23 176/154 97 Room Air 19:00 (161) 02/17/19 97.8 16:00 02/16/19 1.0 17:00 Intake and Output 02/16/19 02/16/19 02/17/19 1515:00 23:00 07:00 IntakeIntake Total 1021.0 ml 487.5 ml 97.5 ml OutputOutput Total 200 ml 2500 ml 0 ml BalanceBalance 821.0 ml -2012.5 ml 97.5 ml Exam GEN: Comfortable-appearing, with mild bilateral lid edema HEENT: Extraocular muscles intact. Pupils equal, reactive to light bilaterally. Sclerae anicteric. Moist oropharynx. No JVD. Chest: Clear bilaterally, with mild crackles at the bases. CVS: Regular rhythm, normal rate. No murmurs or gallop. Good peripheral perfusion. Abdomen: Soft, non-tender, no rebound or guarding. Normal bowel sounds. EXTREMITIES: Mild edema, no arthritis NEURO: Alert, oriented, cranial nerves intact. Motor 5/5 bilatearlly. Normal affect, speech, and memory. Skin: Intact Results Results 24hrs Laboratory Tests Test 02/16/19 21:20 02/17/19 02:29 02/17/19 07:34 02/17/19 09:52 Bedside Glucose 96 97 96 119 Test 02/17/19 11:59 02/17/19 17:12 Bedside Glucose 176 140 Medications Medication Current Medications Ceftriaxone Sodium 50 ml @ 100 mls/hr DAILY IVPB Last administered on 02/17/19at 09:42; Admin Dose 100 MLS/HR; Start 02/13/19 at 09:00 Azithromycin (Zithromax) 500 mg DAILY PO Last administered on 02/17/19at 09:42; Admin Dose 500 MG; Start 02/13/19 at 09:00 Morphine Sulfate (morphine) 2 mg Q3H PRN IV mod pain 4-6 Last administered on 02/16/19 20:28; Admin Dose 2 MG; Start 02/12/19 at 23:30 Ondansetron HCl (Zofran Inj) 4 mg Q4 PRN IV nausea Last administered on 02/14/19 08:18; Admin Dose 4 MG; Start 02/12/19 at 23:30 Calcium Acetate (Phoslo) 667 mg WITH MEALS PO Last administered on 02/17/19 17:50; Admin Dose 667 MG; Start 02/13/19 at 07:35 Clopidogrel Bisulfate (plaVIX) 75 mg DAILY PO Last administered on 02/17/19 09:44; Admin Dose 75 MG; Start 02/13/19 at 09:00 Gabapentin (Neurontin) 100 mg BID PO Last administered on 02/17/19 09:44; Admin Dose 100 MG; Start 02/12/19 at 23:30 Labetalol HCl (Normodyne) 200 mg TID PO Last administered on 02/13/19 08:27; Admin Dose 200 MG; Start 02/13/19 at 09:00; Status Hold Levothyroxine Sodium (Synthroid) 25 mcg BEFORE BREAKFAST PO Last administered on 02/17/19 06:16; Admin Dose 25 MCG; Start 02/13/19 at 07:00 Pantoprazole (Protonix Tab) 40 mg AC BREAKFAST PO Last administered on 02/17/19 06:16; Admin Dose 40 MG; Start 02/13/19 at 07:00 Insulin Glargine (Lantus) 10 units QAM SC Last administered on 02/17/19 09:56; Admin Dose 10 UNITS; Start 02/13/19 at 09:00 Hydromorphone HCl (Dilaudid) 0.5 mg Q4H PRN IV SEVERE PAIN LEVEL 7-10 Last administered on 02/16/19 10:49; Admin Dose 0.5 MG; Start 02/13/19 at 03:00 Hydralazine HCl (Apresoline) 10 mg Q4H PRN IV SBP GREATER THAN 160 Last administered on 02/17/19 18:52; Admin Dose 10 MG; Start 02/13/19 at 07:30 Clonidine HCl (Catapres-Tts 3 Patch) 1 patch Q7D TRANSDERM Last administered on 02/13/19at 08:45; Admin Dose 1 PATCH; Start 02/13/19 at 09:00 Doxazosin Mesylate (Cardura) 4 mg BID PO Last administered on 02/17/19at 09:44; Admin Dose 4 MG; Start 02/13/19 at 09:00 Metoclopramide HCl (Reglan) 10 mg Q8H PRN IV VOMITTING Last administered on 02/14/19at 10:02; Admin Dose 10 MG; Start 02/13/19 at 11:00 Diagnostic Test (Pha) (Accu-Chek) 1 ea 02 XX Last administered on 02/17/19at 02:46; Admin Dose 1 EA; Start 02/14/19 at 02:00 Miscellaneous Information 1 ea NOTE XX ; Start 02/13/19 at 11:00 Glucose (Glutose) 15 gm Q15M PRN PO DECREASED GLUCOSE; Start 02/13/19 at 11:00 Glucose (Glutose) 22.5 gm Q15M PRN PO DECREASED GLUCOSE; Start 02/13/19 at 11:00 Dextrose (D50w Syringe) 25 ml Q15M PRN IV DECREASED GLUCOSE; Start 02/13/19 at 11:00 Dextrose (D50w Syringe) 50 ml Q15M PRN IV DECREASED GLUCOSE; Start 02/13/19 at 11:00 Glucagon (Glucagen) 1 mg Q15M PRN IM DECREASED GLUCOSE; Start 02/13/19 at 11:00 Glucose (Glutose) 15 gm Q15M PRN BUCCAL DECREASED GLUCOSE; Start 02/13/19 at 11:00 Bisacodyl (Dulcolax Supp) 10 mg DAILY PRN [place] CONSTIPATION; Start 02/13/19 at 12:30 Lactulose (Enulose) 20 gm BID PRN PO CONSTIPATION Last administered on 02/14/19at 21:27; Admin Dose 20 GM; Start 02/13/19 at 12:30 Insulin Aspart (Novolog Insulin Pen) NOVOLOG *MODERATE* ALGORITHM WITH MEALS BEDTIME SC Last administered on 02/17/19at 12:05; Admin Dose 2 UNIT; Start 02/13/19 at 17:35 Heparin Sodium (Porcine) (Heparin (1000 Units/ml)) 4,000 unit AFTER DIALYSIS CATHETER Last administered on 02/16/19at 16:15; Admin Dose 4,500 UNIT; Start 02/14/19 at 10:00 Amlodipine Besylate (Norvasc) 5 mg BID PO Last administered on 02/17/19 09:44; Admin Dose 5 MG; Start 02/14/19 at 21:00 Labetalol HCl (Labetalol) 10 mg Q4 PRN IV sbp>170 Last administered on 02/16/19 02:25; Admin Dose 10 MG; Start 02/14/19 at 15:30 Losartan Potassium (Cozaar) 50 mg BID PO Last administered on 02/17/19 09:44; Admin Dose 50 MG; Start 02/15/19 at 21:00 Epoetin Marlo-epbx (Retacrit (Esrd)) 4,000 unit TuThSa@1700 SC Last administered on 02/16/19 18:51; Admin Dose 4,000 UNIT; Start 02/16/19 at 17:00 Carvedilol (Coreg) 50 mg BID PO Last administered on 02/17/19 09:43; Admin Dose 50 MG; Start 02/16/19 at 21:00 Hydralazine HCl (Apresoline) 100 mg Q8H PO Last administered on 02/17/19 13:09; Admin Dose 100 MG; Start 02/16/19 at 20:00 Nitroglycerin/ Dextrose 250 ml @ 0 mls/hr TITRATE IV Last administered on 06:15; Admin Dose 12 MLS/HR; Start 02/16/19 at 15:30 Acetaminophen/ Hydrocodone Bitart ([place] (5/325)) 1 tab Q4H PRN PO MODERATE PAIN LEVEL 4-6; Start 02/16/19 at 21:30 Acetaminophen/ Hydrocodone Bitart ([place] (5/325)) 2 tab Q4H PRN PO MODERATE PAIN LEVEL 4-6; Start 02/16/19 at 21:30 Isosorbide Mononitrate (Imdur) 30 mg BID PO Last administered on 02/17/19at 14:11; Admin Dose 30 MG; Start 02/17/19 at 12:30 LADONNA DE LEON M.D. Feb 17, 2019 19:50
[2019-02-17] MEDS ORDERED: LORAZEPAM 1 MG TAB PO PRN (23:00)
[2019-02-18] VITALS (35 sets, daily range): BP systolic 132–168; BP diastolic 53–70; PULSE 63–75; RESP 13–33
[2019-02-18] MEDS: ACCU-CHEK XX SCH (02:37)
[2019-02-18] MEDS: PANTOPRAZOLE (EC) 40 MG TAB PO SCH (06:18)
[2019-02-18] MEDS: LEVOTHYROXINE 25 MCG TAB PO SCH (06:18)
[2019-02-18] MEDS: INSULIN ASPART [NOVOLOG] 3 ML PEN SC SCH ×2 (07:35→11:30)
[2019-02-18] MEDS: CALCIUM ACETATE 667 MG CAP PO SCH ×2 (08:25→11:56)
[2019-02-18] MEDS: CEFTRIAXONE 1 GM/50 ML (PMX) 50 ML IVPB SCH (09:00)
[2019-02-18] MEDS: GABAPENTIN 100 MG CAP PO SCH (09:02)
[2019-02-18] MEDS: AZITHROMYCIN 500 MG TAB PO SCH (09:02)
[2019-02-18] MEDS: CLOPIDOGREL 75 MG TAB PO SCH (09:02)
[2019-02-18] MEDS: DOXAZOSIN 4 MG TAB PO SCH (09:06)
[2019-02-18] MEDS: ISOSORBIDE MONONITRATE(SR)30 MG TAB PO SCH (09:06)
[2019-02-18] MEDS: LOSARTAN 50 MG TAB PO SCH (09:07)
[2019-02-18] MEDS: AMLODIPINE 5 MG TAB PO SCH (09:07)
[2019-02-18] MEDS: INSULIN GLARGINE [LANTus] (100 UNITS/ML) SYG SC SCH (09:15)
--- NOTE | 2019-02-18 10:38 | CONS ---
Assessment/Plan Assessment/Plan Assessment/Plan (Daily) 1 Abdominal pain, nausea, vomiting, The patient did not have any bowel movement for the last few days. Rule out bowel obstruction, KUB is negative however patient is constipated , RESOLVED NOW 2. Hypertensive urgency/emergency. Likely secondary to noncompliance with medications. The patient prescriptions were for refill, and the patient did not take any blood pressure medicine for 2 to 3 days. Better 3. Chest pain secondary to demand ischemia. Report no complaints today 4. Fluid overload. Had ultrafiltration yesterday 5. Shortness of breath likely secondary to fluid overload with flash pulmonary edema. Still short of breath 6. End-stage renal disease on hemodialysis. Has right chest permacath 7. Diabetes mellitus type II. 8. History of old cerebrovascular accident. 9. Hypothyroidism. 10. Recent positive blood culture 11. Obesity 12. Anemia of chronic disease Plan - Off NTG gtt since this am - cw Imdur , norvasc, clonidine patch, coreg 50 bid, hydralazine and cozaar per cards -Continue with Epogen after hemodialysis - HD TTS -Discussed AV fistula, treatment ESRD, risks benefits, side effects and alternate treatment. -Compliance blood pressure medications was addressed. -Care coordinated with Dr Carr Consultation Date/Type/Reason Admit Date/Time Feb 12, 2019 at 22:21 Initial Consult Date Date/Time of Note DATE: 02/18/19 TIME: 10:34 24 HR Interval Summary Free Text/Dictation off NTG gtt this am , SBP 160 Exam/Review of Systems Exam Vitals Vital Signs Date Temp Pulse Resp B/P (MAP) Pulse Ox O2 O2 Flow FiO2 Time Delivery Rate 02/18/19 98.0 68 16 135/53 100 Room Air 08:00 (80) 02/18/19 2.0 06:00 Intake and Output 02/17/19 02/17/19 02/18/19 1515:00 23:00 07:00 IntakeIntake Total 384.0 ml 290.485 ml 20.8125 ml OutputOutput Total 0 ml 0 ml 200 ml BalanceBalance 384.0 ml 290.485 ml -179.1875 ml Exam No acute distress, Right chest PermCath Lungs: clear bilaterally, decreased. CVS: regular rate and rhythm, no murmurs Abdomen: soft, bowel sounds present Neuro: alert and oriented x 3 Skin: no lesions Results Result Diagram: 02/18/19 0432 02/18/19 0432 Results 24hrs Laboratory Tests Test 02/17/19 11:59 02/17/19 17:12 02/17/19 19:58 02/17/19 20:47 Bedside Glucose 176 140 192 White Blood Count 5.9 Red Blood Count 3.67 L Hemoglobin 11.2 L Hematocrit 33.8 L Mean Corpuscular 92.1 Volume Mean Corpuscular 30.5 Hemoglobin Mean Corpuscular 33.1 Hemoglobin Concent Red Cell 14.4 Distribution Width Platelet Count 199 Mean Platelet 10.6 H Volume Immature 0.800 H Granulocytes % Neutrophils % 82.0 H Lymphocytes % 7.4 L Monocytes % 6.9 Eosinophils % 2.7 Basophils % 0.2 Nucleated Red 0.0 Blood Cells % Immature 0.050 H Granulocytes # Neutrophils # 4.9 Lymphocytes # 0.4 L Monocytes # 0.4 Eosinophils # 0.2 Basophils # 0.0 Nucleated Red 0.0 Blood Cells # Sodium Level 129 L Potassium Level 4.7 Chloride Level 92 L Carbon Dioxide 26 Level Anion Gap 11 Blood Urea 31 H Nitrogen Creatinine 5.93 H Est Glomerular 8 L Filtrat Rate mL/min Glucose Level 174 Hemoglobin A1c 5.6 Calcium Level 9.1 Phosphorus Level 3.7 Total Bilirubin 0.2 Direct Bilirubin 0.00 Indirect Bilirubin 0.2 Aspartate Amino 21 Transf (AST/SGOT) Alanine 15 Aminotransferase ( ALT/SGPT) Alkaline 113 Phosphatase Total Protein 7.5 Albumin 4.1 Globulin 3.40 H Albumin/Globulin 1.20 Ratio Test 02/18/19 02:37 02/18/19 04:32 02/18/19 05:38 02/18/19 08:26 Bedside Glucose 103 95 White Blood Count 4.6 #L Red Blood Count 3.32 L Hemoglobin 10.1 L Hematocrit 30.4 L Mean Corpuscular 91.6 Volume Mean Corpuscular 30.4 Hemoglobin Mean Corpuscular 33.2 Hemoglobin Concent Red Cell 14.2 Distribution Width Platelet Count 190 Mean Platelet 10.4 Volume Immature 0.600 H Granulocytes % Neutrophils % 74.6 Lymphocytes % 10.6 L Monocytes % 10.6 Eosinophils % 3.4 Basophils % 0.2 Nucleated Red 0.0 Blood Cells % Immature 0.030 Granulocytes # Neutrophils # 3.5 Lymphocytes # 0.5 L Monocytes # 0.5 Eosinophils # 0.2 Basophils # 0.0 Nucleated Red 0.0 Blood Cells # Sodium Level 130 L Potassium Level 4.7 Chloride Level 93 L Carbon Dioxide 26 Level Anion Gap 11 Blood Urea 35 H Nitrogen Creatinine 6.21 H Est Glomerular 7 L Filtrat Rate mL/min Glucose Level 96 # Calcium Level 8.7 Lab Scanned Report REFERENCE LAB Medications Medication Current Medications Ceftriaxone Sodium 50 ml @ 100 mls/hr DAILY IVPB Last administered on 02/18/19 09:00; Admin Dose 100 MLS/HR; Start 02/13/19 at 09:00 Azithromycin (Zithromax) 500 mg DAILY PO Last administered on 02/18/19 09:02; Admin Dose 500 MG; Start 02/13/19 at 09:00 Morphine Sulfate (morphine) 2 mg Q3H PRN IV mod pain 4-6 Last administered on 02/16/19 20:28; Admin Dose 2 MG; Start 02/12/19 at 23:30 Ondansetron HCl (Zofran Inj) 4 mg Q4 PRN IV nausea Last administered on 02/14/19 08:18; Admin Dose 4 MG; Start 02/12/19 at 23:30 Calcium Acetate (Phoslo) 667 mg WITH MEALS PO Last administered on 02/18/19 08:25; Admin Dose 667 MG; Start 02/13/19 at 07:35 Clopidogrel Bisulfate (plaVIX) 75 mg DAILY PO Last administered on 02/18/19 09:02; Admin Dose 75 MG; Start 02/13/19 at 09:00 Gabapentin (Neurontin) 100 mg BID PO Last administered on 02/18/19 09:02; Admin Dose 100 MG; Start 02/12/19 at 23:30 Labetalol HCl (Normodyne) 200 mg TID PO Last administered on 02/13/19 08:27; Admin Dose 200 MG; Start 02/13/19 at 09:00; Status Hold Levothyroxine Sodium (Synthroid) 25 mcg BEFORE BREAKFAST PO Last administered on 02/18/19 06:18; Admin Dose 25 MCG; Start 02/13/19 at 07:00 Pantoprazole (Protonix Tab) 40 mg AC BREAKFAST PO Last administered on 02/18/19 06:18; Admin Dose 40 MG; Start 02/13/19 at 07:00 Insulin Glargine (Lantus) 10 units QAM SC Last administered on 02/18/19 09:15; Admin Dose 10 UNITS; Start 02/13/19 at 09:00 Hydromorphone HCl (Dilaudid) 0.5 mg Q4H PRN IV SEVERE PAIN LEVEL 7-10 Last administered on 02/16/19at 10:49; Admin Dose 0.5 MG; Start 02/13/19 at 03:00 Hydralazine HCl (Apresoline) 10 mg Q4H PRN IV SBP GREATER THAN 160 Last administered on 02/17/19at 18:52; Admin Dose 10 MG; Start 02/13/19 at 07:30 Clonidine HCl (Catapres-Tts 3 Patch) 1 patch Q7D TRANSDERM Last administered on 02/13/19 08:45; Admin Dose 1 PATCH; Start 02/13/19 at 09:00 Doxazosin Mesylate (Cardura) 4 mg BID PO Last administered on 02/18/19at 09:06; Admin Dose 4 MG; Start 02/13/19 at 09:00 Metoclopramide HCl (Reglan) 10 mg Q8H PRN IV VOMITTING Last administered on 02/14/19at 10:02; Admin Dose 10 MG; Start 02/13/19 at 11:00 Diagnostic Test (Pha) (Accu-Chek) 1 ea 02 XX Last administered on 02/18/19at 02:37; Admin Dose 1 EA; Start 02/14/19 at 02:00 Miscellaneous Information 1 ea NOTE XX ; Start 02/13/19 at 11:00 Glucose (Glutose) 15 gm Q15M PRN PO DECREASED GLUCOSE; Start 02/13/19 at 11:00 Glucose (Glutose) 22.5 gm Q15M PRN PO DECREASED GLUCOSE; Start 02/13/19 at 11:00 Dextrose (D50w Syringe) 25 ml Q15M PRN IV DECREASED GLUCOSE; Start 02/13/19 at 11:00 Dextrose (D50w Syringe) 50 ml Q15M PRN IV DECREASED GLUCOSE; Start 02/13/19 at 11:00 Glucagon (Glucagen) 1 mg Q15M PRN IM DECREASED GLUCOSE; Start 02/13/19 at 11:00 Glucose (Glutose) 15 gm Q15M PRN BUCCAL DECREASED GLUCOSE; Start 02/13/19 at 11:00 Bisacodyl (Dulcolax Supp) 10 mg DAILY PRN [place] CONSTIPATION; Start 02/13/19 at 12:30 Lactulose (Enulose) 20 gm BID PRN PO CONSTIPATION Last administered on 02/14/19 21:27; Admin Dose 20 GM; Start 02/13/19 at 12:30 Insulin Aspart (Novolog Insulin Pen) NOVOLOG *MODERATE* ALGORITHM WITH MEALS BEDTIME SC Last administered on 02/17/19 20:55; Admin Dose 1 UNIT; Start 02/13/19 at 17:35 Heparin Sodium (Porcine) (Heparin (1000 Units/ml)) 4,000 unit AFTER DIALYSIS CATHETER Last administered on 02/16/19 16:15; Admin Dose 4,500 UNIT; Start 02/14/19 at 10:00 Amlodipine Besylate (Norvasc) 5 mg BID PO Last administered on 02/18/19 09:07; Admin Dose 5 MG; Start 02/14/19 at 21:00 Labetalol HCl (Labetalol) 10 mg Q4 PRN IV sbp>170 Last administered on 02/16/19 02:25; Admin Dose 10 MG; Start 02/14/19 at 15:30 Losartan Potassium (Cozaar) 50 mg BID PO Last administered on 02/18/19 09:07; Admin Dose 50 MG; Start 02/15/19 at 21:00 Epoetin Marlo-epbx (Retacrit (Esrd)) 4,000 unit TuThSa@1700 SC Last administered on 02/16/19 18:51; Admin Dose 4,000 UNIT; Start 02/16/19 at 17:00 Carvedilol (Coreg) 50 mg BID PO Last administered on 02/18/19 09:07; Admin Dose 50 MG; Start 02/16/19 at 21:00 Hydralazine HCl (Apresoline) 100 mg Q8H PO Last administered on 02/18/19 04:13; Admin Dose 100 MG; Start 02/16/19 at 20:00 Nitroglycerin/ Dextrose 250 ml @ 0 mls/hr TITRATE IV Last administered on 02/17/19 06:15; Admin Dose 12 MLS/HR; Start 02/16/19 at 15:30 Acetaminophen/ Hydrocodone Bitart ([place] (5/325)) 1 tab Q4H PRN PO MODERATE PAIN LEVEL 4-6; Start 02/16/19 at 21:30 Acetaminophen/ Hydrocodone Bitart ([place] (5/325)) 2 tab Q4H PRN PO MODERATE PAIN LEVEL 4-6; Start 02/16/19 at 21:30 Isosorbide Mononitrate (Imdur) 30 mg BID PO Last administered on 02/18/19at 09:06; Admin Dose 30 MG; Start 02/17/19 at 12:30 Lorazepam (Ativan) 1 mg HS PRN PO INSOMNIA Last administered on 02/17/19at 23:18; Admin Dose 1 MG; Start 02/17/19 at 23:00 HAYLEE CULVER MD Feb 18, 2019 10:38
[2019-02-18] MEDS ORDERED: DOXA4TAB2 PO (11:16)
[2019-02-18] MEDS ORDERED: CARV25TA79 PO (11:16)
[2019-02-18] MEDS ORDERED: HYDR-3672 PO (11:16)
[2019-02-18] MEDS ORDERED: LABE200T25 PO (11:16)
[2019-02-18] MEDS ORDERED: ISOS30TA67 PO (11:16)
[2019-02-18] MEDS ORDERED: CLON1PAT3 TRANSDERM (11:16)
[2019-02-18] MEDS ORDERED: AMLO-145 PO (11:16)
[2019-02-18] MEDS ORDERED: LOSA50TA2 PO (11:16)
--- NOTE | 2019-02-18 11:18 | PDOCDIS ---
Discharge Instructions CONDITION [id number] Patient Condition: [id number] Good HOME CARE INSTRUCTIONS: [id number] Diet Instructions: Sfgon0j is: [id number] fluid restriction 1 liter dialy ACTIVITY: [id number] Activity Restrictions: [id number] No Restrictions FOLLOW UP/APPOINTMENTS Follow-up Plan pcp 1 week sreedhar in [place] Smith MD Feb 18, 2019 11:18
--- NOTE | 2019-02-18 13:33 | CONS ---
Assessment/Plan Assessment/Plan Hospital Course (Demo Recall) Hypertension urgency-improved Preserved left ventricular ejection fraction Nausea and vomiting-improved End-stage renal disease hemodialysis Diabetes Blood pressure trend currently improved and off IV drip Titrate antihypertensives as needed Fluid management via hemodialysis as per nephrology Consultation Date/Type/Reason Admit Date/Time Feb 12, 2019 at 22:21 Initial Consult Date Type of Consult Cardiology Date/Time of Note DATE: 02/18/19 TIME: 13:32 24 HR Interval Summary Free Text/Dictation No shortness of breath, chest pain, palpitations Exam/Review of Systems Vital Signs Vitals Vital Signs Date Temp Pulse Resp B/P (MAP) Pulse Ox O2 O2 Flow FiO2 Time Delivery Rate 02/18/19 72 20 168/66 96 Room Air 10:00 (100) 02/18/19 98.0 08:00 02/18/19 2.0 06:00 Intake and Output 02/17/19 02/17/19 02/18/19 1515:00 23:00 07:00 IntakeIntake Total 384.0 ml 290.485 ml 20.8125 ml OutputOutput Total 0 ml 0 ml 200 ml BalanceBalance 384.0 ml 290.485 ml -179.1875 ml Exam Constitutional: alert, oriented, well developed Head: normocephalic Respiratory: clear to auscultation, normal air movement Cardiovascular: regular rate and rhythm (S1-S2) Gastrointestinal: soft, non-tender, bowel sounds Extremities: other (No significant edema) Labs Result Diagram: 02/18/19 0432 02/18/19 0432 Results 24hrs Laboratory Tests Test 02/17/19 17:12 02/17/19 19:58 02/17/19 20:47 02/18/19 02:37 Bedside Glucose 140 192 103 White Blood Count 5.9 Red Blood Count 3.67 L Hemoglobin 11.2 L Hematocrit 33.8 L Mean Corpuscular 92.1 Volume Mean Corpuscular 30.5 Hemoglobin Mean Corpuscular 33.1 Hemoglobin Concent Red Cell 14.4 Distribution Width Platelet Count 199 Mean Platelet 10.6 H Volume Immature 0.800 H Granulocytes % Neutrophils % 82.0 H Lymphocytes % 7.4 L Monocytes % 6.9 Eosinophils % 2.7 Basophils % 0.2 Nucleated Red 0.0 Blood Cells % Immature 0.050 H Granulocytes # Neutrophils # 4.9 Lymphocytes # 0.4 L Monocytes # 0.4 Eosinophils # 0.2 Basophils # 0.0 Nucleated Red 0.0 Blood Cells # Sodium Level 129 L Potassium Level 4.7 Chloride Level 92 L Carbon Dioxide 26 Level Anion Gap 11 Blood Urea 31 H Nitrogen Creatinine 5.93 H Est Glomerular 8 L Filtrat Rate mL/min Glucose Level 174 Hemoglobin A1c 5.6 Calcium Level 9.1 Phosphorus Level 3.7 Total Bilirubin 0.2 Direct Bilirubin 0.00 Indirect Bilirubin 0.2 Aspartate Amino 21 Transf (AST/SGOT) Alanine 15 Aminotransferase ( ALT/SGPT) Alkaline 113 Phosphatase Total Protein 7.5 Albumin 4.1 Globulin 3.40 H Albumin/Globulin 1.20 Ratio Test 02/18/19 04:32 02/18/19 05:38 02/18/19 08:26 02/18/19 12:00 White Blood Count 4.6 #L Red Blood Count 3.32 L Hemoglobin 10.1 L Hematocrit 30.4 L Mean Corpuscular 91.6 Volume Mean Corpuscular 30.4 Hemoglobin Mean Corpuscular 33.2 Hemoglobin Concent Red Cell 14.2 Distribution Width Platelet Count 190 Mean Platelet 10.4 Volume Immature 0.600 H Granulocytes % Neutrophils % 74.6 Lymphocytes % 10.6 L Monocytes % 10.6 Eosinophils % 3.4 Basophils % 0.2 Nucleated Red 0.0 Blood Cells % Immature 0.030 Granulocytes # Neutrophils # 3.5 Lymphocytes # 0.5 L Monocytes # 0.5 Eosinophils # 0.2 Basophils # 0.0 Nucleated Red 0.0 Blood Cells # Sodium Level 130 L Potassium Level 4.7 Chloride Level 93 L Carbon Dioxide 26 Level Anion Gap 11 Blood Urea 35 H Nitrogen Creatinine 6.21 H Est Glomerular 7 L Filtrat Rate mL/min Glucose Level 96 # Calcium Level 8.7 Lab Scanned Report REFERENCE LAB Bedside Glucose 95 99 Medications Medications Current Medications Morphine Sulfate (morphine) 2 mg Q3H PRN IV mod pain 4-6 Last administered on 02/16/19at 20:28; Admin Dose 2 MG; Start 02/12/19 at 23:30 Ondansetron HCl (Zofran Inj) 4 mg Q4 PRN IV nausea Last administered on 02/14/19at 08:18; Admin Dose 4 MG; Start 02/12/19 at 23:30 Calcium Acetate (Phoslo) 667 mg WITH MEALS PO Last administered on 02/18/19 11:56; Admin Dose 667 MG; Start 02/13/19 at 07:35 Clopidogrel Bisulfate (plaVIX) 75 mg DAILY PO Last administered on 02/18/19 09:02; Admin Dose 75 MG; Start 02/13/19 at 09:00 Gabapentin (Neurontin) 100 mg BID PO Last administered on 02/18/19 09:02; Admin Dose 100 MG; Start 02/12/19 at 23:30 Labetalol HCl (Normodyne) 200 mg TID PO Last administered on 02/13/19 08:27; Admin Dose 200 MG; Start 02/13/19 at 09:00; Status Hold Levothyroxine Sodium (Synthroid) 25 mcg BEFORE BREAKFAST PO Last administered on 02/18/19 06:18; Admin Dose 25 MCG; Start 02/13/19 at 07:00 Pantoprazole (Protonix Tab) 40 mg AC BREAKFAST PO Last administered on 02/18/19 06:18; Admin Dose 40 MG; Start 02/13/19 at 07:00 Insulin Glargine (Lantus) 10 units QAM SC Last administered on 02/18/19 09:15; Admin Dose 10 UNITS; Start 02/13/19 at 09:00 Hydromorphone HCl (Dilaudid) 0.5 mg Q4H PRN IV SEVERE PAIN LEVEL 7-10 Last administered on 02/16/19 10:49; Admin Dose 0.5 MG; Start 02/13/19 at 03:00 Hydralazine HCl (Apresoline) 10 mg Q4H PRN IV SBP GREATER THAN 160 Last administered on 02/17/19 18:52; Admin Dose 10 MG; Start 02/13/19 at 07:30 Clonidine HCl (Catapres-Tts 3 Patch) 1 patch Q7D TRANSDERM Last administered on 02/13/19 08:45; Admin Dose 1 PATCH; Start 02/13/19 at 09:00 Doxazosin Mesylate (Cardura) 4 mg BID PO Last administered on 02/18/19 09:06; Admin Dose 4 MG; Start 02/13/19 at 09:00 Metoclopramide HCl (Reglan) 10 mg Q8H PRN IV VOMITTING Last administered on 7/18/19at 10:02; Admin Dose 10 MG; Start 02/13/19 at 11:00 Diagnostic Test (Pha) (Accu-Chek) 1 ea 02 XX Last administered on 02/18/19at 02:37; Admin Dose 1 EA; Start 02/14/19 at 02:00 Miscellaneous Information 1 ea NOTE XX ; Start 02/13/19 at 11:00 Glucose (Glutose) 15 gm Q15M PRN PO DECREASED GLUCOSE; Start 02/13/19 at 11:00 Glucose (Glutose) 22.5 gm Q15M PRN PO DECREASED GLUCOSE; Start 02/13/19 at 11:00 Dextrose (D50w Syringe) 25 ml Q15M PRN IV DECREASED GLUCOSE; Start 02/13/19 at 11:00 Dextrose (D50w Syringe) 50 ml Q15M PRN IV DECREASED GLUCOSE; Start 02/13/19 at 11:00 Glucagon (Glucagen) 1 mg Q15M PRN IM DECREASED GLUCOSE; Start 02/13/19 at 11:00 Glucose (Glutose) 15 gm Q15M PRN BUCCAL DECREASED GLUCOSE; Start 02/13/19 at 11:00 Bisacodyl (Dulcolax Supp) 10 mg DAILY PRN [place] CONSTIPATION; Start 02/13/19 at 12:30 Lactulose (Enulose) 20 gm BID PRN PO CONSTIPATION Last administered on 02/14/19at 21:27; Admin Dose 20 GM; Start 02/13/19 at 12:30 Insulin Aspart (Novolog Insulin Pen) NOVOLOG *MODERATE* ALGORITHM WITH MEALS BEDTIME SC Last administered on 02/17/19at 20:55; Admin Dose 1 UNIT; Start 02/13/19 at 17:35 Heparin Sodium (Porcine) (Heparin (1000 Units/ml)) 4,000 unit AFTER DIALYSIS CATHETER Last administered on 02/16/19at 16:15; Admin Dose 4,500 UNIT; Start 02/14/19 at 10:00 Amlodipine Besylate (Norvasc) 5 mg BID PO Last administered on 02/18/19at 09:07; Admin Dose 5 MG; Start 02/14/19 at 21:00 Labetalol HCl (Labetalol) 10 mg Q4 PRN IV sbp>170 Last administered on 02/16/19at 02:25; Admin Dose 10 MG; Start 02/14/19 at 15:30 Losartan Potassium (Cozaar) 50 mg BID PO Last administered on 02/18/19 09:07; Admin Dose 50 MG; Start 02/15/19 at 21:00 Epoetin Marlo-epbx (Retacrit (Esrd)) 4,000 unit TuThSa@1700 SC Last administered on 02/16/19 18:51; Admin Dose 4,000 UNIT; Start 02/16/19 at 17:00 Carvedilol (Coreg) 50 mg BID PO Last administered on 02/18/19 09:07; Admin Dose 50 MG; Start 02/16/19 at 21:00 Hydralazine HCl (Apresoline) 100 mg Q8H PO Last administered on 02/18/19 11:56; Admin Dose 100 MG; Start 02/16/19 at 20:00 Nitroglycerin/ Dextrose 250 ml @ 0 mls/hr TITRATE IV Last administered on 02/17/19 06:15; Admin Dose 12 MLS/HR; Start 02/16/19 at 15:30 Acetaminophen/ Hydrocodone Bitart ([place] (5/325)) 1 tab Q4H PRN PO MODERATE PAIN LEVEL 4-6; Start 02/16/19 at 21:30 Acetaminophen/ Hydrocodone Bitart ([place] (5/325)) 2 tab Q4H PRN PO MODERATE PAIN LEVEL 4-6; Start 02/16/19 at 21:30 Isosorbide Mononitrate (Imdur) 30 mg BID PO Last administered on 02/18/19 09:06; Admin Dose 30 MG; Start 02/17/19 at 12:30 Lorazepam (Ativan) 1 mg HS PRN PO INSOMNIA Last administered on 02/17/19 23:18; Admin Dose 1 MG; Start 02/17/19 at 23:00 Estuardo Taylor DO Feb 18, 2019 13:33
--- NOTE | 2019-02-19 03:22 | DS ---
DATE OF ADMISSION: 02/12/2019 DATE OF DISCHARGE: 02/18/2019 DISCHARGE DIAGNOSES: 1. A 48-year-old female with hypertensive urgency, resolved. 2. Poorly controlled hypertension. 3. End-stage renal disease on hemodialysis. 4. Type 2 diabetes mellitus. 5. Hyperlipidemia. 6. Anemia of chronic disease. 7. Constipation, resolved. 8. Noncompliance with medical therapy. HOSPITAL COURSE: A 48-year-old female with a history of longstanding hypertension, end-stag e renal disease, and type 2 diabetes mellitus, presented to the emergency room with complaint of abdo lori pain and nausea and vomiting. The patient had not been taking her blood pressure medicines for several days. Initial evaluation was consistent with hypertensive urgency. The patient was admitted to ICU and placed on nectar where nitroglycerin drip. She was seen in consu ltation by nephrology and cardiology. The patient underwent hemodialysis several times and a lot of fluid was removed during the hospitalization. Her oral medications were optimized. According to her contract mail carrier, patient is very noncompliant with her medical therapy. The patient was constipated and received laxatives. Her abdominal pain, nausea and vomiting were res olved after she had several bowel movements. Ultrasound of the abdomen showed mild hepatomegaly. Th e patient is status post cholecystectomy. She is in stable condition for discharge. Her blood press ure has been stable off nitro drip. Case was discussed with Dr. May who agreed with discharge alycia nning. MEDICATIONS ON DISCHARGE: 1. Norvasc 5 mg p.o. b.i.d. 2. Carvedilol 50 mg p.o. b.i.d. 3. Clonidine patch 0.3 mg every 7 days. 4. Cardura 4 mg b.i.d. 5. Hydralazine 100 mg 3 times daily. 6. Isosorbide mononitrate 30 mg b.i.d. 7. Losartan 50 mg b.i.d. 8. Calcium acetate 667 mg with meals 3 times daily. 9. Plavix 75 mg daily. 10. Gabapentin 100 mg b.i.d. 11. Insulin 10 units q.a.m. 12. Lispro insulin 2 units with each meal. 13. Labetalol 200 mg t.i.d. 14. Levothyroxine 25 mcg daily. 15. Minoxidil 2.5 mg b.i.d. 16. Nephro-Sandra 1 tablet daily. 17. Protonix 40 mg daily. DISCHARGE INSTRUCTIONS: 1. Follow up with PCP in 1 week. 2. Hemodialysis in a.m. as outpatient. 3. The patient was asked to adhere to a low sodium diabetic diet as well as fluid restriction of 1 l iter per day. Dictated By: CRISTO ESCOBAR/WAQAS Conf#: [id number] DID#: [id number] CC: COLT WONG DO; HAYLEE MAY;*EndCC*
[2019-02-24] MEDS ORDERED: CLON0.2T12 PO (09:46)
[2019-02-25] MEDS ORDERED: DOXA4TAB2 PO (09:21)
[2019-02-25] MEDS ORDERED: ISOS30TA67 PO (09:21)
[2019-02-25] MEDS ORDERED: CARV25TA79 PO (09:21)
== END 2019-02-18 16:44 | disposition still patient (30) | DRG 304 ==
LOC: E/R 19:13 → ICU 22:21
PROVIDERS: ADMIT Internal Medicine; ATTEND Internal Medicine
PROC: 5A1D70Z Performance of Urinary Filtration, Intermittent, Less than 6 Hours Per Day (ICD-10-PCS; principal; 2019-02-13)
DX: I16.0 Hypertensive urgency (principal); N18.6 End stage renal disease; I24.8 Other forms of acute ischemic heart disease; E87.1 Hypo-osmolality and hyponatremia; E87.70 Fluid overload, unspecified; I12.0 Hypertensive chronic kidney disease with stage 5 chronic kidney disease or end stage renal disease; E78.5 Hyperlipidemia, unspecified; D63.1 Anemia in chronic kidney disease; K59.00 Constipation, unspecified; E03.9 Hypothyroidism, unspecified; R11.2 Nausea with vomiting, unspecified; E66.9 Obesity, unspecified; E11.22 Type 2 diabetes mellitus with diabetic chronic kidney disease; J98.8 Other specified respiratory disorders; E11.21 Type 2 diabetes mellitus with diabetic nephropathy; Z99.2 Dependence on renal dialysis; Z91.19 Patient's noncompliance with other medical treatment and regimen; Z68.32 Body mass index [BMI] 32.0-32.9, adult; Z86.73 Personal history of transient ischemic attack (TIA), and cerebral infarction without residual deficits
CPT/HCPCS: 36415; 71045; 74018; 76700; 80048; 80053; 80076; 82310; 82962; 83036; 83690; 84100; 84484; 84703; 85025; 85610; 85730; 87081; 87340; 90935; 93005; 93306; 96365; 96375; J0360; J0696; J1170; J1200; J1644; J1815; J2060; J2270; J2405; J2543; J2765; J3370; Q5105

== ENCOUNTER 2019-02-23 18:37 | Inpatient (IN) | payer OTHER ==
[~2019-02-23] VITALS: Ht 167.6 cm; Wt 80.0 kg
[~2019-02-23 18:37] MED LIST changes: +AMLO-145 PO; +AMLO-147 PO; -AMLO5TAB4 PO; +CARV25TA79 PO; -CARV3.1260 PO; -CLON-379 PO; +CLON0.2T12 PO; -CLON1PAT2 TD; +CLON1PAT3 TRANSDERM; -DOXA2TAB PO; +DOXA4TAB2 PO; +HYDR-3672 PO; -HYDR-4011 PO; +ISOS30TA67 PO; -LEVO750T8 PO; -LOSA50TA14 PO; +LOSA50TA2 PO; +METH250T21 PO; -PHEN-717 PO
[2019-02-23] MEDS ORDERED: NITROGLYCERIN (SL) 0.4 MG TAB SL PRN (19:00)
[2019-02-23] MEDS ORDERED: morphine 4 MG/ML VIAL IV STA ×2 (19:26→21:13)
[2019-02-23] MEDS ORDERED: morphine 4 MG/ML VIAL ONE (19:27)
[2019-02-23] MEDS ORDERED: NITROGLYCERIN 50 MG/D5W (PMX) 250 ML IV SCH (20:00)
--- NOTE | 2019-02-23 20:26 | ERD ---
ER Documentation Chief Complaint Chief Complaint bib ra from dialysis for cwp, patient has cp upon palpation, 20 min complet HPI Patient has a history of dialysis and end-stage renal disease patient was at dialysis today when 20 minutes she started having chest pain. Prior to dialysis she was asymptomatic. No recent infectious symptoms or fever. No nausea or vomiting. Patient denies prior symptoms since this before. Patient denies headache. Denies dysuria. Does make some urine. Endorses compliance with her medications. Pain does not radiate to the arms or back EMS gave 1 of nitro with no alleviation. ROS All systems reviewed and are negative except as per history of present illness. Medications Home Meds Active Scripts Losartan Potassium* (Cozaar*) 50 Mg Tablet, 50 MG PO BID for 30 Days, TAB 3 Refills Prov:CRISTO FERNANDES MD 02/18/19 Isosorbide Mononitrate* (Isosorbide Mononitrate*) 30 Mg Tab.er.24h, 30 MG PO BID for 30 Days, 3 Refills Prov:CRISTO FERNANDES MD 02/18/19 Hydralazine Hcl* (Apresoline*) 50 Mg Tab, 100 MG PO Q8H for 30 Days, TAB 3 Refills Prov:CRISTO FERNANDES MD 02/18/19 Doxazosin Mesylate* (Cardura*) 4 Mg Tablet, 4 MG PO BID for 30 Days, TAB 3 Refills Prov:CRISTO FERNANDES MD 02/18/19 Clonidine Patch (CLONIDINE PATCH) 0.3 Mg/24 Hr Patch, 1 PATCH TRANSDERM Q7D for 30 Days, 3 Refills Prov:CRISTO FERNNADES MD 02/18/19 Carvedilol* (Carvedilol*) 25 Mg Tablet, 50 MG PO BID for 30 Days, TAB 3 Refills Prov:CRISTO FERNANDES MD 02/18/19 Amlodipine Besylate* (Amlodipine Besylate*) 5 Mg Tablet, 5 MG PO BID for 30 Days, TAB 3 Refills Prov:CRISTO FERNANDES MD 02/18/19 Labetalol Hcl* (Labetalol Hcl*) 200 Mg Tablet, 200 MG PO TID for 30 Days, TAB 3 Refills Prov:CRISTO FERNANDES MD 02/18/19 Reported Medications Insulin Glargine,Hum.rec.anlog (Leila Blount U-100) 100 Unit/1 Ml Insuln.pen, 10 UNIT SC QAM, EA 09/06/18 Clopidogrel Bisulfate* (Clopidogrel Bisulfate*) 75 Mg Tablet, 75 MG PO DAILY, #30 TAB 09/06/18 Labetalol Hcl* (Labetalol Hcl*) 200 Mg Tablet, 200 MG PO TID, TAB 09/06/18 Levothyroxine Sodium* (Levothyroxine Sodium*) 25 Mcg Tablet, 25 MCG PO BEFORE BREAKFAST, #30 TAB 09/06/18 Gabapentin* (Gabapentin*) 100 Mg Capsule, 100 MG PO BID, #90 CAP 09/06/18 [Nephro-Sandra] No Conflict Check, 1 TAB PO DAILY 09/06/18 Minoxidil* (Lonitin*) 2.5 Mg Tab, 2.5 MG PO BID, TAB 09/06/18 Ondansetron Hcl* (Zofran*) 4 Mg Tab, 4 MG PO Q6H PRN for NAUSEA AND OR VOMITING, TAB 09/06/18 Insulin Lispro (Humalog Kwikpen U-100) 100 Unit/1 Ml Insuln.pen, 2 UNIT SQ WITH MEALS, EA 08/28/18 Pantoprazole* (Pantoprazole*) 40 Mg Tablet.dr, 40 MG PO AC BREAKFAST, TAB 08/28/18 Minoxidil* (Lonitin*) 2.5 Mg Tab, 2.5 MG PO BID, TAB 08/28/18 Calcium Acetate* (Calcium Acetate*) 667 Mg Capsule, 667 MG PO WITH MEALS, #30 CAP 08/28/18 Discontinued Reported Medications Clonidine Hcl* (Clonidine Hcl*) 0.1 Mg Tab, 0.1 MG PO Q8H, TAB 09/06/18 Amlodipine Besylate* (Norvasc*) 5 Mg Tablet, 5 MG PO DAILY, TAB 09/06/18 Pantoprazole* (Pantoprazole*) 40 Mg Tablet.dr, 40 MG PO AC BREAKFAST, TAB 09/06/18 Losartan Potassium* (Losartan Potassium*) 50 Mg Tablet, 50 MG PO DAILY, TAB 09/06/18 Hydrocodone/Acetaminophen ([employer] 5-325 Tablet) 1 Each Tablet, 1 EACH PO Q6H PRN for NEEDED, TAB 09/06/18 Clonidine Patch (CLONIDINE PATCH) Unknown Strength Patch, 1 PATCH TD Q7D, #4 PATCH.WK 0.1MG/DAY PATCH 09/06/18 Carvedilol* (Carvedilol*) 3.125 Mg Tablet, 3.125 MG PO BID, #60 TAB 09/06/18 Doxazosin Mesylate* (Doxazosin Mesylate*) 2 Mg Tablet, 2 MG PO BID, TAB 09/06/18 Calcium Acetate* (Calcium Acetate*) 667 Mg Capsule, 667 MG PO WITH MEALS, #30 CAP 09/06/18 Ondansetron Hcl* (Zofran*) 4 Mg Tab, 4 MG PO NEEDED PRN for NAUSEA AND OR VOMITING, TAB 08/28/18 Amlodipine Besylate* (Norvasc*) 5 Mg Tablet, 5 MG PO DAILY, TAB 08/28/18 Phenazopyridine Hcl* (Phenazopyridine Hcl*) 200 Mg Tablet, 200 MG PO TID, TAB 08/28/18 [Nephro-Sandra] No Conflict Check, 1 TAB PO DAILY 08/28/18 Clonidine Hcl* (Clonidine Hcl*) 0.1 Mg Tab, 0.1 MG PO TID, TAB 08/28/18 Allergies Allergies: Coded Allergies: minoxidil (Verified Allergy, Severe, facial edema, 02/13/19) pt reported nicardipine (Verified Allergy, Unknown, 02/13/19) PMhx/Soc Medical and Surgical Hx: pt denies Medical Hx, pt denies Surgical Hx History of Surgery: Yes Anesthesia Reaction: No Hx Neurological Disorder: No Hx Respiratory Disorders: No Hx Cardiac Disorders: No Hx Psychiatric Problems: No Hx Miscellaneous Medical Probl: Yes (CONSTIPATION) Hx Alcohol Use: No Hx Substance Use: No Hx Tobacco Use: No Smoking Status: Never smoker Physical Exam Vitals Vital Signs Date Temp Pulse Resp B/P (MAP) Pulse Ox O2 O2 Flow FiO2 Time Delivery Rate 02/23/19 66 16 201/81 100 Nasal 21:31 (121) Cannula 02/23/19 98.5 86 16 200/79 100 Nasal 2.0 20:45 (119) Cannula 02/23/19 98.5 80 16 201/80 100 Room Air 2.0 20:30 (120) Nasal Cannula 02/23/19 72 16 207/82 100 Nasal 2.0 20:01 (123) Cannula 02/23/19 Nasal 2 19:13 Cannula 02/23/19 73 16 179/87 100 Nasal 19:09 (117) Cannula 02/23/19 70 16 209/88 100 Nasal 18:59 (128) Cannula 02/23/19 98.5 71 20 151/89 100 18:40 (109) Physical Exam Const: No acute distress Head: Atraumatic Eyes: Normal Conjunctiva ENT: Normal External Ears, Nose and Mouth. Neck: Full range of motion. No meningismus. Resp: Clear to auscultation bilaterally Cardio: Regular rate and rhythm, no murmurs Abd: Soft, non tender, non distended. Normal bowel sounds Skin: No petechiae or rashes Back: No midline or flank tenderness Ext: No cyanosis, or edema Neur: Awake and alert Psych: Normal Mood and Affect Result Diagram: 02/23/19185002/23/19 185 Results 24 hrs Laboratory Tests Test 02/23/19 18:51 White Blood Count 5.5 10^3/ul Red Blood Count 3.44 10^6/ul Hemoglobin 10.4 g/dl Hematocrit 32.5 % Mean Corpuscular Volume 94.5 fl Mean Corpuscular Hemoglobin 30.2 pg Mean Corpuscular Hemoglobin Concent 32.0 g/dl Red Cell Distribution Width 14.9 % Platelet Count 225 10^3/UL Mean Platelet Volume 10.1 fl Immature Granulocytes % 1.400 % Neutrophils % 77.8 % Lymphocytes % 8.7 % Monocytes % 8.7 % Eosinophils % 2.9 % Basophils % 0.5 % Nucleated Red Blood Cells % 0.0 /100WBC Immature Granulocytes # 0.080 10^3/ul Neutrophils # 4.3 10^3/ul Lymphocytes # 0.5 10^3/ul Monocytes # 0.5 10^3/ul Eosinophils # 0.2 10^3/ul Basophils # 0.0 10^3/ul Nucleated Red Blood Cells # 0.0 10^3/ul Prothrombin Time 14.2 Sec Prothrombin Time Ratio 1.1 INR International Normalized Ratio 1.09 Activated Partial Thromboplast Time > 180.0 Sec Sodium Level 137 mmol/L Potassium Level 4.3 mmol/L Chloride Level 99 mmol/L Carbon Dioxide Level 28 mmol/L Anion Gap 10 Blood Urea Nitrogen 23 mg/dl Creatinine 5.58 mg/dl Est Glomerular Filtrat Rate mL/min 8 mL/min Glucose Level 128 mg/dl Calcium Level 8.9 mg/dl Troponin I < 0.012 ng/ml Current Medications Medications Dose Sig/Stalin Start Time Status Last (Trade) Ordered Route PRN Stop Time Admin Dose Reason Admin 1 tab Q5M UP TO 3 02/23/19 02/23/19 Nitroglycerin DOSES PRN 19:00 18:59 SL .CHEST (Nitroglyceri PAIN n (Sl Tab) 0.4 Mg) Morphine 4 mg ONCE STAT 02/23/19 DC 02/23/19 Sulfate IV 19:26 19:32 (morphine) 02/23/19 19:27 Morphine 4 mg STK-MED 02/23/19 DC Sulfate ONCE .ROUTE 19:27 (morphine) 02/23/19 19:28 250 ml @ TITRATE IV 02/23/19 02/23/19 Nitroglycerin 10 mls/hr 20:00 20:03 / Dextrose Morphine 4 mg ONCE STAT 02/23/19 DC 02/23/19 Sulfate IV 21:13 21:34 (morphine) 02/23/19 21:15 Procedures/MDM Patient presenting with severe chest pain during dialysis and hypertension. Did not get alleviated with nitro sublingual. Or morphine. Patient's blood pressure is systolic 200s. Patient appears very uncomfortable. CTA to rule out dissection. Patient does have end-stage renal disease however given the severity of her pain and her blood pressure concern for dissection is high. Risk and benefits discussed and include a CTA is appropriate. Patient started on nitroglycerin drip to lower blood pressure goal map of 110 the next 24 hours. Troponin was negative and EKG was not concerning for acute ischemia. Low suspicion for stroke or ACS given troponin and EKG. Will admit to ICU pending results of CTA. ECG Time: 2058 Ventricular Rate: 65 Rhythm: normal sinus rhythm. ST Segments: without evidence of depressions or elevations Intervals: without evidence of AV block, new BBB, long QT, [place] No evidence of delta wave. COLT MCKINNON MD Feb 23, 2019 20:26
[2019-02-23] MEDS ORDERED: LABETALOL 200 MG TAB PO ONE (22:00)
[2019-02-23] MEDS ORDERED: AMLODIPINE 5 MG TAB PO ONE (22:00)
[2019-02-23] MEDS ORDERED: SOD CHLORIDE 0.9% 100 ML ONE (22:36)
[2019-02-23] MEDS ORDERED: IOHEXOL 100 ML ONE (22:36)
[2019-02-23] MEDS ORDERED: ONDANSETRON 4 MG INJ IV PRN (23:00)
[2019-02-23] MEDS ORDERED: MINOXIDIL 2.5 MG TAB PO SCH (23:00)
[2019-02-23] MEDS ORDERED: CLONIDINE 0.3 MG/24 HR PATCH TRANSDERM SCH (23:00)
[2019-02-24] VITALS (42 sets, daily range): BP systolic 159–241; BP diastolic 61–84; PULSE 59–76; RESP 12–23; Ht 167.6 cm; Wt 80.0 kg
[2019-02-24] MEDS: morphine 2 MG INJ IV PRN ×2 (01:46→18:25)
[2019-02-24] MEDS: HEPARIN 1000 UNITS/ML 10 ML INJ CATHETER SCH (03:35)
[2019-02-24] MEDS ORDERED: hydrALAzine 20 MG INJ ONE (05:00)
[2019-02-24] MEDS ORDERED: morphine 4 MG/ML VIAL IV ONE (05:02)
[2019-02-24] MEDS: LOSARTAN 50 MG TAB PO SCH ×3 (05:14→20:44)
[2019-02-24] MEDS: DOXAZOSIN 4 MG TAB PO SCH ×3 (05:14→20:45)
[2019-02-24] MEDS: ISOSORBIDE MONONITRATE(SR)30 MG TAB PO SCH ×3 (05:15→20:45)
[2019-02-24] MEDS: AMLODIPINE 5 MG TAB PO SCH ×3 (05:15→20:45)
[2019-02-24] MEDS: hydrALAzine 20 MG INJ IV PRN ×2 (05:17→15:22)
[2019-02-24] MEDS: PANTOPRAZOLE (EC) 40 MG TAB PO SCH (07:02)
--- NOTE | 2019-02-24 07:10 | HP ---
DATE OF ADMISSION: 02/23/2019 CHIEF COMPLAINT: Chest pain. HISTORY OF PRESENT ILLNESS: A 48-year-old female well known to me from recent admission wit h poorly controlled hypertension and end-stage renal disease was brought in from dialysis center with complaints of chest pain. Twenty minutes into dialysis, patient reported having chest pain. She de nies shortness of breath. No nausea, vomiting, or diaphoresis. The patient has a history of noncomp liance with medical therapy. She was just recently discharged from the hospital 5 days prior to admi ssion. She was hospitalized for hypertensive urgency. Initial evaluation revealed blood pressure of 201/81. The patient was started on nitroglycerin drip. Initial troponin was normal. EKG did not show any acute ST or T-wave changes. The patient reports compliance with medical therapy. PAST MEDICAL HISTORY: 1. Hypertension. 2. End-stage renal disease on hemodialysis Monday, , Monday. 3. Type 2 diabetes mellitus. MEDICATIONS: 1. Losartan 50 mg b.i.d. 2. Isosorbide mononitrate 30 mg b.i.d. 3. Hydralazine 100 mg q.8 hours. 4. Doxazosin 4 mg b.i.d. 5. Clonidine patch 0.3 mg q.24 hours. 6. Coreg 25 mg b.i.d. 7. Amlodipine 5 mg b.i.d. 8. Labetalol 200 mg t.i.d. 9. Levothyroxine 25 mcg daily. 10. Gabapentin 100 mg t.i.d. 11. Nephrolith 1 tablet daily. 12. Minoxidil 2.5 mg b.i.d. 13. Long-acting insulin 10 units daily. 14. [place] as needed. SOCIAL HISTORY: The patient lives at home. She denies tobacco or alcohol use. PHYSICAL EXAMINATION: GENERAL: A well-developed, well-nourished female who is in no acute distress. VITAL SIGNS: Blood pressure of 195/81, pulse is 66, respirations 16, saturation is 100% on 2 liters by nasal cannula. LUNGS: Clear to auscultation bilaterally. CARDIAC: Regular rate and rhythm. No murmurs, rubs or gallops. ABDOMEN: Soft, nontender, nondistended. Normoactive bowel sounds. EXTREMITIES: No clubbing, cyanosis, or edema. NEUROLOGICAL: Grossly nonfocal. LABORATORY DATA: CBC is within normal limits. Sodium 137, potassium 4.3, BUN 23, creatinine 5.58, t roponin less than 0.012. ASSESSMENT: 1. A 48-year-old female with recurrent hypertensive urgency. The patient was discharged from the [facility] 5 days prior to this admission with similar presentation. 2. Acute chest pain, most likely due to demand ischemia. 3. Type 2 diabetes mellitus. 4. End-stage renal disease on hemodialysis. 5. Noncompliance with medical therapy. PLAN: 1. Admit to ICU. 2. Continue nitroglycerin drip. 3. Resume oral antihypertensives. 4. DVT prophylaxis. 5. Dr. May was contacted. I requested urgent hemodialysis. 6. Serial troponins. Dictated By: CRISTO ESCOBAR/WAQAS Conf#: [id number] DID#: [id number] CC: HAYLEE MAY;*EndCC*
[2019-02-24] MEDS ORDERED: INSULIN LISPRO 2 UNIT SQ SCH (08:00)
[2019-02-24] MEDS: LABETALOL 200 MG TAB PO SCH ×3 (08:13→20:44)
[2019-02-24] MEDS: LEVOTHYROXINE 25 MCG TAB PO SCH (08:14)
[2019-02-24] MEDS: MULTIVIT/CA CARB/B CMPLX/FA TAB PO SCH (08:14)
[2019-02-24] MEDS: CLOPIDOGREL 75 MG TAB PO SCH (08:14)
[2019-02-24] MEDS: CALCIUM ACETATE 667 MG CAP PO SCH ×3 (08:14→18:20)
[2019-02-24] MEDS: INSULIN ASPART [NOVOLOG] 3 ML PEN SC SCH ×3 (08:29→18:40)
[2019-02-24] MEDS ORDERED: LACTULOSE 30ML CUP PO PRN (08:30)
--- NOTE | 2019-02-24 08:42 | PN ---
Date/Time of Note Date/Time of Note DATE: 02/24/19 TIME: 08:38 Subjective Doing well. No complaints of chest pain or shortness of breath. Objective Vitals Vital Signs Date Temp Pulse Resp B/P (MAP) Pulse Ox O2 O2 Flow FiO2 Time Delivery Rate 02/24/19 74 17 174/72 97 07:00 (106) 02/24/19 Nasal 2.0 04:35 Cannula 02/24/19 98.1 04:27 Intake and Output 02/23/19 02/23/19 02/24/19 1515:00 23:00 07:00 IntakeIntake Total 275 ml OutputOutput Total 3400 ml BalanceBalance -3125 ml Clear to auscultation bilaterally Regular rate and rhythm no murmurs or gallops Soft nontender nondistended normoactive bowel sounds Mild edema Nonfocal Results Result Diagram: 02/23/19185002/23/19 185 Medications Medications Current Medications Nitroglycerin (Nitroglycerin (Sl Tab) 0.4 Mg) 1 tab Q5M UP TO 3 DOSES PRN SL .CHEST PAIN Last administered on 02/23/19at 18:59; Admin Dose 1 TAB; Start 02/23/19 at 19:00 Nitroglycerin/ Dextrose 250 ml @ 10 mls/hr TITRATE IV Last administered on 02/23/19 20:03; Admin Dose 10 MLS/HR; Start 02/23/19 at 20:00 Amlodipine Besylate (Norvasc) 5 mg BID PO Last administered on 02/24/19 08:14; Admin Dose 5 MG; Start 02/23/19 at 23:00 Calcium Acetate (Phoslo) 667 mg WITH MEALS PO Last administered on 02/24/19 08:14; Admin Dose 667 MG; Start 02/24/19 at 07:35 Clopidogrel Bisulfate (plaVIX) 75 mg DAILY PO Last administered on 02/24/19 08 :14; Admin Dose 75 MG; Start 02/24/19 at 09:00 Doxazosin Mesylate (Cardura) 4 mg BID PO Last administered on 02/24/19 08:13; Admin Dose 4 MG; Start 02/23/19 at 23:00 Hydralazine HCl (Apresoline) 100 mg Q8H PO Last administered on 02/24/19 07:01; Admin Dose 100 MG; Start 02/23/19 at 23:00 Isosorbide Mononitrate (Imdur) 30 mg BID PO Last administered on 02/24/19 08:14; Admin Dose 30 MG; Start 02/23/19 at 23:00 Labetalol HCl (Normodyne) 200 mg TID PO Last administered on 02/24/19 08:13; Admin Dose 200 MG; Start 02/24/19 at 09:00 Levothyroxine Sodium (Synthroid) 25 mcg BEFORE BREAKFAST PO Last administered on 02/24/19 08:14; Admin Dose 25 MCG; Start 02/24/19 at 07:00 Losartan Potassium (Cozaar) 50 mg BID PO Last administered on 02/24/19 08:13; Admin Dose 50 MG; Start 02/23/19 at 23:00 Pantoprazole (Protonix Tab) 40 mg AC BREAKFAST PO Last administered on 02/24/19 07:02; Admin Dose 40 MG; Start 02/24/19 at 07:00 Morphine Sulfate (morphine) 2 mg Q3 PRN IV mod pain Last administered on 02/24/19 01:46; Admin Dose 2 MG; Start 02/23/19 at 23:00 Ondansetron HCl (Zofran Inj) 4 mg Q4 PRN IV nausea Last administered on 02/24/19 06:32; Admin Dose 4 MG; Start 02/23/19 at 23:00 Multivit/Ca Carb/ B Cmplx/FA/Prenat (Sunshine-Sandra) 1 tab DAILY PO Last administered on 02/24/19 08:14; Admin Dose 1 TAB; Start 02/24/19 at 09:00 Insulin Aspart (Novolog Insulin Pen) 2 unit WITH MEALS SC Last administered on 02/24/19 08:29; Admin Dose 2 UNIT; Start 02/24/19 at 07:35 Heparin Sodium (Porcine) (Heparin (1000 Units/ml)) 4,500 unit AFTER DIALYSIS CATHETER Last administered on 02/24/19 03:35; Admin Dose 4,500 UNIT; Start 02/24/19 at 03:30 Hydralazine HCl (Apresoline) 10 mg Q2H PRN IV ELEVATED BLOOD PRESSURE Last administered on 02/24/19 05:17; Admin Dose 10 MG; Start 02/24/19 at 05:00 Clonidine (Catapres) 0.2 mg TID PO ; Start 02/24/19 at 09:00 Lactulose (Enulose) 20 gm BID PRN PO CONSTIPATION; Start 02/24/19 at 08:30 Carvedilol (Coreg) 50 mg BID PO ; Start 02/24/19 at 09:00 Insulin Glargine (Lantus) 10 units QAM SC ; Start 02/24/19 at 09:30 VTE Prophylaxis SCD applied (from Nsg): Yes Lines/Catheters IV Catheter Type: Saline Lock Ayala in Place: No Assessment/Plan Assessment/Plan 48-year-old female with hypertensive urgency, on nitroglycerin drip Poorly controlled hypertension Rule out renovascular disease Type 2 diabetes mellitus End-stage renal disease, on hemodialysis. Status post dialysis following admission Noncompliance with medical therapy. Patient refused her oral antihypertensives earlier Wean off nitroglycerin drip Continue all oral antihypertensives Change clonidine patch t 0.2 mg 3 times daily orally Case was discussed with patent examiner CRISTO FERNANDES MD Feb 24, 2019 08:42
[2019-02-24] MEDS ORDERED: INSULIN GLARGINE [LANtus] 3 ML PEN SC SCH (09:00)
[2019-02-24] MEDS ORDERED: NON-FORMULARY/PATIENT OWN MED ([Nephro-Vite] 1 TAB) PO SCH (09:00)
[2019-02-24] MEDS: INSULIN GLARGINE [LANTus] (100 UNITS/ML) SYG SC SCH (11:28)
--- NOTE | 2019-02-24 17:19 | QN ---
Documentation Comment pt seen and examined HAYLEE CULVER MD Feb 24, 2019 17:19
--- NOTE | 2019-02-24 17:24 | PDOCDIS ---
Discharge Instructions CONDITION [id number] Patient Condition: [id number] Good HOME CARE INSTRUCTIONS: [id number] Diet Instructions: [id number] Activity Restrictions: [id number] No Restrictions FOLLOW UP/APPOINTMENTS Follow-up Plan pcp 1 week [employer] 1 week, Dr Carr OTHER ORDERS: Other Orders: take all of your medications CRISTO FERNANDES MD Feb 24, 2019 17:24
[2019-02-25] VITALS (19 sets, daily range): BP systolic 171–200; BP diastolic 71–88; PULSE 60–70; RESP 18–20
[2019-02-25] MEDS: LEVOTHYROXINE 25 MCG TAB PO SCH (06:04)
[2019-02-25] MEDS: hydrALAzine 20 MG INJ IV PRN (06:04)
--- NOTE | 2019-02-25 07:14 | CONS ---
DATE OF ADMISSION: 02/23/2019 DATE OF CONSULTATION: REASON FOR ADMISSION: Chest pain. HISTORY OF PRESENT ILLNESS: This is a 48-year-old female who was recently admitted at [facility] from 02/12/2019 until 02/19/2019. At that time, the patient had hypertensive urgency, nausea or vomiting. Apparently, the patient was not taking her blood pressure medications and baudilio kimball was discharged home. The patient had ICU stay because the patient was on nitro drip. The patient said that she went to her dialysis center today. 30 minutes into dialysis, she started having some chest pain. She denied any shortness of breath, was also having some abdominal pain and some nausea and came to the emergency department for further evaluation. According to the patient at this time, she has been compliant with her medications. On arrival to ED, initial blood pressure was 201/81. T he patient was started on nitro drip. EKG was normal. Initial troponin was normal. PAST MEDICAL HISTORY: 1. Hypertension. 2. Hyperlipidemia. 3. History of old cerebrovascular accident. ALLERGIES: 1. NICARDIPINE. 2. MINOXIDIL. MEDICATIONS TAKING AT HOME: 1. Losartan 50 b.i.d. 2. Imdur 30 b.i.d. 3. Hydralazine q.8h. 4. Doxazosin. 5. Clonidine patch. 6. Coreg 25 b.i.d. 7. Amlodipine 5 b.i.d. 8. Labetalol 200 t.i.d. 9. Levothyroxine. 10. Gabapentin. 11. ____. 12. ____. 13. Lantus. 14. [place]. SOCIAL HISTORY: Lives at home. Denies any history of smoking, alcohol or drug use. REVIEW OF SYSTEMS: The patient complains of chest pain, shortness of breath. Denies any dizziness, orthopnea, PND, lower extremity edema. Denied any headache. Had some nausea. PHYSICAL EXAMINATION: GENERAL: Well-developed female. Does not appear to be in any acute distress. VITAL SIGNS: Blood pressure was 195/81, pulse 66, respirations 16, saturating 100%. GENERAL: Clear. CHEST: Lungs clear to auscultate bilaterally. HEART: Regular rhythm. ABDOMEN: Soft, nontender, nondistended, positive active bowel sounds. EXTREMITIES: No clubbing, cyanosis, or edema. The patient has right-sided Perm-A-Cath in place. DIAGNOSTIC DATA: Shows creatinine of 5.58, BUN of 23. White count of 5.5, hemoglobin 10.4, platelet count 225. CT of the chest and thorax showed shotty mediastinal axillary lymph nodes, moderate card iomegaly, small pericardial effusion, no evidence of pulmonary embolism or aortic dissection. Chest x-ray: Enlargement of cardiac silhouette, mild pulmonary vascular congestion. ASSESSMENT AND PLAN: This is a 48-year-old female who presented with: 1. Chest pain during dialysis. Rule out acute coronary syndrome, questionable anxiety. 2. Hypertension urgency/emergency. Still not sure about patient's compliance. We will also get sixto al Doppler. 3. Hyperlipidemia. 4. History of stroke. PLAN: 1. At this period of time, the patient is admitted to tele. Continue the patient on home blood pres sure medications which are labetalol 200 b.i.d. 2. Clonidine 0.2 t.i.d. 3. Hydralazine 100 q. 8. 4. Imdur 30 b.i.d. 5. Cozaar 50 b.i.d. 6. Doxazosin. The patient cannot be on Coreg and labetalol at the same time. Cardiology evaluation . We will follow up on the renal arterial Doppler. Rest of the treatment will depend on the patient 's hospitalization course. Dictated By: HAYLEE LEON/WAQAS Conf#: [id number] DID#: [id number] CC: CRISTO FERNANDES MD;*End*
[2019-02-25] MEDS: PANTOPRAZOLE (EC) 40 MG TAB PO SCH (07:25)
[2019-02-25] MEDS: CALCIUM ACETATE 667 MG CAP PO SCH ×3 (07:55→17:55)
[2019-02-25] MEDS: INSULIN ASPART [NOVOLOG] 3 ML PEN SC SCH ×3 (07:55→17:55)
[2019-02-25] MEDS: INSULIN GLARGINE [LANTus] (100 UNITS/ML) SYG SC SCH (08:31)
[2019-02-25] MEDS: CLOPIDOGREL 75 MG TAB PO SCH (08:34)
[2019-02-25] MEDS: DOXAZOSIN 4 MG TAB PO SCH ×2 (08:34→20:47)
[2019-02-25] MEDS: MULTIVIT/CA CARB/B CMPLX/FA TAB PO SCH (12:04)
[2019-02-25] MEDS: AMLODIPINE 5 MG TAB PO SCH ×2 (12:05→20:48)
[2019-02-25] MEDS: LABETALOL 200 MG TAB PO SCH ×3 (12:05→20:49)
--- NOTE | 2019-02-25 12:23 | CONS ---
Assessment/Plan Assessment/Plan Assessment/Plan (Daily) This is a 48-year-old female who presented with: 1. Chest pain during dialysis. Rule out acute coronary syndrome, questionable anxiety. 2. Hypertension urgency/emergency. Still not sure about patient's compliance. We will also get renal Doppler. Doppler was not a good study however still they commented could not be significant stenosis based on arcuate arteries 3. Hyperlipidemia. 4. History of stroke. 5 ESRD on HD TTS PLAN: -Extra session of dialysis today for volume removal patient now agreed -Was explained about the compliance of taking blood pressure medications - cw labetalol 200 b.i.d.. Clonidine 0.2 t.i.d. Hydralazine 100 q. 8.. Imdur 30 b.i.d.. Cozaar 50 b.i.d.. Doxazosin. The patient cannot be on Coreg and labetalol at the same time. -HD TTS -Really needs to had fluid restriction and low-sodium intake -Patient should be enrolled into the high risk clinic and may be have a home nurse evaluation for diet education and making sure patient is taking medications at home Consultation Date/Type/Reason Admit Date/Time Feb 23, 2019 at 21:58 Initial Consult Date Date/Time of Note DATE: 02/25/19 TIME: 12:22 24 HR Interval Summary Free Text/Dictation She feels better today. Refused BP medications this morning Exam/Review of Systems Exam Vitals Vital Signs Date Temp Pulse Resp B/P (MAP) Pulse Ox O2 O2 Flow FiO2 Time Delivery Rate 02/25/19 98.8 60 18 184/86 94 11:18 (118) 02/25/19 Room Air 04:00 02/24/19 2.0 11:30 Intake and Output 02/24/19 02/24/19 02/25/19 1515:00 23:00 07:00 IntakeIntake Total 390 ml 500 ml OutputOutput Total 0 ml BalanceBalance 390 ml 500 ml Exam GENERAL: Clear. CHEST: Lungs clear to auscultate bilaterally. HEART: Regular rhythm. ABDOMEN: Soft, nontender, nondistended, positive active bowel sounds. EXTREMITIES: No clubbing, cyanosis, or edema. The patient has right-sided Perm -A-Cath in place. Results Result Diagram: 02/23/19 5601 02/25/19 0539 Results 24hrs Laboratory Tests Test 02/24/19 18:07 02/24/19 22:00 02/25/19 05:39 02/25/19 08:26 Bedside Glucose 105 113 Urine Color YELLOW Urine Clarity CLOUDY A Urine pH 9.0 Urine Specific 1.013 [place] Urine Ketones NEGATIVE Urine Nitrite NEGATIVE Urine Bilirubin NEGATIVE Urine Urobilinogen NEGATIVE Urine Leukocyte 1+ H Esterase Urine Microscopic 3 RBC Urine Microscopic 15 H WBC Urine Squamous MANY A Epithelial Cells Urine Transitional FEW A Epithelial Cells Urine Bacteria FEW A Urine Hemoglobin NEGATIVE Urine Glucose 3+ H Urine Total Protein 3+ H Sodium Level 139 Potassium Level 4.8 Chloride Level 100 Carbon Dioxide Level 29 Anion Gap 10 Blood Urea Nitrogen 19 Creatinine 5.24 H Est Glomerular 9 L Filtrat Rate mL/min Glucose Level 113 Calcium Level 8.9 Medications Medication Current Medications Nitroglycerin (Nitroglycerin (Sl Tab) 0.4 Mg) 1 tab Q5M UP TO 3 DOSES PRN SL .CHEST PAIN Last administered on 02/23/19 18:59; Admin Dose 1 TAB; Start 02/23/19 at 19:00 Amlodipine Besylate (Norvasc) 5 mg BID PO Last administered on 02/25/19 12:05; Admin Dose 5 MG; Start 02/23/19 at 23:00 Calcium Acetate (Phoslo) 667 mg WITH MEALS PO Last administered on 02/25/19 12:04; Admin Dose 667 MG; Start 02/24/19 at 07:35 Clopidogrel Bisulfate (plaVIX) 75 mg DAILY PO Last administered on 02/25/19 08:34; Admin Dose 75 MG; Start 02/24/19 at 09:00 Hydralazine HCl (Apresoline) 100 mg Q8H PO Last administered on 02/25/19 06:04; Admin Dose 100 MG; Start 02/23/19 at 23:00 Labetalol HCl (Normodyne) 200 mg TID PO Last administered on 02/25/19 12:05; Admin Dose 200 MG; Start 02/24/19 at 09:00 Levothyroxine Sodium (Synthroid) 25 mcg BEFORE BREAKFAST PO Last administered on 02/25/19 06:04; Admin Dose 25 MCG; Start 02/24/19 at 07:00 Losartan Potassium (Cozaar) 50 mg BID PO Last administered on 02/24/19 20:44; Admin Dose 50 MG; Start 02/23/19 at 23:00 Pantoprazole (Protonix Tab) 40 mg AC BREAKFAST PO Last administered on 02/24/19 07:02; Admin Dose 40 MG; Start 02/24/19 at 07:00 Morphine Sulfate (morphine) 2 mg Q3 PRN IV mod pain Last administered on 02/24/19 18:25; Admin Dose 2 MG; Start 02/23/19 at 23:00 Ondansetron HCl (Zofran Inj) 4 mg Q4 PRN IV nausea Last administered on 02/24/19 06:32; Admin Dose 4 MG; Start 02/23/19 at 23:00 Multivit/Ca Carb/ B Cmplx/FA/Prenat (Sunshine-Sandra) 1 tab DAILY PO Last administered on 02/25/19 12:04; Admin Dose 1 TAB; Start 02/24/19 at 09:00 Insulin Aspart (Novolog Insulin Pen) 2 unit WITH MEALS SC Last administered on 02/24/19 18:40; Admin Dose 2 UNIT; Start 02/24/19 at 07:35 Heparin Sodium (Porcine) (Heparin (1000 Units/ml)) 4,500 unit AFTER DIALYSIS CATHETER Last administered on 02/24/19 03:35; Admin Dose 4,500 UNIT; Start 02/24/19 at 03:30 Hydralazine HCl (Apresoline) 10 mg Q2H PRN IV ELEVATED BLOOD PRESSURE Last administered on 02/25/19 06:04; Admin Dose 10 MG; Start 02/24/19 at 05:00 Clonidine (Catapres) 0.2 mg TID PO Last administered on 02/25/19 08:36; Admin Dose 0.2 MG; Start 02/24/19 at 09:00 Lactulose (Enulose) 20 gm BID PRN PO CONSTIPATION; Start 02/24/19 at 08:30 Insulin Glargine (Lantus) 10 units QAM SC Last administered on 02/24/19 11:28; Admin Dose 10 UNITS; Start 02/24/19 at 09:30 Clonidine (Catapres) 0.2 mg Q4H PRN PO ELEVATED BLOOD PRESSURE; Start 02/24/19 at 19:00 Doxazosin Mesylate (Cardura) 8 mg BID PO ; Start 02/25/19 at 21:00 Isosorbide Mononitrate (Imdur) 60 mg BID PO ; Start 02/25/19 at 21:00 HAYLEE CULVER MD Feb 25, 2019 12:23
[2019-02-25] MEDS: LOSARTAN 50 MG TAB PO SCH ×2 (12:52→20:48)
[2019-02-25] MEDS: HEPARIN 1000 UNITS/ML 10 ML INJ CATHETER SCH (19:46)
[2019-02-25] MEDS: ISOSORBIDE MONONITRATE(SR)60 MG TAB PO SCH (20:48)
[2019-02-26] VITALS (23 sets, daily range): BP systolic 159–202; BP diastolic 66–89; PULSE 62–69; RESP 16–20
[2019-02-26] MEDS: METHYLDOPA 250 MG TAB PO SCH ×3 (00:51→20:20)
[2019-02-26] MEDS: morphine 2 MG INJ IV PRN ×4 (03:31→20:40)
--- NOTE | 2019-02-26 04:00 | DS ---
DATE OF ADMISSION: 02/23/2019 DATE OF DISCHARGE: DISCHARGE DIAGNOSES: 1. A 48-year-old female with hypertensive urgency. 2. End-stage renal disease on hemodialysis. 3. Type 2 diabetes mellitus. 4. Noncompliance with medical therapy. 5. Acute chest pain due to demand ischemia, resolved. HOSPITAL COURSE: A 48-year-old female well known to me from previous admission with poorly controlled hypertension, presented to emergency room from the dialysis center with complaint of chest pain. The patient was found to have recurrent hypertensive urgency and started on nitroglycerin dri p. She underwent hemodialysis following admission. More adjustments were made to her multiple antih ypertensives. The patient is noncompliant with medical therapy. She also refused repeat hemodialysi s during the hospitalization. I had a long conversation with her. Case was also discussed with the clinical admissions manager, Dr. May. The patient is planned to undergo a renal scan prior to discharge to rule out renal artery stenosis. I am hoping she will have another dialysis prior to discharge if she is a greeable. MEDICATIONS ON DISCHARGE: 1. Coreg 50 mg p.o. b.i.d. 2. Clonidine 0.2 mg p.o. t.i.d. 3. Doxazosin 8 mg p.o. b.i.d. 4. Isosorbide 60 mg p.o. b.i.d. 5. Norvasc 5 mg p.o. b.i.d. 6. Hydralazine 100 mg p.o. q.8 hours. 7. Labetalol 400 mg p.o. t.i.d. 8. Losartan 50 mg p.o. b.i.d. 9. Minoxidil 2.5 mg p.o. b.i.d. 10. Protonix 40 mg p.o. daily. 11. Nephro-Sandra 1 tablet daily. 12. Glargine insulin 10 units daily. 13. Plavix 75 mg daily. 14. Calcium acetate 667 mg 3 times daily. DISCHARGE INSTRUCTIONS: 1. Follow up with PCP in 1 week. 2. Follow up with nephrology. 3. Adhere to a low sodium diet and fluid restriction. Dictated By: CRISTO ESCOBAR/WAQAS Conf#: [id number] DID#: [id number] CC: HAYLEE MAY;*End*
[2019-02-26] MEDS: LEVOTHYROXINE 25 MCG TAB PO SCH (07:26)
[2019-02-26] MEDS: PANTOPRAZOLE (EC) 40 MG TAB PO SCH (07:26)
[2019-02-26] MEDS: CALCIUM ACETATE 667 MG CAP PO SCH ×3 (07:53→17:34)
[2019-02-26] MEDS: CLOPIDOGREL 75 MG TAB PO SCH (08:02)
[2019-02-26] MEDS: LOSARTAN 50 MG TAB PO SCH ×2 (08:02→20:21)
[2019-02-26] MEDS: MULTIVIT/CA CARB/B CMPLX/FA TAB PO SCH (08:02)
[2019-02-26] MEDS: DOXAZOSIN 4 MG TAB PO SCH ×2 (08:02→20:19)
[2019-02-26] MEDS: ISOSORBIDE MONONITRATE(SR)60 MG TAB PO SCH ×2 (08:02→20:20)
[2019-02-26] MEDS: LABETALOL 200 MG TAB PO SCH ×3 (08:10→20:22)
[2019-02-26] MEDS: AMLODIPINE 5 MG TAB PO SCH ×2 (08:10→20:19)
[2019-02-26] MEDS: INSULIN ASPART [NOVOLOG] 3 ML PEN SC SCH ×3 (08:17→17:35)
[2019-02-26] MEDS: INSULIN GLARGINE [LANTus] (100 UNITS/ML) SYG SC SCH (08:17)
--- NOTE | 2019-02-26 09:53 | PN ---
Date/Time of Note Date/Time of Note DATE: 02/26/19 TIME: 09:51 Subjective Doing well. No chest pain or shortness of breath. Objective Vitals Vital Signs Date Temp Pulse Resp B/P (MAP) Pulse Ox O2 O2 Flow FiO2 Time Delivery Rate 02/26/19 160/66 09:38 (97) 02/26/19 98.0 64 18 96 07:09 02/25/19 Room Air 17:00 02/24/19 2.0 11:30 Intake and Output 02/25/19 02/25/19 02/26/19 1515:00 23:00 07:00 IntakeIntake Total 700 ml OutputOutput Total 3400 ml BalanceBalance -2700 ml Blood pressure 160/66 Clear to auscultation bilaterally Regular rate and rhythm no murmurs or gallops Soft nontender nondistended No edema Nonfocal Results Result Diagram: 02/23/19 1851 02/25/19 0539 Medications Medications Current Medications Nitroglycerin (Nitroglycerin (Sl Tab) 0.4 Mg) 1 tab Q5M UP TO 3 DOSES PRN SL .CHEST PAIN Last administered on 02/23/19 18:59; Admin Dose 1 TAB; Start 02/23/19 at 19:00 Amlodipine Besylate (Norvasc) 5 mg BID PO Last administered on 02/26/19 08:10; Admin Dose 5 MG; Start 02/23/19 at 23:00 Calcium Acetate (Phoslo) 667 mg WITH MEALS PO Last administered on 02/26/19 07:53; Admin Dose 667 MG; Start 02/24/19 at 07:35 Clopidogrel Bisulfate (plaVIX) 75 mg DAILY PO Last administered on 02/26/19 08:02; Admin Dose 75 MG; Start 02/24/19 at 09:00 Hydralazine HCl (Apresoline) 100 mg Q8H PO Last administered on 02/25/19 22:24; Admin Dose 100 MG; Start 02/23/19 at 23:00 Levothyroxine Sodium (Synthroid) 25 mcg BEFORE BREAKFAST PO Last administered on 02/26/19 07:26; Admin Dose 25 MCG; Start 02/24/19 at 07:00 Losartan Potassium (Cozaar) 50 mg BID PO Last administered on 02/26/19 08:02; Admin Dose 50 MG; Start 02/23/19 at 23:00 Pantoprazole (Protonix Tab) 40 mg AC BREAKFAST PO Last administered on 02/26/19 07:26; Admin Dose 40 MG; Start 02/24/19 at 07:00 Morphine Sulfate (morphine) 2 mg Q3 PRN IV mod pain Last administered on 02/26/19 07:53; Admin Dose 2 MG; Start 02/23/19 at 23:00 Ondansetron HCl (Zofran Inj) 4 mg Q4 PRN IV nausea Last administered on 02/24/19 06:32; Admin Dose 4 MG; Start 02/23/19 at 23:00 Multivit/Ca Carb/ B Cmplx/FA/Prenat (Sunshine-Sandra) 1 tab DAILY PO Last administered on 02/26/19 08:02; Admin Dose 1 TAB; Start 02/24/19 at 09:00 Insulin Aspart (Novolog Insulin Pen) 2 unit WITH MEALS SC Last administered on 02/26/19 08:17; Admin Dose 2 UNIT; Start 02/24/19 at 07:35 Heparin Sodium (Porcine) (Heparin (1000 Units/ml)) 4,500 unit AFTER DIALYSIS CATHETER Last administered on 02/25/19 19:46; Admin Dose 4,500 UNIT; Start 02/24/19 at 03:30 Hydralazine HCl (Apresoline) 10 mg Q2H PRN IV ELEVATED BLOOD PRESSURE Last administered on 02/25/19 06:04; Admin Dose 10 MG; Start 02/24/19 at 05:00 Clonidine (Catapres) 0.2 mg TID PO Last administered on 02/26/19 08:10; Admin Dose 0.2 MG; Start 02/24/19 at 09:00 Lactulose (Enulose) 20 gm BID PRN PO CONSTIPATION; Start 02/24/19 at 08:30 Insulin Glargine (Lantus) 10 units QAM SC Last administered on 02/26/19 08:17; Admin Dose 10 UNITS; Start 02/24/19 at 09:30 Clonidine (Catapres) 0.2 mg Q4H PRN PO ELEVATED BLOOD PRESSURE Last administered on 02/26/19 02:07; Admin Dose 0.2 MG; Start 02/24/19 at 19:00 Doxazosin Mesylate (Cardura) 8 mg BID PO Last administered on 02/26/19at 08:02; Admin Dose 8 MG; Start 02/25/19 at 21:00 Isosorbide Mononitrate (Imdur) 60 mg BID PO Last administered on 02/26/19 08:02; Admin Dose 60 MG; Start 02/25/19 at 21:00 Methyldopa (Aldomet) 250 mg BID PO Last administered on 02/26/19 08:01; Admin Dose 250 MG; Start 02/26/19 at 00:30 Labetalol HCl (Normodyne) 300 mg TID PO Last administered on 02/26/19 08:10; Admin Dose 300 MG; Start 02/26/19 at 09:00 VTE Prophylaxis Risk score (from Nsg)>0 risk: 7 SCD applied (from Nsg): Yes Lines/Catheters IV Catheter Type: Saline Lock Ayala in Place: No Assessment/Plan Assessment/Plan Hypertensive urgency, resolved End-stage renal disease, on hemodialysis Noncompliance with medical therapy Proceed with hemodialysis Continue new antihypertensive regimen Discharge planning following hemodialysis Home health nurse has been requested to reassure compliance with medical therapy CRISTO FERNANDES MD Feb 26, 2019 09:53
--- NOTE | 2019-02-26 13:03 | CONS ---
Assessment/Plan Assessment/Plan Assessment/Plan (Daily) his is a 48-year-old female who presented with: 1. Chest pain during dialysis. Rule out acute coronary syndrome, questionable anxiety. 2. Hypertension urgency/emergency. Still not sure about patient's compliance. We will also get renal Doppler. Doppler was not a good study however still they commented could not be significant stenosis based on arcuate arteries 3. Hyperlipidemia. 4. History of stroke. 5 ESRD on HD TTS PLAN: - HD today again -Was explained about the compliance of taking blood pressure medications - cw labetalol 200 b.i.d.. Clonidine 0.2 t.i.d. Hydralazine 100 q. 8.. Imdur 30 b.i.d.. Cozaar 50 b.i.d.. Doxazosin. The patient cannot be on Coreg and labetalol at the same time. aldomet was added and labetaolol was increased, increasing bp meds at rapid pace will not solve the issue, pt anxiety and abdominal pain nned to be addressed first and they are contributing factors and pt needs to be compliant with meds - spoke to patient about extra 4 th session as ODP basis but she has been refusing -HD TTS -Really needs to had fluid restriction and low-sodium intake -Patient should be enrolled into the high risk clinic and may be have a home nurse evaluation for diet education and making sure patient is taking medications at home Consultation Date/Type/Reason Admit Date/Time Feb 23, 2019 at 21:58 Initial Consult Date Date/Time of Note DATE: 02/26/19 TIME: 13:01 24 HR Interval Summary Free Text/Dictation somewhat anxious Exam/Review of Systems Exam Vitals Vital Signs Date Temp Pulse Resp B/P (MAP) Pulse Ox O2 O2 Flow FiO2 Time Delivery Rate 02/26/19 98.1 63 162/75 94 11:14 (104) 02/26/19 18 07:09 02/25/19 Room Air 17:00 02/24/19 2.0 11:30 Intake and Output 02/25/19 02/25/19 02/26/19 1515:00 23:00 07:00 IntakeIntake Total 700 ml OutputOutput Total 3400 ml BalanceBalance -2700 ml Exam GENERAL: Clear. CHEST: Lungs clear to auscultate bilaterally. HEART: Regular rhythm. ABDOMEN: Soft, nontender, nondistended, positive active bowel sounds. EXTREMITIES: No clubbing, cyanosis, or edema. The patient has right-sided Perm-A-Cath in place. Results Result Diagram: 02/23/19 1851 02/25/19 0539 Results 24hrs Laboratory Tests Test 02/25/19 18:36 02/26/19 08:00 02/26/19 12:37 Bedside Glucose 135 143 127 Medications Medication Current Medications Nitroglycerin (Nitroglycerin (Sl Tab) 0.4 Mg) 1 tab Q5M UP TO 3 DOSES PRN SL .CHEST PAIN Last administered on 02/23/19 18:59; Admin Dose 1 TAB; Start 02/23/19 at 19:00 Amlodipine Besylate (Norvasc) 5 mg BID PO Last administered on 02/26/19 08:10; Admin Dose 5 MG; Start 02/23/19 at 23:00 Calcium Acetate (Phoslo) 667 mg WITH MEALS PO Last administered on 02/26/19 11:21; Admin Dose 667 MG; Start 02/24/19 at 07:35 Clopidogrel Bisulfate (plaVIX) 75 mg DAILY PO Last administered on 02/26/19 08:02; Admin Dose 75 MG; Start 02/24/19 at 09:00 Hydralazine HCl (Apresoline) 100 mg Q8H PO Last administered on 02/25/19 22:24; Admin Dose 100 MG; Start 02/23/19 at 23:00 Levothyroxine Sodium (Synthroid) 25 mcg BEFORE BREAKFAST PO Last administered on 02/26/19 07:26; Admin Dose 25 MCG; Start 02/24/19 at 07:00 Losartan Potassium (Cozaar) 50 mg BID PO Last administered on 02/26/19 08:02; Admin Dose 50 MG; Start 02/23/19 at 23:00 Pantoprazole (Protonix Tab) 40 mg AC BREAKFAST PO Last administered on 9at 07:26; Admin Dose 40 MG; Start 02/24/19 at 07:00 Morphine Sulfate (morphine) 2 mg Q3 PRN IV mod pain Last administered on 02/26/19 11:20; Admin Dose 2 MG; Start 02/23/19 at 23:00 Ondansetron HCl (Zofran Inj) 4 mg Q4 PRN IV nausea Last administered on 02/24/19 06:32; Admin Dose 4 MG; Start 02/23/19 at 23:00 Multivit/Ca Carb/ B Cmplx/FA/Prenat (Sunshine-Sandra) 1 tab DAILY PO Last administered on 02/26/19 08:02; Admin Dose 1 TAB; Start 02/24/19 at 09:00 Insulin Aspart (Novolog Insulin Pen) 2 unit WITH MEALS SC Last administered on 02/26/19 08:17; Admin Dose 2 UNIT; Start 02/24/19 at 07:35 Heparin Sodium (Porcine) (Heparin (1000 Units/ml)) 4,500 unit AFTER DIALYSIS CATHETER Last administered on 02/25/19 19:46; Admin Dose 4,500 UNIT; Start 02/24/19 at 03:30 Hydralazine HCl (Apresoline) 10 mg Q2H PRN IV ELEVATED BLOOD PRESSURE Last administered on 02/25/19 06:04; Admin Dose 10 MG; Start 02/24/19 at 05:00 Clonidine (Catapres) 0.2 mg TID PO Last administered on 02/26/19 08:10; Admin Dose 0.2 MG; Start 02/24/19 at 09:00 Lactulose (Enulose) 20 gm BID PRN PO CONSTIPATION; Start 02/24/19 at 08:30 Insulin Glargine (Lantus) 10 units QAM SC Last administered on 02/26/19 08:17; Admin Dose 10 UNITS; Start 02/24/19 at 09:30 Clonidine (Catapres) 0.2 mg Q4H PRN PO ELEVATED BLOOD PRESSURE Last administered on 02/26/19 02:07; Admin Dose 0.2 MG; Start 02/24/19 at 19:00 Doxazosin Mesylate (Cardura) 8 mg BID PO Last administered on 02/26/19 08:02; Admin Dose 8 MG; Start 02/25/19 at 21:00 Isosorbide Mononitrate (Imdur) 60 mg BID PO Last administered on 02/26/19 08:02; Admin Dose 60 MG; Start 02/25/19 at 21:00 Methyldopa (Aldomet) 250 mg BID PO Last administered on 02/26/19 08:01; Admin Dose 250 MG; Start 02/26/19 at 00:30 Labetalol HCl (Normodyne) 300 mg TID PO Last administered on 02/26/19at 08:10; Admin Dose 300 MG; Start 02/26/19 at 09:00 HAYLEE CULVER MD Feb 26, 2019 13:03
[2019-02-26] MEDS ORDERED: clonAZEPAM 0.5 MG TAB PO ONE (13:30)
[2019-02-26] MEDS: HEPARIN 1000 UNITS/ML 10 ML INJ CATHETER SCH (19:05)
[2019-02-26] MEDS ORDERED: AL HYDROX/MG HYDROX/SIMETH 30 ML CUP PO PRN (20:30)
[2019-02-26] MEDS: HYDROCODONE/APAP (5/325) TAB PO PRN ×2 (20:31→20:34)
[2019-02-27 03:51] VITALS: BP 180/79; PULSE 69; RESP 19
[2019-02-27] MEDS: LEVOTHYROXINE 25 MCG TAB PO SCH (05:53)
[2019-02-27] MEDS: morphine 2 MG INJ IV PRN (05:54)
[2019-02-27] MEDS: hydrALAzine 20 MG INJ IV PRN (05:55)
[2019-02-27 07:16] VITALS: BP 193/84; PULSE 68; RESP 18
[2019-02-27] MEDS: INSULIN ASPART [NOVOLOG] 3 ML PEN SC SCH (07:55)
[2019-02-27] MEDS: PANTOPRAZOLE (EC) 40 MG TAB PO SCH (08:01)
[2019-02-27] MEDS: MULTIVIT/CA CARB/B CMPLX/FA TAB PO SCH (08:01)
[2019-02-27] MEDS: DOXAZOSIN 4 MG TAB PO SCH (08:02)
[2019-02-27] MEDS: CALCIUM ACETATE 667 MG CAP PO SCH (08:02)
[2019-02-27] MEDS: LOSARTAN 50 MG TAB PO SCH (08:03)
[2019-02-27] MEDS: CLOPIDOGREL 75 MG TAB PO SCH (08:03)
[2019-02-27] MEDS: METHYLDOPA 250 MG TAB PO SCH (08:03)
[2019-02-27] MEDS: AMLODIPINE 5 MG TAB PO SCH (08:03)
[2019-02-27] MEDS: ISOSORBIDE MONONITRATE(SR)60 MG TAB PO SCH (08:04)
[2019-02-27] MEDS: LABETALOL 200 MG TAB PO SCH (08:05)
[2019-02-27] MEDS: INSULIN GLARGINE [LANTus] (100 UNITS/ML) SYG SC SCH (08:14)
[2019-02-27 10:20] VITALS: BP 138/67; PULSE 62
--- NOTE | 2019-02-27 10:51 | PN ---
Date/Time of Note Date/Time of Note DATE: 02/27/19 TIME: 10:49 Subjective Feels much better. No complaint of chest pain or shortness of breath. Objective Vitals Vital Signs Date Temp Pulse Resp B/P (MAP) Pulse Ox O2 O2 Flow FiO2 Time Delivery Rate 02/27/19 62 138/67 10:20 (90) 02/27/19 98.0 18 96 07:16 02/26/19 Room Air 16:58 02/24/19 2.0 11:30 Intake and Output 02/26/19 02/26/19 02/27/19 1515:00 23:00 07:00 IntakeIntake Total 400 ml 120 ml OutputOutput Total 3600 ml BalanceBalance 400 ml -3480 ml Clear to auscultation bilaterally Regular rate and rhythm Soft nontender nondistended normoactive bowel sounds No edema Nonfocal Results Result Diagram: 02/23/19 1851 02/25/19 0539 Medications Medications Current Medications Nitroglycerin (Nitroglycerin (Sl Tab) 0.4 Mg) 1 tab Q5M UP TO 3 DOSES PRN SL .CHEST PAIN Last administered on 02/23/19 18:59; Admin Dose 1 TAB; Start 02/23/19 at 19:00 Amlodipine Besylate (Norvasc) 5 mg BID PO Last administered on 02/27/19 08:03; Admin Dose 5 MG; Start 02/23/19 at 23:00 Calcium Acetate (Phoslo) 667 mg WITH MEALS PO Last administered on 02/27/19 08:02; Admin Dose 667 MG; Start 02/24/19 at 07:35 Clopidogrel Bisulfate (plaVIX) 75 mg DAILY PO Last administered on 02/27/19 08:03; Admin Dose 75 MG; Start 02/24/19 at 09:00 Hydralazine HCl (Apresoline) 100 mg Q8H PO Last administered on 02/26/19 22:57; Admin Dose 100 MG; Start 02/23/19 at 23:00 Levothyroxine Sodium (Synthroid) 25 mcg BEFORE BREAKFAST PO Last administered on 02/27/19 05:53; Admin Dose 25 MCG; Start 02/24/19 at 07:00 Losartan Potassium (Cozaar) 50 mg BID PO Last administered on 02/27/19 08:03; Admin Dose 50 MG; Start 02/23/19 at 23:00 Pantoprazole (Protonix Tab) 40 mg AC BREAKFAST PO Last administered on 02/27/19 08:01; Admin Dose 40 MG; Start 02/24/19 at 07:00 Morphine Sulfate (morphine) 2 mg Q3 PRN IV mod pain Last administered on 02/27/19 05:54; Admin Dose 2 MG; Start 02/23/19 at 23:00 Ondansetron HCl (Zofran Inj) 4 mg Q4 PRN IV nausea Last administered on 02/24/19 06:32; Admin Dose 4 MG; Start 02/23/19 at 23:00 Multivit/Ca Carb/ B Cmplx/FA/Prenat (Sunshine-Sandra) 1 tab DAILY PO Last administered on 02/27/19 08:01; Admin Dose 1 TAB; Start 02/24/19 at 09:00 Insulin Aspart (Novolog Insulin Pen) 2 unit WITH MEALS SC Last administered on 02/26/19 15:08; Admin Dose 2 UNIT; Start 02/24/19 at 07:35 Heparin Sodium (Porcine) (Heparin (1000 Units/ml)) 4,500 unit AFTER DIALYSIS CATHETER Last administered on 02/26/19 19:05; Admin Dose 4,500 UNIT; Start 02/24/19 at 03:30 Hydralazine HCl (Apresoline) 10 mg Q2H PRN IV ELEVATED BLOOD PRESSURE Last administered on 02/27/19 05:55; Admin Dose 10 MG; Start 02/24/19 at 05:00 Clonidine (Catapres) 0.2 mg TID PO Last administered on 02/27/19 08:03; Admin Dose 0.2 MG; Start 02/24/19 at 09:00 Lactulose (Enulose) 20 gm BID PRN PO CONSTIPATION; Start 02/24/19 at 08:30 Insulin Glargine (Lantus) 10 units QAM SC Last administered on 02/26/19 08:17; Admin Dose 10 UNITS; Start 02/24/19 at 09:30 Clonidine (Catapres) 0.2 mg Q4H PRN PO ELEVATED BLOOD PRESSURE Last administered on 02/26/19 02:07; Admin Dose 0.2 MG; Start 02/24/19 at 19:00 Doxazosin Mesylate (Cardura) 8 mg BID PO Last administered on 02/27/19at 08:02; Admin Dose 8 MG; Start 02/25/19 at 21:00 Isosorbide Mononitrate (Imdur) 60 mg BID PO Last administered on 02/27/19at 08:04; Admin Dose 60 MG; Start 02/25/19 at 21:00 Methyldopa (Aldomet) 250 mg BID PO Last administered on 02/27/19at 08:03; Admin Dose 250 MG; Start 02/26/19 at 00:30 Labetalol HCl (Normodyne) 300 mg TID PO Last administered on 02/27/19at 08:05; Admin Dose 300 MG; Start 02/26/19 at 09:00 Acetaminophen/ Hydrocodone Bitart ([place] (5/325)) 1 tab Q4H PRN PO MODERATE PAIN LEVEL 4-6; Start 02/26/19 at 20:30 Al Hydrox/Mg Hydrox/Simethicone (Mag-Al Plus) 30 ml Q4H PRN PO GASTROINTESTINAL UPSET Last administered on 02/26/19at 20:39; Admin Dose 30 ML; Start 02/26/19 at 20:30 VTE Prophylaxis Risk score (from Nsg)>0 risk: 5 SCD applied (from Nsg): Yes Lines/Catheters IV Catheter Type: Saline Lock Ayala in Place: No Assessment/Plan Assessment/Plan 48-year-old female with hypertensive urgency, resolved End-stage renal disease, on hemodialysis Anxiety disorder Noncompliance with medical therapy Patient is in a stable condition for discharge Compliance with medications was highly emphasized. Patient will clearly benefit from hemodialysis 4 times a week. However, she is not agreeable Home health nurse has been arranged to reassure compliance Case was discussed with material loader CRISTO FERNANDES MD Feb 27, 2019 10:51
[2019-02-27 11:23] VITALS: BP 157/72; PULSE 62; RESP 17
== END 2019-02-27 11:35 | disposition home health service (06) | DRG 304 ==
LOC: E/R 18:37 → ICU 21:58 → TEL 02-24 16:13
PROVIDERS: ADMIT Internal Medicine; ATTEND Internal Medicine
PROC: 5A1D70Z Performance of Urinary Filtration, Intermittent, Less than 6 Hours Per Day (ICD-10-PCS; principal; 2019-02-25)
DX: I16.0 Hypertensive urgency (principal); N18.6 End stage renal disease; I16.1 Hypertensive emergency; I24.8 Other forms of acute ischemic heart disease; I12.0 Hypertensive chronic kidney disease with stage 5 chronic kidney disease or end stage renal disease; E78.5 Hyperlipidemia, unspecified; E11.22 Type 2 diabetes mellitus with diabetic chronic kidney disease; Z86.73 Personal history of transient ischemic attack (TIA), and cerebral infarction without residual deficits; Z99.2 Dependence on renal dialysis; Z79.4 Long term (current) use of insulin; Z91.19 Patient's noncompliance with other medical treatment and regimen
CPT/HCPCS: 36415; 71045; 71275; 80048; 81001; 82550; 82553; 82962; 83605; 84484; 85025; 85610; 85730; 87081; 87340; 90935; 93005; 93976; 96374; 96375; 96376; J0360; J1644; J1815; J2270; J2405; Q9967

== ENCOUNTER 2019-03-05 14:59 | Inpatient (IN) | payer OTHER ==
[2019-03-05] VITALS (13 sets, daily range): BP systolic 140–194; BP diastolic 63–79; PULSE 62–70; RESP 20
[~2019-03-05] VITALS: Ht 165.1 cm; Wt 74.5 kg
--- NOTE | 2019-03-05 15:26 | ERD ---
ER Documentation Chief Complaint Chief Complaint generalized weakness and dizziness x 3 days, missed dialysis today HPI The patient is a 48-year-old female, presenting to the ER because of generalized weakness, dizziness for the last 3 days, similar symptom previously when she missed her dialysis, complains of vague right-sided chest pain, headache, dyspnea for the last 2 days. She denies seizure, neck pain, abdominal pain, vomiting, dysuria, diarrhea. She missed her dialysis today. He does not smoke nor drink Past medical history: Diabetes mellitus, chronic kidney disease on hemodialysis Monday and Monday, hypothyroidism, hypertension, history of CVA, anxiety Past surgical history: Cholecystectomy, 3 , right chest hemodialysis catheter ROS All systems reviewed and are negative except as per history of present illness. Medications Home Meds Active Scripts Methyldopa* (Methyldopa*) 250 Mg Tablet, 250 MG PO BID for 30 Days, TAB Prov:CRISTO FERNANDES MD 02/26/19 Labetalol Hcl* (Labetalol Hcl*) 200 Mg Tablet, 300 MG PO TID for 30 Days, TAB Prov:CRISTO FERNANDES MD 02/26/19 Isosorbide Mononitrate* (Isosorbide Mononitrate*) 30 Mg Tab.er.24h, 60 MG PO BID for 30 Days Prov:CRISTO FERNANDES MD 02/25/19 Doxazosin Mesylate* (Cardura*) 4 Mg Tablet, 8 MG PO BID for 30 Days, TAB Prov:CRISTO FERNANDES MD 02/25/19 Carvedilol* (Carvedilol*) 25 Mg Tablet, 50 MG PO BID for 30 Days, TAB Prov:CRISTO FERNANDES MD 02/25/19 Clonidine Hcl* (Catapres*) 0.2 Mg Tablet, 0.2 MG PO TID for 30 Days, TAB Prov:CRISTO FERNANDES MD 02/24/19 Losartan Potassium* (Cozaar*) 50 Mg Tablet, 50 MG PO BID for 30 Days, TAB 3 Refills Prov:CRISTO FERNANDES MD 02/18/19 Isosorbide Mononitrate* (Isosorbide Mononitrate*) 30 Mg Tab.er.24h, 30 MG PO BID for 30 Days, 3 Refills Prov:CRISTO FERNANDES MD 02/18/19 Hydralazine Hcl* (Apresoline*) 50 Mg Tab, 100 MG PO Q8H for 30 Days, TAB 3 Refills Prov:CRISTO FERNANDES MD 02/18/19 Doxazosin Mesylate* (Cardura*) 4 Mg Tablet, 4 MG PO BID for 30 Days, TAB 3 Refills Prov:CRISTO FERNANDES MD 02/18/19 Carvedilol* (Carvedilol*) 25 Mg Tablet, 50 MG PO BID for 30 Days, TAB 3 Refills Prov:CRISTO FERNANDES MD 02/18/19 Amlodipine Besylate* (Amlodipine Besylate*) 5 Mg Tablet, 5 MG PO BID for 30 Days, TAB 3 Refills Prov:CRISTO FERNANDES MD 02/18/19 Reported Medications Insulin Glargine,Hum.rec.anlog (Basaglar Kwikpen U-100) 100 Unit/1 Ml Insuln.pen, 10 UNIT SC QAM, EA 09/06/18 Clopidogrel Bisulfate* (Clopidogrel Bisulfate*) 75 Mg Tablet, 75 MG PO DAILY, #30 TAB 09/06/18 Levothyroxine Sodium* (Levothyroxine Sodium*) 25 Mcg Tablet, 25 MCG PO BEFORE BREAKFAST, #30 TAB 09/06/18 Gabapentin* (Gabapentin*) 100 Mg Capsule, 100 MG PO BID, #90 CAP 09/06/18 [Nephro-Sandra] No Conflict Check, 1 TAB PO DAILY 09/06/18 Minoxidil* (Lonitin*) 2.5 Mg Tab, 2.5 MG PO BID, TAB 09/06/18 Ondansetron Hcl* (Zofran*) 4 Mg Tab, 4 MG PO Q6H PRN for NAUSEA AND OR VOMITING, TAB 09/06/18 Insulin Lispro (Humalog Kwikpen U-100) 100 Unit/1 Ml Insuln.pen, 2 UNIT SQ WITH MEALS, EA 08/28/18 Pantoprazole* (Pantoprazole*) 40 Mg Tablet.dr, 40 MG PO AC BREAKFAST, TAB 08/28/18 Minoxidil* (Lonitin*) 2.5 Mg Tab, 2.5 MG PO BID, TAB 08/28/18 Calcium Acetate* (Calcium Acetate*) 667 Mg Capsule, 667 MG PO WITH MEALS, #30 CAP 08/28/18 Discontinued Reported Medications Labetalol Hcl* (Labetalol Hcl*) 200 Mg Tablet, 200 MG PO TID, TAB 2 Discontinued Scripts Labetalol Hcl* (Labetalol Hcl*) 200 Mg Tablet, 200 MG PO TID for 30 Days, TAB 3 Refills Prov:CRISTO FERNANDES MD 02/18/19 Allergies Allergies: Coded Allergies: minoxidil (Verified Allergy, Severe, facial edema, 02/13/19) pt reported nicardipine (Verified Allergy, Unknown, 02/13/19) PMhx/Soc History of Surgery: Yes (cholecystectomy, C section X 3, ) Anesthesia Reaction: No Hx Neurological Disorder: Yes (CVA a long time ago) Hx Respiratory Disorders: No Hx Cardiac Disorders: Yes (HTN, CP) Hx Psychiatric Problems: Yes (Anxiety) Hx Miscellaneous Medical Probl: No Hx Alcohol Use: No Hx Substance Use: No Hx Tobacco Use: No Physical Exam Vitals Vital Signs Date Temp Pulse Resp B/P (MAP) Pulse Ox O2 O2 Flow FiO2 Time Delivery Rate 03/05/19 63 16 164/74 96 Room Air 19:09 (104) 03/05/19 68 18 168/85 98 Room Air 18:03 (112) 03/05/19 65 18 192/78 98 Room Air 17:30 (116) 03/05/19 67 18 192/76 99 Room Air 17:00 (114) 03/05/19 66 18 205/74 99 Room Air 16:00 (117) 03/05/19 Nasal 2 15:54 Cannula 03/05/19 98.4 64 18 198/129 98 15:02 (152) Physical Exam Const: No acute distress. Anasarca Head: Atraumatic. Eyes: Normal Conjunctiva. ENT: Normal External Ears, Nose and Mouth. Neck: Full range of motion. No meningismus. Resp: Tachypneic, bibasilar crackle Cardio: Regular rate and rhythm. Abd: Soft, non distended, normal bowel sounds, non tender. Skin: No petechiae or rashes. Back: No midline or flank tenderness. Ext: Bilateral leg edema, no calf tenderness Neur: Awake and alert. No focal deficit Psych: Normal Mood and Affect. Result Diagram: 03/05/19 1601 03/05/19 1601 Results 24 hrs Laboratory Tests Test 03/05/19 16:01 White Blood Count 5.0 10^3/ul Red Blood Count 3.38 10^6/ul Hemoglobin 10.4 g/dl Hematocrit 31.6 % Mean Corpuscular Volume 93.5 fl Mean Corpuscular Hemoglobin 30.8 pg Mean Corpuscular Hemoglobin Concent 32.9 g/dl Red Cell Distribution Width 14.4 % Platelet Count 109 10^3/UL Mean Platelet Volume 10.8 fl Immature Granulocytes % 1.000 % Neutrophils % 76.4 % Lymphocytes % 13.0 % Monocytes % 7.6 % Eosinophils % 1.6 % Basophils % 0.4 % Nucleated Red Blood Cells % 0.0 /100WBC Immature Granulocytes # 0.050 10^3/ul Neutrophils # 3.8 10^3/ul Lymphocytes # 0.7 10^3/ul Monocytes # 0.4 10^3/ul Eosinophils # 0.1 10^3/ul Basophils # 0.0 10^3/ul Nucleated Red Blood Cells # 0.0 10^3/ul Prothrombin Time 13.5 Sec Prothrombin Time Ratio 1.1 INR International Normalized Ratio 1.02 Activated Partial Thromboplast Time 36.7 Sec Sodium Level 139 mmol/L Potassium Level 4.4 mmol/L Chloride Level 101 mmol/L Carbon Dioxide Level 25 mmol/L Anion Gap 13 Blood Urea Nitrogen 46 mg/dl Creatinine 8.98 mg/dl Est Glomerular Filtrat Rate mL/min 5 mL/min Glucose Level 181 mg/dl Calcium Level 9.0 mg/dl Total Bilirubin 0.3 mg/dl Direct Bilirubin 0.20 mg/dl Indirect Bilirubin 0.1 mg/dl Aspartate Amino Transf (AST/SGOT) 50 IU/L Alanine Aminotransferase (ALT/SGPT) 40 IU/L Alkaline Phosphatase 178 IU/L Troponin I < 0.012 ng/ml Total Protein 7.4 g/dl Albumin 4.2 g/dl Globulin 3.20 g/dl Albumin/Globulin Ratio 1.31 Current Medications Medications Dose Sig/Stalin Start Time Status Last (Trade) Ordered Route PRN Stop Time Admin Dose Reason Admin 250 ml @ 0 TITRATE IV 03/05/19 03/05/19 Nitroglycerin mls/hr 16:00 19:09 / Dextrose 650 mg ONCE ONCE 03/05/19 DC Acetaminophen PO 18:00 03/05/19 (Tylenol 18:01 Tab) Morphine 2 mg ONCE STAT 03/05/19 DC 03/05/19 Sulfate IV 18:03 03/05/19 18:07 (morphine) 18:04 Ondansetron 4 mg ONCE STAT 03/05/19 DC 03/05/19 HCl (Zofran IV 18:03 03/05/19 18:07 Inj) 18:04 Procedures/[place] [id number] Radiology Main Line: [phone] DIAGNOSTIC IMAGING REPORT Patient: SERGIO SEGURA : 1970 Age: 48 Sex: F MR #: [id number] DOS: 03/05/19 1547 Ordering MD: COLT ACUNA MD Location: E/R Room/Bed: PROCEDURE: XR Chest. CLINICAL INDICATION: Shortness of breath TECHNIQUE: 2 AP views of the chest obtained. COMPARISON: 02/23/2019 FINDINGS: Right jugular hemodialysis catheter remains in place with the tip in the mid - lower right atrium. Cardiac silhouette remains enlarged. Pulmonary vasculature is mildly congested. No focal consolidation, pleural effusion or pneumothorax is identified. IMPRESSION: Cardiomegaly with mild pulmonary vascular congestion. RPTAT: VV .Mark Figueredo MD, MD Date Time Electronically viewed and signed by .Mark Figueredo MD, MD on 03/05/2019 16:19 .O/ CC: COLT ACUNA MD [id number] EKG: Read by emergency physician Rate/Rhythm: Normal Sinus Rhythm 68 beats/min QRS, ST, T-waves: No ST elevation, no T inversion Impression: Normal EKG MEDICAL MAKING DECISION: The patient is a 48-year-old female, presenting with acute hypertensive emergency, acute fluid overload She was treated with nitroglycerin drip, morphine 2 mg IV for pain and Zofran IV for nausea and Tylenol for her headache the differential diagnoses considered include but are not limited to medical noncompliance, asthma, COPD, pneumonia, pulmonary embolus, pleural effusion, congestive heart failure. Critical Care: Time: 35 minutes excluding all billable procedures. Treatments/Evaluations: Close monitoring and treatment of unstable vital signs, cardiorespiratory, and neurologic status, while maintaining tight balance of fluid, respiratory, and cardiac interventions. Consultation: I discussed the patient with her differential specialist Dr. May at 6:3op who would order for emergent dialysis Critical Care: Time: 35 minutes excluding all billable procedures. Treatments/Evaluations: Close monitoring and treatment of unstable vital signs, cardiorespiratory, and neurologic status, while maintaining tight balance of fluid, respiratory, and cardiac interventions. Departure Diagnosis: Primary Impression: Fluid overload Additional Impressions: Hypertensive emergency Anemia Thrombocytopenia Condition: Critical Comments I discussed the findings with the patient. I notified the patient with Dr. Fernandes at 6p via [employer], who was made aware of the lab, the treatment, the p atient condition. The patient is admitted to ICU Disclaimer: Inadvertent spelling and grammatical errors are likely due to EHR/dictation software use and do not reflect on the overall quality of patient care. Also, please note that the electronic time recorded on this note does not necessarily reflect the actual time of the patient encounter. COLT ACUNA MD Mar 05, 2019 15:26
[2019-03-05] MEDS: NITROGLYCERIN 50 MG/D5W (PMX) 250 ML IV SCH ×3 (16:25→23:24)
[2019-03-05] MEDS ORDERED: ACETAMINOPHEN 325 MG TAB PO ONE (18:00)
[2019-03-05] MEDS ORDERED: ONDANSETRON 4 MG INJ IV STA ×2 (18:03→23:48)
[2019-03-05] MEDS ORDERED: morphine 2 MG INJ IV STA (18:03)
[2019-03-05] MEDS ORDERED: INSULIN GLARGINE [LANtus] 3 ML PEN SC SCH (20:30)
[2019-03-05] MEDS ORDERED: GLUCAGON 1 MG INJ IM PRN (21:00)
[2019-03-05] MEDS ORDERED: GLUCOSE GEL 15 GRAM TUBE BUCCAL PRN (21:00)
[2019-03-05] MEDS ORDERED: GLUCOSE GEL 15 GRAM TUBE PO PRN ×2 (21:00)
[2019-03-05] MEDS ORDERED: DEXTROSE 50% 50 ML SYRINGE IV PRN ×2 (21:00)
[2019-03-05] MEDS ORDERED: HEPARIN 1000 UNITS/ML 10 ML INJ CATHETER ONE (21:30)
[2019-03-05] MEDS ORDERED: morphine 4 MG/ML VIAL IV STA (23:48)
[2019-03-06] VITALS (94 sets, daily range): BP systolic 130–203; BP diastolic 59–77; PULSE 60–72; RESP 12–26; Ht 165.1 cm; Wt 74.5 kg
[2019-03-06] MEDS: METHYLDOPA 250 MG TAB PO SCH ×3 (00:51→20:21)
[2019-03-06] MEDS: AMLODIPINE 5 MG TAB PO SCH ×3 (00:55→20:22)
[2019-03-06] MEDS: LOSARTAN 50 MG TAB PO SCH ×3 (00:55→20:22)
[2019-03-06] MEDS: ISOSORBIDE MONONITRATE(SR)30 MG TAB PO SCH ×2 (00:55→08:33)
[2019-03-06] MEDS: LABETALOL 100 MG TAB PO SCH ×4 (00:57→20:26)
[2019-03-06] MEDS: GABAPENTIN 100 MG CAP PO SCH ×3 (00:57→20:22)
[2019-03-06] MEDS: DOXAZOSIN 4 MG TAB PO SCH ×3 (01:18→20:27)
[2019-03-06] MEDS: CLOPIDOGREL 75 MG TAB PO SCH ×2 (01:21→08:32)
[2019-03-06] MEDS: NITROGLYCERIN 50 MG/D5W (PMX) 250 ML IV PRN ×4 (01:58→08:37)
[2019-03-06] MEDS: clonAZEPAM 0.5 MG TAB PO PRN (01:58)
[2019-03-06] MEDS: morphine 2 MG INJ IV PRN ×3 (06:28→15:06)
[2019-03-06] MEDS: LEVOTHYROXINE 25 MCG TAB PO SCH (07:01)
[2019-03-06] MEDS: ACCU-CHEK XX SCH ×4 (07:01→20:28)
[2019-03-06] MEDS: PANTOPRAZOLE (EC) 40 MG TAB PO SCH (07:01)
[2019-03-06] MEDS: CALCIUM ACETATE 667 MG CAP PO SCH ×3 (07:45→17:16)
[2019-03-06] MEDS: INSULIN ASPART [NOVOLOG] 3 ML PEN SC SCH ×4 (07:56→20:28)
[2019-03-06] MEDS: INSULIN GLARGINE [LANTus] (100 UNITS/ML) SYG SC SCH (08:46)
--- NOTE | 2019-03-06 10:56 | HP ---
DATE OF ADMISSION: 03/05/2019 CHIEF COMPLAINT: Generalized weakness and dizziness. HISTORY OF PRESENT ILLNESS: This is a 48-year-old female with poorly controlled hypertension and end -stage renal disease, presented to emergency room with complaints of generalized weakness and dizzine ss for 2 to 3 days. The patient missed her dialysis on the day of admission. She denies any chest p ain. No shortness of breath. No abdominal pain, nausea or vomiting. No fevers or chills. She comp lains of back pain. Patient is extremely noncompliant and has had multiple admissions in the recent past. Initial evaluation revealed a blood pressure of 200/130. The patient was started on a nitroglycerin drip. She underwent hemodialysis following admission. PAST MEDICAL HISTORY: 1. Hypertension. 2. End-stage renal disease on hemodialysis every Monday, and Monday. 3. Anxiety disorder. 4. Type 2 diabetes mellitus. MEDICATIONS PRIOR TO ADMISSION: 1. Methyldopa 250 mg b.i.d. 2. Labetalol 20 mg t.i.d. 3. Isosorbide 60 mg b.i.d. 4. Doxazosin 8 mg b.i.d. 5. Carvedilol 25 mg b.i.d. 6. Clonidine 0.2 mg t.i.d. 7. Losartan 50 mg b.i.d. 8. Isosorbide mononitrate 60 mg b.i.d. 9. Hydralazine 100 mg q.8h. 10. Cardura 8 mg b.i.d. 11. Amlodipine 5 mg b.i.d. 12. Basaglar insulin 10 units daily. 13. Plavix 75 mg daily. 14. Levothyroxine 25 mcg daily. 15. Gabapentin 100 mg b.i.d. 16. Protonix 40 mg daily. 17. Calcium acetate 667 mg t.i.d. ALLERGIES: THE PATIENT REPORTS ALLERGIC REACTION TO MINOXIDIL. PAST SURGICAL HISTORY: Status post cholecystectomy, status post x3. SOCIAL HISTORY: Patient lives at home. She denies tobacco or alcohol use. PHYSICAL EXAMINATION: GENERAL: Well-developed, well-nourished female who is in no apparent distress. VITAL SIGNS: Blood pressure 149/64, pulse 63, respiration 15. She is afebrile. HEENT: Extraocular muscles intact. Pupils equal and reactive to light bilaterally. Sclerae are ani cteric. Oropharynx is clear and moist. NECK: Supple, no JVD, no carotid bruits. LUNGS: Clear to auscultation bilaterally. CARDIAC: Regular rate and rhythm. No murmurs, rubs or gallops. ABDOMEN: Soft, nontender, nondistended, normoactive bowel sounds. EXTREMITIES: No clubbing, cyanosis, or edema. NEUROLOGIC: Grossly nonfocal. Patient appears depressed. CBC: White blood cell count 3.6, hemoglobin 9.4, platelet count 180,000. Sodium 138, potassium 3.8, chloride 99, bicarbonate 28, BUN 20, creatinine 5.34, calcium 8.7, magnesium is 2. ASSESSMENT: 1. A 48-year-old female with a hypertensive urgency. The patient needs her hemodialysis on the day of admission. 2. End-stage renal disease, on hemodialysis. 3. Type 2 diabetes mellitus. 4. Hypothyroidism. 5. Anxiety disorder. 6. Noncompliance with medical therapy and dialysis sessions leading to frequent hospitalizations. PLAN: 1. Admit to ICU, wean off nitroglycerin drip. Resume oral antihypertensive. Klonopin p.r.n. Nephrology consultation was requested. 2. A school social worker and psych consultation will also be requested. Dictated By: CRISTO ESCOBAR/WAQAS Conf#: [id number] DID#: [id number]
--- NOTE | 2019-03-06 11:03 | QN ---
Documentation Comment pt seen and examined HAYLEE CULVER MD Mar 06, 2019 11:03
[2019-03-06] MEDS: NITROGLYCERIN 50 MG/D5W (PMX) 250 ML IV SCH ×3 (11:24→22:54)
--- NOTE | 2019-03-06 12:15 | CONS ---
DATE OF ADMISSION: 03/05/2019 DATE OF CONSULTATION: 03/06/2019 REASON FOR CONSULTATION: Hemodialysis. HISTORY OF PRESENT ILLNESS AND HOSPITAL COURSE: This is a 48-year-old female who has had multiple ad missions in the past in the [facility] secondary to hypertensive urgency/emergency. Presented to the emergency department after feeling weak. According to the patient, she had been t aking all her blood pressure medications, but upon further questioning, she said that she had not bee n taking her doxazosin. She had not been taking hydralazine. Patient said that she had been feeling very weak. She had been taking the rest of her medications. That made her worried and came to the emergency department. On arrival to the ED, vital signs showed blood pressure of 200/130. Patient w as started on nitro drip to undergo immediate hemodialysis. Sodium was 139, potassium 4.9, chloride 101, bicarbonate 25, BUN of 46, creatinine 8.98. White count of 5.0, hemoglobin 10.4, platelet count 109. The patient also had a chest x-ray that showed cardiom egaly with mild pulmonary congestion. PAST MEDICAL HISTORY: 1. Hypertension. 2. End-stage renal disease on hemodialysis Monday, and Monday. 3. Anxiety disorder. 4. Diabetes. ALLERGIES: ALLERGIC REACTION TO Minoxidil. PATIENT DOES NOT WANT TO TAKE HYDRALAZINE AND DOES NOT W ANT TO DOXAZOSIN. PAST SURGICAL HISTORY: Status post cholecystectomy, status post x2. SOCIAL HISTORY: Lives at home. MEDICATIONS TAKEN AT HOME: Listed as: 1. Imdur 30 b.i.d. 2. Clonidine 0.2 t.i.d. 3. Losartan 50 b.i.d. 4. Hydralazine 100 q.8h., however, not taking labetalol 200 t.i.d. 5. Coreg 50 b.i.d. 6. Methyldopa 250 b.i.d. 7. Doxazosin 8 mg b.i.d. 8. It does not list amlodipine. 9. Plavix 75. 10. Basaglar 10. 11. Levothyroxine 25. 12. Gabapentin 100. 13. Protonix. 14. Calcium acetate. REVIEW OF SYSTEMS: The patient is complaining of generalized weakness and sometimes having left-side d chest pain. PHYSICAL EXAMINATION: VITAL SIGNS: Currently, blood pressure is 142/67, pulse 63, respirations 14, saturating 98%. GENERAL: The patient is awake, alert, oriented. Does not appear to be in any acute distress. HEENT: Pupils equal, round, and reactive to light. NECK: Supple. No JVD. HEART: Regular rate and rhythm. LUNGS: Clear to auscultation bilaterally. ABDOMEN: Soft, nontender, nondistended, positive bowel sounds. EXTREMITIES: No clubbing, cyanosis, or edema. The patient has a right chest wall Perm-A-Cath. DIAGNOSTIC DATA: Shows now sodium of 138, potassium 3.8, chloride 99, bicarbonate of 28, BUN of 20, creatinine 5.34., white count of 5.0, hemoglobin 10.4, platelet count 109. Chest x-ray shows cardiom egaly with mild pulmonary vascular congestion. ASSESSMENT AND PLAN: This is a 48-year-old female presenting with: 1. Recurrent hypertensive urgency/emergency; however, there is really a question of compliance on th e medications. Home blood pressure medications listed. The patient already stated that she is not t aking hydralazine and doxazosin. Plus, the patient was discharged on amlodipine, which is not found in her blood pressure medications. The patient also said that she had not been taking clonidine patc h which she was discharged with last time which caused rebound hypertension. The patient is noncomp liant with hemodialysis. 2. Chest pain. Need to rule out for ischemia in the setting of hypertensive/emergency. 3. Diabetes. 4. Hyperlipidemia. 5. Anxiety disorder. PLAN: At this period of time, the patient is admitted to ICU. She is currently on nitro drip. The patient had already received hemodialysis. Serious concerns have to be paid upon compliance issues. Checked in the medication bottles of the patient, Clonidine patch was not there and amlodipine was n ot there, even though the patient was discharged with that. The patient also stated that she is not taking hydralazine and doxazosin. This really brings about compliance. The patient really needs to talk with the renal social worker and a home nurse to follow up with her blood pressure regimen. We will adjust the medications while in house. The patient will also benefit from psych evaluation and cardi ac evaluation. The rest of the treatment will depend on the patient's hospitalization course. Dictated By: HAYLEE LEON/WAQAS Conf#: [id number] [facility]#: [id number]
--- NOTE | 2019-03-06 15:30 | PSY ---
Date/Time of Note Date/Time of Note DATE: 03/06/19 TIME: 15:24 Psychiatric Subjective Eval Consent Pt consented to telemedicine: No Subjective Evaluation Patient location: inpatient Chief Complaint: generalized weakness and dizziness x 3 days, missed dialysis today History of present illness Patient is a 48-year-old female with hypertension, end-stage renal disease, admitted for generalized weakness and dizziness and missed her dialysis . [id number] evaluation, patient is Tristanian-speaking only, translation done by primary nurse. Patient denies any feeling of hopelessness and helplessness, denies suicidal ideation and contracted for safety. Patient states she has 3 boys and has a lots to want to live. She admits episodes of anxiety but states she is able to control it. Past psychiatric history History of depression when she had a a break-up with her significant order Hospitalization: no Medical history Problems Medical Problems: (1) Abdominal pain Status: Acute (2) Acute anxiety Status: Acute (3) Acute hyperkalemia Status: Acute (4) Acute hyperkalemia Status: Acute (5) Acute hyperkalemia Status: Acute (6) Acute kidney injury superimposed on chronic kidney disease Status: Acute (7) Anemia Status: Acute (8) Anxiety Status: Acute (9) Bilateral pneumonia Status: Acute (10) Chest pain Status: Acute (11) Chest pain Status: Acute (12) Chest wall pain Status: Acute (13) Cholelithiasis Status: Acute (14) Chronic pain Status: Acute (15) Contusion of chest wall Status: Acute (16) Drug-seeking behavior Status: Acute (17) Dysuria Status: Acute (18) Encounter for medication refill Status: Acute (19) End stage kidney disease Status: Acute (20) End stage kidney disease Status: Acute (21) End stage renal disease on dialysis Status: Acute (22) Fluid overload Status: Acute (23) Fluid overload Status: Acute (24) Headache Status: Acute (25) Hyperkalemia Status: Acute (26) Hypertension Status: Acute (27) Hypertension Status: Acute (28) Hypertension Status: Acute (29) Hypertensive crisis Status: Acute (30) Hypertensive emergency Status: Acute (31) Hypertensive emergency Status: Acute (32) Hypertensive emergency Status: Acute (33) Hypertensive emergency Status: Acute (34) Hypertensive emergency Status: Acute (35) Hypertensive emergency Status: Acute (36) Hypertensive urgency Status: Acute (37) Hypertensive urgency Status: Acute (38) Hyponatremia Status: Acute (39) Intractable abdominal pain Status: Acute (40) Intractable pain Status: Acute (41) Malingering Status: Acute (42) Missed dialysis Status: Acute (43) Multiple rib fractures Status: Acute (44) Pancytopenia Status: Acute (45) Poorly-controlled hypertension Status: Acute (46) Renal failure (ARF), acute on chronic Status: Acute (47) Rib fractures Status: Acute (48) Severe anemia Status: Acute (49) Shortness of breath Status: Acute (50) Symptomatic anemia Status: Acute (51) Thrombocytopenia Status: Acute Allergies: Coded Allergies: minoxidil (Verified Allergy, Severe, facial edema, 02/13/19) pt reported nicardipine (Verified Allergy, Unknown, 02/13/19) Substance Abuse Substance abuse history: No Prior substance abuse treatmen: No Social History Marital status: other DPA/Conservatorship: No Psychiatric Objective Eval Review of Systems: Review of Systems: Not Applicable Physical Examination: Sleep: Adequate Appetite: Decreased Energy: Decreased Interest: Decreased Mental Status Examination: Eye Contact: Poor Behavior: Cooperative, Hostile Speech: Clear AFFECT: Flat Orientation: x4 Cognition: Alert Insight: Mild Judgement: Mild Attention Span: Distractible Laboratory Results Laboratory Tests Test 03/05/19 16:01 03/06/19 00:47 03/06/19 04:29 03/06/19 07:43 White Blood Count 5.0 10^3/ul 3.6 10^3/ul Red Blood Count 3.38 10^6/ul 3.02 10^6/ul Hemoglobin 10.4 g/dl 9.4 g/dl Hematocrit 31.6 % 28.3 % Mean Corpuscular 93.5 fl 93.7 fl Volume Mean Corpuscular 30.8 pg 31.1 pg Hemoglobin Mean Corpuscular 32.9 g/dl 33.2 g/dl Hemoglobin Concent Red Cell 14.4 % 14.4 % Distribution Width Platelet Count 109 10^3/UL 108 10^3/UL Mean Platelet 10.8 fl 11.0 fl Volume Immature 1.000 % 0.800 % Granulocytes % Neutrophils % 76.4 % 68.6 % Lymphocytes % 13.0 % 17.2 % Monocytes % 7.6 % 10.3 % Eosinophils % 1.6 % 2.5 % Basophils % 0.4 % 0.6 % Nucleated Red 0.0 /100WBC 0.0 /100WBC Blood Cells % Immature 0.050 10^3/ul 0.030 10^3/ul Granulocytes # Neutrophils # 3.8 10^3/ul 2.5 10^3/ul Lymphocytes # 0.7 10^3/ul 0.6 10^3/ul Monocytes # 0.4 10^3/ul 0.4 10^3/ul Eosinophils # 0.1 10^3/ul 0.1 10^3/ul Basophils # 0.0 10^3/ul 0.0 10^3/ul Nucleated Red 0.0 10^3/ul 0.0 10^3/ul Blood Cells # Prothrombin Time 13.5 Sec Prothrombin Time 1.1 Ratio INR International 1.02 Normalized Ratio Activated 36.[address] Time Sodium Level 139 mmol/L 138 mmol/L Potassium Level 4.4 mmol/L 3.8 mmol/L Chloride Level 101 mmol/L 99 mmol/L Carbon Dioxide 25 mmol/L 28 mmol/L Level Anion Gap 13 11 Blood Urea 46 mg/dl 20 mg/dl Nitrogen Creatinine 8.98 mg/dl 5.34 mg/dl Est Glomerular 5 mL/min 9 mL/min Filtrat Rate mL/min Glucose Level 181 mg/dl 184 mg/dl Calcium Level 9.0 mg/dl 8.7 mg/dl Total Bilirubin 0.3 mg/dl Direct Bilirubin 0.20 mg/dl Indirect Bilirubin 0.1 mg/dl Aspartate Amino 50 IU/L Transf (AST/SGOT) Alanine 40 IU/L Aminotransferase ( ALT/SGPT) Alkaline 178 IU/L Phosphatase Troponin I < 0.012 ng/ml Total Protein 7.4 g/dl Albumin 4.2 g/dl Globulin 3.20 g/dl Albumin/Globulin 1.31 Ratio Bedside Glucose 142 mg/dL 180 mg/dL Phosphorus Level 3.3 mg/dl Magnesium Level 2.0 mg/dl Test 03/06/19 11:08 03/06/19 11:38 Bedside Glucose 180 mg/dL Troponin I < 0.012 ng/ml Assessment and Plan Assessment/Diagnosis Diagnosis 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
[2019-03-07] VITALS (98 sets, daily range): BP systolic 138–189; BP diastolic 60–81; PULSE 58–71; RESP 7–23
[2019-03-07] MEDS: morphine 2 MG INJ IV PRN ×3 (02:20→23:07)
[2019-03-07] MEDS: NITROGLYCERIN 50 MG/D5W (PMX) 250 ML IV SCH ×5 (02:50→15:02)
[2019-03-07] MEDS: ACCU-CHEK XX SCH ×4 (06:15→20:16)
[2019-03-07] MEDS: PANTOPRAZOLE (EC) 40 MG TAB PO SCH (06:20)
[2019-03-07] MEDS: LEVOTHYROXINE 25 MCG TAB PO SCH (06:21)
[2019-03-07] MEDS: INSULIN ASPART [NOVOLOG] 3 ML PEN SC SCH ×4 (06:38→20:23)
[2019-03-07] MEDS: AMLODIPINE 5 MG TAB PO SCH ×2 (08:25→20:16)
[2019-03-07] MEDS: CALCIUM ACETATE 667 MG CAP PO SCH ×3 (08:25→16:50)
[2019-03-07] MEDS: LOSARTAN 50 MG TAB PO SCH ×2 (08:26→20:16)
[2019-03-07] MEDS: METHYLDOPA 250 MG TAB PO SCH ×2 (08:26→20:15)
[2019-03-07] MEDS: CLOPIDOGREL 75 MG TAB PO SCH (08:26)
[2019-03-07] MEDS: GABAPENTIN 100 MG CAP PO SCH ×2 (08:26→20:16)
[2019-03-07] MEDS: LABETALOL 100 MG TAB PO SCH ×3 (08:27→20:16)
[2019-03-07] MEDS: INSULIN GLARGINE [LANTus] (100 UNITS/ML) SYG SC SCH (08:32)
--- NOTE | 2019-03-07 08:55 | CONS ---
Assessment/Plan Assessment/Plan Assessment/Plan (Daily) is i 48-year-old female presenting with: 1. Recurrent hypertensive urgency/emergency; however, there is really a question of compliance on the medications. Home blood pressure medications listed. The patient already stated that she is not taking hydralazine and doxazosin. Plus, the patient was discharged on amlodipine, which is not found in her blood pressure medications. The patient also said that she had not been taking clonidine patch which she was discharged with last time which caused rebound hypertension. The patient is noncompliant with hemodialysis. 2. Chest pain. Need to rule out for ischemia in the setting of hypertensive/emergency. 3. Diabetes. 4. Hyperlipidemia. 5. Anxiety disorder. PLAn -Titrate off nitro drip on nitro drip. - Serious concerns have to be paid upon compliance issues. Checked in the medication bottles of the patient, Clonidine patch was not there and amlodipine was not there, even though the patient was discharged with that. The patient also stated that she is not taking hydralazine and doxazosin. This really brings about compliance. The patient really needs to talk with the social worker assistant and a home nurse to follow up with her blood pressure regimen. - cards eval - cw current meds - HD today Consultation Date/Type/Reason Admit Date/Time Mar 05, 2019 at 18:08 Initial Consult Date Date/Time of Note DATE: 03/07/19 TIME: 08:55 24 HR Interval Summary Free Text/Dictation BP was better this a.m. however still on nitro drip Patient refused to take hydralazine/Cardura/clonidine patch Prescriptions amlodipine was missing Exam/Review of Systems Exam Vitals Vital Signs Date Temp Pulse Resp B/P (MAP) Pulse Ox O2 O2 Flow FiO2 Time Delivery Rate 03/07/19 66 15 173/72 98 Room Air 08:30 (105) 03/07/19 98.1 07:15 03/06/19 2.0 07:57 Intake and Output 03/06/19 03/06/19 03/07/19 1515:00 23:00 07:00 IntakeIntake Total 1319 ml 633 ml 594.75 ml OutputOutput Total 15 ml BalanceBalance 1319 ml 633 ml 579.75 ml Exam GENERAL: The patient is awake, alert, oriented. Does not appear to be in any acute distress. HEENT: Pupils equal, round, and reactive to light. NECK: Supple. No JVD. HEART: Regular rate and rhythm. LUNGS: Clear to auscultation bilaterally. ABDOMEN: Soft, nontender, nondistended, positive bowel sounds. EXTREMITIES: No clubbing, cyanosis, or edema. The patient has a right chest wall Perm-A-Cath. Results Result Diagram: 03/07/19 0431 03/07/19 0431 Results 24hrs Laboratory Tests Test 03/06/19 11:08 03/06/19 11:38 03/06/19 17:11 03/06/19 20:27 Bedside Glucose 180 106 122 Troponin I < 0.012 Test 03/07/19 04:31 03/07/19 06:37 White Blood Count 3.9 L Red Blood Count 3.15 L Hemoglobin 9.7 L Hematocrit 29.4 L Mean Corpuscular Volume 93.3 Mean Corpuscular 30.8 Hemoglobin Mean Corpuscular 33.0 Hemoglobin Concent Red Cell Distribution 14.4 Width Platelet Count 130 #L Mean Platelet Volume 10.7 H Immature Granulocytes % 0.500 H Neutrophils % 70.0 Lymphocytes % 18.1 Monocytes % 8.3 Eosinophils % 2.8 Basophils % 0.3 Nucleated Red Blood 0.0 Cells % Immature Granulocytes # 0.020 Neutrophils # 2.7 Lymphocytes # 0.7 L Monocytes # 0.3 Eosinophils # 0.1 Basophils # 0.0 Nucleated Red Blood 0.0 Cells # Sodium Level 129 L Potassium Level 4.3 Chloride Level 91 L Carbon Dioxide Level 28 Anion Gap 10 Blood Urea Nitrogen 26 H Creatinine 6.82 H Est Glomerular Filtrat 6 L Rate mL/min Glucose Level 149 Calcium Level 8.8 Phosphorus Level 4.5 Magnesium Level 2.0 Bedside Glucose 137 Medications Medication Current Medications Amlodipine Besylate (Norvasc) 5 mg BID PO Last administered on 03/07/19 08:25; Admin Dose 5 MG; Start 03/05/19 at 21:00 Calcium Acetate (Phoslo) 667 mg WITH MEALS PO Last administered on 03/07/19 08:25; Admin Dose 667 MG; Start 03/06/19 at 07:35 Carvedilol (Coreg) 50 mg BID PO Last administered on 03/07/19 08:26; Admin Dose 50 MG; Start 03/05/19 at 21:00 Clonidine (Catapres) 0.2 mg TID PO Last administered on 03/07/19 08:27; Admin Dose 0.2 MG; Start 03/05/19 at 21:00 Clopidogrel Bisulfate (plaVIX) 75 mg DAILY PO Last administered on 03/07/19 08:26; Admin Dose 75 MG; Start 03/05/19 at 20:30 Doxazosin Mesylate (Cardura) 8 mg BID PO ; Start 03/05/19 at 21:00 Gabapentin (Neurontin) 100 mg BID PO Last administered on 03/07/19 08:26; Admin Dose 100 MG; Start 03/05/19 at 21:00 Hydralazine HCl (Apresoline) 100 mg Q8H PO Last administered on 03/06/19 05:16; Admin Dose 100 MG; Start 03/05/19 at 20:30 Isosorbide Mononitrate (Imdur) 60 mg BID PO Last administered on 03/06/19 08:33; Admin Dose 60 MG; Start 03/05/19 at 21:00; Status Hold Labetalol HCl (Normodyne) 300 mg TID PO Last administered on 03/07/19 08:27; Admin Dose 300 MG; Start 03/05/19 at 21:00 Levothyroxine Sodium (Synthroid) 25 mcg BEFORE BREAKFAST PO Last administered on 03/07/19 06:21; Admin Dose 25 MCG; Start 03/06/19 at 07:00 Losartan Potassium (Cozaar) 50 mg BID PO Last administered on 03/07/19 08:26; Admin Dose 50 MG; Start 03/05/19 at 21:00 Methyldopa (Aldomet) 250 mg BID PO Last administered on 03/07/19 08:26; Admin Dose 250 MG; Start 03/05/19 at 21:00 Pantoprazole (Protonix Tab) 40 mg AC BREAKFAST PO Last administered on 03/07/19 06:20; Admin Dose 40 MG; Start 03/06/19 at 07:00 Miscellaneous Information 1 ea NOTE XX ; Start 03/05/19 at 21:00 Glucose (Glutose) 15 gm Q15M PRN PO DECREASED GLUCOSE; Start 03/05/19 at 21:00 Glucose (Glutose) 22.5 gm Q15M PRN PO DECREASED GLUCOSE; Start 03/05/19 at 21:00 Dextrose (D50w Syringe) 25 ml Q15M PRN IV DECREASED GLUCOSE; Start 03/05/19 at 21:00 Dextrose (D50w Syringe) 50 ml Q15M PRN IV DECREASED GLUCOSE; Start 03/05/19 at 21:00 Glucagon (Glucagen) 1 mg Q15M PRN IM DECREASED GLUCOSE; Start 03/05/19 at 21:00 Glucose (Glutose) 15 gm Q15M PRN BUCCAL DECREASED GLUCOSE; Start 03/05/19 at 21:00 Clonazepam (Klonopin) 0.5 mg Q6H PRN PO ANXIETY Last administered on 03/06/19 01:58; Admin Dose 0.5 MG; Start 03/06/19 at 02:00 Insulin Aspart (Novolog Insulin Pen) NOVOLOG *MODERATE* ALGORITHM WITH MEALS BEDTIME SC Last administered on 03/06/19 11:15; Admin Dose 2 UNIT; Start 03/06/19 at 07:35 Diagnostic Test (Pha) (Accu-Chek) 1 ea AC MEALS AND BEDTIME XX Last administered on 03/06/19 16:39; Admin Dose 1 EA; Start 03/06/19 at 07:05 Insulin Glargine (Lantus) 10 units QAM SC Last administered on 03/07/19 08:32; Admin Dose 10 UNITS; Start 03/06/19 at 09:00 Morphine Sulfate (morphine) 2 mg Q3 PRN IV SEVERE PAIN LEVEL 7-10 Last administered on 03/07/19 02:20; Admin Dose 2 MG; Start 03/06/19 at 06:30 Miscellaneous Information Patients own medicat... BID@10,16 XX Last administered on 03/06/19 15:50; Admin Dose 1 EA; Start 03/06/19 at 10:00 Nitroglycerin/ Dextrose 250 ml @ 1.5 mls/hr TITRATE IV Last administered on 03/07/19 06:36; Admin Dose 67.5 MLS/HR; Start 03/06/19 at 10:30 HAYLEE CULVER MD Mar 07, 2019 08:55
[2019-03-07] MEDS: DOXAZOSIN 4 MG TAB PO SCH ×2 (09:00→20:15)
--- NOTE | 2019-03-07 10:25 | PN ---
Date/Time of Note Date/Time of Note DATE: 03/07/19 TIME: 10:22 Subjective Complains of chest pain at times. She reports that she had a stress test within the last 2 months Objective Vitals Vital Signs Date Temp Pulse Resp B/P (MAP) Pulse Ox O2 O2 Flow FiO2 Time Delivery Rate 03/07/19 66 19 166/71 97 Room Air 10:15 (102) 03/07/19 98.1 07:15 03/06/19 2.0 07:57 Intake and Output 03/06/19 03/06/19 03/07/19 1515:00 23:00 07:00 IntakeIntake Total 1319 ml 633 ml 594.75 ml OutputOutput Total 15 ml BalanceBalance 1319 ml 633 ml 579.75 ml Clear to auscultation bilaterally Regular rate and rhythm Soft nontender nondistended normoactive bowel sounds Mild edema Nonfocal Results Result Diagram: 03/07/19 0431 03/07/19 043 Medications Medications Current Medications Amlodipine Besylate (Norvasc) 5 mg BID PO Last administered on 03/07/19 08:25; Admin Dose 5 MG; Start 03/05/19 at 21:00 Calcium Acetate (Phoslo) 667 mg WITH MEALS PO Last administered on 03/07/19 08:25; Admin Dose 667 MG; Start 03/06/19 at 07:35 Clonidine (Catapres) 0.2 mg TID PO Last administered on 03/07/19 08:27; Admin Dose 0.2 MG; Start 03/05/19 at 21:00 Clopidogrel Bisulfate (plaVIX) 75 mg DAILY PO Last administered on 03/07/19 08:26; Admin Dose 75 MG; Start 03/05/19 at 20:30 Doxazosin Mesylate (Cardura) 8 mg BID PO ; Start 03/05/19 at 21:00 Gabapentin (Neurontin) 100 mg BID PO Last administered on 03/07/19 08:26; Admin Dose 100 MG; Start 03/05/19 at 21:00 Hydralazine HCl (Apresoline) 100 mg Q8H PO Last administered on 03/06/19 05:16; Admin Dose 100 MG; Start 03/05/19 at 20:30 Isosorbide Mononitrate (Imdur) 60 mg BID PO Last administered on 03/06/19 08:33; Admin Dose 60 MG; Start 03/05/19 at 21:00; Status Hold Labetalol HCl (Normodyne) 300 mg TID PO Last administered on 03/07/19 08:27; Admin Dose 300 MG; Start 03/05/19 at 21:00 Levothyroxine Sodium (Synthroid) 25 mcg BEFORE BREAKFAST PO Last administered on 03/07/19 06:21; Admin Dose 25 MCG; Start 03/06/19 at 07:00 Losartan Potassium (Cozaar) 50 mg BID PO Last administered on 03/07/19 08:26; Admin Dose 50 MG; Start 03/05/19 at 21:00 Methyldopa (Aldomet) 250 mg BID PO Last administered on 03/07/19 08:26; Admin Dose 250 MG; Start 03/05/19 at 21:00 Pantoprazole (Protonix Tab) 40 mg AC BREAKFAST PO Last administered on 03/07/19 06:20; Admin Dose 40 MG; Start 03/06/19 at 07:00 Miscellaneous Information 1 ea NOTE XX ; Start 03/05/19 at 21:00 Glucose (Glutose) 15 gm Q15M PRN PO DECREASED GLUCOSE; Start 03/05/19 at 21:00 Glucose (Glutose) 22.5 gm Q15M PRN PO DECREASED GLUCOSE; Start 03/05/19 at 21:00 Dextrose (D50w Syringe) 25 ml Q15M PRN IV DECREASED GLUCOSE; Start 03/05/19 at 21:00 Dextrose (D50w Syringe) 50 ml Q15M PRN IV DECREASED GLUCOSE; Start 03/05/19 at 21:00 Glucagon (Glucagen) 1 mg Q15M PRN IM DECREASED GLUCOSE; Start 03/05/19 at 21:00 Glucose (Glutose) 15 gm Q15M PRN BUCCAL DECREASED GLUCOSE; Start 03/05/19 at 21:00 Clonazepam (Klonopin) 0.5 mg Q6H PRN PO ANXIETY Last administered on 03/06/19 01:58; Admin Dose 0.5 MG; Start 03/06/19 at 02:00 Insulin Aspart (Novolog Insulin Pen) NOVOLOG *MODERATE* ALGORITHM WITH MEALS BEDTIME SC Last administered on 03/06/19 11:15; Admin Dose 2 UNIT; Start 03/06/19 at 07:35 Diagnostic Test (Pha) (Accu-Chek) 1 ea AC MEALS AND BEDTIME XX Last administered on 03/06/19 16:39; Admin Dose 1 EA; Start 03/06/19 at 07:05 Insulin Glargine (Lantus) 10 units QAM SC Last administered on 03/07/19 08:32; Admin Dose 10 UNITS; Start 03/06/19 at 09:00 Morphine Sulfate (morphine) 2 mg Q3 PRN IV SEVERE PAIN LEVEL 7-10 Last administered on 03/07/19 02:20; Admin Dose 2 MG; Start 03/06/19 at 06:30 Miscellaneous Information Patients own medicat... BID@10,16 XX Last administered on 03/07/19 09:44; Admin Dose 1 EA; Start 03/06/19 at 10:00 Nitroglycerin/ Dextrose 250 ml @ 1.5 mls/hr TITRATE IV Last administered on 03/07/19 10:09; Admin Dose 67.5 MLS/HR; Start 03/06/19 at 10:30 VTE Prophylaxis Risk score (from Nsg)>0 risk: 6 SCD applied (from Nsg): Yes Lines/Catheters IV Catheter Type: Saline Lock Ayala in Place: No Assessment/Plan Assessment/Plan 48-year-old female with hypertensive urgency, on nitroglycerin drip and multiple oral antihypertensives End-stage renal disease, on hemodialysis Chest pain. Rule out ischemia Type 2 diabetes mellitus Noncompliance with medical therapy and outpatient dialysis sessions Anxiety disorder Wean off nitroglycerin drip Hemodialysis Cardiology consultation CRISTO FERNANDES MD Mar 07, 2019 10:25
[2019-03-07] MEDS ORDERED: NITROGLYCERIN 50 MG/D5W (PMX) 250 ML IV SCH (10:30)
--- NOTE | 2019-03-07 17:44 | CONS ---
Assessment/Plan Assessment/Plan Hospital Course (Demo Recall) Hypertension urgency Preserved left ventricular ejection fraction End-stage renal disease hemodialysis Diabetes Patient presents with multiple symptoms including overall not feeling well, nausea, headache, chest pain and arm pain. Patient with uncontrolled blood pressure. Review of medical chart and discussion with family, it appears she is not compliant with hemodialysis and her medications on a consistent basis. Serial cardiac enzymes are negative, ECG with no significant ischemic abn ormalities. Last nuclear cardiac perfusion study performed at our facility was in January 2017 with no evidence of ischemia. Patient denies any other stress test in the past few years. Patient's blood pressure currently improved on current medication regimen, will plan for titrating off IV nitroglycerin Fluid management via hemodialysis as per nephrology Consultation Date/Type/Reason Admit Date/Time Mar 05, 2019 at 18:08 Type of Consult Cardiology Reason for Consultation Hypertension urgency Date/Time of Note DATE: 03/07/19 TIME: 17:37 Hx of Present Illness This is a 48-year-old female with past medical history of hypertension, end- stage renal disease on hemodialysis, who presents with elevated blood pressure. Patient states when her blood pressure is elevated, she does not feel well including nauseous, arm pain and chest pain. Since she is been admitted, she is feeling better. She denies any current chest pain or arm pain but has had intermittently. Denies any current shortness of breath. Discussion with son, reviewed medical chart and patient, it is unclear patient's compliance with medications and hemodialysis. She is not sure of her medications and it seems there are discrepancies in the meds. She is currently feeling better. Denies chest pain, shortness of breath or palpitations 12 point review of systems was performed with all pertinent positives and negatives mentioned above and all else is negative Past Medical History Medical History: hypertension, renal disease Home Meds Active Scripts Methyldopa* (Methyldopa*) 250 Mg Tablet, 250 MG PO BID for 30 Days, TAB Prov:CRISTO FERNANDES MD 02/26/19 Labetalol Hcl* (Labetalol Hcl*) 200 Mg Tablet, 300 MG PO TID for 30 Days, TAB Prov:CRISTO FERNANDES MD 02/26/19 Isosorbide Mononitrate* (Isosorbide Mononitrate*) 30 Mg Tab.er.24h, 60 MG PO BID for 30 Days Prov:CRISTO FERNANDES MD 02/25/19 Doxazosin Mesylate* (Cardura*) 4 Mg Tablet, 8 MG PO BID for 30 Days, TAB Prov:CRISTO FERNANDES MD 02/25/19 Carvedilol* (Carvedilol*) 25 Mg Tablet, 50 MG PO BID for 30 Days, TAB Prov:CRISTO FERNANDES MD 02/25/19 Clonidine Hcl* (Catapres*) 0.2 Mg Tablet, 0.2 MG PO TID for 30 Days, TAB Prov:CRISTO FERNANDES MD 02/24/19 Losartan Potassium* (Cozaar*) 50 Mg Tablet, 50 MG PO BID for 30 Days, TAB 3 Refills Prov:CRISTO FERNANDES MD 02/18/19 Isosorbide Mononitrate* (Isosorbide Mononitrate*) 30 Mg Tab.er.24h, 30 MG PO BID for 30 Days, 3 Refills Prov:CRISTO FERNANDES MD 02/18/19 Hydralazine Hcl* (Apresoline*) 50 Mg Tab, 100 MG PO Q8H for 30 Days, TAB 3 Refills Prov:CRISTO FERNANDES MD 02/18/19 Doxazosin Mesylate* (Cardura*) 4 Mg Tablet, 4 MG PO BID for 30 Days, TAB 3 Refills Prov:CRISTO FERNANDES MD 02/18/19 Carvedilol* (Carvedilol*) 25 Mg Tablet, 50 MG PO BID for 30 Days, TAB 3 Refills Prov:CRISTO FERNANDES MD 02/18/19 Amlodipine Besylate* (Amlodipine Besylate*) 5 Mg Tablet, 5 MG PO BID for 30 Days, TAB 3 Refills Prov:CRISTO FERNANDES MD 02/18/19 Reported Medications Insulin Glargine,Hum.rec.anlog (Basaglar Kwikpen U-100) 100 Unit/1 Ml Insul n.pen, 10 UNIT SC QAM, EA 09/06/18 Clopidogrel Bisulfate* (Clopidogrel Bisulfate*) 75 Mg Tablet, 75 MG PO DAILY, #30 TAB 09/06/18 Levothyroxine Sodium* (Levothyroxine Sodium*) 25 Mcg Tablet, 25 MCG PO BEFORE BREAKFAST, #30 TAB 09/06/18 Gabapentin* (Gabapentin*) 100 Mg Capsule, 100 MG PO BID, #90 CAP 09/06/18 [Nephro-Sandra] No Conflict Check, 1 TAB PO DAILY 09/06/18 Minoxidil* (Lonitin*) 2.5 Mg Tab, 2.5 MG PO BID, TAB 09/06/18 Ondansetron Hcl* (Zofran*) 4 Mg Tab, 4 MG PO Q6H PRN for NAUSEA AND OR VOMITING, TAB 09/06/18 Insulin Lispro (Humalog Kwikpen U-100) 100 Unit/1 Ml Insuln.pen, 2 UNIT SQ WITH MEALS, EA 08/28/18 Pantoprazole* (Pantoprazole*) 40 Mg Tablet.dr, 40 MG PO AC BREAKFAST, TAB 08/28/18 Minoxidil* (Lonitin*) 2.5 Mg Tab, 2.5 MG PO BID, TAB 08/28/18 Calcium Acetate* (Calcium Acetate*) 667 Mg Capsule, 667 MG PO WITH MEALS, #30 CAP 08/28/18 Medications Current Medications Amlodipine Besylate (Norvasc) 5 mg BID PO Last administered on 03/07/19 08:25; Admin Dose 5 MG; Start 03/05/19 at 21:00 Calcium Acetate (Phoslo) 667 mg WITH MEALS PO Last administered on 03/07/19 08:25; Admin Dose 667 MG; Start 03/06/19 at 07:35 Clonidine (Catapres) 0.2 mg TID PO Last administered on 03/07/19 12:14; Admin Dose 0.2 MG; Start 03/05/19 at 21:00 Clopidogrel Bisulfate (plaVIX) 75 mg DAILY PO Last administered on 03/07/19 08:26; Admin Dose 75 MG; Start 03/05/19 at 20:30 Doxazosin Mesylate (Cardura) 8 mg BID PO ; Start 03/05/19 at 21:00 Gabapentin (Neurontin) 100 mg BID PO Last administered on 03/07/19 08:26; Admin Dose 100 MG; Start 03/05/19 at 21:00 Hydralazine HCl (Apresoline) 100 mg Q8H PO Last administered on 03/07/19 12:13; Admin Dose 100 MG; Start 03/05/19 at 20:30 Isosorbide Mononitrate (Imdur) 60 mg BID PO Last administered on 03/06/19 08:33; Admin Dose 60 MG; Start 03/05/19 at 21:00; Status Hold Labetalol HCl (Normodyne) 300 mg TID PO Last administered on 03/07/19 12:13; Admin Dose 300 MG; Start 03/05/19 at 21:00 Levothyroxine Sodium (Synthroid) 25 mcg BEFORE BREAKFAST PO Last administered on 03/07/19 06:21; Admin Dose 25 MCG; Start 03/06/19 at 07:00 Losartan Potassium (Cozaar) 50 mg BID PO Last administered on 03/07/19 08:26; Admin Dose 50 MG; Start 03/05/19 at 21:00 Methyldopa (Aldomet) 250 mg BID PO Last administered on 03/07/19 08:26; Admin Dose 250 MG; Start 03/05/19 at 21:00 Pantoprazole (Protonix Tab) 40 mg AC BREAKFAST PO Last administered on 03/07/19 06:20; Admin Dose 40 MG; Start 03/06/19 at 07:00 Miscellaneous Information 1 ea NOTE XX ; Start 03/05/19 at 21:00 Glucose (Glutose) 15 gm Q15M PRN PO DECREASED GLUCOSE; Start 03/05/19 at 21:00 Glucose (Glutose) 22.5 gm Q15M PRN PO DECREASED GLUCOSE; Start 03/05/19 at 21:00 Dextrose (D50w Syringe) 25 ml Q15M PRN IV DECREASED GLUCOSE; Start 03/05/19 at 21:00 Dextrose (D50w Syringe) 50 ml Q15M PRN IV DECREASED GLUCOSE; Start 03/05/19 at 21:00 Glucagon (Glucagen) 1 mg Q15M PRN IM DECREASED GLUCOSE; Start 03/05/19 at 21:00 Glucose (Glutose) 15 gm Q15M PRN BUCCAL DECREASED GLUCOSE; Start 03/05/19 at 21:00 Clonazepam (Klonopin) 0.5 mg Q6H PRN PO ANXIETY Last administered on 03/06/19 01:58; Admin Dose 0.5 MG; Start 03/06/19 at 02:00 Insulin Aspart (Novolog Insulin Pen) NOVOLOG *MODERATE* ALGORITHM WITH MEALS BEDTIME SC Last administered on 03/07/19 11:14; Admin Dose 4 UNIT; Start 03/06/19 at 07:35 Diagnostic Test (Pha) (Accu-Chek) 1 ea AC MEALS AND BEDTIME XX Last administered on 03/07/19 16:46; Admin Dose 1 EA; Start 03/06/19 at 07:05 Insulin Glargine (Lantus) 10 units QAM SC Last administered on 03/07/19 08:32; Admin Dose 10 UNITS; Start 03/06/19 at 09:00 Miscellaneous Information Patients own medicat... BID@10,16 XX Last administered on 03/07/19 15:03; Admin Dose 1 EA; Start 03/06/19 at 10:00 Morphine Sulfate (morphine) 2 mg Q3H PRN IV SEVERE PAIN LEVEL 7-10 Last administered on 03/07/19 13:42; Admin Dose 2 MG; Start 03/07/19 at 11:00 Nitroglycerin/ Dextrose 250 ml @ 1.5 mls/hr TITRATE IV Last administered on 03/07/19 15:02; Admin Dose 30 MLS/HR; Start 03/07/19 at 11:00 Allergies: Coded Allergies: minoxidil (Verified Allergy, Severe, facial edema, 02/13/19) pt reported nicardipine (Verified Allergy, Unknown, 02/13/19) Past Surgical History Past Surgical Hx: other Family History Significant Family History: no pertinent family hx Social History Smoking Status: Never smoker Exam/Review of Systems Vital Signs Vitals Vital Signs Date Temp Pulse Resp B/P (MAP) Pulse Ox O2 O2 Flow FiO2 Time Delivery Rate 03/07/19 61 15 145/69 98 Room Air 17:30 (94) 03/07/19 98.0 16:00 03/06/19 2.0 07:57 Intake and Output 03/06/19 03/06/19 03/07/19 1515:00 23:00 07:00 IntakeIntake Total 1319 ml 633 ml 594.75 ml OutputOutput Total 15 ml BalanceBalance 1319 ml 633 ml 579.75 ml Exam Constitutional: alert, oriented (No apparent distress, son at bedside) Head: normocephalic Respiratory: clear to auscultation, normal air movement Cardiovascular: regular rate and rhythm (S1-S2 heard) Gastrointestinal: soft, non-tender, bowel sounds Extremities: edema (Trace) Labs Result Diagram: 03/07/1943003/07/19 0431 Results 24hrs Laboratory Tests Test 03/06/19 20:27 03/07/19 04:31 03/07/19 06:37 03/07/19 11:10 Bedside Glucose 122 137 219 White Blood Count 3.9 L Red Blood Count 3.15 L Hemoglobin 9.7 L Hematocrit 29.4 L Mean Corpuscular Volume 93.3 Mean Corpuscular 30.8 Hemoglobin Mean Corpuscular 33.0 Hemoglobin Concent Red Cell Distribution 14.4 Width Platelet Count 130 #L Mean Platelet Volume 10.7 H Immature Granulocytes % 0.500 H Neutrophils % 70.0 Lymphocytes % 18.1 Monocytes % 8.3 Eosinophils % 2.8 Basophils % 0.3 Nucleated Red Blood 0.0 Cells % Immature Granulocytes # 0.020 Neutrophils # 2.7 Lymphocytes # 0.7 L Monocytes # 0.3 Eosinophils # 0.1 Basophils # 0.0 Nucleated Red Blood 0.0 Cells # Sodium Level 129 L Potassium Level 4.3 Chloride Level 91 L Carbon Dioxide Level 28 Anion Gap 10 Blood Urea Nitrogen 26 H Creatinine 6.82 H Est Glomerular Filtrat 6 L Rate mL/min Glucose Level 149 Calcium Level 8.8 Phosphorus Level 4.5 Magnesium Level 2.0 Test 03/07/19 16:46 Bedside Glucose 87 Imaging Imaging ECG sinus rhythm, QRS 97 ms, no significant ischemic ST of normalities Medications Medications Current Medications Amlodipine Besylate (Norvasc) 5 mg BID PO Last administered on 03/07/19 08:25; Admin Dose 5 MG; Start 03/05/19 at 21:00 Calcium Acetate (Phoslo) 667 mg WITH MEALS PO Last administered on 03/07/19 08:25; Admin Dose 667 MG; Start 03/06/19 at 07:35 Clonidine (Catapres) 0.2 mg TID PO Last administered on 03/07/19 12:14; Admin Dose 0.2 MG; Start 03/05/19 at 21:00 Clopidogrel Bisulfate (plaVIX) 75 mg DAILY PO Last administered on 03/07/19 08:26; Admin Dose 75 MG; Start 03/05/19 at 20:30 Doxazosin Mesylate (Cardura) 8 mg BID PO ; Start 03/05/19 at 21:00 Gabapentin (Neurontin) 100 mg BID PO Last administered on 03/07/19 08:26; Admin Dose 100 MG; Start 03/05/19 at 21:00 Hydralazine HCl (Apresoline) 100 mg Q8H PO Last administered on 03/07/19 12:13; Admin Dose 100 MG; Start 03/05/19 at 20:30 Isosorbide Mononitrate (Imdur) 60 mg BID PO Last administered on 03/06/19 08:33; Admin Dose 60 MG; Start 03/05/19 at 21:00; Status Hold Labetalol HCl (Normodyne) 300 mg TID PO Last administered on 03/07/19 12:13; Admin Dose 300 MG; Start 03/05/19 at 21:00 Levothyroxine Sodium (Synthroid) 25 mcg BEFORE BREAKFAST PO Last administered on 03/07/19 06:21; Admin Dose 25 MCG; Start 03/06/19 at 07:00 Losartan Potassium (Cozaar) 50 mg BID PO Last administered on 03/07/19 08:26; Admin Dose 50 MG; Start 03/05/19 at 21:00 Methyldopa (Aldomet) 250 mg BID PO Last administered on 03/07/19 08:26; Admin Dose 250 MG; Start 03/05/19 at 21:00 Pantoprazole (Protonix Tab) 40 mg AC BREAKFAST PO Last administered on 03/07/19 06:20; Admin Dose 40 MG; Start 03/06/19 at 07:00 Miscellaneous Information 1 ea NOTE XX ; Start 03/05/19 at 21:00 Glucose (Glutose) 15 gm Q15M PRN PO DECREASED GLUCOSE; Start 03/05/19 at 21:00 Glucose (Glutose) 22.5 gm Q15M PRN PO DECREASED GLUCOSE; Start 03/05/19 at 21:00 Dextrose (D50w Syringe) 25 ml Q15M PRN IV DECREASED GLUCOSE; Start 03/05/19 at 21:00 Dextrose (D50w Syringe) 50 ml Q15M PRN IV DECREASED GLUCOSE; Start 03/05/19 at 21:00 Glucagon (Glucagen) 1 mg Q15M PRN IM DECREASED GLUCOSE; Start 03/05/19 at 21:00 Glucose (Glutose) 15 gm Q15M PRN BUCCAL DECREASED GLUCOSE; Start 03/05/19 at 21:00 Clonazepam (Klonopin) 0.5 mg Q6H PRN PO ANXIETY Last administered on 03/06/19 01:58; Admin Dose 0.5 MG; Start 03/06/19 at 02:00 Insulin Aspart (Novolog Insulin Pen) NOVOLOG *MODERATE* ALGORITHM WITH MEALS BEDTIME SC Last administered on 03/07/19 11:14; Admin Dose 4 UNIT; Start 03/06/19 at 07:35 Diagnostic Test (Pha) (Accu-Chek) 1 ea AC MEALS AND BEDTIME XX Last administered on 03/07/19 16:46; Admin Dose 1 EA; Start 03/06/19 at 07:05 Insulin Glargine (Lantus) 10 units QAM SC Last administered on 03/07/19 08:32; Admin Dose 10 UNITS; Start 03/06/19 at 09:00 Miscellaneous Information Patients own medicat... BID@10,16 XX Last administered on 03/07/19 15:03; Admin Dose 1 EA; Start 03/06/19 at 10:00 Morphine Sulfate (morphine) 2 mg Q3H PRN IV SEVERE PAIN LEVEL 7-10 Last administered on 03/07/19 13:42; Admin Dose 2 MG; Start 03/07/19 at 11:00 Nitroglycerin/ Dextrose 250 ml @ 1.5 mls/hr TITRATE IV Last administered on 03/07/19 15:02; Admin Dose 30 MLS/HR; Start 03/07/19 at 11:00 Estuardo Taylor DO Mar 07, 2019 17:43
[2019-03-08] VITALS (92 sets, daily range): BP systolic 145–203; BP diastolic 59–80; PULSE 64–74; RESP 12–26
[2019-03-08] MEDS: morphine 2 MG INJ IV PRN ×3 (02:01→05:14)
[2019-03-08] MEDS: NITROGLYCERIN 50 MG/D5W (PMX) 250 ML IV SCH ×5 (02:12→15:15)
[2019-03-08] MEDS: clonAZEPAM 0.5 MG TAB PO PRN ×2 (02:16→08:22)
[2019-03-08] MEDS: LEVOTHYROXINE 25 MCG TAB PO SCH (06:11)
[2019-03-08] MEDS: PANTOPRAZOLE (EC) 40 MG TAB PO SCH (06:11)
[2019-03-08] MEDS: INSULIN ASPART [NOVOLOG] 3 ML PEN SC SCH ×4 (07:35→20:43)
[2019-03-08] MEDS: ACCU-CHEK XX SCH ×4 (08:00→20:39)
[2019-03-08] MEDS: LABETALOL 100 MG TAB PO SCH (08:20)
[2019-03-08] MEDS: CLOPIDOGREL 75 MG TAB PO SCH (08:20)
[2019-03-08] MEDS: GABAPENTIN 100 MG CAP PO SCH ×2 (08:21→20:41)
[2019-03-08] MEDS: METHYLDOPA 250 MG TAB PO SCH ×2 (08:22→20:42)
[2019-03-08] MEDS: CALCIUM ACETATE 667 MG CAP PO SCH ×3 (08:22→17:18)
[2019-03-08] MEDS: AMLODIPINE 5 MG TAB PO SCH ×2 (08:22→20:42)
[2019-03-08] MEDS: DOXAZOSIN 4 MG TAB PO SCH ×3 (08:22→20:40)
[2019-03-08] MEDS: LOSARTAN 50 MG TAB PO SCH ×2 (08:23→20:42)
[2019-03-08] MEDS ORDERED: ZOLPIDEM 5 MG TAB PO PRN (08:30)
[2019-03-08] MEDS: INSULIN GLARGINE [LANTus] (100 UNITS/ML) SYG SC SCH (08:35)
--- NOTE | 2019-03-08 08:35 | CONS ---
Assessment/Plan Assessment/Plan Assessment/Plan (Daily) ssessment/Plan (Daily) is i 48-year-old female presenting with: 1. Recurrent hypertensive urgency/emergency; however, there is really a question of compliance on the medications. Home blood pressure medications listed. The patient already stated that she is not taking hydralazine and doxazosin. Plus, the patient was discharged on amlodipine, which is not found in her blood pressure medications. The patient also said that she had not been taking clonidine patch which she was discharged with last time which caused rebound hypertension. The patient is noncompliant with hemodialysis. 2. Chest pain. Need to rule out for ischemia in the setting of hypertensive/emergency. 3. Diabetes. 4. Hyperlipidemia. 5. Anxiety disorder. 6 Mild Hyponatremia PLAn -She was very anxious last night and had an argument with the night nurse and blood pressure is high currently maxed out on nitro drip -Continue with the Klonopin patient will benefit from a sleeping pill at night - Serious concerns have to be paid upon compliance issues. Checked in the medication bottles of the patient, Clonidine patch was not there and amlodipine was not there, even though the patient was discharged with that. The patient also stated that she is not taking hydralazine and doxazosin. This really brings about compliance. The patient really needs to talk with the clinical social work therapist and a home nurse to follow up with her blood pressure regimen. - cards eval - en[facility] current meds - [email or web address] Consultation Date/Type/Reason Admit Date/Time Mar 05, 2019 at 18:08 Initial Consult Date Date/Time of Note DATE: 03/08/19 TIME: 08:31 24 HR Interval Summary Free Text/Dictation Patient was very anxious last night had an argument with the night nurse, and said could not sleep last night currently is on max of nitro drip Exam/Review of Systems Exam Vitals Vital Signs Date Temp Pulse Resp B/P (MAP) Pulse Ox O2 O2 Flow FiO2 Time Delivery Rate 03/08/19 66 18 168/73 99 06:45 (104) 03/08/19 Nasal 2.0 06:00 Cannula 03/08/19 99.0 04:00 Intake and Output 03/07/19 03/07/19 03/08/19 1515:00 23:00 07:00 IntakeIntake Total 585.5 ml 307.5 ml 845.0 ml OutputOutput Total 3200 ml BalanceBalance 585.5 ml -2892.5 ml 845.0 ml Exam ENERAL: The patient is awake, alert, oriented. Does not appear to be in any acute distress. HEENT: Pupils equal, round, and reactive to light. NECK: Supple. No JVD. HEART: Regular rate and rhythm. LUNGS: Clear to auscultation bilaterally. ABDOMEN: Soft, nontender, nondistended, positive bowel sounds. EXTREMITIES: No clubbing, cyanosis, or edema. The patient has a right chest wall Perm-A-Cath. Results Result Diagram: 03/07/19 04303/07/19 043 Results 24hrs Laboratory Tests Test 03/07/19 11:10 03/07/19 16:46 03/07/19 20:21 03/08/19 08:03 Bedside Glucose 219 87 124 118 Medications Medication Current Medications Amlodipine Besylate (Norvasc) 5 mg BID PO Last administered on 03/08/19 08:22; Admin Dose 5 MG; Start 03/05/19 at 21:00 Calcium Acetate (Phoslo) 667 mg WITH MEALS PO Last administered on 03/08/19 08:22; Admin Dose 667 MG; Start 03/06/19 at 07:35 Clonidine (Catapres) 0.2 mg TID PO Last administered on 03/08/19 08:21; Admin Dose 0.2 MG; Start 03/05/19 at 21:00 Clopidogrel Bisulfate (plaVIX) 75 mg DAILY PO Last administered on 03/08/19 08:20; Admin Dose 75 MG; Start 03/05/19 at 20:30 Doxazosin Mesylate (Cardura) 8 mg BID PO Last administered on 03/08/19 08:22; Admin Dose 8 MG; Start 03/05/19 at 21:00 Gabapentin (Neurontin) 100 mg BID PO Last administered on 03/08/19 08:21; Admin Dose 100 MG; Start 03/05/19 at 21:00 Hydralazine HCl (Apresoline) 100 mg Q8H PO Last administered on 03/08/19 03:25; Admin Dose 100 MG; Start 03/05/19 at 20:30 Isosorbide Mononitrate (Imdur) 60 mg BID PO Last administered on 03/06/19 08:33; Admin Dose 60 MG; Start 03/05/19 at 21:00; Status Hold Labetalol HCl (Normodyne) 300 mg TID PO Last administered on 03/08/19 08:20; Admin Dose 300 MG; Start 03/05/19 at 21:00 Levothyroxine Sodium (Synthroid) 25 mcg BEFORE BREAKFAST PO Last administered on 03/08/19 06:11; Admin Dose 25 MCG; Start 03/06/19 at 07:00 Losartan Potassium (Cozaar) 50 mg BID PO Last administered on 03/08/19 08:23; Admin Dose 50 MG; Start 03/05/19 at 21:00 Methyldopa (Aldomet) 250 mg BID PO Last administered on 03/08/19 08:22; Admin Dose 250 MG; Start 03/05/19 at 21:00 Pantoprazole (Protonix Tab) 40 mg AC BREAKFAST PO Last administered on 03/08/19 06:11; Admin Dose 40 MG; Start 03/06/19 at 07:00 Miscellaneous Information 1 ea NOTE XX ; Start 03/05/19 at 21:00 Glucose (Glutose) 15 gm Q15M PRN PO DECREASED GLUCOSE; Start 03/05/19 at 21:00 Glucose (Glutose) 22.5 gm Q15M PRN PO DECREASED GLUCOSE; Start 03/05/19 at 21:00 Dextrose (D50w Syringe) 25 ml Q15M PRN IV DECREASED GLUCOSE; Start 03/05/19 at 21:00 Dextrose (D50w Syringe) 50 ml Q15M PRN IV DECREASED GLUCOSE; Start 03/05/19 at 21:00 Glucagon (Glucagen) 1 mg Q15M PRN IM DECREASED GLUCOSE; Start 03/05/19 at 21:00 Glucose (Glutose) 15 gm Q15M PRN BUCCAL DECREASED GLUCOSE; Start 03/05/19 at 21:00 Clonazepam (Klonopin) 0.5 mg Q6H PRN PO ANXIETY Last administered on 03/08/19 08:22; Admin Dose 0.5 MG; Start 03/06/19 at 02:00 Insulin Aspart (Novolog Insulin Pen) NOVOLOG *MODERATE* ALGORITHM WITH MEALS BEDTIME SC Last administered on 03/07/19 11:14; Admin Dose 4 UNIT; Start 03/06/19 at 07:35 Diagnostic Test (Pha) (Accu-Chek) 1 ea AC MEALS AND BEDTIME XX Last administered on 03/08/19 08:00; Admin Dose 1 EA; Start 03/06/19 at 07:05 Insulin Glargine (Lantus) 10 units QAM SC Last administered on 03/07/19 08:32; Admin Dose 10 UNITS; Start 03/06/19 at 09:00 Miscellaneous Information Patients own medicat... BID@10,16 XX Last administered on 03/07/19 15:03; Admin Dose 1 EA; Start 03/06/19 at 10:00 Morphine Sulfate (morphine) 2 mg Q3H PRN IV SEVERE PAIN LEVEL 7-10 Last administered on 03/08/19 05:14; Admin Dose 2 MG; Start 03/07/19 at 11:00 Nitroglycerin/ Dextrose 250 ml @ 1.5 mls/hr TITRATE IV Last administered on 03/08/19 08:01; Admin Dose 3 MLS/HR; Start 03/07/19 at 11:00 HAYLEE CULVER MD Mar 08, 2019 08:35
[2019-03-08] MEDS ORDERED: ZOLPIDEM 5 MG TAB PO ONE (09:30)
--- NOTE | 2019-03-08 10:34 | PN ---
Date/Time of Note Date/Time of Note DATE: 03/08/19 TIME: 10:32 Subjective Patient is quite upset because of the way she was treated by the nurse the night prior. She has crying spells but denies feeling depressed. No chest pain. No shortness of breath. Objective Vitals Vital Signs Date Temp Pulse Resp B/P (MAP) Pulse Ox O2 O2 Flow FiO2 Time Delivery Rate 03/08/19 66 18 168/73 99 06:45 (104) 03/08/19 Nasal 2.0 06:00 Cannula 03/08/19 99.0 04:00 Intake and Output 03/07/19 03/07/19 03/08/19 1515:00 23:00 07:00 IntakeIntake Total 585.5 ml 307.5 ml 845.0 ml OutputOutput Total 3200 ml BalanceBalance 585.5 ml -2892.5 ml 845.0 ml Clear to auscultation bilaterally Regular rate and rhythm Soft nontender nondistended normoactive bowel sounds No edema Nonfocal Results Result Diagram: 03/07/19 0431 03/08/19 0914 Medications Medications Current Medications Amlodipine Besylate (Norvasc) 5 mg BID PO Last administered on 03/08/19 08:22; Admin Dose 5 MG; Start 03/05/19 at 21:00 Calcium Acetate (Phoslo) 667 mg WITH MEALS PO Last administered on 03/08/19 08:22; Admin Dose 667 MG; Start 03/06/19 at 07:35 Clonidine (Catapres) 0.2 mg TID PO Last administered on 03/08/19 08:21; Admin Dose 0.2 MG; Start 03/05/19 at 21:00 Clopidogrel Bisulfate (plaVIX) 75 mg DAILY PO Last administered on 03/08/19 08:20; Admin Dose 75 MG; Start 03/05/19 at 20:30 Doxazosin Mesylate (Cardura) 8 mg BID PO ; Start 03/05/19 at 21:00 Gabapentin (Neurontin) 100 mg BID PO Last administered on 03/08/19 08:21; Admin Dose 100 MG; Start 03/05/19 at 21:00 Hydralazine HCl (Apresoline) 100 mg Q8H PO Last administered on 03/08/19 03:25; Admin Dose 100 MG; Start 03/05/19 at 20:30 Isosorbide Mononitrate (Imdur) 60 mg BID PO Last administered on 03/06/19 08:33; Admin Dose 60 MG; Start 03/05/19 at 21:00; Status Hold Labetalol HCl (Normodyne) 300 mg TID PO Last administered on 03/08/19 08:20; Admin Dose 300 MG; Start 03/05/19 at 21:00 Levothyroxine Sodium (Synthroid) 25 mcg BEFORE BREAKFAST PO Last administered on 03/08/19 06:11; Admin Dose 25 MCG; Start 03/06/19 at 07:00 Losartan Potassium (Cozaar) 50 mg BID PO Last administered on 03/08/19 08:23; Admin Dose 50 MG; Start 03/05/19 at 21:00 Methyldopa (Aldomet) 250 mg BID PO Last administered on 03/08/19 08:22; Admin Dose 250 MG; Start 03/05/19 at 21:00 Pantoprazole (Protonix Tab) 40 mg AC BREAKFAST PO Last administered on 03/08/19 06:11; Admin Dose 40 MG; Start 03/06/19 at 07:00 Miscellaneous Information 1 ea NOTE XX ; Start 03/05/19 at 21:00 Glucose (Glutose) 15 gm Q15M PRN PO DECREASED GLUCOSE; Start 03/05/19 at 21:00 Glucose (Glutose) 22.5 gm Q15M PRN PO DECREASED GLUCOSE; Start 03/05/19 at 21:00 Dextrose (D50w Syringe) 25 ml Q15M PRN IV DECREASED GLUCOSE; Start 03/05/19 at 21:00 Dextrose (D50w Syringe) 50 ml Q15M PRN IV DECREASED GLUCOSE; Start 03/05/19 at 21:00 Glucagon (Glucagen) 1 mg Q15M PRN IM DECREASED GLUCOSE; Start 03/05/19 at 21:00 Glucose (Glutose) 15 gm Q15M PRN BUCCAL DECREASED GLUCOSE; Start 03/05/19 at 21:00 Clonazepam (Klonopin) 0.5 mg Q6H PRN PO ANXIETY Last administered on 03/08/19 08:22; Admin Dose 0.5 MG; Start 03/06/19 at 02:00 Insulin Aspart (Novolog Insulin Pen) NOVOLOG *MODERATE* ALGORITHM WITH MEALS B EDTIME SC Last administered on 03/07/19 11:14; Admin Dose 4 UNIT; Start 03/06/19 at 07:35 Diagnostic Test (Pha) (Accu-Chek) 1 ea AC MEALS AND BEDTIME XX Last administered on 03/08/19 08:00; Admin Dose 1 EA; Start 03/06/19 at 07:05 Insulin Glargine (Lantus) 10 units QAM SC Last administered on 03/08/19 08:35; Admin Dose 10 UNITS; Start 03/06/19 at 09:00 Miscellaneous Information Patients own medicat... BID@10,16 XX Last administered on 03/07/19 15:03; Admin Dose 1 EA; Start 03/06/19 at 10:00 Morphine Sulfate (morphine) 2 mg Q3H PRN IV SEVERE PAIN LEVEL 7-10 Last administered on 03/08/19 05:14; Admin Dose 2 MG; Start 03/07/19 at 11:00 Nitroglycerin/ Dextrose 250 ml @ 1.5 mls/hr TITRATE IV Last administered on 03/08/19 08:01; Admin Dose 3 MLS/HR; Start 03/07/19 at 11:00 Zolpidem Tartrate (Ambien) 5 mg HS PRN PO INSOMNIA; Start 03/08/19 at 08:30 VTE Prophylaxis Risk score (from Nsg)>0 risk: 2 SCD applied (from Ns): Yes Lines/Catheters IV Catheter Type: Saline Lock Ayala in Place: No Assessment/Plan Assessment/Plan 48-year-old female with hypertensive urgency, she remains on nitroglycerin drip End-stage renal disease, on hemodialysis Type 2 diabetes mellitus Noncompliance with medical therapy and dialysis Anxiety disorder Wean off nitroglycerin drip Continue oral antihypertensives. Patient has been refusing hydralazine and doxazosin Ambien as needed Nephrology and cardiology follow-up CRISTO FERNANDES MD Mar 08, 2019 10:34
--- NOTE | 2019-03-08 13:11 | CONS ---
Assessment/Plan Assessment/Plan Hospital Course (Demo Recall) Hypertension urgency Preserved left ventricular ejection fraction End-stage renal disease hemodialysis Diabetes Patient remains on IV nitroglycerin for blood pressure control Would increase dose of labetalol Change Imdur to Isordil for better 24-hour coverage with goals of titrating off IV nitroglycerin Fluid management via hemodialysis as per nephrology Consultation Date/Type/Reason Admit Date/Time Mar 05, 2019 at 18:08 Initial Consult Date Type of Consult Cardiology Date/Time of Note DATE: 03/08/19 TIME: 13:07 24 HR Interval Summary Free Text/Dictation Denies shortness of breath, chest pain, palpitations or headache Exam/Review of Systems Vital Signs Vitals Vital Signs Date Temp Pulse Resp B/P (MAP) Pulse Ox O2 O2 Flow FiO2 Time Delivery Rate 03/08/19 71 14 161/69 97 12:45 (99) 03/08/19 98.3 Nasal 12:00 Cannula 03/08/19 2.0 08:00 Intake and Output 03/07/19 03/07/19 03/08/19 1414:59 22:59 06:59 IntakeIntake Total 619.25 ml 288 ml 864.5 ml OutputOutput Total 3200 ml BalanceBalance 619.25 ml -2912 ml 864.5 ml Exam Constitutional: alert, oriented (No apparent distress) Head: normocephalic Respiratory: other Cardiovascular: regular rate and rhythm (Coarse breath sounds bilaterally, no wheezing) Gastrointestinal: soft, non-tender, bowel sounds Extremities: edema Labs Result Diagram: 03/07/19 0431 03/08/19 0914 Results 24hrs Laboratory Tests Test 03/07/19 16:46 03/07/19 20:21 03/08/19 08:03 03/08/19 09:14 Bedside Glucose 87 124 118 Sodium Level 124 L Potassium Level 4.0 Chloride Level 88 L Carbon Dioxide Level 26 Anion Gap 10 Blood Urea Nitrogen 18 Creatinine 4.75 #H Est Glomerular Filtrat 10 L Rate mL/min Glucose Level 315 #H Calcium Level 8.1 L Test 03/08/19 11:47 Bedside Glucose 238 H Medications Medications Current Medications Amlodipine Besylate (Norvasc) 5 mg BID PO Last administered on 03/08/19at 08:22; Admin Dose 5 MG; Start 03/05/19 at 21:00 Calcium Acetate (Phoslo) 667 mg WITH MEALS PO Last administered on 03/08/19 11:49; Admin Dose 667 MG; Start 03/06/19 at 07:35 Clonidine (Catapres) 0.2 mg TID PO Last administered on 03/08/19 08:21; Admin Dose 0.2 MG; Start 03/05/19 at 21:00 Clopidogrel Bisulfate (plaVIX) 75 mg DAILY PO Last administered on 03/08/19 08:20; Admin Dose 75 MG; Start 03/05/19 at 20:30 Doxazosin Mesylate (Cardura) 8 mg BID PO ; Start 03/05/19 at 21:00 Gabapentin (Neurontin) 100 mg BID PO Last administered on 03/08/19 08:21; Admin Dose 100 MG; Start 03/05/19 at 21:00 Hydralazine HCl (Apresoline) 100 mg Q8H PO Last administered on 03/08/19 03:25; Admin Dose 100 MG; Start 03/05/19 at 20:30 Isosorbide Mononitrate (Imdur) 60 mg BID PO Last administered on 03/06/19 08:33; Admin Dose 60 MG; Start 03/05/19 at 21:00; Status Hold Labetalol HCl (Normodyne) 300 mg TID PO Last administered on 03/08/19 08:20; Admin Dose 300 MG; Start 03/05/19 at 21:00 Levothyroxine Sodium (Synthroid) 25 mcg BEFORE BREAKFAST PO Last administered on 03/08/19 06:11; Admin Dose 25 MCG; Start 03/06/19 at 07:00 Losartan Potassium (Cozaar) 50 mg BID PO Last administered on 03/08/19 08:23; Admin Dose 50 MG; Start 03/05/19 at 21:00 Methyldopa (Aldomet) 250 mg BID PO Last administered on 03/08/19 08:22; Admin Dose 250 MG; Start 03/05/19 at 21:00 Pantoprazole (Protonix Tab) 40 mg AC BREAKFAST PO Last administered on 03/08/19 06:11; Admin Dose 40 MG; Start 03/06/19 at 07:00 Miscellaneous Information 1 ea NOTE XX ; Start 03/05/19 at 21:00 Glucose (Glutose) 15 gm Q15M PRN PO DECREASED GLUCOSE; Start 03/05/19 at 21:00 Glucose (Glutose) 22.5 gm Q15M PRN PO DECREASED GLUCOSE; Start 03/05/19 at 21:00 Dextrose (D50w Syringe) 25 ml Q15M PRN IV DECREASED GLUCOSE; Start 03/05/19 at 21:00 Dextrose (D50w Syringe) 50 ml Q15M PRN IV DECREASED GLUCOSE; Start 03/05/19 at 21:00 Glucagon (Glucagen) 1 mg Q15M PRN IM DECREASED GLUCOSE; Start 03/05/19 at 21:00 Glucose (Glutose) 15 gm Q15M PRN BUCCAL DECREASED GLUCOSE; Start 03/05/19 at 21:00 Clonazepam (Klonopin) 0.5 mg Q6H PRN PO ANXIETY Last administered on 03/08/19 08:22; Admin Dose 0.5 MG; Start 03/06/19 at 02:00 Insulin Aspart (Novolog Insulin Pen) NOVOLOG *MODERATE* ALGORITHM WITH MEALS BEDTIME SC Last administered on 03/08/19 11:55; Admin Dose 6 UNIT; Start 03/06/19 at 07:35 Diagnostic Test (Pha) (Accu-Chek) 1 ea AC MEALS AND BEDTIME XX Last administered on 03/08/19 11:49; Admin Dose 1 EA; Start 03/06/19 at 07:05 Insulin Glargine (Lantus) 10 units QAM SC Last administered on 03/08/19 08:35; Admin Dose 10 UNITS; Start 03/06/19 at 09:00 Miscellaneous Information Patients own medicat... BID@10,16 XX Last adminis tered on 03/07/19 15:03; Admin Dose 1 EA; Start 03/06/19 at 10:00 Morphine Sulfate (morphine) 2 mg Q3H PRN IV SEVERE PAIN LEVEL 7-10 Last administered on 03/08/19 05:14; Admin Dose 2 MG; Start 03/07/19 at 11:00 Nitroglycerin/ Dextrose 250 ml @ 1.5 mls/hr TITRATE IV Last administered on 03/08/19 10:40; Admin Dose 105 MLS/HR; Start 03/07/19 at 11:00 Zolpidem Tartrate (Ambien) 5 mg HS PRN PO INSOMNIA; Start 03/08/19 at 08:30 Estuardo Taylor DO Mar 08, 2019 13:11
[2019-03-08] MEDS: LABETALOL 200 MG TAB PO SCH (20:41)
[2019-03-08] MEDS: ISOSORBIDE DINITRATE 20 MG TAB PO SCH (20:41)
[2019-03-09] VITALS (102 sets, daily range): BP systolic 139–184; BP diastolic 59–106; PULSE 63–74; RESP 11–25
[2019-03-09] MEDS: NITROGLYCERIN 50 MG/D5W (PMX) 250 ML IV SCH ×3 (00:52→18:15)
[2019-03-09] MEDS: morphine 2 MG INJ IV PRN ×5 (04:38→20:14)
[2019-03-09] MEDS: clonAZEPAM 0.5 MG TAB PO PRN (04:55)
[2019-03-09] MEDS: LEVOTHYROXINE 25 MCG TAB PO SCH (06:19)
[2019-03-09] MEDS: PANTOPRAZOLE (EC) 40 MG TAB PO SCH (06:19)
[2019-03-09] MEDS: ACCU-CHEK XX SCH ×4 (07:05→20:31)
--- NOTE | 2019-03-09 08:10 | CONS ---
Assessment/Plan Assessment/Plan Assessment/Plan (Daily) Assessment Hypertension urgency Preserved left ventricular ejection fraction End-stage renal disease hemodialysis Diabetes Plan: troponin EKG dc clonidine po start clonidine patch Consultation Date/Type/Reason Admit Date/Time Mar 05, 2019 at 18:08 Initial Consult Date Type of Consult Cardiology Date/Time of Note DATE: 03/09/19 TIME: 08:07 24 HR Interval Summary Free Text/Dictation reports back pain, chest pain, bilateral arm pain, seems comfortable during visit, previously refused variable mds. no sob Detailed Summary Respiratory: no complaints Cardiovascular: chest pain Gastrointestinal: no complaints Musculoskeletal: no complaints Skin: no complaints Neurologic: no complaints Endocrine: no complaints Exam/Review of Systems Vital Signs Vitals Vital Signs Date Temp Pulse Resp B/P (MAP) Pulse Ox O2 O2 Flow FiO2 Time Delivery Rate 03/09/19 65 12 160/68 99 Nasal 2.0 06:00 (98) Cannula 03/09/19 98.0 04:00 Intake and Output 03/08/19 03/08/19 03/09/19 1515:00 23:00 07:00 IntakeIntake Total 1148 ml 657.497 ml 354.503 ml OutputOutput Total 100 ml 50 ml 35 ml BalanceBalance 1048 ml 607.497 ml 319.503 ml Exam Constitutional: alert, oriented Head: normocephalic, atraumatic Neck: jvd Respiratory: clear to auscultation Cardiovascular: regular rate and rhythm Gastrointestinal: soft Musculoskeletal: nl extremities to inspection Extremities: normal pulses Labs Result Diagram: 03/09/19 0546 03/09/19 0546 Results 24hrs Laboratory Tests Test 03/08/19 09:14 03/08/19 11:47 03/08/19 17:18 03/08/19 20:43 Sodium Level 124 L Potassium Level 4.0 Chloride Level 88 L Carbon Dioxide Level 26 Anion Gap 10 Blood Urea Nitrogen 18 Creatinine 4.75 #H Est Glomerular Filtrat 10 L Rate mL/min Glucose Level 315 #H Calcium Level 8.1 L Bedside Glucose 238 H 94 125 Test 03/09/19 05:46 White Blood Count 4.1 L Red Blood Count 3.18 L Hemoglobin 9.9 L Hematocrit 29.4 L Mean Corpuscular Volume 92.5 Mean Corpuscular 31.1 Hemoglobin Mean Corpuscular 33.7 Hemoglobin Concent Red Cell Distribution 14.7 H Width Platelet Count 138 L Mean Platelet Volume 10.6 H Immature Granulocytes % 0.700 H Neutrophils % 73.2 Lymphocytes % 17.4 Monocytes % 6.8 Eosinophils % 1.7 Basophils % 0.2 Nucleated Red Blood 0.0 Cells % Immature Granulocytes # 0.030 Neutrophils # 3.0 Lymphocytes # 0.7 L Monocytes # 0.3 Eosinophils # 0.1 Basophils # 0.0 Nucleated Red Blood 0.0 Cells # Sodium Level 126 L Potassium Level 4.8 Chloride Level 88 L Carbon Dioxide Level 27 Anion Gap 11 Blood Urea Nitrogen 24 H Creatinine 6.37 H Est Glomerular Filtrat 7 L Rate mL/min Glucose Level 131 # Calcium Level 8.5 Medications Medications Current Medications Amlodipine Besylate (Norvasc) 5 mg BID PO Last administered on 03/08/19 20:42; Admin Dose 5 MG; Start 03/05/19 at 21:00 Calcium Acetate (Phoslo) 667 mg WITH MEALS PO Last administered on 03/08/19 17:18; Admin Dose 667 MG; Start 03/06/19 at 07:35 Clonidine (Catapres) 0.2 mg TID PO Last administered on 03/08/19 20:42; Admin Dose 0.2 MG; Start 03/05/19 at 21:00 Clopidogrel Bisulfate (plaVIX) 75 mg DAILY PO Last administered on 03/08/19 08:20; Admin Dose 75 MG; Start 03/05/19 at 20:30 Doxazosin Mesylate (Cardura) 8 mg BID PO ; Start 03/05/19 at 21:00 Gabapentin (Neurontin) 100 mg BID PO Last administered on 03/08/19 20:41; Admin Dose 100 MG; Start 03/05/19 at 21:00 Hydralazine HCl (Apresoline) 100 mg Q8H PO Last administered on 03/08/19 03:25; Admin Dose 100 MG; Start 03/05/19 at 20:30 Levothyroxine Sodium (Synthroid) 25 mcg BEFORE BREAKFAST PO Last administered on 03/09/19 06:19; Admin Dose 25 MCG; Start 03/06/19 at 07:00 Losartan Potassium (Cozaar) 50 mg BID PO Last administered on 03/08/19 20:42; Admin Dose 50 MG; Start 03/05/19 at 21:00 Methyldopa (Aldomet) 250 mg BID PO Last administered on 03/08/19 20:42; Admin Dose 250 MG; Start 03/05/19 at 21:00 Pantoprazole (Protonix Tab) 40 mg AC BREAKFAST PO Last administered on 03/09/19 06:19; Admin Dose 40 MG; Start 03/06/19 at 07:00 Miscellaneous Information 1 ea NOTE XX ; Start 03/05/19 at 21:00 Glucose (Glutose) 15 gm Q15M PRN PO DECREASED GLUCOSE; Start 03/05/19 at 21:00 Glucose (Glutose) 22.5 gm Q15M PRN PO DECREASED GLUCOSE; Start 03/05/19 at 21:00 Dextrose (D50w Syringe) 25 ml Q15M PRN IV DECREASED GLUCOSE; Start 03/05/19 at 21:00 Dextrose (D50w Syringe) 50 ml Q15M PRN IV DECREASED GLUCOSE; Start 03/05/19 at 21:00 Glucagon (Glucagen) 1 mg Q15M PRN IM DECREASED GLUCOSE; Start 03/05/19 at 21:00 Glucose (Glutose) 15 gm Q15M PRN BUCCAL DECREASED GLUCOSE; Start 03/05/19 at 21:00 Clonazepam (Klonopin) 0.5 mg Q6H PRN PO ANXIETY Last administered on 03/09/19 04:55; Admin Dose 0.5 MG; Start 03/06/19 at 02:00 Insulin Aspart (Novolog Insulin Pen) NOVOLOG *MODERATE* ALGORITHM WITH MEALS BEDTIME SC Last administered on 03/08/19 11:55; Admin Dose 6 UNIT; Start 03/06/19 at 07:35 Diagnostic Test (Pha) (Accu-Chek) 1 ea AC MEALS AND BEDTIME XX Last administered on 03/08/19 20:39; Admin Dose 1 EA; Start 03/06/19 at 07:05 Insulin Glargine (Lantus) 10 units QAM SC Last administered on 03/08/19 08:35; Admin Dose 10 UNITS; Start 03/06/19 at 09:00 Miscellaneous Information Patients own medicat... BID@10,16 XX Last administered on 03/07/19 15:03; Admin Dose 1 EA; Start 03/06/19 at 10:00 Morphine Sulfate (morphine) 2 mg Q3H PRN IV SEVERE PAIN LEVEL 7-10 Last administered on 03/09/19 04:38; Admin Dose 2 MG; Start 03/07/19 at 11:00 Nitroglycerin/ Dextrose 250 ml @ 1.5 mls/hr TITRATE IV Last administered on 03/09/19 07:37; Admin Dose 45 MLS/HR; Start 03/07/19 at 11:00 Zolpidem Tartrate (Ambien) 5 mg HS PRN PO INSOMNIA Last administered on 03/09/19 04:55; Admin Dose 5 MG; Start 03/08/19 at 08:30 Labetalol HCl (Normodyne) 400 mg TID PO Last administered on 03/08/19 20:41; Admin Dose 400 MG; Start 03/08/19 at 21:00 Isosorbide Dinitrate (Isordil) 20 mg TID PO Last administered on 03/08/19 20: 41; Admin Dose 20 MG; Start 03/08/19 at 21:00 SEAN WILSON MD Mar 09, 2019 08:10
[2019-03-09] MEDS: CALCIUM ACETATE 667 MG CAP PO SCH ×3 (08:20→17:08)
[2019-03-09] MEDS: LABETALOL 200 MG TAB PO SCH ×3 (08:21→20:09)
[2019-03-09] MEDS: CLOPIDOGREL 75 MG TAB PO SCH (08:21)
[2019-03-09] MEDS: ISOSORBIDE DINITRATE 20 MG TAB PO SCH ×3 (08:21→20:10)
[2019-03-09] MEDS: AMLODIPINE 5 MG TAB PO SCH ×2 (08:21→20:09)
[2019-03-09] MEDS: METHYLDOPA 250 MG TAB PO SCH ×2 (08:22→20:10)
[2019-03-09] MEDS: GABAPENTIN 100 MG CAP PO SCH ×2 (08:23→20:09)
[2019-03-09] MEDS: LOSARTAN 50 MG TAB PO SCH ×2 (08:23→20:10)
[2019-03-09] MEDS: INSULIN GLARGINE [LANTus] (100 UNITS/ML) SYG SC SCH (08:30)
[2019-03-09] MEDS ORDERED: CLONIDINE 0.3 MG/24 HR PATCH TRANSDERM SCH (08:30)
[2019-03-09] MEDS: INSULIN ASPART [NOVOLOG] 3 ML PEN SC SCH ×4 (08:36→20:31)
[2019-03-09] MEDS: DOXAZOSIN 4 MG TAB PO SCH ×2 (09:00→20:30)
--- NOTE | 2019-03-09 11:32 | PN ---
Date/Time of Note Date/Time of Note DATE: 03/09/19 TIME: 11:31 Subjective Doing well. Had a good night sleep. No complaint of chest pain or shortness of breath. Objective Vitals Vital Signs Date Temp Pulse Resp B/P (MAP) Pulse Ox O2 O2 Flow FiO2 Time Delivery Rate 03/09/19 70 17 163/65 100 Nasal 09:00 (97) Cannula 03/09/19 98.7 2.0 08:00 Intake and Output 03/08/19 03/08/19 03/09/19 1515:00 23:00 07:00 IntakeIntake Total 1148 ml 657.497 ml 354.503 ml OutputOutput Total 100 ml 50 ml 35 ml BalanceBalance 1048 ml 607.497 ml 319.503 ml Clear to auscultation bilaterally Regular rate and rhythm Soft nontender nondistended normoactive bowel sounds No edema Nonfocal Results Result Diagram: 03/09/19 0546 03/09/1946 Medications Medications Current Medications Amlodipine Besylate (Norvasc) 5 mg BID PO Last administered on 03/09/19 08:21; Admin Dose 5 MG; Start 03/05/19 at 21:00 Calcium Acetate (Phoslo) 667 mg WITH MEALS PO Last administered on 03/09/19 08:20; Admin Dose 667 MG; Start 03/06/19 at 07:35 Clopidogrel Bisulfate (plaVIX) 75 mg DAILY PO Last administered on 03/09/19 08:21; Admin Dose 75 MG; Start 03/05/19 at 20:30 Doxazosin Mesylate (Cardura) 8 mg BID PO ; Start 03/05/19 at 21:00 Gabapentin (Neurontin) 100 mg BID PO Last administered on 03/09/19 08:23; Admin Dose 100 MG; Start 03/05/19 at 21:00 Hydralazine HCl (Apresoline) 100 mg Q8H PO Last administered on 03/08/19 03:25; Admin Dose 100 MG; Start 03/05/19 at 20:30 Levothyroxine Sodium (Synthroid) 25 mcg BEFORE BREAKFAST PO Last administered on 03/09/19 06:19; Admin Dose 25 MCG; Start 03/06/19 at 07:00 Losartan Potassium (Cozaar) 50 mg BID PO Last administered on 03/09/19 08:23; Admin Dose 50 MG; Start 03/05/19 at 21:00 Methyldopa (Aldomet) 250 mg BID PO Last administered on 03/09/19 08:22; Admin Dose 250 MG; Start 03/05/19 at 21:00 Pantoprazole (Protonix Tab) 40 mg AC BREAKFAST PO Last administered on 03/09/19 06:19; Admin Dose 40 MG; Start 03/06/19 at 07:00 Miscellaneous Information 1 ea NOTE XX ; Start 03/05/19 at 21:00 Glucose (Glutose) 15 gm Q15M PRN PO DECREASED GLUCOSE; Start 03/05/19 at 21:00 Glucose (Glutose) 22.5 gm Q15M PRN PO DECREASED GLUCOSE; Start 03/05/19 at 21:00 Dextrose (D50w Syringe) 25 ml Q15M PRN IV DECREASED GLUCOSE; Start 03/05/19 at 21:00 Dextrose (D50w Syringe) 50 ml Q15M PRN IV DECREASED GLUCOSE; Start 03/05/19 at 21:00 Glucagon (Glucagen) 1 mg Q15M PRN IM DECREASED GLUCOSE; Start 03/05/19 at 21:00 Glucose (Glutose) 15 gm Q15M PRN BUCCAL DECREASED GLUCOSE; Start 03/05/19 at 21:00 Clonazepam (Klonopin) 0.5 mg Q6H PRN PO ANXIETY Last administered on 03/09/19 04:55; Admin Dose 0.5 MG; Start 03/06/19 at 02:00 Insulin Aspart (Novolog Insulin Pen) NOVOLOG *MODERATE* ALGORITHM WITH MEALS BEDTIME SC Last administered on 03/09/19 08:36; Admin Dose 7 UNIT; Start 03/06/19 at 07:35 Diagnostic Test (Pha) (Accu-Chek) 1 ea AC MEALS AND BEDTIME XX Last administered on 03/09/19 07:05; Admin Dose 1 EA; Start 03/06/19 at 07:05 Insulin Glargine (Lantus) 10 units QAM SC Last administered on 03/09/19 08:30; Admin Dose 10 UNITS; Start 03/06/19 at 09:00 Miscellaneous Information Patients own medicat... BID@10,16 XX Last administered on 03/07/19 15:03; Admin Dose 1 EA; Start 03/06/19 at 10:00 Morphine Sulfate (morphine) 2 mg Q3H PRN IV SEVERE PAIN LEVEL 7-10 Last administered on 03/09/19 08:15; Admin Dose 2 MG; Start 03/07/19 at 11:00 Nitroglycerin/ Dextrose 250 ml @ 1.5 mls/hr TITRATE IV Last administered on 03/09/19 07:37; Admin Dose 45 MLS/HR; Start 03/07/19 at 11:00 Zolpidem Tartrate (Ambien) 5 mg HS PRN PO INSOMNIA Last administered on 04:55; Admin Dose 5 MG; Start 03/08/19 at 08:30 Labetalol HCl (Normodyne) 400 mg TID PO Last administered on 03/09/19 08:21; Admin Dose 400 MG; Start 03/08/19 at 21:00 Isosorbide Dinitrate (Isordil) 20 mg TID PO Last administered on 03/09/19 08:21; Admin Dose 20 MG; Start 03/08/19 at 21:00 Clonidine HCl (Catapres-Tts 3 Patch) 1 patch Q7D TRANSDERM Last administered on 03/09/19 08:32; Admin Dose 1 PATCH; Start 03/09/19 at 08:30 VTE Prophylaxis Risk score (from Nsg)>0 risk: 1 SCD applied (from Nsg): Yes Lines/Catheters IV Catheter Type: Saline Lock Ayala in Place: No Assessment/Plan Assessment/Plan 48-year-old female with hypertensive urgency, resolved Poorly controlled hypertension End-stage renal disease on hemodialysis Anxiety disorder Type 2 diabetes mellitus Noncompliance with medical therapy and outpatient dialysis Wean off nitroglycerin drip Continue oral antihypertensives Clonidine as needed Hemodialysis today Transfer to telemetry Physical therapy CRISTO FERNANDES MD Mar 09, 2019 11:32
[2019-03-09] MEDS ORDERED: NITROGLYCERIN 50 MG/D5W (PMX) 250 ML ONE (12:25)
[2019-03-09] MEDS ORDERED: HEPARIN 1000 UNITS/ML 10 ML INJ HE SCH ×2 (13:00)
[2019-03-10] VITALS (56 sets, daily range): BP systolic 154–200; BP diastolic 59–97; PULSE 60–72; RESP 10–23
[2019-03-10] MEDS: NITROGLYCERIN 50 MG/D5W (PMX) 250 ML IV SCH ×3 (00:48→06:02)
[2019-03-10] MEDS: morphine 2 MG INJ IV PRN ×3 (04:29→12:16)
[2019-03-10] MEDS: LEVOTHYROXINE 25 MCG TAB PO SCH (06:03)
[2019-03-10] MEDS: PANTOPRAZOLE (EC) 40 MG TAB PO SCH (06:05)
[2019-03-10] MEDS: INSULIN ASPART [NOVOLOG] 3 ML PEN SC SCH ×4 (07:35→21:00)
[2019-03-10] MEDS: ACCU-CHEK XX SCH ×4 (07:42→21:00)
[2019-03-10] MEDS: CALCIUM ACETATE 667 MG CAP PO SCH ×3 (07:44→17:34)
[2019-03-10] MEDS: INSULIN GLARGINE [LANTus] (100 UNITS/ML) SYG SC SCH (09:00)
[2019-03-10] MEDS: GABAPENTIN 100 MG CAP PO SCH ×2 (09:19→23:39)
[2019-03-10] MEDS: METHYLDOPA 250 MG TAB PO SCH ×2 (09:19→23:47)
[2019-03-10] MEDS: ISOSORBIDE DINITRATE 20 MG TAB PO SCH ×3 (09:20→23:40)
[2019-03-10] MEDS: DOXAZOSIN 4 MG TAB PO SCH ×2 (09:24→23:48)
[2019-03-10] MEDS: LOSARTAN 50 MG TAB PO SCH ×2 (09:24→23:42)
[2019-03-10] MEDS: CLOPIDOGREL 75 MG TAB PO SCH (09:24)
[2019-03-10] MEDS: clonAZEPAM 0.5 MG TAB PO PRN (09:24)
[2019-03-10] MEDS: AMLODIPINE 5 MG TAB PO SCH ×2 (09:25→23:40)
[2019-03-10] MEDS: LABETALOL 200 MG TAB PO SCH ×3 (09:25→23:41)
[2019-03-10] MEDS: traMADol 50 MG TAB PO PRN ×2 (09:49→17:34)
--- NOTE | 2019-03-10 13:02 | RADRPT ---
Vent Rate: 68 bpm RR Interval: 888 msec IA Interval: 213 msec QRS Duration: 97 msec QT Interval: 440 msec QTC Interval: 467 msec P-R-T [place]: 32 - 7 - 57 degrees Sinus rhythm...normal P axis, V-rate 50- 99 Prolonged IA interval...IA >210, V-rate 50- 90 Probable left ventricular hypertrophy...(RaVL+SV3)xQRSd >300 Electronically Signed By: Calixto Maradiaga
[2019-03-10] MEDS ORDERED: hydrALAzine 20 MG INJ IV ONE (13:30)
--- NOTE | 2019-03-10 14:13 | CONS ---
Assessment/Plan Assessment/Plan Hospital Course (Demo Recall) 1. Recurrent hypertensive urgency/emergency; however, there is really a question of compliance on the medications. Home blood pressure medications listed. The patient already stated that she is not taking hydralazine and doxazosin. Plus, the patient was discharged on amlodipine, which is not found in her blood pressure medications. The patient also said that she had not been taking clonidine patch which she was discharged with last time which caused rebound hypertension. The patient is noncompliant with hemodialysis. 2. Chest pain. Need to rule out for ischemia in the setting of hypertensive/emergency. 3. Diabetes. 4. Hyperlipidemia. 5. Anxiety disorder. 6. Mild hyponatremia Assessment/Plan (Daily) - fluid restriction -c/w Phoslo -OFF nitro drip -need AV fistula per primary - cw current meds - HD yesterday Consultation Date/Type/Reason Admit Date/Time Mar 05, 2019 at 18:08 Initial Consult Date 03/06/2019 Type of Consult nephrology Reason for Consultation Dr Carr Date/Time of Note DATE: 03/10/19 TIME: 14:10 24 HR Interval Summary Free Text/Dictation has high blod pressure Constitutional: no complaints, improved Exam/Review of Systems Exam Vitals Vital Signs Date Temp Pulse Resp B/P (MAP) Pulse Ox O2 O2 Flow FiO2 Time Delivery Rate 03/10/19 70 13 178/71 99 Nasal 08:30 (106) Cannula 03/10/19 98.3 08:00 03/10/19 2.0 08:00 Intake and Output 03/09/19 03/09/19 03/10/19 1515:00 23:00 07:00 IntakeIntake Total 762 ml 320 ml 567 ml OutputOutput Total 310 ml 4110 ml 50 ml BalanceBalance 452 ml -3790 ml 517 ml Exam off nitro drip 10 AM Eyes: anicteric, EOM's intact, no pallor Nose: no rhinorrhea Neck: supple, no thyromegaly, no carotid bruits Lungs: clear bilaterally, decreased. CVS: regular rate and rhythm, no murmurs Abdomen: soft, bowel sounds present, no hepatosplenomegally, no masses, no rebound or guarding. Rectal: differed. External genitalia: no lesions. Extremities: no edema, DP pulses are palpable Neuro: alert and oriented x 3 Skin:right chest Permcath Results Result Diagram: 03/09/19 0546 03/10/19 0455 Results 24hrs Laboratory Tests Test 03/09/19 15:46 03/09/19 17:16 03/09/19 20:20 03/10/19 04:55 Bedside Glucose 106 112 115 Sodium Level 128 L Potassium Level 4.7 Chloride Level 93 L Carbon Dioxide Level 27 Anion Gap 8 Blood Urea Nitrogen 15 # Creatinine 5.10 H Est Glomerular 9 L Filtrat Rate mL/min Glucose Level 119 Calcium Level 8.7 Test 03/10/19 07:43 03/10/19 12:08 Bedside Glucose 148 120 Medications Medication Current Medications Amlodipine Besylate (Norvasc) 5 mg BID PO Last administered on 03/10/19 09:25; Admin Dose 5 MG; Start 03/05/19 at 21:00 Calcium Acetate (Phoslo) 667 mg WITH MEALS PO Last administered on 03/10/19 12:09; Admin Dose 667 MG; Start 03/06/19 at 07:35 Clopidogrel Bisulfate (plaVIX) 75 mg DAILY PO Last administered on 03/10/19 09:24; Admin Dose 75 MG; Start 03/05/19 at 20:30 Doxazosin Mesylate (Cardura) 8 mg BID PO Last administered on 03/10/19 09:24; Admin Dose 8 MG; Start 03/05/19 at 21:00 Gabapentin (Neurontin) 100 mg BID PO Last administered on 03/10/19 09:19; Admin Dose 100 MG; Start 03/05/19 at 21:00 Levothyroxine Sodium (Synthroid) 25 mcg BEFORE BREAKFAST PO Last administered on 03/10/19 06:03; Admin Dose 25 MCG; Start 03/06/19 at 07:00 Losartan Potassium (Cozaar) 50 mg BID PO Last administered on 03/10/19 09:24; Admin Dose 50 MG; Start 03/05/19 at 21:00 Methyldopa (Aldomet) 250 mg BID PO Last administered on 03/10/19 09:19; Admin Dose 250 MG; Start 03/05/19 at 21:00 Pantoprazole (Protonix Tab) 40 mg AC BREAKFAST PO Last administered on 06:05; Admin Dose 40 MG; Start 03/06/19 at 07:00 Miscellaneous Information 1 ea NOTE XX ; Start 03/05/19 at 21:00 Glucose (Glutose) 15 gm Q15M PRN PO DECREASED GLUCOSE; Start 03/05/19 at 21:00 Glucose (Glutose) 22.5 gm Q15M PRN PO DECREASED GLUCOSE; Start 03/05/19 at 21:00 Dextrose (D50w Syringe) 25 ml Q15M PRN IV DECREASED GLUCOSE; Start 03/05/19 at 21:00 Dextrose (D50w Syringe) 50 ml Q15M PRN IV DECREASED GLUCOSE; Start 03/05/19 at 21:00 Glucagon (Glucagen) 1 mg Q15M PRN IM DECREASED GLUCOSE; Start 03/05/19 at 21:00 Glucose (Glutose) 15 gm Q15M PRN BUCCAL DECREASED GLUCOSE; Start 03/05/19 at 21:00 Clonazepam (Klonopin) 0.5 mg Q6H PRN PO ANXIETY Last administered on 03/10/19 09:24; Admin Dose 0.5 MG; Start 03/06/19 at 02:00 Insulin Aspart (Novolog Insulin Pen) NOVOLOG *MODERATE* ALGORITHM WITH MEALS BEDTIME SC Last administered on 03/09/19 08:36; Admin Dose 7 UNIT; Start 03/06/19 at 07:35 Diagnostic Test (Pha) (Accu-Chek) 1 ea AC MEALS AND BEDTIME XX Last administered on 03/10/19at 11:00; Admin Dose 1 EA; Start 03/06/19 at 07:05 Insulin Glargine (Lantus) 10 units QAM SC Last administered on 03/09/19 08:30; Admin Dose 10 UNITS; Start 03/06/19 at 09:00 Miscellaneous Information Patients own medicat... BID@ XX Last administered on 03/10/19at 10:00; Admin Dose 1 EA; Start 03/06/19 at 10:00 Morphine Sulfate (morphine) 2 mg Q3H PRN IV SEVERE PAIN LEVEL 7-10 Last administered on 03/10/19at 12:16; Admin Dose 2 MG; Start 03/07/19 at 11:00 Zolpidem Tartrate (Ambien) 5 mg HS PRN PO INSOMNIA Last administered on 03/09/19at 04:55; Admin Dose 5 MG; Start 03/08/19 at 08:30 Labetalol HCl (Normodyne) 400 mg TID PO Last administered on 03/10/19 13:17; Admin Dose 400 MG; Start 03/08/19 at 21:00 Isosorbide Dinitrate (Isordil) 20 mg TID PO Last administered on 03/10/19 13:17; Admin Dose 20 MG; Start 03/08/19 at 21:00 Clonidine HCl (Catapres-Tts 3 Patch) 1 patch Q7D TRANSDERM Last administered on 03/09/19 08:32; Admin Dose 1 PATCH; Start 03/09/19 at 08:30 Clonidine (Catapres) 0.2 mg QID PRN PO sbp>160 Last administered on 03/10/19 12:10; Admin Dose 0.2 MG; Start 03/09/19 at 11:30 Heparin Sodium (Porcine) (Heparin (1000 Units/ml)) 2,000 unit WITH DIALYSIS HE Last administered on 03/09/19 14:54; Admin Dose 2,000 UNIT; Start 03/09/19 at 13:00 Heparin Sodium (Porcine) (Heparin (1000 Units/ml)) 2,000 unit WITH DIALYSIS HE Last administered on 03/09/19 14:51; Admin Dose 2,000 UNIT; Start 03/09/19 at 13:00 Nitroglycerin/ Dextrose 250 ml @ 0 mls/hr TITRATE IV Last administered on 03/10/19 06:02; Admin Dose 54 MLS/HR; Start 03/09/19 at 18:00 Tramadol HCl (Ultram) 50 mg Q6H PRN PO MODERATE PAIN LEVEL 4-6 Last administered on 03/10/19 09:49; Admin Dose 50 MG; Start 03/10/19 at 09:30 Hydralazine HCl (Apresoline) 200 mg TID PO Last administered on 03/10/19 13:16; Admin Dose 200 MG; Start 03/10/19 at 13:00 LINWOOD CHOI NP Mar 10, 2019 14:13
--- NOTE | 2019-03-10 14:14 | CONS ---
Assessment/Plan Assessment/Plan Hospital Course (Demo Recall) Hypertension urgency Preserved left ventricular ejection fraction End-stage renal disease hemodialysis Diabetes Unfortunate, patient with intermittent medication compliance even while in the hospital. She was refusing p.o. medicines. Clonidine was switched to patch. She has been taken off IV nitroglycerin but blood pressure currently elevated. Will give 1 dose of IV hydralazine If needed, could increase dose of labetalol Fluid management via hemodialysis as per nephrology Consultation Date/Type/Reason Admit Date/Time Mar 05, 2019 at 18:08 Initial Consult Date Type of Consult Cardiology Date/Time of Note DATE: 03/10/19 TIME: 14:13 24 HR Interval Summary Free Text/Dictation Denies chest pain, shortness of breath Exam/Review of Systems Vital Signs Vitals Vital Signs Date Temp Pulse Resp B/P (MAP) Pulse Ox O2 O2 Flow FiO2 Time Delivery Rate 03/10/19 70 13 178/71 99 Nasal 08:30 (106) Cannula 03/10/19 98.3 08:00 03/10/19 2.0 08:00 Intake and Output 03/09/19 03/09/19 03/10/19 1515:00 23:00 07:00 IntakeIntake Total 762 ml 320 ml 567 ml OutputOutput Total 310 ml 4110 ml 50 ml BalanceBalance 452 ml -3790 ml 517 ml Exam Constitutional: alert, oriented (Eating lunch, no apparent distress, nurse at bedside) Head: normocephalic Respiratory: other (Coarse breath sounds bilaterally, no wheezing) Cardiovascular: regular rate and rhythm (S1-S2 heard) Gastrointestinal: soft, non-tender, bowel sounds Extremities: edema (Trace), other Labs Result Diagram: 03/09/19 0546 03/10/19 0455 Results 24hrs Laboratory Tests Test 03/09/19 15:46 03/09/19 17:16 03/09/19 20:20 03/10/19 04:55 Bedside Glucose 106 112 115 Sodium Level 128 L Potassium Level 4.7 Chloride Level 93 L Carbon Dioxide Level 27 Anion Gap 8 Blood Urea Nitrogen 15 # Creatinine 5.10 H Est Glomerular 9 L Filtrat Rate mL/min Glucose Level 119 Calcium Level 8.7 Test 03/10/19 07:43 03/10/19 12:08 Bedside Glucose 148 120 Medications Medications Current Medications Amlodipine Besylate (Norvasc) 5 mg BID PO Last administered on 03/10/19 09:25; Admin Dose 5 MG; Start 03/05/19 at 21:00 Calcium Acetate (Phoslo) 667 mg WITH MEALS PO Last administered on 03/10/19at 12:09; Admin Dose 667 MG; Start 03/06/19 at 07:35 Clopidogrel Bisulfate (plaVIX) 75 mg DAILY PO Last administered on 03/10/19 09:24; Admin Dose 75 MG; Start 03/05/19 at 20:30 Doxazosin Mesylate (Cardura) 8 mg BID PO Last administered on 03/10/19 09:24; Admin Dose 8 MG; Start 03/05/19 at 21:00 Gabapentin (Neurontin) 100 mg BID PO Last administered on 03/10/19 09:19; Admin Dose 100 MG; Start 03/05/19 at 21:00 Levothyroxine Sodium (Synthroid) 25 mcg BEFORE BREAKFAST PO Last administered on 03/10/19at 06:03; Admin Dose 25 MCG; Start 03/06/19 at 07:00 Losartan Potassium (Cozaar) 50 mg BID PO Last administered on 03/10/19 09:24; Admin Dose 50 MG; Start 03/05/19 at 21:00 Methyldopa (Aldomet) 250 mg BID PO Last administered on 03/10/19 09:19; Admin Dose 250 MG; Start 03/05/19 at 21:00 Pantoprazole (Protonix Tab) 40 mg AC BREAKFAST PO Last administered on 03/10/19at 06:05; Admin Dose 40 MG; Start 03/06/19 at 07:00 Miscellaneous Information 1 ea NOTE XX ; Start 03/05/19 at 21:00 Glucose (Glutose) 15 gm Q15M PRN PO DECREASED GLUCOSE; Start 03/05/19 at 21:00 Glucose (Glutose) 22.5 gm Q15M PRN PO DECREASED GLUCOSE; Start 03/05/19 at 21:00 Dextrose (D50w Syringe) 25 ml Q15M PRN IV DECREASED GLUCOSE; Start 03/05/19 at 21:00 Dextrose (D50w Syringe) 50 ml Q15M PRN IV DECREASED GLUCOSE; Start 03/05/19 at 21:00 Glucagon (Glucagen) 1 mg Q15M PRN IM DECREASED GLUCOSE; Start 03/05/19 at 21:00 Glucose (Glutose) 15 gm Q15M PRN BUCCAL DECREASED GLUCOSE; Start 03/05/19 at 21:00 Clonazepam (Klonopin) 0.5 mg Q6H PRN PO ANXIETY Last administered on 03/10/19 09:24; Admin Dose 0.5 MG; Start 03/06/19 at 02:00 Insulin Aspart (Novolog Insulin Pen) NOVOLOG *MODERATE* ALGORITHM WITH MEALS BEDTIME SC Last administered on 03/09/19 08:36; Admin Dose 7 UNIT; Start 03/06/19 at 07:35 Diagnostic Test (Pha) (Accu-Chek) 1 ea AC MEALS AND BEDTIME XX Last administered on 03/10/19 11:00; Admin Dose 1 EA; Start 03/06/19 at 07:05 Insulin Glargine (Lantus) 10 units QAM SC Last administered on 03/09/19 08:30; Admin Dose 10 UNITS; Start 03/06/19 at 09:00 Miscellaneous Information Patients own medicat... BID@10,16 XX Last administered on 03/10/19 10:00; Admin Dose 1 EA; Start 03/06/19 at 10:00 Morphine Sulfate (morphine) 2 mg Q3H PRN IV SEVERE PAIN LEVEL 7-10 Last adm inistered on 03/10/19 12:16; Admin Dose 2 MG; Start 03/07/19 at 11:00 Zolpidem Tartrate (Ambien) 5 mg HS PRN PO INSOMNIA Last administered on 03/09/19 04:55; Admin Dose 5 MG; Start 03/08/19 at 08:30 Labetalol HCl (Normodyne) 400 mg TID PO Last administered on 03/10/19 13:17; Admin Dose 400 MG; Start 03/08/19 at 21:00 Isosorbide Dinitrate (Isordil) 20 mg TID PO Last administered on 03/10/19 13: 17; Admin Dose 20 MG; Start 03/08/19 at 21:00 Clonidine HCl (Catapres-Tts 3 Patch) 1 patch Q7D TRANSDERM Last administered on 03/09/19 08:32; Admin Dose 1 PATCH; Start 03/09/19 at 08:30 Clonidine (Catapres) 0.2 mg QID PRN PO sbp>160 Last administered on 03/10/19 12:10; Admin Dose 0.2 MG; Start 03/09/19 at 11:30 Heparin Sodium (Porcine) (Heparin (1000 Units/ml)) 2,000 unit WITH DIALYSIS HE Last administered on 03/09/19 14:54; Admin Dose 2,000 UNIT; Start 03/09/19 at 13:00 Heparin Sodium (Porcine) (Heparin (1000 Units/ml)) 2,000 unit WITH DIALYSIS HE Last administered on 03/09/19 14:51; Admin Dose 2,000 UNIT; Start 03/09/19 at 13:00 Nitroglycerin/ Dextrose 250 ml @ 0 mls/hr TITRATE IV Last administered on 03/10/19 06:02; Admin Dose 54 MLS/HR; Start 03/09/19 at 18:00 Tramadol HCl (Ultram) 50 mg Q6H PRN PO MODERATE PAIN LEVEL 4-6 Last administered on 03/10/19 09:49; Admin Dose 50 MG; Start 03/10/19 at 09:30 Hydralazine HCl (Apresoline) 200 mg TID PO Last administered on 03/10/19 13:16; Admin Dose 200 MG; Start 03/10/19 at 13:00 Estuardo Taylor DO Mar 10, 2019 14:14
--- NOTE | 2019-03-10 14:32 | PN ---
Date/Time of Note Date/Time of Note DATE: 03/10/19 TIME: 14:29 Subjective No new complaints. Patient has been verbally belligerent towards the nurses Objective Vitals Vital Signs Date Temp Pulse Resp B/P (MAP) Pulse Ox O2 O2 Flow FiO2 Time Delivery Rate 03/10/19 64 15 173/77 96 Nasal 14:00 (109) Cannula 03/10/19 98.2 12:00 03/10/19 2.0 08:00 Intake and Output 03/09/19 03/09/19 03/10/19 1515:00 23:00 07:00 IntakeIntake Total 762 ml 320 ml 567 ml OutputOutput Total 310 ml 4110 ml 50 ml BalanceBalance 452 ml -3790 ml 517 ml Clear to auscultation bilaterally Regular rate and rhythm Soft nontender nondistended normoactive bowel sounds No edema Nonfocal Results Result Diagram: 03/09/19 0546 03/10/19 0455 Medications Medications Current Medications Amlodipine Besylate (Norvasc) 5 mg BID PO Last administered on 03/10/19 09:25; Admin Dose 5 MG; Start 03/05/19 at 21:00 Calcium Acetate (Phoslo) 667 mg WITH MEALS PO Last administered on 03/10/19 12:09; Admin Dose 667 MG; Start 03/06/19 at 07:35 Clopidogrel Bisulfate (plaVIX) 75 mg DAILY PO Last administered on 03/10/19 09:24; Admin Dose 75 MG; Start 03/05/19 at 20:30 Doxazosin Mesylate (Cardura) 8 mg BID PO Last administered on 03/10/19 09:24; Admin Dose 8 MG; Start 03/05/19 at 21:00 Gabapentin (Neurontin) 100 mg BID PO Last administered on 03/10/19 09:19; Admin Dose 100 MG; Start 03/05/19 at 21:00 Levothyroxine Sodium (Synthroid) 25 mcg BEFORE BREAKFAST PO Last administered on 03/10/19 06:03; Admin Dose 25 MCG; Start 03/06/19 at 07:00 Losartan Potassium (Cozaar) 50 mg BID PO Last administered on 03/10/19 09:24; Admin Dose 50 MG; Start 03/05/19 at 21:00 Methyldopa (Aldomet) 250 mg BID PO Last administered on 03/10/19 09:19; Admin Dose 250 MG; Start 03/05/19 at 21:00 Pantoprazole (Protonix Tab) 40 mg AC BREAKFAST PO Last administered on 03/10/19at 06:05; Admin Dose 40 MG; Start 03/06/19 at 07:00 Miscellaneous Information 1 ea NOTE XX ; Start 03/05/19 at 21:00 Glucose (Glutose) 15 gm Q15M PRN PO DECREASED GLUCOSE; Start 03/05/19 at 21:00 Glucose (Glutose) 22.5 gm Q15M PRN PO DECREASED GLUCOSE; Start 03/05/19 at 21:00 Dextrose (D50w Syringe) 25 ml Q15M PRN IV DECREASED GLUCOSE; Start 03/05/19 at 21:00 Dextrose (D50w Syringe) 50 ml Q15M PRN IV DECREASED GLUCOSE; Start 03/05/19 at 21:00 Glucagon (Glucagen) 1 mg Q15M PRN IM DECREASED GLUCOSE; Start 03/05/19 at 21:00 Glucose (Glutose) 15 gm Q15M PRN BUCCAL DECREASED GLUCOSE; Start 03/05/19 at 21:00 Clonazepam (Klonopin) 0.5 mg Q6H PRN PO ANXIETY Last administered on 03/10/19 09:24; Admin Dose 0.5 MG; Start 03/06/19 at 02:00 Insulin Aspart (Novolog Insulin Pen) NOVOLOG *MODERATE* ALGORITHM WITH MEALS BEDTIME SC Last administered on 03/09/19 08:36; Admin Dose 7 UNIT; Start 03/06/19 at 07:35 Diagnostic Test (Pha) (Accu-Chek) 1 ea AC MEALS AND BEDTIME XX Last administered on 03/10/19 11:00; Admin Dose 1 EA; Start 03/06/19 at 07:05 Insulin Glargine (Lantus) 10 units QAM SC Last administered on 03/09/19 08:30; Admin Dose 10 UNITS; Start 03/06/19 at 09:00 Miscellaneous Information Patients own medicat... BID@10,16 XX Last a dministered on 03/10/19at 10:00; Admin Dose 1 EA; Start 03/06/19 at 10:00 Morphine Sulfate (morphine) 2 mg Q3H PRN IV SEVERE PAIN LEVEL 7-10 Last administered on 03/10/19 12:16; Admin Dose 2 MG; Start 03/07/19 at 11:00 Zolpidem Tartrate (Ambien) 5 mg HS PRN PO INSOMNIA Last administered on 03/09/19 04:55; Admin Dose 5 MG; Start 03/08/19 at 08:30 Labetalol HCl (Normodyne) 400 mg TID PO Last administered on 03/10/19 13:17; Admin Dose 400 MG; Start 03/08/19 at 21:00 Isosorbide Dinitrate (Isordil) 20 mg TID PO Last administered on 03/10/19 13:17; Admin Dose 20 MG; Start 03/08/19 at 21:00 Clonidine HCl (Catapres-Tts 3 Patch) 1 patch Q7D TRANSDERM Last administered on 03/09/19 08:32; Admin Dose 1 PATCH; Start 03/09/19 at 08:30 Clonidine (Catapres) 0.2 mg QID PRN PO sbp>160 Last administered on 03/10/19 12:10; Admin Dose 0.2 MG; Start 03/09/19 at 11:30 Heparin Sodium (Porcine) (Heparin (1000 Units/ml)) 2,000 unit WITH DIALYSIS HE Last administered on 03/09/19 14:54; Admin Dose 2,000 UNIT; Start 03/09/19 at 13:00 Heparin Sodium (Porcine) (Heparin (1000 Units/ml)) 2,000 unit WITH DIALYSIS HE Last administered on 03/09/19 14:51; Admin Dose 2,000 UNIT; Start 03/09/19 at 13:00 Nitroglycerin/ Dextrose 250 ml @ 0 mls/hr TITRATE IV Last administered on 03/10/19 06:02; Admin Dose 54 MLS/HR; Start 03/09/19 at 18:00 Tramadol HCl (Ultram) 50 mg Q6H PRN PO MODERATE PAIN LEVEL 4-6 Last administered on 03/10/19 09:49; Admin Dose 50 MG; Start 03/10/19 at 09:30 Hydralazine HCl (Apresoline) 200 mg TID PO Last administered on 03/10/19 13:16; Admin Dose 200 MG; Start 03/10/19 at 13:00 VTE Prophylaxis Risk score (from Nsg)>0 risk: 3 SCD applied (from Ns): Yes Lines/Catheters IV Catheter Type: Saline Lock Ayala in Place: No Assessment/Plan Assessment/Plan 48-year-old female with hypertensive urgency, on nitroglycerin drip Poorly controlled hypertension End-stage renal disease on hemodialysis Noncompliance with medical therapy and outpatient dialysis Hyperlipidemia Atypical chest pain Chronic depression Wean off nitroglycerin drip Transfer to telemetry Continue oral antihypertensives. I had a long talk with her and convinced her to take hydralazine Start Lexapro Nephrology and cardiology follow-up CRISTO FERNANDES MD Mar 10, 2019 14:32
--- NOTE | 2019-03-10 16:43 | QN ---
Documentation Comment [id number] CHANCE PRICE MD Mar 10, 2019 16:43
[2019-03-10] MEDS: ESCITALOPRAM 10 MG TAB PO SCH (17:34)
[2019-03-10] MEDS ORDERED: HEPARIN 1000 UNITS/ML 10 ML INJ CATHETER SCH (21:30)
[2019-03-10] MEDS: SODIUM CHLORIDE 1 GM TAB PO SCH (23:47)
[2019-03-11] VITALS (8 sets, daily range): BP systolic 122–191; BP diastolic 58–82; PULSE 60–66; RESP 18
[2019-03-11] MEDS: morphine 2 MG INJ IV PRN ×2 (00:22→11:28)
[2019-03-11] MEDS: LEVOTHYROXINE 25 MCG TAB PO SCH (06:19)
[2019-03-11] MEDS: PANTOPRAZOLE (EC) 40 MG TAB PO SCH (06:19)
[2019-03-11] MEDS: INSULIN ASPART [NOVOLOG] 3 ML PEN SC SCH ×3 (07:55→17:34)
--- NOTE | 2019-03-11 07:58 | PN ---
DATE: 03/10/2019 SUBJECTIVE: The patient was seen yesterday. Note was not saved. The patient has history of ESRD, h ypertension, noncompliance with 4 times a week dialysis as well as noncompliance with taking blood pr essure medications, still on nitro drip. OBJECTIVE: VITAL SIGNS: Blood pressure has been running at 174/67. NECK: Supple. LUNGS: Clear with few rhonchi. CARDIOVASCULAR: S1, S2 normal. ABDOMEN: Soft. EXTREMITIES: Decreasing edema. CENTRAL NERVOUS SYSTEM: The patient is awake, alert, moving both upper and lower extremities. LABORATORY DATA: Hematocrit 29.4. Sodium 126. IMPRESSION: 1. End-stage renal disease. 2. Uncontrolled hypertension, noncompliance with dialysis regimen, diet and medication, refused 4 ti mes a week hemodialysis. 3. Hyperglycemia. 4. Hyponatremia. 5. Obesity. PLAN: To continue hemodialysis 4 times a week. Continue blood pressure medication. The patient jude l benefit from residential facility for close monitoring versus home health nurse to visit her at home more often with medication compliance. Dictated By: CHANCE PRICE MD BS/NTS Conf#: [id number] DID#: [id number] CC: CRISTO FERNANDES MD;*EndCC*
[2019-03-11] MEDS: ACCU-CHEK XX SCH ×3 (08:17→17:34)
[2019-03-11] MEDS ORDERED: SPIRONOLACTONE 25 MG TAB PO SCH (09:00)
[2019-03-11] MEDS: DOXAZOSIN 4 MG TAB PO SCH (10:09)
[2019-03-11] MEDS: SODIUM CHLORIDE 1 GM TAB PO SCH (10:09)
[2019-03-11] MEDS: GABAPENTIN 100 MG CAP PO SCH (10:10)
[2019-03-11] MEDS: CLOPIDOGREL 75 MG TAB PO SCH (10:10)
[2019-03-11] MEDS: ISOSORBIDE DINITRATE 20 MG TAB PO SCH ×2 (10:10→13:46)
[2019-03-11] MEDS: LABETALOL 200 MG TAB PO SCH ×2 (10:10→13:46)
[2019-03-11] MEDS: LOSARTAN 50 MG TAB PO SCH (10:11)
[2019-03-11] MEDS: ESCITALOPRAM 10 MG TAB PO SCH (10:11)
[2019-03-11] MEDS: CALCIUM ACETATE 667 MG CAP PO SCH ×3 (10:11→17:35)
[2019-03-11] MEDS: METHYLDOPA 250 MG TAB PO SCH (10:11)
[2019-03-11] MEDS: AMLODIPINE 5 MG TAB PO SCH (10:11)
[2019-03-11] MEDS: INSULIN GLARGINE [LANTus] (100 UNITS/ML) SYG SC SCH (10:29)
--- NOTE | 2019-03-11 13:03 | PDOCDIS ---
Discharge Instructions CONDITION [id number] Patient Condition: Walter Stable HOME CARE INSTRUCTIONS: Sandra Diet Instructions: ELIEZER Vasques MD Mar 11, 2019 13:03
--- NOTE | 2019-03-11 13:04 | DS ---
Date/Time of Note Date/Time of Note DATE: 03/11/19 TIME: 13:04 Discharge Summary Admission/Discharge Info Admit Date/Time Mar 05, 2019 at 18:08 Discharge Date/Time Patient Condition: Stable Hospital Course 48 f with history of ESRD on HD , noncompliance with medication and HD who presented with hypertensive urgency in the setting of noncompliance with medications. She was seen in consultation with cardiology and nephrology . She was dialyzed and her antihypertensives resumed. BP improved . Compliance was extensively counselled , All prescriptions were faxed to her dialysis center. She was discharged home in stable conditions. Home Meds Active Scripts Clonidine Patch (CLONIDINE PATCH) 0.3 Mg/24 Hr Patch, 1 PATCH TRANSDERM Q7D for 60 Days, #10 ADH.PATCH Prov:ELIEZER MANDUJANO MD 03/11/19 Methyldopa* (Methyldopa*) 250 Mg Tablet, 250 MG PO BID for 30 Days, TAB Prov:CRISTO FERNANDES MD 02/26/19 Labetalol Hcl* (Labetalol Hcl*) 200 Mg Tablet, 300 MG PO TID for 30 Days, TAB Prov:CRISTO FERNANDES MD 02/26/19 Losartan Potassium* (Cozaar*) 50 Mg Tablet, 50 MG PO BID for 30 Days, TAB 3 Refills Prov:CRISTO FERNANDES MD 02/18/19 Reported Medications Levothyroxine Sodium* (Levothyroxine Sodium*) 25 Mcg Tablet, 25 MCG PO BEFORE BREAKFAST, #30 TAB 09/06/18 Minoxidil* (Lonitin*) 2.5 Mg Tab, 2.5 MG PO BID, TAB 09/06/18 Pantoprazole* (Pantoprazole*) 40 Mg Tablet.dr, 40 MG PO AC BREAKFAST, TAB 08/28/18 Discontinued Reported Medications Insulin Glargine,Hum.rec.anlog (Basaglar Kwikpen U-100) 100 Unit/1 Ml Insuln.pen, 10 UNIT SC QAM, EA 09/06/18 Clopidogrel Bisulfate* (Clopidogrel Bisulfate*) 75 Mg Tablet, 75 MG PO DAILY, #30 TAB 09/06/18 Gabapentin* (Gabapentin*) 100 Mg Capsule, 100 MG PO BID, #90 CAP 09/06/18 [Nephro-Sandra] No Conflict Check, 1 TAB PO DAILY 09/06/18 Ondansetron Hcl* (Zofran*) 4 Mg Tab, 4 MG PO Q6H PRN for NAUSEA AND OR VOMITING, TAB 09/06/18 Insulin Lispro (Humalog Kwikpen U-100) 100 Unit/1 Ml Insuln.pen, 2 UNIT SQ WITH MEALS, EA 08/28/18 Calcium Acetate* (Calcium Acetate*) 667 Mg Capsule, 667 MG PO WITH MEALS, #30 CAP 08/28/18 Minoxidil* (Lonitin*) 2.5 Mg Tab, 2.5 MG PO BID, TAB 08/28/18 Discontinued Scripts Isosorbide Mononitrate* (Isosorbide Mononitrate*) 30 Mg Tab.er.24h, 60 MG PO BID for 30 Days Prov:CRISTO FERNANDES MD 02/25/19 Doxazosin Mesylate* (Cardura*) 4 Mg Tablet, 8 MG PO BID for 30 Days, TAB Prov:CRISTO FERNANDES MD 02/25/19 Carvedilol* (Carvedilol*) 25 Mg Tablet, 50 MG PO BID for 30 Days, TAB Prov:CRISTO FERNANDES MD 02/25/19 Clonidine Hcl* (Catapres*) 0.2 Mg Tablet, 0.2 MG PO TID for 30 Days, TAB Prov:CRISTO FERNANDES MD 02/24/19 Hydralazine Hcl* (Apresoline*) 50 Mg Tab, 100 MG PO Q8H for 30 Days, TAB 3 Refills Prov:CRISTO FERNANDES MD 02/18/19 Amlodipine Besylate* (Amlodipine Besylate*) 5 Mg Tablet, 5 MG PO BID for 30 Days, TAB 3 Refills Prov:CRISTO FERNANDES MD 02/18/19 Isosorbide Mononitrate* (Isosorbide Mononitrate*) 30 Mg Tab.er.24h, 30 MG PO BID for 30 Days, 3 Refills Prov:CRISTO FERNANDES MD 02/18/19 Doxazosin Mesylate* (Cardura*) 4 Mg Tablet, 4 MG PO BID for 30 Days, TAB 3 Refills Prov:CRISTO FERNANDES MD 02/18/19 Carvedilol* (Carvedilol*) 25 Mg Tablet, 50 MG PO BID for 30 Days, TAB 3 Refills Prov:CRISTO FERNANDES MD 02/18/19 Follow-up Plan Dr Carr of nephrology in 7 days Primary Care Provider Not On Staff Doctor Pending Labs Laboratory Tests Test 03/10/19 17:32 03/10/19 23:36 03/11/19 08:09 03/11/19 10:25 Bedside 149 150 122 136 Glucose mg/dL (70-220) mg/dL (70-220) mg/dL (70-220) mg/dL (70-220) Test 03/11/19 11:57 Bedside 196 Glucose mg/dL (70-220) ELIEZER MANDUJANO MD Mar 11, 2019 13:04
--- NOTE | 2019-03-11 13:12 | CONS ---
Assessment/Plan Assessment/Plan Assessment/Plan (Daily) 1. Recurrent hypertensive urgency/emergency; however, there is really a question of compliance on the medications. Home blood pressure medications listed. The patient already stated that she is not taking hydralazine and doxazosin. Plus, the patient was discharged on amlodipine, which is not found in her blood pressure medications. The patient also said that she had not been taking clonidine patch which she was discharged with last time which caused rebound hypertension. The patient is noncompliant with hemodialysis. 2. Chest pain. Need to rule out for ischemia in the setting of hyper tensive/emergency. 3. Diabetes. 4. Hyperlipidemia. 5. Anxiety disorder. 6. Mild hyponatremia Assessment/Plan (Daily) - fluid restriction -c/w Phoslo -Continue with current meds. -need AV fistula per primary as outpatient as soon as possible -Next HD tomorrow status post HD yesterday - patient will benefit for hemodialysis 4 times a week but patient had been refusing -Patient will benefit from disposition to retirement facility versus home vs nurse to monitor patient's blood pressure and making sure the patient is compliant with her medications Consultation Date/Type/Reason Admit Date/Time Mar 05, 2019 at 18:08 Initial Consult Date Date/Time of Note DATE: 03/11/19 TIME: 13:08 24 HR Interval Summary Free Text/Dictation BP is better today. This post HD yesterday Patient refused dialysis 4 times a week Exam/Review of Systems Exam Vitals Vital Signs Date Temp Pulse Resp B/P (MAP) Pulse Ox O2 O2 Flow FiO2 Time Delivery Rate 03/11/19 97.8 64 18 122/60 97 11:15 (80) 03/10/19 Room Air 20:50 03/10/19 2.0 08:00 Intake and Output 03/10/19 03/10/19 03/11/19 1515:00 23:00 07:00 IntakeIntake Total 340 ml 120 ml 100 ml OutputOutput Total 50 ml 0 ml 2900 ml BalanceBalance 290 ml 120 ml -2800 ml Exam Gen: Awake alert oriented Neck: supple, no thyromegaly, no carotid bruits Lungs: clear bilaterally, decreased. CVS: regular rate and rhythm, no murmurs Abdomen: soft, bowel sounds present, no hepatosplenomegally, no masses, no rebound or guarding. Extremities: no edema, DP pulses are palpable Neuro: alert and oriented x 3 Skin:right chest Permcath Results Result Diagram: 03/09/19 0546 03/10/19 0455 Results 24hrs Laboratory Tests Test 03/10/19 17:32 03/10/19 23:36 03/11/19 08:09 03/11/19 10:25 Bedside Glucose 149 150 122 136 Test 03/11/19 11:57 Bedside Glucose 196 Medications Medication Current Medications Amlodipine Besylate (Norvasc) 5 mg BID PO Last administered on 03/11/19 10:11; Admin Dose 5 MG; Start 03/05/19 at 21:00 Calcium Acetate (Phoslo) 667 mg WITH MEALS PO Last administered on 03/11/19 10:11; Admin Dose 667 MG; Start 03/06/19 at 07:35 Clopidogrel Bisulfate (plaVIX) 75 mg DAILY PO Last administered on 03/11/19 10:10; Admin Dose 75 MG; Start 03/05/19 at 20:30 Doxazosin Mesylate (Cardura) 8 mg BID PO Last administered on 03/11/19 10:09; Admin Dose 8 MG; Start 03/05/19 at 21:00 Gabapentin (Neurontin) 100 mg BID PO Last administered on 03/11/19 10:10; Admin Dose 100 MG; Start 03/05/19 at 21:00 Levothyroxine Sodium (Synthroid) 25 mcg BEFORE BREAKFAST PO Last administered on 03/11/19 06:19; Admin Dose 25 MCG; Start 03/06/19 at 07:00 Losartan Potassium (Cozaar) 50 mg BID PO Last administered on 03/11/19 10:11; Admin Dose 50 MG; Start 03/05/19 at 21:00 Methyldopa (Aldomet) 250 mg BID PO Last administered on 03/11/19 10:11; Admin Dose 250 MG; Start 03/05/19 at 21:00 Pantoprazole (Protonix Tab) 40 mg AC BREAKFAST PO Last administered on 03/11 06:19; Admin Dose 40 MG; Start 03/06/19 at 07:00 Miscellaneous Information 1 ea NOTE XX ; Start 03/05/19 at 21:00 Glucose (Glutose) 15 gm Q15M PRN PO DECREASED GLUCOSE; Start 03/05/19 at 21:00 Glucose (Glutose) 22.5 gm Q15M PRN PO DECREASED GLUCOSE; Start 03/05/19 at 21:00 Dextrose (D50w Syringe) 25 ml Q15M PRN IV DECREASED GLUCOSE; Start 03/05/19 at 21:00 Dextrose (D50w Syringe) 50 ml Q15M PRN IV DECREASED GLUCOSE; Start 03/05/19 at 21:00 Glucagon (Glucagen) 1 mg Q15M PRN IM DECREASED GLUCOSE; Start 03/05/19 at 21:00 Glucose (Glutose) 15 gm Q15M PRN BUCCAL DECREASED GLUCOSE; Start 03/05/19 at 21:00 Clonazepam (Klonopin) 0.5 mg Q6H PRN PO ANXIETY Last administered on 03/10/19 09:24; Admin Dose 0.5 MG; Start 03/06/19 at 02:00 Insulin Aspart (Novolog Insulin Pen) NOVOLOG *MODERATE* ALGORITHM WITH MEALS BEDTIME SC Last administered on 03/11/19 12:28; Admin Dose 4 UNIT; Start 03/06/19 at 07:35 Diagnostic Test (Pha) (Accu-Chek) 1 ea AC MEALS AND BEDTIME XX Last administered on 03/11/19 08:17; Admin Dose 1 EA; Start 03/06/19 at 07:05 Insulin Glargine (Lantus) 10 units QAM SC Last administered on 03/11/19 10:29; Admin Dose 10 UNITS; Start 03/06/19 at 09:00 Miscellaneous Information Patients own medicat... BID@16 XX Last administered on 03/10/19 16:00; Admin Dose 1 EA; Start 03/06/19 at 10:00 Morphine Sulfate (morphine) 2 mg Q3H PRN IV SEVERE PAIN LEVEL 7-10 Last adminis tered on 03/11/19 11:28; Admin Dose 2 MG; Start 03/07/19 at 11:00 Zolpidem Tartrate (Ambien) 5 mg HS PRN PO INSOMNIA Last administered on 03/09/19 04:55; Admin Dose 5 MG; Start 03/08/19 at 08:30 Labetalol HCl (Normodyne) 400 mg TID PO Last administered on 03/11/19 10:10; Admin Dose 400 MG; Start 03/08/19 at 21:00 Clonidine HCl (Catapres-Tts 3 Patch) 1 patch Q7D TRANSDERM Last administered on 03/09/19 08:32; Admin Dose 1 PATCH; Start 03/09/19 at 08:30 Clonidine (Catapres) 0.2 mg QID PRN PO sbp>160 Last administered on 03/10/19 12:10; Admin Dose 0.2 MG; Start 03/09/19 at 11:30 Nitroglycerin/ Dextrose 250 ml @ 0 mls/hr TITRATE IV Last administered on 03/10/19 06:02; Admin Dose 54 MLS/HR; Start 03/09/19 at 18:00 Tramadol HCl (Ultram) 50 mg Q6H PRN PO MODERATE PAIN LEVEL 4-6 Last admin istered on 03/10/19 17:34; Admin Dose 50 MG; Start 03/10/19 at 09:30 Hydralazine HCl (Apresoline) 200 mg TID PO Last administered on 03/11/19 10:12; Admin Dose 200 MG; Start 03/10/19 at 13:00 Isosorbide Dinitrate (Isordil) 60 mg TID PO Last administered on 03/11/19 10:10; Admin Dose 60 MG; Start 03/10/19 at 21:00 Epoetin Marlo-epbx (Retacrit (Esrd)) 4,000 unit MoWeFr@1700 SC ; Start 03/11/19 a t 17:00 Escitalopram Oxalate (Lexapro) 10 mg DAILY PO Last administered on 03/11/19 10:11; Admin Dose 10 MG; Start 03/10/19 at 15:00 Spironolactone (Aldactone) 12.5 mg DAILY PO Last administered on 03/11/19 10:09; Admin Dose 12.5 MG; Start 03/11/19 at 09:00 Heparin Sodium (Porcine) (Heparin (1000 Units/ml)) 4,500 unit AFTER DIALYSIS CATHETER Last administered on 03/10/19 23:37; Admin Dose 4,500 UNIT; Start 03/10/19 at 21:30 HAYLEE CULVER MD Mar 11, 2019 13:12
--- NOTE | 2019-03-11 13:28 | CONS ---
Assessment/Plan Assessment/Plan Hospital Course (Demo Recall) Hypertension urgency Preserved left ventricular ejection fraction End-stage renal disease hemodialysis Diabetes Poor compliance Unfortunately, patient with intermittent medication compliance even while in the hospital. She was refusing p.o. medicines. Clonidine was switched to patch. Blood pressure trend currently improved, titrate meds as needed Fluid management via hemodialysis as per nephrology Consultation Date/Type/Reason Admit Date/Time Mar 05, 2019 at 18:08 Initial Consult Date Type of Consult Cardiology Date/Time of Note DATE: 03/11/19 TIME: 13:27 24 HR Interval Summary Free Text/Dictation Denies shortness of breath, chest pain, palpitations Exam/Review of Systems Vital Signs Vitals Vital Signs Date Temp Pulse Resp B/P (MAP) Pulse Ox O2 O2 Flow FiO2 Time Delivery Rate 03/11/19 97.8 64 18 122/60 97 11:15 (80) 03/10/19 Room Air 20:50 03/10/19 2.0 08:00 Intake and Output 03/10/19 03/10/19 03/11/19 1515:00 23:00 07:00 IntakeIntake Total 340 ml 120 ml 100 ml OutputOutput Total 50 ml 0 ml 2900 ml BalanceBalance 290 ml 120 ml -2800 ml Exam Constitutional: alert, oriented (No apparent distress) Head: normocephalic Respiratory: other (Coarse breath sounds bilaterally, no wheezing) Cardiovascular: regular rate and rhythm (S1-S2 heard) Gastrointestinal: soft, non-tender, bowel sounds Extremities: edema (Trace) Labs Result Diagram: 03/09/19 0546 03/10/19 0455 Results 24hrs Laboratory Tests Test 03/10/19 17:32 03/10/19 23:36 03/11/19 08:09 03/11/19 10:25 Bedside Glucose 149 150 122 136 Test 03/11/19 11:57 Bedside Glucose 196 Medications Medications Current Medications Amlodipine Besylate (Norvasc) 5 mg BID PO Last administered on 03/11/19at 10:11; Admin Dose 5 MG; Start 03/05/19 at 21:00 Calcium Acetate (Phoslo) 667 mg WITH MEALS PO Last administered on 03/11/19at 10:11; Admin Dose 667 MG; Start 03/06/19 at 07:35 Clopidogrel Bisulfate (plaVIX) 75 mg DAILY PO Last administered on 03/11/19 10:10; Admin Dose 75 MG; Start 03/05/19 at 20:30 Doxazosin Mesylate (Cardura) 8 mg BID PO Last administered on 03/11/19 10:09; Admin Dose 8 MG; Start 03/05/19 at 21:00 Gabapentin (Neurontin) 100 mg BID PO Last administered on 03/11/19 10:10; Admin Dose 100 MG; Start 03/05/19 at 21:00 Levothyroxine Sodium (Synthroid) 25 mcg BEFORE BREAKFAST PO Last administered on 03/11/19 06:19; Admin Dose 25 MCG; Start 03/06/19 at 07:00 Losartan Potassium (Cozaar) 50 mg BID PO Last administered on 03/11/19 10:11; Admin Dose 50 MG; Start 03/05/19 at 21:00 Methyldopa (Aldomet) 250 mg BID PO Last administered on 03/11/19 10:11; Admin Dose 250 MG; Start 03/05/19 at 21:00 Pantoprazole (Protonix Tab) 40 mg AC BREAKFAST PO Last administered on 02/28 06:19; Admin Dose 40 MG; Start 03/06/19 at 07:00 Miscellaneous Information 1 ea NOTE XX ; Start 03/05/19 at 21:00 Glucose (Glutose) 15 gm Q15M PRN PO DECREASED GLUCOSE; Start 03/05/19 at 21:00 Glucose (Glutose) 22.5 gm Q15M PRN PO DECREASED GLUCOSE; Start 03/05/19 at 21:00 Dextrose (D50w Syringe) 25 ml Q15M PRN IV DECREASED GLUCOSE; Start 03/05/19 at 21:00 Dextrose (D50w Syringe) 50 ml Q15M PRN IV DECREASED GLUCOSE; Start 03/05/19 at 21:00 Glucagon (Glucagen) 1 mg Q15M PRN IM DECREASED GLUCOSE; Start 03/05/19 at 21:00 Glucose (Glutose) 15 gm Q15M PRN BUCCAL DECREASED GLUCOSE; Start 03/05/19 at 21:00 Clonazepam (Klonopin) 0.5 mg Q6H PRN PO ANXIETY Last administered on 03/10/19 09:24; Admin Dose 0.5 MG; Start 03/06/19 at 02:00 Insulin Aspart (Novolog Insulin Pen) NOVOLOG *MODERATE* ALGORITHM WITH MEALS BEDTIME SC Last administered on 03/11/19 12:28; Admin Dose 4 UNIT; Start 03/06/19 at 07:35 Diagnostic Test (Pha) (Accu-Chek) 1 ea AC MEALS AND BEDTIME XX Last administered on 03/11/19 08:17; Admin Dose 1 EA; Start 03/06/19 at 07:05 Insulin Glargine (Lantus) 10 units QAM SC Last administered on 03/11/19 10:29; Admin Dose 10 UNITS; Start 03/06/19 at 09:00 Miscellaneous Information Patients own medicat... BID@10,16 XX Last administered on 03/10/19 16:00; Admin Dose 1 EA; Start 03/06/19 at 10:00 Morphine Sulfate (morphine) 2 mg Q3H PRN IV SEVERE PAIN LEVEL 7-10 Last admini stered on 03/11/19 11:28; Admin Dose 2 MG; Start 03/07/19 at 11:00 Zolpidem Tartrate (Ambien) 5 mg HS PRN PO INSOMNIA Last administered on 03/09/19 04:55; Admin Dose 5 MG; Start 03/08/19 at 08:30 Labetalol HCl (Normodyne) 400 mg TID PO Last administered on 03/11/19 10:10; Admin Dose 400 MG; Start 03/08/19 at 21:00 Clonidine HCl (Catapres-Tts 3 Patch) 1 patch Q7D TRANSDERM Last administered on 03/09/19 08:32; Admin Dose 1 PATCH; Start 03/09/19 at 08:30 Clonidine (Catapres) 0.2 mg QID PRN PO sbp>160 Last administered on 03/10/19 12:10; Admin Dose 0.2 MG; Start 03/09/19 at 11:30 Nitroglycerin/ Dextrose 250 ml @ 0 mls/hr TITRATE IV Last administered on 03/10/19 06:02; Admin Dose 54 MLS/HR; Start 03/09/19 at 18:00 Tramadol HCl (Ultram) 50 mg Q6H PRN PO MODERATE PAIN LEVEL 4-6 Last admi nistered on 03/10/19 17:34; Admin Dose 50 MG; Start 03/10/19 at 09:30 Hydralazine HCl (Apresoline) 200 mg TID PO Last administered on 03/11/19 10:12; Admin Dose 200 MG; Start 03/10/19 at 13:00 Isosorbide Dinitrate (Isordil) 60 mg TID PO Last administered on 03/11/19 10:10; Admin Dose 60 MG; Start 03/10/19 at 21:00 Epoetin Marlo-epbx (Retacrit (Esrd)) 4,000 unit MoWeFr@1700 SC ; Start 03/11/19 at 17:00 Escitalopram Oxalate (Lexapro) 10 mg DAILY PO Last administered on 03/11/19 10:11; Admin Dose 10 MG; Start 03/10/19 at 15:00 Spironolactone (Aldactone) 12.5 mg DAILY PO Last administered on 03/11/19 10:09; Admin Dose 12.5 MG; Start 03/11/19 at 09:00 Heparin Sodium (Porcine) (Heparin (1000 Units/ml)) 4,500 unit AFTER DIALYSIS CATHETER Last administered on 03/10/19at 23:37; Admin Dose 4,500 UNIT; Start 03/10/19 at 21:30 Estuardo Taylor DO Mar 11, 2019 13:28
[2019-03-11] MEDS ORDERED: EPOETIN ALFA-EPBX (ESRD) 4,000 UNIT/ML VIAL SC SCH (17:00)
== END 2019-03-11 20:54 | disposition home health service (06) | DRG 304 ==
LOC: E/R 14:59 → ICU 18:08 → TEL 03-10 18:58
PROVIDERS: ADMIT Internal Medicine; ATTEND Internal Medicine
PROC: 5A1D70Z Performance of Urinary Filtration, Intermittent, Less than 6 Hours Per Day (ICD-10-PCS; principal; 2019-03-05)
DX: I16.0 Hypertensive urgency (principal); N18.6 End stage renal disease; F33.9 Major depressive disorder, recurrent, unspecified; E87.1 Hypo-osmolality and hyponatremia; I12.0 Hypertensive chronic kidney disease with stage 5 chronic kidney disease or end stage renal disease; E11.22 Type 2 diabetes mellitus with diabetic chronic kidney disease; E03.9 Hypothyroidism, unspecified; F41.9 Anxiety disorder, unspecified; R07.89 Other chest pain; E11.65 Type 2 diabetes mellitus with hyperglycemia; E66.9 Obesity, unspecified; Z68.27 Body mass index [BMI] 27.0-27.9, adult; Z91.14 Patient's other noncompliance with medication regimen; Z99.2 Dependence on renal dialysis
CPT/HCPCS: 36415; 71045; 80048; 80053; 82962; 83735; 84100; 84484; 85025; 85610; 85730; 87081; 87340; 90935; 93005; 96374; 96375; 97116; 97162; 97530; J0360; J1644; J1815; J2270; J2405; Q5105

== ENCOUNTER 2019-03-18 08:57 | Inpatient (IN) | payer OTHER ==
[2019-03-18] VITALS (7 sets, daily range): BP systolic 162–178; BP diastolic 61–83; PULSE 62–66; RESP 9–17; Ht 162.6 cm; Wt 75.7 kg
[~2019-03-18] VITALS: Ht 162.6 cm; Wt 75.7 kg
[2019-03-18] MEDS ORDERED: KETOROLAC 15 MG INJ IV STA (10:19)
[2019-03-18] MEDS ORDERED: DIPHENHYDRAMINE 50 MG INJ IV ONE (10:30)
[2019-03-18] MEDS ORDERED: METOCLOPRAMIDE 10 MG INJ IV ONE (10:30)
[2019-03-18] MEDS ORDERED: hydrALAzine 20 MG INJ IV ONE ×2 (12:30→15:30)
[2019-03-18] MEDS ORDERED: PENICILLIN V K 250 MG TAB PO ONE (15:30)
[2019-03-18] MEDS ORDERED: ACETAMINOPHEN 325 MG TAB PO PRN (15:30)
[2019-03-18] MEDS ORDERED: ONDANSETRON 4 MG INJ IV PRN ×2 (15:30→16:30)
[2019-03-18] MEDS ORDERED: AMLODIPINE 10 MG TAB PO ONE (16:00)
[2019-03-18] MEDS ORDERED: CLONIDINE 0.3 MG/24 HR PATCH TRANSDERM SCH (16:00)
[2019-03-18] MEDS: AMLODIPINE 10 MG TAB PO SCH (16:30)
[2019-03-18] MEDS: NITROGLYCERIN 50 MG/D5W (PMX) 250 ML IV SCH (18:51)
[2019-03-18] MEDS: clonAZEPAM 0.5 MG TAB PO SCH (22:49)
[2019-03-18] MEDS: LABETALOL 100 MG TAB PO SCH (22:49)
[2019-03-18] MEDS: ISOSORBIDE MONONITRATE(SR)30 MG TAB PO SCH (22:50)
[2019-03-18] MEDS: LOSARTAN 50 MG TAB PO SCH (22:51)
[2019-03-19] VITALS (93 sets, daily range): BP systolic 116–190; BP diastolic 54–108; PULSE 57–79; RESP 3–26
[2019-03-19] MEDS ORDERED: morphine 2 MG INJ IV PRN (04:00)
[2019-03-19] MEDS: NITROGLYCERIN 50 MG/D5W (PMX) 250 ML IV SCH ×2 (04:09→10:15)
[2019-03-19] MEDS ORDERED: HEPARIN 1000 UNITS/ML 10 ML INJ CATHETER SCH (04:30)
[2019-03-19] MEDS ORDERED: GLUCAGON 1 MG INJ IM PRN (08:30)
[2019-03-19] MEDS ORDERED: GLUCOSE GEL 15 GRAM TUBE PO PRN ×2 (08:30)
[2019-03-19] MEDS ORDERED: GLUCOSE GEL 15 GRAM TUBE BUCCAL PRN (08:30)
[2019-03-19] MEDS ORDERED: DEXTROSE 50% 50 ML SYRINGE IV PRN ×2 (08:30)
[2019-03-19] MEDS: INSULIN ASPART [NOVOLOG] 3 ML PEN SC SCH ×4 (08:55→20:26)
[2019-03-19] MEDS: DOXAZOSIN 4 MG TAB PO SCH ×3 (08:58→20:25)
[2019-03-19] MEDS: ISOSORBIDE MONONITRATE(SR)30 MG TAB PO SCH ×2 (08:58→20:26)
[2019-03-19] MEDS: LABETALOL 100 MG TAB PO SCH ×3 (08:58→20:25)
[2019-03-19] MEDS: METHYLDOPA 250 MG TAB PO SCH ×3 (08:58→20:25)
[2019-03-19] MEDS: AMLODIPINE 10 MG TAB PO SCH (08:59)
[2019-03-19] MEDS: clonAZEPAM 0.5 MG TAB PO SCH ×3 (09:00→20:25)
[2019-03-19] MEDS: LOSARTAN 50 MG TAB PO SCH ×2 (09:01→20:25)
[2019-03-19] MEDS: hydrALAzine 20 MG INJ IV PRN ×2 (13:20→18:46)
== END 2019-03-19 23:48 | disposition home health service (06) | DRG 304 ==
LOC: E/R 08:57 → ICU 15:19 → CANRESERV 19:31 → EDBEDREQ 20:08 → EDBEDREQSVC 20:08
PROVIDERS: ADMIT Internal Medicine; ATTEND Internal Medicine
PROC: 5A1D70Z Performance of Urinary Filtration, Intermittent, Less than 6 Hours Per Day (ICD-10-PCS; principal; 2019-03-19)
DX: I16.0 Hypertensive urgency (principal); N18.6 End stage renal disease; I12.0 Hypertensive chronic kidney disease with stage 5 chronic kidney disease or end stage renal disease; Z99.2 Dependence on renal dialysis; E03.9 Hypothyroidism, unspecified; Z91.19 Patient's noncompliance with other medical treatment and regimen; K04.7 Periapical abscess without sinus; F41.9 Anxiety disorder, unspecified
CPT/HCPCS: 36415; 71045; 80048; 82962; 84484; 85025; 87081; 90935; 93005; 96374; 96375; J0360; J1200; J1815; J1885; J2270; J2765